=== PATIENT | male | born 1950 | race Caucasian/White ===

== ENCOUNTER → 2017-10-15 08:50 | Outpatient (CLI) | payer MEDICARE, MEDICAID, SELFPAY ==
--- NOTE | 2017-10-15 13:38 | PFT ---
INTRODUCTION: The patient is a 66-year-old male currently under the care of Dr. Garcia that presents for pulmonary function testing secondary to a diagnosis of COPD. Respiratory therapy reports good patient effort and reports no other concerns. Bronchodilators were used during testing. INTERPRETATION: Forced expiration spirometry demonstrates the presence of a mild large airways obstructive ventilatory defect. There was no significant response to aerosolized bronchodilators, based upon strict ATS criteria. Spirograms are of good quality and do not plateau indicating slow emptying of the lungs. Body plethysmography was performed and reveals an elevated TLC, indicative of underlying hyperinflation. Diffusing capacity by single breath CO is mildly reduced at 61% of predicted. There has been stability in the patient's PFTs since they were last completed in December 2016. IMPRESSION: These pulmonary function studies demonstrate the presence of an irreversible mild large airways obstructive ventilatory defect with associated hyperinflation and reduction in diffusing capacity. PFTs have remained stable since December 2016.
== END ==
PROVIDERS: Family Provider Family Medicine; PCP Family Medicine; Visit Provider Internal Medicine Critical Care Medicine
DX: J44.9 Chronic obstructive pulmonary disease, unspecified (principal); J45.40 Moderate persistent asthma, uncomplicated
CPT/HCPCS: 94060; 94726; 94729

== ENCOUNTER → 2017-11-06 10:45 | Outpatient (CLI) | payer MEDICARE, MEDICAID, SELFPAY ==
[2017-11-06 12:04] VITALS: PULSE 69; PULSE 71; PULSE 72; PULSE 74; PULSE 81; PULSE 87; O2SAT 90; O2SAT 91; O2SAT 92; O2SAT 93; O2SAT 95
--- NOTE | 2017-11-07 07:19 | WT_ITS ---
PSN 6 Minute Walk Test - 6 Minute Walk Test 6 Minute Walk Test: 6 Minute Walk Test PSN:6-Minute Walk Test Start: 11/06/17 12: 03 Freq: Status: Active Protocol: RESP.6MINW Document 11/06/17 12:04 HERIBERTO (Rec: 11/06/17 12:08 HERIBERTO [id number]) 6 Minute Walk Test Date Performed 11/06/17 Time Performed 11:10 Height 6 ft Weight: 119.295 kg Weight in Pounds 263.[address]: Bandar Garcia Assistive device used: None Pre-test Oxygen Delivery Method Room Air Pulse Ox (%) 93 Pulse Rate (60-100 beats/min) 71 Dyspnea Rahul Scale (0-10) 0 Exertion Rahul Scale (6-20) 6 1st minute Oxygen Delivery Method Room Air Pulse Ox (%) 95 Pulse Rate (60-100 beats/min) 71 2nd minute Oxygen Delivery Method Room Air Pulse Ox (%) 92 Pulse Rate (60-100 beats/min) 72 3rd minute Oxygen Delivery Method Room Air Pulse Ox (%) 91 Pulse Rate (60-100 beats/min) 74 4th minute Oxygen Delivery Method Room Air Pulse Ox (%) 91 Pulse Rate (60-100 beats/min) 81 5th minute Oxygen Delivery Method Room Air Pulse Ox (%) 90 Pulse Rate (60-100 beats/min) 87 6th minute Oxygen Delivery Method Room Air Pulse Ox (%) 92 Pulse Rate (60-100 beats/min) 87 Dyspnea Rahul Scale (0-10) 0.5 Exertion Rahul Scale (6-20) 12 Post-test Oxygen Delivery Method Room Air Pulse Ox (%) 93 Pulse Rate (60-100 beats/min) 69 Full Laps Walked 16 Partial Lap, Number of Tiles Walked 0 Total Distance Walked (ft) 944 - Interpretation Interpretation: The patient was able to ambulate only 944 feet over the course of 6 minutes on room air with no assistive devices or breaks. The patient did have significant desaturation as low as 90%, but no tachycardia was noted. These findings are consistent with a respiratory limitation to exercise tolerance. - Recommendations Recommendations: No supplemental oxygen is indicated at this time. However, patient will need to be followed closely given level of desaturation.
== END ==
PROVIDERS: Family Provider Family Medicine; PCP Family Medicine; Visit Provider Nurse Practitioner Acute Care
DX: J96.11 Chronic respiratory failure with hypoxia (principal)
CPT/HCPCS: 94618

== ENCOUNTER → 2018-06-22 09:49 | Outpatient (CLI) | payer MEDICARE, MEDICAID, SELFPAY ==
--- NOTE | 2018-06-22 10:00 | RAD_ITS ---
STUDY: X-RAY - THORACIC SPINE REASON FOR EXAM: Male, 67 years old. Chronic back pain. TECHNIQUE: 5 view(s) of the thoracic spine were obtained. COMPARISON: None. FINDINGS: There is generalized osteopenia. There are postsurgical changes of the lower cervical spine. There is increased kyphosis. There is no substantial scoliosis. Normal thoracic vertebrae and endplates. There is multilevel intervertebral disc space narrowing with osteophyte formation and right paravertebral ossification. There is substantial linear atelectasis/scarring at both bases with cardiomegaly. RAD/Thoracic Spine 3 Views IMPRESSION: Osteopenia with diffuse thoracic spondylosis. No acute abnormality is identified. Electronically Signed: Tex Hobson MD at 14:20 EDT , Service support ,
--- NOTE | 2018-06-22 10:15 | RAD_ITS ---
STUDY: X-RAY - CERVICAL SPINE REASON FOR EXAM: Male, 67 years old. Neck pain. TECHNIQUE: 4 view(s) of the cervical spine were obtained. COMPARISON: October 18, 2016 FINDINGS: There is stable generalized osteopenia. Normal anterior atlantoaxial articulation. Normal odontoid process. Normal cervical lordosis. Anterior and posterior fusion of the cervical spine from C2 to C6 posteriorly and C3-C6 anteriorly is stable. There is fusion of the intervertebral disc spaces at C3-4, C4-5 and C5-6. There is stable moderate intervertebral disc space narrowing at C6-7. There is anterior bony neural foraminal encroachment bilaterally at C6-7. The soft tissue structures are unremarkable. RAD/Cerv Spine 4 or 5 Views IMPRESSION: Post surgical changes with disc degeneration at C6-7. See discussion above. Electronically Signed: Tex Hobson MD at 14:22 EDT , Service support ,
== END ==
PROVIDERS: Family Provider Family Medicine; PCP Family Medicine
DX: G89.4 Chronic pain syndrome (principal)
CPT/HCPCS: 72050; 72072

== ENCOUNTER 2018-07-26 10:46 | Day surgery (SDC) | payer MEDICARE, MEDICAID, SELFPAY ==
[2018-07-26 11:09] VITALS: BP 140/76; PULSE 61; RESP 16; TEMP 36.7; O2SAT 93; BMI 35.5
--- NOTE | 2018-07-26 12:00 | COLBX_PTH ---
PATIENT: NURIA SHARPE LOC: EN U#:[id number] AGE/SX: 67/M ROOM: RE07/26/[address]: Dr. Nuria Hoyt MD : 1950 BED: DIS: 07/26/2018 SPEC #: [id number] RECD: 07/26/18 15:13 STATUS: ANNIE DI #: [id number] KOJO: 07/26/18 12:[address]: Nuria Hoyt DEPT: SURGICAL PATHOLOGY RECD BY: Sergio Lutz ENTERED: 07/27/18 10:18 SP TYPE: COLON BX OTHR DR: Dr. Oracio Mercado MD Tissues: COLON BIOPSY Procedures: Surgery Specimen Level IV HEADER OPERATION: Colonoscopy (MAC) PRE-OP DIAGNOSIS: History of colon polyps TISSUE SUBMITTED: Proximal transverse colon polyps MICROSCOPIC DIAGNOSIS Proximal transverse colon polyp, biopsy: Fragments of tubular adenoma. Fecal debris. AM:robina 07/28/18 MICROSCOPIC DESCRIPTION Slides are reviewed. GROSS DESCRIPTION Received is one container labeled with the patient name and designated proximal transverse colon polyp. The specimen consists of multiple irregular fragments of light giles pink soft tissue with fecal material that in aggregate measure 1 x 1 x 0.2 cm. The specimen is totally submitted in one cassette. / SJ:sp 07/27/18 TC: 5 CPT: 16276
--- NOTE | 2018-07-26 12:14 | PCM.HP.BLA ---
History and Physical Date of Admission: 07/26/18 HISTORY AND PHYSICAL ? George Dewitt 1950 ? REFERRING PHYSICIAN: ??Oracio Mercado MD ? CHIEF COMPLAINT: ??colon consult ? HPI: The patient is a 67 year old male referred for endoscopy. ?George notes a personal history of colonic polyps and is due for surveillance colonoscopy, last was in [address] Hernández with adenomatous polyps removed at that time. ?Patient?denies any change in bowel habits, weight changes, blood in stools, black tarry stools or abdominal pain. ?Denies family history of colon cancer. ?The patient ?notes no upper GI complaints currently. ? Past medical history significant for COPD, obstructive sleep apnea, spinal stenosis, depression and anxiety. ?He follows with Dr. Mercado for his chronic medical conditions and also follows with pain management. ?He denies any chest pain or recent hospitalizations. ?He denies problems with sedation in the past. ? ? PAST MEDICAL HISTORY PAST MEDICAL HISTORY Diagnosis Date ? Acute gastritis without mention of hemorrhage ? ? Benign neoplasm of colon ? ? Carcinoma in situ of colon 09/02/2006 ? Colon polyps ? Central sleep apnea in conditions classified elsewhere(327.27) 10/20/2007 ? Mixed Central and obstructive sleep apnea. ? Cocaine abuse, unspecified 05/05/2008 ? STEPS Program. ? ? COPD (chronic obstructive pulmonary disease) (HCC) ? ? abnormal CT 2011 ? Depression ? ? Dysphagia ? ? Essential hypertension, benign 09/02/2006 ? Hypertrophy of prostate with urinary obstruction and other lower urinary tract symptoms (LUTS) 09/02/2006 ? Insomnia 08/18/2013 ? Other diseases of lung, not elsewhere classified ? ? HILAR ADENOPATHY ? Other emphysema (HCC) ? ? Emphysema ? Peripheral neuropathy 2010 ? Unspecified vitamin D deficiency 09/10/2006 ? ? PAST SURGICAL HISTORY PAST SURGICAL HISTORY Procedure Laterality Date ? APPENDECTOMY ? ? ? COLONOSCOP W/ OR W/O BRSH SPEC ? 07/21/2006 ? Colonoscopy ? COLONOSCOP W/ OR W/O BRSH SPEC ? 09/22/2008 ? Colonoscopy ? COLONOSCOP W/ OR W/O BRSH SPEC ? 04/13/2014 ? Colonoscopy ? COLONOSCOP W/ OR W/O BRSH SPEC ? 07/17/14 ? Colonoscopy ?incomplete ? COLONOSCOP W/ OR W/O BRSH SPEC ? 07/19/14 ? Colonoscopy ? EGD W/O [facility] SPECIMEN W/BX ? 10/20/06 ? OP BRONCHOS DIAG, W/WO WASHING ? ? Bronchoscopy ? OPEN RX ANKLE DISLOCATN+FIXATN ? ? ? ORIF Ankle rt ? PAST SURGICAL HISTORY OF ? ? ? Left hand surgery ? PAST SURGICAL HISTORY OF ? 05/12/2007 ? Prostate vaporization ? PAST SURGICAL HISTORY OF ? 05/06/2016 ? Right eye, [place] lid replacement ? PAST SURGICAL HISTORY OF Right 02/10/2017 ? correction fo ptosis-Dr. Rollins ? ? CURRENT MEDICATIONS ? Current Outpatient Prescriptions: zolpidem (AMBIEN) 10 mg tab TAKE 1 TABLET BY MOUTH AT BEDTIME NEEDED clonazePAM (KLONOPIN) 1 mg tablet TAKE 1 TABLET TWICE DAILY NEEDED mirtazapine (REMERON) 45 mg tablet Take 1 tablet by mouth daily at bedtime. potassium chloride (K-TAB) 10 mEq tablet Take 2 tablets by mouth once daily. hydroCHLOROthiazide (HYDRODIURIL, ESIDRIX) 25 mg tablet Take 1 tablet by mouth once daily. omeprazole (PRILOSEC) 20 mg capsule Take 1 capsule by mouth once daily. atenolol (TENORMIN) 50 mg tablet Take 1 tablet by mouth once daily. gabapentin (NEURONTIN) 800 mg tablet Take 1 tablet by mouth three times daily. HYDROmorphone (DILAUDID) 4 mg tablet 1 tab TID or as needed methadone (DOLOPHINE) 10 mg tablet Take 10 mg in AM and at noon, take 20 mg at night albuterol HFA (PROAIR HFA) 90 mcg/actuation inhaler Inhale 2 Puffs as instructed every 6 hours as needed. ipratropium (ATROVENT) 0.02 % nebulizer solution Use 2.5 mL via nebulizer four times daily as needed for Wheezing/Shortness of Breath. Use over 5-15minutes. polyethylene glycol 3350 (MIRALAX) 17 gram/dose powder Use as directed for constipation COMPOUNDED PRESCRIPTION BiPap supplies: tubing and mask for replacement. DX: G47.37 tiZANidine (ZANAFLEX) 4 mg tablet Take 1 tablet by mouth every 8 hours as needed (muscle spasms). fluticasone-salmeterol (ADVAIR DISKUS) 250-50 mcg/dose dsdv Inhale 1 Puff as instructed twice daily. RINSE AND GARGLE MOUTH WITH WATER AFTER EACH USE. albuterol 2.5 mg /3 mL (0.083 %) INHALATION nebulizer solution Use 3 mL via nebulizer every 4 hours as needed for Wheezing/Shortness of Breath. Use over 5-15minutes.4 times daily COMPOUNDED PRESCRIPTION ASV setting of 10/6/15 cm of water with heated humidification, Mask (per patient preference) and lifetime supplies ?DX: PHIL 327.23, Central sleep apnea syndrome 327.21 SENNOSIDES 8.6 MG TAB take 2 tablets twice daily as needed for constipation per Dr Loco ? No current facility-administered medications for this visit. ? ALLERGIES: Soma [Carisoprodol]; Lyrica [Pregabalin]; Metoclopramide ? PERSONAL HISTORY: SOCIAL HISTORY Social History ??Marital status: ?Spouse name: Milana Jerome ?Years of education: ?Number of children: 2 ? Social History Main Topics ??Smoking status: Former Smoker ?Packs/day: 1.00 ?Years: 30.00 ?Types: Cigarettes ?Quit date: 09/14/2012 ??Smokeless tobacco: Never Used ?Alcohol use: Yes ?Comment: Very little for 2-3 years ??Drug use: No ?Comment: Snorting 04/2008 Other Topics ?Concern BLOOD TRANSFUSIONS ?No ? ? FAMILY HISTORY: FAMILY HISTORY FAMILY HISTORY Problem Relation Age of Onset ? Cancer Father ?lung cancer ? Cancer Brother ?lung cancer ? Coronary Artery Disease Mother ? ? Hypertension Mother ? ? REVIEW OF SYMPTOMS: ??The review of systems data was entered by the nurse and reviewed by me ? Nursing Notes: Gladys Mercado LPN ?05/10/2018 ?8:29 AM ?Signed REVIEW OF SYSTEMS: ?General:???The patient denies fatigue, denies weight loss, denies weight gain, denies feeling hot, and denies feelings of cold. ?Eyes: ?The patient denies glaucoma, denies eye injury/surgery, wears glasses or contacts. ?Ear/Nose/Throat: ?The patient denies allergies, denies hayfever, denies ear infections, and denies bloody noses. ?Cardiovascular: ?The patient denies chest pain, denies heart disease, NOTES high blood pressure,denies cardiac stent, denies prior heart attack, denies irregular heart beat, denies high cholesterol, ?denies poor circulation, denies heart failure, other cardiac issues, denies claudication, NOTES cold feet, denies peripheral arterial stent. ?Respiratory: ?The patient denies tuberculosis, denies pneumonia, denies frequent cough, denies pulmonary embolism, NOTES shortness of breath, and denies coughing up blood. ?Gastrointestinal: ?The patient denies difficulty swallowing, denies acid reflux, denies ulcers, denies vomiting, denies jaundice/hepatitis, denies gallbladder problems, denies black or tarry stools, denies hemorrhoids, denies bleeding from rectum, denies diverticulitis, denies constipation, denies diarrhea, denies loss of stool control, and denies hernias. ?Kidney/Bladder: ?The patient denies kidney stones, denies urine infections, and denies bloody urine. ?Skin: ?The patient denies a history of skin cancer, denies bleeding/changing moles, and denies a history of skin rash. ?Neurologic: ?The patient denies a history of epilepsy/convulsions, denies headaches, denies head/spinal injuries, and denies stroke/TIA. ?Psychiatric: ?The patient denies psychiatric medications, denies depression, and denies voices, denies substance abuse. ?Endocrine: ?The patient denies thyroid disorders, denies diabetes, and denies hormonal problems. ?Hematologic: ?The patient denies a history of bruising, denies bleeding, and denies anemia, denies blood clots. ?Infections: ?The patient denies a history of measles and mumps, denies rheumatic fever, and denies sexually transmitted diseases. ?Musculoskeletal: ?The patient denies back pain/injury, denies back problems, denies sciatica, denies knee/foot trouble, denies arthritis, or denies gout. ? ? When was patient's last Mammogram screening? N/A ? ?Last Colonoscopy: ?07/2014 Hernández ? Gladys Mercado LPN? I have confirmed and edited as necessary, the PFSH and ROS obtained by others. ? ? PHYSICAL EXAMINATION: ? General: ?The patient is 67 year old male, well nourished, well hydrated in no acute distress. ?The patient is oriented to time, place, and person. ? VITALS: Blood pressure 162/88, pulse 60, weight 118.8 kg (262 lb).?Body mass index is 35.53 kg/m?.? ? HEENT: ?Normal cephalic, ataumatic, pupils are equally round, sclera are anicteric, mucous membranes are moist, oropharynx is clear. ?Neck has no masses, asymmetry or lymphadenopathy. ? ? Respiratory: ?Clear to auscultation and percussion. ?Normal respiratory excursion and pattern. ? Cardiac: ?Examination is regular rate and rhythm. ? Abdominal exam: ?Soft, nontender, ?with no palpable masses. ?No hepatosplenomegaly. ?No palpable hernias. ? Rectal exam: exam deferred ? Extremities: ?no clubbing, cyanosis or edema. ?No adenopathy. ? Other: ? LABORATORY VALUES: As Noted ? RADIOLOGIC STUDIES: ?As Noted ? Assessment ? IMPRESSION: encounter for surveillance colonoscopy, history of colon polyps ? PLAN: ?We will plan for colonoscopy. ??We discussed the risks and benefits of the planned endoscopy. ?I have informed the patient that complications can occur including failure to complete the endoscopy and perforation. ?The patient had the opportunity to ask questions concerning the planned endoscopy. ?My staff has also explained the procedure to the patient in understandable terms and has given the patient printed material concerning the procedure. ?The patient freely consents to surgery. ? I plan to use golytely bowel preparation for endoscopy ? The patient takes prescription medications which I feel decrease the chance of successful sedation. ?I therefore plan for monitored anesthetic care. ? Diagnoses: (Z12.11) Encounter for screening for malignant neoplasm of colon ?(primary encounter diagnosis) (Z86.010) History of colonic polyps ? My findings have been communicated to Dr. Mercado?via shared medical record. ?This note will be forwarded to Dr. Oracio Mercado MD. ?? Return to Clinic: The patient is instructed to follow-up with me 1 week post operatively. ? Aide Garcia PA-C
[2018-07-26 12:54] VITALS: BP 140/76; BP 92/60; PULSE 65; RESP 16; TEMP 36.7; O2SAT 94
--- NOTE | 2018-07-26 12:55 | OP.ENDO_ITS ---
Patient Name: George Dewitt Procedure Date: 07/26/2018 11:43 AM Date of : 1950 Age: 67 Procedure: Colonoscopy Indications: High risk colon cancer surveillance: Personal history of colonic polyps Providers: George Hoyt MD Medicines: Monitored Anesthesia Care Patient Profile: This is a 67 year old male. Refer to note in patient chart for documentation of history and physical. Last Colonoscopy: more than 3 years ago. Complications: No immediate complications. Procedure: Pre-Anesthesia Assessment: - Prior to the procedure, a History and Physical was performed, and patient medications and allergies were reviewed. The patient is competent. The risks and benefits of the procedure and the sedation options and risks were discussed with the patient. All questions were answered and informed consent was obtained. Patient identification and proposed procedure were verified by the physician, the nurse and the physician credentialing specialist in the procedure room. Mental Status Examination: alert and oriented. Airway Examination: normal oropharyngeal airway and neck mobility. Respiratory Examination: clear to auscultation. CV Examination: normal. Prophylactic Antibiotics: The patient does not require prophylactic antibiotics. Prior Anticoagulants: The patient has taken no previous anticoagulant or antiplatelet agents. ASA Grade Assessment: II - A patient with mild systemic disease. After reviewing the risks and benefits, the patient was deemed in satisfactory condition to undergo the procedure. The anesthesia plan was to use monitored anesthesia care (MAC). Immediately prior to administration of medications, the patient was re-assessed for adequacy to receive sedatives. The heart rate, respiratory rate, oxygen saturations, blood pressure, adequacy of pulmonary ventilation, and response to care were monitored throughout the procedure. The physical status of the patient was re-assessed after the procedure. After I obtained informed consent, the scope was passed under direct vision. Throughout the procedure, the patient's blood pressure, pulse, and oxygen saturations were monitored continuously. The pediatric colonoscope was introduced through the anus and advanced to the cecum, identified by the appendiceal orifice, ileocecal valve and palpation. The colonoscopy was performed without difficulty. The patient tolerated the procedure well. The quality of the bowel preparation was good. Scope In: 12:28:06 PM Scope Withdrawal Time 0 hours 6 minutes 37 seconds Scope Out: 12:48:07 PM Total Procedure Duration Time 0 hours 20 minutes 1 second Findings: The perianal and digital rectal examinations were normal. Two sessile polyps were found in the proximal transverse colon. The polyps were medium in size. These polyps were removed with a hot snare. Resection and retrieval were complete. The exam was otherwise without abnormality. The retroflexed view of the distal rectum and anal verge was normal and showed no anal or rectal abnormalities. Impression: - Two medium polyps in the proximal transverse colon, removed with a hot snare. Resected and retrieved. - The examination was otherwise normal. - The distal rectum and anal verge are normal on retroflexion view. Recommendation: - Discharge patient to home. - Resume previous diet. - Continue present medications. - Telephone physician medicine assistant for pathology results in 1 week. - Repeat colonoscopy. Procedure Code(s): --- Professional --- 18393, Colonoscopy, flexible; with removal of tumor(s), polyp(s), or other lesion(s) by snare technique CPT copyright 2017 [employer]. All rights reserved. The codes documented in this report are preliminary and upon cottrell blower review may be revised to meet current compliance requirements. George Hoyt MD 07/26/2018 12:55:07 PM This report has been signed electronically. Number of Addenda: 0 Note Initiated On: 07/26/2018 11:43 AM
[2018-07-26 13:00] VITALS: BP 106/69; BP 140/76; PULSE 60; RESP 16; O2SAT 93
[2018-07-26 13:05] VITALS: BP 108/69; BP 140/76; PULSE 58; RESP 16; O2SAT 93
[2018-07-26 13:10] VITALS: BP 112/72; BP 140/76; PULSE 58; RESP 16; TEMP 36.7; O2SAT 93
== END 2018-07-26 13:42 | disposition home or self-care (01) ==
LOC: EN 10:47 → AC 10:48
PROVIDERS: Family Provider Family Medicine; PCP Family Medicine; Referring Provider Surgery; Visit Provider Surgery
PROC: 0DJD8ZZ Inspection of Lower Intestinal Tract, Via Natural or Artificial Opening Endoscopic (ICD-10-PCS; CPT 45378; principal; 2018-07-26 11:55)
DX: Z12.11 Encounter for screening for malignant neoplasm of colon (principal); D12.3 Benign neoplasm of transverse colon; Z86.010 Personal history of colon polyps; J44.9 Chronic obstructive pulmonary disease, unspecified; G47.33 Obstructive sleep apnea (adult) (pediatric); M48.00 Spinal stenosis, site unspecified; F32.9 Major depressive disorder, single episode, unspecified; F41.9 Anxiety disorder, unspecified; I10 Essential (primary) hypertension; K21.9 Gastro-esophageal reflux disease without esophagitis; G62.9 Polyneuropathy, unspecified; Z87.19 Personal history of other diseases of the digestive system; Z79.899 Other long term (current) drug therapy; Z87.891 Personal history of nicotine dependence
CPT/HCPCS: 45385; 88305; J7120; J2405

== ENCOUNTER 2018-08-26 09:25 | Emergency (ER) | payer MEDICARE, MEDICAID, SELFPAY ==
[2018-08-04 11:14] VITALS: BMI 35.4
[2018-08-26 09:27] VITALS: BP 119/71; PULSE 60; RESP 16; TEMP 36.2; O2SAT 93; BMI 36.1
--- NOTE | 2018-08-26 09:57 | ED.VIS.GEN ---
History of Present Illness Chief Complaint: Rash Informant: Patient, Family Onset: Month(s) - 1-2 Context: Gradual Onset Timing: Continuous Quality: itching, burning Location: axillae, groins Current Severity: Moderate Maximum Severity: Moderate Worsened by: palpation Relieved by: steroids partially/temporarily Associated Symptoms: no systemic sx Narrative: Saw his doctor and received some steroids for this rash and referral to dermatology, which is next month. He feels like it is getting worse, it is now burning. Mostly in his armpits, also in his groins and some other patches on his right thigh and his left abdominal/trunk. No systemic symptoms. No obvious explanation for the symptoms or topicals in these areas, etc. - Past Medical History (1) CKD stage III Status: Chronic (2) COPD (chronic obstructive pulmonary disease) Status: Chronic (3) Chronic pain Status: Chronic (4) Depression Status: Chronic (5) HTN (hypertension) Status: Chronic (6) PHIL (obstructive sleep apnea) Status: Chronic Past Medical History - Allergies and Home Meds Allergies/Adverse Reactions: Allergies carisoprodol [From Soma] Allergy (Verified 08/26/18 09:35) Other metoclopramide HCl [From Reglan] Adverse Reaction (Verified 08/26/18 09:35) Upset Stomach pregabalin [From Lyrica] Adverse Reaction (Verified 08/26/18 09:35) Upset Stomach Primary Care Physician: 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, your [Other] (as scheduled) Oracio Mercado MD [Primary Care Provider] - Surgical History: - - neck surgery in oct, Lives: Spouse/ Significant Other Smoking Status: Former smoker - Family History Maternal Family History: Family History (Last Reviewed 08/04/18 @ 11:46 by DINORA De Luna) Father Lung disease Cancer Brother Cancer Family History: Reports: No pertinent history Paternal Family History: Family History (Last Reviewed 08/04/18 @ 11:46 by DINORA De Luna) Father Lung disease Cancer Brother Cancer Family History: Reports: Cancer - Lung, COPD Sibling Family History: Family History (Last Reviewed 08/04/18 @ 11:46 by DINORA De Luna) Father Lung disease Cancer Brother Cancer Family History: Reports: Cancer - 2 brothers from lung cancer Review of Systems General: Denies: Chills, Fever Cardiovascular: Denies: Chest pain Respiratory: Denies: Dyspnea Skin: Reports: Rash - mostly pruritic, also burning in axillae. Denies: Abscess Allergy: Denies: Swelling of the mouth, Swelling of the tongue Physical Exam Vital Signs/Narrative: Vital Signs Temp Pulse Resp BP Pulse Ox 08/26/18 09:27 97.1 F L 60 16 119/71 93 Inital Vital Signs reviewed: Yes General: Well nourished, Well developed, Obese, - - well-appearing, nad Head: Normocephalic, Atraumatic Skin: Normal color, Rash - Intertriginous rash in both axilla and both inguinal areas. Also several nontender patches on the lateral proximal right thigh and the left lateral abdominal wall. In the axilla bilaterally, there is desquamation and significant erythema compared with other areas. These 2 areas are tender, but soft and without any abscess or other lesions. No bullae. No other areas of desquamation. No palpable axillary lymphadenopathy. Neurological: Alert, Oriented x3, Cranial nerves II-XII grossly intact, Normal Strength, Normal Sensation, Normal Gait Psychological: Normal affect Diagnostic/Tx/Re-eval - Medical Decision Making My suspicion is that this is intertrigo and his axilla they appear to be possibly secondarily infected. I think it would be reasonable to put him on miconazole topical cream as well as a course of Keflex to empirically treat his secondary infection. Advised to follow-up with dermatology as scheduled. He is comfortable with that plan. 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
--- OUTSIDE RECORDS SUMMARY | 2018-10-12 04:45 | XMS RPT_ITS ---
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 via nebulizer every * * COMPOUNDED PRESCRIPTION ASV setting of 10/6/15 cm of * * SENNOSIDES 8.6 MG TABLET take 2 tablets twice daily as* Problem List As Of Date 08/23/2018 Noted Resolved MULTIPLE PULMONARY NODULES [J98.4] More... EMPHYSEMA NEC [J43.8] More... BENIGN HYPERTENSION [I10] INVALID FOR* COLON POLYPS [D01.0] INVALID FOR* More... BPH W URINARY OBS/LUTS [N40.1] INVALID FOR* VITAMIN D DEFICIENCY NOS [E55.9] INVALID FOR* TOBACCO USE DISORDER [F17.200] INVALID FOR* DYSPHAGIA [787.2] 06/15/2008 LUMBAGO [M54.5] INVALID FOR* Pain in joint, multiple sites [M25.50] INVALID FOR*06/11/2012 Central sleep apnea in conditions classified el*INVALID FOR* More... BLADDER NECK OBSTRUCTION [N32.0] INVALID FOR* Cocaine abuse, unspecified [F14.10] INVALID FOR*07/06/2012 More... ADHESIVE CAPSULIT SHLDER [M75.00] INVALID FOR* Benign neoplasm of colon [D12.6] INVALID FOR*11/10/2012 Dysmetabolic [E88.81] INVALID FOR* More... Hypogonadism male [E29.1] INVALID FOR* More... 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] INVALID FOR* PHIL (obstructive sleep apnea) [G47.33] INVALID FOR* Encounter Status:Closed by BETY DE LA FUENTE LPN on 08/23/18 PAULON Observed: 08/06/2018 Status: COMPLETED Source: [place] 12:00 AM [facility]IT[facility] NURIA DEWITT ([id number]) 1950 [facility] Date Time Provider Department 08/06/18 TANGELA SAAVEDRA [facility] During your visit today, we recorded the following information about you: Tae Bains RN 08/06/2018 10:13 AM Signed Mahsa reports patient had a colonoscopy on 07-26-18, and has only had a small BM 3-4 days ago. Taking senna: 2 ea morning, 2 ea noon, 2 ea evening, today took a dose of polyglycerin, having cramping, abdomen is hard and distended, passing gas and belching frequently. No pain. No vomiting. Drinking plenty of water. Takes several controlled medications that can cause constipation. Asking pcp to advise. Patient is not currently taking a stool softner. Drinking hot beverage, up and moving around, no rectal pain. Please advise. Tangela Saavedra MD 08/06/2018 10:29 AM Signed He may use miralax OCTCto get his bowels moving, and I would also recommend taking OTC colace for stool softener MD Milana Mandujano Ma 08/06/2018 10:30 AM Signed Patient spouse notified of results, verbalizes understanding of instructions. Milana Nice RN 08/06/2018 12:26 PM Signed Mahsa calls back to report patient obtained relief and finally moved his bowels today. 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 ZOLPIDEM 10 MG TABLET Take one tablet at bedtime. ATENOLOL 50 MG TABLET Take 1 tablet by mouth once d* MIRTAZAPINE 45 MG TABLET Take 1 tablet by mouth daily * POTASSIUM CHLORIDE ER 10 MEQ * Take 2 tablets by mouth once * OMEPRAZOLE 20 MG CAPSULE,KONSTANTIN* Take 1 capsule by mouth once * GABAPENTIN 800 MG TABLET Take 1 tablet by mouth three * HYDROMORPHONE 4 MG TABLET 1 tab TID or as needed METHADONE 10 MG TABLET Take 10 mg in AM and at noon,* ALBUTEROL SULFATE HFA 90 MCG/* Inhale 2 Puffs as instructed * IPRATROPIUM BROMIDE 0.02 % SO* Use 2.5 mL via nebulizer four* POLYETHYLENE GLYCOL 3350 17 G* Use as directed for constipat* COMPOUNDED PRESCRIPTION BiPap supplies: tubing and ma* TIZANIDINE 4 MG TABLET Take 1 tablet by mouth every * FLUTICASONE 250 MCG-SALMETERO* Inhale 1 Puff as instructed t* * ALBUTEROL SULFATE 2.5 MG/3 ML* Use 3 mL via nebulizer every * * COMPOUNDED PRESCRIPTION ASV setting of 10/6/15 cm of * * SENNOSIDES 8.6 MG TABLET take 2 tablets twice daily as* Problem List As Of Date 08/06/2018 Noted Resolved MULTIPLE PULMONARY NODULES [J98.4] More... EMPHYSEMA NEC [J43.8] More... BENIGN HYPERTENSION [I10] INVALID FOR* COLON POLYPS [D01.0] INVALID FOR* More... BPH W URINARY OBS/LUTS [N40.1] INVALID FOR* VITAMIN D DEFICIENCY NOS [E55.9] INVALID FOR* TOBACCO USE DISORDER [F17.200] INVALID FOR* DYSPHAGIA [787.2] 06/15/2008 LUMBAGO [M54.5] INVALID FOR* Pain in joint, multiple sites [M25.50] INVALID FOR*06/11/2012 Central sleep apnea in conditions classified el*INVALID FOR* More... BLADDER NECK OBSTRUCTION [N32.0] INVALID FOR* Cocaine abuse, unspecified [F14.10] INVALID FOR*07/06/2012 More... ADHESIVE CAPSULIT SHLDER [M75.00] INVALID FOR* Benign neoplasm of colon [D12.6] INVALID FOR*11/10/2012 Dysmetabolic [E88.81] INVALID FOR* More... Hypogonadism male [E29.1] INVALID FOR* More... 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 Stage 1 mild COPD by GOLD classification J44.9 Plan Does not appear to be an exacerbation of COPD today. No need for prednisone or antibiotic. Continue current maintenance medication. No additional testing at this time. Contact the office for any new or worsening symptoms. An acute visit and typically be arranged within 1-2 days. Follow-up in 1 year. Doubt that the rash is related to his COPD or asthma. Encourage the patient to contact wool classer for advice. 2. Chronic respiratory failure with hypoxia J96.11 Plan The patient is using and benefiting from oxygen. Continue to utilize to maintain a saturation of 89-92%. Follow-up in 12 months. 3. PHIL (obstructive sleep apnea) G47.33 Plan Noncompliant. 4. Mild intermittent asthma, unspecified whether complicated J45.20 Plan No signs of exacerbation of asthma today. No change in maintenance medications. No additional testing at this time. Contact the office with any signs of new or worsening symptoms. Follow-up in 1 year. Plan Detail Follow Up 1 Year (TEENA) HPI 6 M FU: Chief Complaint: Rash HPI Comments Details: This patient presents to the office today to follow-up on his mild COPD, mild asthma and hypoxia. He is ambulatory with the assistance of a cane, he is currently on room air and he is accompanied today by his . He has not been seen in the ED or urgent care for respiratory illnesses since his last office visit. He is not required any antibiotics or prednisone for any breathing problems. He continues to have shortness of breath on exertion only, this has not worsened. He has an occasional dry cough but denies any sputum production or hemoptysis. Occasionally, rarely, he is able to produce clear sputum with some elsy speckles. He is using Brio 2 times weekly. He does report rinsing his mouth out after each use. He denies any medication side effects such as sore throat or thrush. He is using improves once weekly. He is not currently on Dymista. Unfortunately, he is unable to tolerate Pap therapy and is only using supplemental oxygen with sleep. He does use supplemental oxygen as needed during the day when his oxygen saturations are below 89%. He does check his oxygen saturations occasionally with activity, at rest, in the morning and sometimes at night. He reports that he is currently being treated for a rash that is on his trunk and under both arms. He completed 14 days of antibiotics and prednisone prescribed by his primary care provider. The rash continues and is quite bothersome to him. 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: No Is patient in pain?: No Allergies carisoprodol [From Soma] Allergy (Verified 08/04/18 11:15) Other metoclopramide HCl [From Reglan] Adverse Reaction (Verified 08/04/18 11:15) Upset Stomach pregabalin [From Lyrica] Adverse Reaction (Verified 08/04/18 11:15) Upset Stomach Medications Atenolol [Tenormin] 25 mg PO DAILY 03/31/16 [History Confirmed 07/26/18] Clonazepam [Klonopin] 0.5 mg PO BID PRN 03/31/16 [History Confirmed 07/26/18] Duloxetine Hcl [Cymbalta] 60 mg PO DAILY 03/31/16 [History Confirmed 07/26/18] Hydrochlorothiazide [Hctz] 25 mg PO DAILY 03/31/16 [History Confirmed 07/26/18] Hydromorphone HCl [Dilaudid] 4 mg PO TID PRN 03/31/16 [History Confirmed 07/26/18] Methadone HCl 10 mg PO DAILY 03/31/16 [History Confirmed 07/26/18] Methadone HCl 10 mg PO LUNCH 03/31/16 [History Confirmed 07/26/18] Methadone HCl 20 mg PO QHS 03/31/16 [History Confirmed 07/26/18] Potassium Chloride [K-Dur] 10 meq PO BID 03/31/16 [History Confirmed 07/26/18] Sennosides/Docusate Sodium [Senna Plus Tablet] 2 ea PO BID 03/31/16 [History Confirmed 07/26/18] Tizanidine HCl [Zanaflex] 4 mg PO Q8H PRN 03/31/16 [History Confirmed 07/26/18] Zolpidem Tartrate [Ambien] 10 mg PO QHS PRN 03/31/16 [History Confirmed 07/26/18] Gabapentin [Neurontin] 800 mg PO TIDCM 04/18/16 [History Confirmed 07/26/18] Omeprazole [Prilosec] 20 mg PO DAILY 04/29/16 [History Confirmed 07/26/18] Dymista 1 spray NARES BID 02/06/17 [History Confirmed 07/26/18] Fluticasone/Vilanterol [Breo Ellipta 200-25 Mcg INH] 1 puff IH DAILY 02/06/17 [History Confirmed 07/26/18] Umeclidinium Burton Inhaler [Incruse Ellipta] 1 puff IH DAILY 02/06/17 [History Confirmed 07/26/18] Lamotrigine [Lamictal Odt] 250 mg PO DAILY 07/23/18 [History Confirmed 07/26/18] [facility] Medical History HTN (hypertension) (Chronic) Obesity (Chronic) CKD stage III (Chronic) PHIL (obstructive sleep apnea) (Chronic) Abnormal chest CT (Acute) Central sleep apnea (Chronic) COPD (chronic obstructive pulmonary disease) (Chronic) Asthma (Chronic) Curiel palsy (Chronic) Hemoptysis (Acute) Pneumonia (Acute) Depression (Chronic) Chronic pain (Chronic) Surgical History H/O neck surgery (Resolved) ankle surgery (Resolved) lower back surgery (Resolved) H/O colonoscopy (Resolved) Family History Father Lung disease Cancer lung Brother Cancer lung Social History Smoking Status: Former smoker how long ago did patient quit smokin, 2-3pk/day second hand exposure: Yes alcohol intake: never substance use type: does not use caffeine: Yes Type: coffee Number of servings: 3 what type of physical activity do you participate in: bicycling frequency: daily duration: 15-30 minutes/day Review of Systems Const CONSTITUTIONAL: Positive fatigue; negative anorexia, body ache, chills, daytime sleepiness, fever(s), night sweats, oral thrush, stops breathing during sleep, weight loss, sleeping in chair, weight loss, weight gain, frequent colds, seasonal allergies, other, orthopnea or headache(s) EETM Ear Nose Throat Mouth: Positive hearing normal and post nasal drip; negative hard of hearing, hoarseness, dry mouth in morning, change in vision, itchy eyes, eye pain, swallowing Difficulty, ear pain, nose bleed, headache(s), mouth pain, nasal congestion, nasal discharge, sinus pain, sinus pressure, sore throat or other Cardio Cardiovascular: Negative chest pain, chest pain at rest, chest pain with activity, irregular heart rhythm, edema, shortness of breath when lying down, palpitations, other or murmur Resp Respiratory: Positive as per HPI, shortness of breath shortness of breath: Positive with activity, cough cough: Positive productive color: Positive bloody and non-productive and inhalers; negative pain with cough, wheezing, chest congestion, chest tightness, pain on inspiration, increase use of rescue inhalers, snoring, apnea or other Gastro Gastrointestional: Negative bloody stools, change in appetite, difficulty swallowing, reflux, hematemesis, melena stool, loose stool, constipation or other Genitourinary: Negative blood in urine, nocturia, pain with urination or other Musc Musculoskeletal: Negative body pain, back pain, neck pain or other Skin/Breast Skin/Breast: Positive rash (spotty red rash scattered across trunk, bilateral arm pits); negative dry skin, itching, unusual bruising, breast lump or other Neuro Neurological: Negative restless legs, confusion, weakness or other Psych Psychocological: Negative abnormal sleep pattern, anxiety, thoughts of hurting self/others, hopelessness or other Lymph Lymphatic: Negative easy bleeding, easy bruising, other or swollen lymph nodes Exam Const Constitutional: Positive cooperative, in no acute respiratory distress, healthy appearing, well developed, well nourished, good hygiene, obese and conversant Head Head: Positive normocephalic and atraumatic; negative cyanosis of lips/distal nose Eyes Eye: Positive clear conjunctiva; negative nystagmus or scleral abnormality Ears Ear: Positive external ears normal and hearing normal; negative hard of hearing Nose Nose: Positive external nose normal and no nasal discharge; negative epistaxis Mouth Mouth: Positive oral mucosae normal, dentures, no lesions, crowded posterior oropharynx and post nasal drip; negative malodorous breath or oral thrush present Mallampati Score: IV: Mallampati Score Neck Neck: Positive normal visual inspection, full ROM and trachea midline; negative lymphadenopathy, JVD or tender Chest Wall Chest: Positive normal inspection of the chest and symmetric chest movement; negative increased A/P diameter Resp lung sounds: Positive clear to auscultation, good air exchange, normal expiratory time and normal respiratory effort; negative diminished, wheezes, rhonchi, rales, dullness to percussion or wheeze present on forced exhalation Cardio Cardiac: Positive regular rate, regular rhythm, S1 normal and S2 normal; negative murmur GI GI: Positive normal to inspection and obese; negative distended Genitourinary: Positive deferred Musc Musculoskeletal: Positive steady gait, ROM normal and using an assistive device for ambulation; negative kyphosis or scoliosis Skin Pulmonary Skin Exam: Positive rash (spotty red rash scattered across trunk, bilateral arm pits) Pulses Pulse: Yes pulses normal x4 extremities Extremities Extremities: Yes capillary refill normal, No clubbing, No cyanosis, No edema Neuro Neurologic: Yes conversant, Yes no focal neuro deficits, Yes normal concentration, Yes understands questions, Yes cooperative, Yes normal cognition, Yes normal coordination, No tremor Lymph Lymphatic: No lymphadenopathy, No tenderness, No cervical adenopathy Psych Appearance: Positive grossly normal, eye contact and well kempt Mental Status: Positive mental status grossly normal Mood: Positive congruent mood Affect: Positive normal affect Coding Level of Care Code Off vis,est,level 3 Diagnoses Stage 1 mild COPD by GOLD classification J44.9 Chronic respiratory failure with hypoxia J96.11 PHIL (obstructive sleep apnea) G47.33 Mild intermittent asthma, unspecified whether complicated J45.20 Asthma severity: mild Asthma persistence: intermittent Asthma complication type: unspecified 08/04/18 1154 <Electronically signed by Leslie FARIAS> Date Leslie FARIAS Cosigner Signature: Date (if applicable) CC: Tangela Saavedra MD PROGRESS Observed: 08/03/2018 Status: COMPLETED Source: [place] 8:55 PM [facility] REPOSITORY HNO ID: [id number] Author: Nuria Regalado Service: (none) Author Type: Physician Type: Progress Notes Filed: 08/03/2018 8:59 PM Note Text: OPERATIVE NOTATION FOR [facility] SURGICAL PROCEDURE. July 26, 2018 Nuria Dewitt 1950 [id number] male PROCEDURE: COLONOSCOPY WITH SNARE POLYPECTOMY- [id number] SURGEON: Nas Regalado M.D. 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 - Cocaine abuse, unspecified 05/05/2008 STEPS Program. - COPD (chronic obstructive pulmonary disease) (HCC) abnormal CT 2011 - Depression - Dysphagia - Essential hypertension, benign 09/02/2006 - Hypertrophy of prostate with urinary obstruction and other lower urinary tract symptoms (LUTS) 09/02/2006 - Insomnia 08/18/2013 - Other diseases of lung, not elsewhere classified HILAR ADENOPATHY - Other emphysema (HCC) Emphysema - Peripheral neuropathy 2010 - Unspecified vitamin D deficiency 09/10/2006 COMORBIDITIES - Chronic Pulmonary and COPD Post Op Occurrences - None Wound Classification - Clean Contaminated Operative note dictated in the [facility] dictation system. Nuria Regalado MD CNOV Observed: 08/02/2018 Status: COMPLETED Source: [place] 11:20 AM [facility] REPOSITORY Office Visit (FAMPWS) NURIA DEWITT ([id number]) 1950 [facility] Date Time Provider Department 08/02/18 11:20 AM KEN UMANZOR ([facility]) FAMPWS During your visit today, we recorded the following information about you: Temperature Pulse Blood pressure Weight 97.6 degrees 62/minute 167/81 118.8 kg Ken Umanzor APRN.PAULO 08/02/2018 12:58 PM Addendum Chief Complaint Patient presents with: Rash: x 2 weeks - all over -worse - HPI Nuria Dewitt is a 67 year old male who presents here today for Above Complaints. Patient presents to the office for skin evaluation. Has complaints of a rash. Present for approximately 2 weeks. Location is legs, torso, neck, face, axilla. Saw Dr. Saavedra on 07/20 and was prescribed terbinafine for 2 weeks. 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 At that time, the patient had stated that the rash was already present for 2 weeks. Patient did use [id number] fungal cream which did not improve his rash. States that the oral terbinafine did not improve his symptoms either. Complaints of pruritus are present. Denies any pain at the sites. No fevers or chills. No ill contacts. No recent travels. States that he will have episodes of sweating, but has been ongoing for many years. [id number] anti-itch cream from the pharmacy and use of showers or baths assist with relief. Past medical history, appointments, medications, allergies reviewed. 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 - Cocaine abuse, unspecified 05/05/2008 STEPS Program. - COPD (chronic obstructive pulmonary disease) (HCC) abnormal CT 2011 - Depression - Dysphagia - Essential hypertension, benign 09/02/2006 - Hypertrophy of prostate with urinary obstruction and other lower urinary tract symptoms (LUTS) 09/02/2006 - Insomnia 08/18/2013 - Other diseases of lung, not elsewhere classified HILAR ADENOPATHY - Other emphysema (HCC) Emphysema - Peripheral neuropathy 2010 - Unspecified vitamin D deficiency 09/10/2006 Previous Surgical History PAST SURGICAL HISTORY Procedure Laterality Date - APPENDECTOMY - COLONOSCOP W/ OR W/O [facility] SPEC 07/21/2006 Colonoscopy - COLONOSCOP W/ OR W/O [facility] SPEC 09/22/2008 Colonoscopy - COLONOSCOP W/ OR W/O [facility] SPEC 04/13/2014 Colonoscopy - COLONOSCOP W/ OR W/O [facility] SPEC 07/17/14 Colonoscopy incomplete - COLONOSCOP W/ OR W/O [facility] SPEC 07/19/14 Colonoscopy - EGD W/O [facility] SPECIMEN W/BX 10/20/06 - OP BRONCHOS DIAG, W/WO WASHING Bronchoscopy - OPEN RX ANKLE DISLOCATN+FIXATN ORIF Ankle rt - PAST SURGICAL HISTORY OF Left hand surgery - PAST SURGICAL HISTORY OF 05/12/2007 Prostate vaporization - PAST SURGICAL HISTORY OF 05/06/2016 Right eye, [place] lid replacement - PAST SURGICAL HISTORY OF Right 02/10/2017 correction fo ptosis-Dr. Rollins Family History FAMILY HISTORY Problem Relation Age of Onset - Cancer Father lung cancer - Coronary Artery Disease Mother - Hypertension Mother - Cancer Brother lung cancer Patient Allergies ALLERGIES Allergen Reactions - Soma [Carisoprodol] Other: See Comments Causes him to sleep to much - Lyrica [Pregabalin] GI Upset - Metoclopramide GI Upset Current Medications Current Outpatient Prescriptions on File Prior to Visit: terbinafine HCl (LAMISIL) 250 mg tablet Take 1 tablet by mouth once daily. hydroCHLOROthiazide (HYDRODIURIL, ESIDRIX) 25 mg tablet Take 1 tablet by mouth once daily. [START ON 08/09/2018] clonazePAM (KLONOPIN) 1 mg tablet Take one tablet twice a day. [START ON 08/09/2018] zolpidem (AMBIEN) 10 mg tab Take one tablet at bedtime. atenolol (TENORMIN) 50 mg tablet Take 1 tablet by mouth once daily. mirtazapine (REMERON) 45 mg tablet Take 1 tablet by mouth daily at bedtime. potassium chloride (K-TAB) 10 mEq tablet Take 2 tablets by mouth once daily. omeprazole (PRILOSEC) 20 mg capsule Take 1 capsule by mouth once daily. gabapentin (NEURONTIN) 800 mg tablet Take 1 tablet by mouth three times daily. HYDROmorphone (DILAUDID) 4 mg tablet 1 tab TID or as needed methadone (DOLOPHINE) 10 mg tablet Take 10 mg in AM and at noon, take 20 mg at night albuterol HFA (PROAIR HFA) 90 mcg/actuation inhaler Inhale 2 Puffs as instructed every 6 hours as needed. ipratropium (ATROVENT) 0.02 % nebulizer solution Use 2.5 mL via nebulizer four times daily as needed for Wheezing/Shortness of Breath. Use over 5-15minutes. polyethylene glycol 3350 (MIRALAX) 17 gram/dose powder Use as directed for constipation COMPOUNDED PRESCRIPTION BiPap supplies: tubing and mask for replacement. DX: G47.37 tiZANidine (ZANAFLEX) 4 mg tablet Take 1 tablet by mouth every 8 hours as needed (muscle spasms). fluticasone-salmeterol (ADVAIR DISKUS) 250-50 mcg/dose dsdv Inhale 1 Puff as instructed twice daily. RINSE AND GARGLE MOUTH WITH WATER AFTER EACH USE. albuterol 2.5 mg /3 mL (0.083 %) INHALATION nebulizer solution Use 3 mL via nebulizer every 4 hours as needed for Wheezing/Shortness of Breath. Use over 5-15minutes.4 times daily COMPOUNDED PRESCRIPTION ASV setting of 10/6/15 cm of water with heated humidification, Mask (per patient preference) and lifetime supplies DX: PHIL 327.23, Central sleep apnea syndrome 327.21 SENNOSIDES 8.6 MG TAB take 2 tablets twice daily as needed for constipation per Dr Loco No current facility-administered medications on file prior to visit. Social History Social History Marital status: Spouse name: Milana Jerome Years of education: Number of children: 2 Social History Main Topics Smoking status: Former Smoker Packs/day: 1.00 Years: 30.00 Types: Cigarettes Quit date: 09/14/2012 Smokeless tobacco: Never Used Alcohol use: Yes Comment: Very little for 2-3 years Drug use: No Comment: Snorting 04/2008 Other Topics Concern BLOOD TRANSFUSIONS No REVIEW OF SYSTEMS: as above ? Reviewed relevant PMHx, PSHx, Social Hx, current medications and allergies. EXAM: BP 167/81 Pulse 62 Temp 36.4 ?C (97.6 ?F) (Tympanic) Wt 118.8 kg (262 lb) BMI 35.53 kg/m? General Appearance: Well appearing, alert, in no acute distress, well-hydrated, well nourished.. Skin: patient has an erythematous rash present in the scalp bordering his hairline, some small erythematous rash formation above his left eyebrow around his chin. Patient also has a blotchy erythematous rash on the entire back mainly the lower portion that crosses the midline and is spread to the abdomen wall. Also has numerous circular nonraised erythematous lesions on his upper thighs. His bilateral axilla has a single solid red erythematous rash present. None of these rashes are painful. No drainage is present. Some scaling is present on some of the areas mainly the eyebrow, chin, upper thighs. Lungs: lungs clear to auscultation. No wheezing, rhonchi, rales. Heart: RRR without murmur, gallop, or rubs. No ectopy. Health Maintenance List DTAP,TDAP,TD(1 - Tdap) due on 03/20/2004 LUNG CANCER SCREENING due on 2004 ABDOMINAL AORTIC ANEURYSM SCREENING TOPIC due on 2014 LIPID SCREEN due on 10/14/2018 ANNUAL PCP TEAM CHRONIC DISEASE VISIT due on 07/20/2019 BP CONTROLLED (<130/80) due on 07/20/2019 DIABETES SCREEN due on 01/12/2021 COLORECTAL CANCER SCREENING,SEE MODIFIER due on 07/26/2021 PROSTATE CANCER SCREENING DISCUSSION Completed ADULT PREVNAR-13 Completed INFLUENZA Completed HEPATITIS C SCREENING Completed PNEUMOVAX AGE 65 AND OVER WITH 5YR LOOKBACK Completed Data reviewed Component Latest Ref Rng AND Units 01/12/2018 WBC 3.70 - 11.00 k/uL 8.39 RBC 4.20 - 6.00 m/uL 3.79 (L) Hemoglobin 13.0 - 17.0 g/dL 12.2 (L) Hematocrit 39.0 - 51.0 % 37.0 (L) MCV 80.0 - 100.0 fL 97.6 MCH 26.0 - 34.0 pG 32.2 MCHC 30.5 - 36.0 g/dL 33.0 RDW-CV 11.5 - 15.0 % 13.3 Platelet Count 150 - 400 k/uL 312 MPV 9.0 - 12.7 fL 9.0 Neut% % 46.7 Abs Neut (ANC) 1.45 - 7.50 k/uL 3.89 Lymph% % 41.5 Abs Lymph 1.00 - 4.00 k/uL 3.48 [place]% % 7.7 Abs [place] <0.87 k/uL 0.65 Eosin% % 3.3 Abs Eosin <0.46 k/uL 0.28 Baso% % 0.8 Abs Baso <0.11 k/uL 0.07 Nucleated Reds 0 /100 WBC 0.0 Absolute nRBC <0.01 k/uL <0.01 Diff Type Auto Diff Protein, Total 6.3 - 8.0 g/dL 7.7 Albumin 3.9 - 4.9 g/dL 4.2 Calcium 8.5 - 10.2 mg/dL 8.9 Bilirubin, Total 0.2 - 1.3 mg/dL 0.4 Alkaline Phosphatase 36 - 108 U/L 121 (H) AST 14 - 40 U/L 21 Glucose 74 - 99 mg/dL 80 BUN 9 - 24 mg/dL 13 Creatinine 0.73 - 1.22 mg/dL 1.43 (H) Sodium 136 - 144 mmol/L 139 Potassium 3.7 - 5.1 mmol/L 3.9 Chloride 97 - 105 mmol/L 98 CO2 22 - 30 mmol/L 29 Anion Gap 9 - 18 mmol/L 12 ALT 10 - 54 U/L 12 eGFR- 60 eGFR-All Other Races . 49 TSH 0.400 - 5.500 uU/mL 3.720 ASSESSMENT/PLAN: 1. Rash - ICD9: 782.1, ICD10: R21 (primary diagnosis) - unclear etiology, possibly pityriasis rosea. It did not respond to oral terbinafine or xgaq-cov-pjyhwkj antifungal cream. Symptoms actually got worse. We will start him on 12 days of prednisone, add famotidine and cetirizine. Have him see derm. - PREDNISONE 10 MG TABLET - FAMOTIDINE 20 MG TABLET - CETIRIZINE 10 MG TABLET 2. Rash of entire body - ICD9: 782.1, ICD10: R21 - see above. - CONSULT TO DERMATOLOGY F/u if not improving. discussed case and plan with Dr. Saavedra. Ken Umanzor APRN.PAULO Umanzor APRN.PAULO 08/02/2018 11:27 AM Signed [facility] [address] [facility] [address] [place] [address] Hours vary ? 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 Helper - Fully Assessed Reason for Visit: Rash [1087] Cmt: x 2 weeks - all over -worse - Primary Visit Diagnosis:Rash [R21] Other Visit Diagnosis:Rash of entire body [R21] Order(s):predniSONE (DELTASONE) 10 mg tabletTake 6 tabs for 3 days, then 4 tabs for 3 days, then 2 tabs for 3 days then 1 tab for 3 days with food.Disp: 39 tabletRfl: 0 famotidine (PEPCID) 20 mg tabletTake 1 tablet by mouth at bedtime as needed.Disp: 14 tabletRfl: 0 cetirizine (ZYRTEC) 10 mg tabletTake 1 tablet by mouth once daily.Disp: 14 tabletRfl: 0 CONSULT TO DERMATOLOGY [9006] Order #: [id number]: 1 Prescriptions as of 08/02/2018 Sig: HYDROCHLOROTHIAZIDE 25 MG TAB* Take 1 tablet by mouth once d* CLONAZEPAM 1 MG TABLET Take one tablet twice a day. ZOLPIDEM 10 MG TABLET Take one tablet at bedtime. ATENOLOL 50 MG TABLET Take 1 tablet by mouth once d* MIRTAZAPINE 45 MG TABLET Take 1 tablet by mouth daily * POTASSIUM CHLORIDE ER 10 MEQ * Take 2 tablets by mouth once * OMEPRAZOLE 20 MG CAPSULE,KONSTANTIN* Take 1 capsule by mouth once * GABAPENTIN 800 MG TABLET Take 1 tablet by mouth three * HYDROMORPHONE 4 MG TABLET 1 tab TID or as needed METHADONE 10 MG TABLET Take 10 mg in AM and at noon,* ALBUTEROL SULFATE HFA 90 MCG/* Inhale 2 Puffs as instructed * IPRATROPIUM BROMIDE 0.02 % SO* Use 2.5 mL via nebulizer four* POLYETHYLENE GLYCOL 3350 17 G* Use as directed for constipat* COMPOUNDED PRESCRIPTION BiPap supplies: tubing and ma* TIZANIDINE 4 MG TABLET Take 1 tablet by mouth every * FLUTICASONE 250 MCG-SALMETERO* Inhale 1 Puff as instructed t* * ALBUTEROL SULFATE 2.5 MG/3 ML* Use 3 mL via nebulizer every * * COMPOUNDED PRESCRIPTION ASV setting of 10/6/15 cm of * * SENNOSIDES 8.6 MG TABLET take 2 tablets twice daily as* PREDNISONE 10 MG TABLET Take 6 tabs for 3 days, then * FAMOTIDINE 20 MG TABLET Take 1 tablet by mouth at bed* CETIRIZINE 10 MG TABLET Take 1 tablet by mouth once d* Problem List As Of Date 08/02/2018 Noted Resolved MULTIPLE PULMONARY NODULES [J98.4] More... EMPHYSEMA NEC [J43.8] More... BENIGN HYPERTENSION [I10] INVALID FOR* COLON POLYPS [D01.0] INVALID FOR* More... BPH W URINARY OBS/LUTS [N40.1] INVALID FOR* VITAMIN D DEFICIENCY NOS [E55.9] INVALID FOR* TOBACCO USE DISORDER [F17.200] INVALID FOR* DYSPHAGIA [787.2] 06/15/2008 LUMBAGO [M54.5] INVALID FOR* Pain in joint, multiple sites [M25.50] INVALID FOR*06/11/2012 Central sleep apnea in conditions classified el*INVALID FOR* More... BLADDER NECK OBSTRUCTION [N32.0] INVALID FOR* Cocaine abuse, unspecified [F14.10] INVALID FOR*07/06/2012 More... ADHESIVE CAPSULIT SHLDER [M75.00] INVALID FOR* Benign neoplasm of colon [D12.6] INVALID FOR*11/10/2012 Dysmetabolic [E88.81] INVALID FOR* More... Hypogonadism male [E29.1] INVALID FOR* More... 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 call for assistance Prescriptions ordered this encounter Disp Refills Start End PREDNISONE 10 MG TABLET 39 t* 0 08/02/2018 08/14/2018 Sig: Take 6 tabs for 3 days, then 4 tabs for 3 days, then 2 tabs for 3 days then 1 tab for 3 days with food. FAMOTIDINE 20 MG TABLET 14 t* 0 08/02/2018 Route: ORAL Sig: Take 1 tablet by mouth at bedtime as needed. CETIRIZINE 10 MG TABLET 14 t* 0 08/02/2018 Route: ORAL Sig: Take 1 tablet by mouth once daily. Medications Discontinued During This Encounter terbinafine HCl (LAMISIL) 250 mg tab* 14 t* 0 07/20/2018 08/02/2018 Route: ORAL Sig: Take 1 tablet by mouth once daily. Disc: Course of therapy completed Disposition: Return if symptoms worsen or fail to improve. Follow-up and Disposition History Recorded Encounter Status:Closed by KEN UMANZOR CNP on 08/02/18 PROGRESS Observed: 08/02/2018 Status: COMPLETED Source: [place] 11:06 AM [facility] REPOSITORY HNO ID: [id number] Author: Ken Umanzor Service: (none) Author Type: Nurse Practitioner Type: Progress Notes Filed: 08/02/2018 12:58 PM Note Text: Chief Complaint Patient presents with: Rash: x 2 weeks - all over -worse - HPI Nuria Dewitt is a 67 year old male who presents here today for Above Complaints. Patient presents to the office for skin evaluation. Has complaints of a rash. Present for approximately 2 weeks. Location is legs, torso, neck, face, axilla. Saw Dr. Saavedra on 07/20 and was prescribed terbinafine for 2 weeks. 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 At that time, the patient had stated that the rash was already present for 2 weeks. Patient did use bqdv-rkx-vrcabbs fungal cream which did not improve his rash. States that the oral terbinafine did not improve his symptoms either. Complaints of pruritus are present. Denies any pain at the sites. No fevers or chills. No ill contacts. No recent travels. States that he will have episodes of sweating, but has been ongoing for many years. wgdm-fib-xlmwrlr anti-itch cream from the pharmacy and use of showers or baths assist with relief. Past medical history, appointments, medications, allergies reviewed. 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 - Cocaine abuse, unspecified 05/05/2008 STEPS Program. - COPD (chronic obstructive pulmonary disease) (HCC) abnormal CT 2011 - Depression - Dysphagia - Essential hypertension, benign 09/02/2006 - Hypertrophy of prostate with urinary obstruction and other lower urinary tract symptoms (LUTS) 09/02/2006 - Insomnia 08/18/2013 - Other diseases of lung, not elsewhere classified HILAR ADENOPATHY - Other emphysema (HCC) Emphysema - Peripheral neuropathy 2010 - Unspecified vitamin D deficiency 09/10/2006 Previous Surgical History PAST SURGICAL HISTORY Procedure Laterality Date - APPENDECTOMY - COLONOSCOP W/ OR W/O BRSH SPEC 07/21/2006 Colonoscopy - COLONOSCOP W/ OR W/O BRSH SPEC 09/22/2008 Colonoscopy - COLONOSCOP W/ OR W/O BRSH SPEC 04/13/2014 Colonoscopy - COLONOSCOP W/ OR W/O BRSH SPEC 07/17/14 Colonoscopy incomplete - COLONOSCOP W/ OR W/O BRSH SPEC 07/19/14 Colonoscopy - EGD W/O BRS SPECIMEN W/BX 10/20/06 - OP BRONCHOS DIAG, W/WO WASHING Bronchoscopy - OPEN RX ANKLE DISLOCATN+FIXATN ORIF Ankle rt - PAST SURGICAL HISTORY OF Left hand surgery - PAST SURGICAL HISTORY OF 05/12/2007 Prostate vaporization - PAST SURGICAL HISTORY OF 05/06/2016 Right eye, [place] lid replacement - PAST SURGICAL HISTORY OF Right 02/10/2017 correction fo ptosis-Dr. Rollins Family History FAMILY HISTORY Problem Relation Age of Onset - Cancer Father lung cancer - Coronary Artery Disease Mother - Hypertension Mother - Cancer Brother lung cancer Patient Allergies ALLERGIES Allergen Reactions - Soma [Carisoprodol] Other: See Comments Causes him to sleep to much - Lyrica [Pregabalin] GI Upset - Metoclopramide GI Upset Current Medications Current Outpatient Prescriptions on File Prior to Visit: terbinafine HCl (LAMISIL) 250 mg tablet Take 1 tablet by mouth once daily. hydroCHLOROthiazide (HYDRODIURIL, ESIDRIX) 25 mg tablet Take 1 tablet by mouth once daily. [START ON 08/09/2018] clonazePAM (KLONOPIN) 1 mg tablet Take one tablet twice a day. [START ON 08/09/2018] zolpidem (AMBIEN) 10 mg tab Take one tablet at bedtime. atenolol (TENORMIN) 50 mg tablet Take 1 tablet by mouth once daily. mirtazapine (REMERON) 45 mg tablet Take 1 tablet by mouth daily at bedtime. potassium chloride (K-TAB) 10 mEq tablet Take 2 tablets by mouth once daily. omeprazole (PRILOSEC) 20 mg capsule Take 1 capsule by mouth once daily. gabapentin (NEURONTIN) 800 mg tablet Take 1 tablet by mouth three times daily. HYDROmorphone (DILAUDID) 4 mg tablet 1 tab TID or as needed methadone (DOLOPHINE) 10 mg tablet Take 10 mg in AM and at noon, take 20 mg at night albuterol HFA (PROAIR HFA) 90 mcg/actuation inhaler Inhale 2 Puffs as instructed every 6 hours as needed. ipratropium (ATROVENT) 0.02 % nebulizer solution Use 2.5 mL via nebulizer four times daily as needed for Wheezing/Shortness of Breath. Use over 5-15minutes. polyethylene glycol 3350 (MIRALAX) 17 gram/dose powder Use as directed for constipation COMPOUNDED PRESCRIPTION BiPap supplies: tubing and mask for replacement. DX: G47.37 tiZANidine (ZANAFLEX) 4 mg tablet Take 1 tablet by mouth every 8 hours as needed (muscle spasms). fluticasone-salmeterol (ADVAIR DISKUS) 250-50 mcg/dose dsdv Inhale 1 Puff as instructed twice daily. RINSE AND GARGLE MOUTH WITH WATER AFTER EACH USE. albuterol 2.5 mg /3 mL (0.083 %) INHALATION nebulizer solution Use 3 mL via nebulizer every 4 hours as needed for Wheezing/Shortness of Breath. Use over 5-15minutes.4 times daily COMPOUNDED PRESCRIPTION ASV setting of 10/15 cm of water with heated humidification, Mask (per patient preference) and lifetime supplies DX: PHIL 327.23, Central sleep apnea syndrome 327.21 SENNOSIDES 8.6 MG TAB take 2 tablets twice daily as needed for constipation per Dr Loco No current facility-administered medications on file prior to visit. Social History Social History Marital status: Spouse name: Milana Jerome Years of education: Number of children: 2 Social History Main Topics Smoking status: Former Smoker Packs/day: 1.00 Years: 30.00 Types: Cigarettes Quit date: 09/14/2012 Smokeless tobacco: Never Used Alcohol use: Yes Comment: Very little for 2-3 years Drug use: No Comment: Snorting 04/2008 Other Topics Concern BLOOD TRANSFUSIONS No REVIEW OF SYSTEMS: as above ? Reviewed relevant PMHx, PSHx, Social Hx, current medications and allergies. EXAM: BP 167/81 Pulse 62 Temp 36.4 ?C (97.6 ?F) (Tympanic) Wt 118.8 kg (262 lb) BMI 35.53 kg/m? General Appearance: Well appearing, alert, in no acute distress, well-hydrated, well nourished.. Skin: patient has an erythematous rash present in the scalp bordering his hairline, some small erythematous rash formation above his left eyebrow around his chin. Patient also has a blotchy erythematous rash on the entire back mainly the lower portion that crosses the midline and is spread to the abdomen wall. Also has numerous circular nonraised erythematous lesions on his upper thighs. His bilateral axilla has a single solid red erythematous rash present. None of these rashes are painful. No drainage is present. Some scaling is present on some of the areas mainly the eyebrow, chin, upper thighs. Lungs: lungs clear to auscultation. No wheezing, rhonchi, rales. Heart: RRR without murmur, gallop, or rubs. No ectopy. Health Maintenance List DTAP,TDAP,TD(1 - Tdap) due on 03/20/2004 LUNG CANCER SCREENING due on 2004 ABDOMINAL AORTIC ANEURYSM SCREENING TOPIC due on 2014 LIPID SCREEN due on 10/14/2018 ANNUAL PCP TEAM CHRONIC DISEASE VISIT due on 07/20/2019 BP CONTROLLED (<130/80) due on 07/20/2019 DIABETES SCREEN due on 01/12/2021 COLORECTAL CANCER SCREENING,SEE MODIFIER due on 07/26/2021 PROSTATE CANCER SCREENING DISCUSSION Completed ADULT PREVNAR-13 Completed INFLUENZA Completed HEPATITIS C SCREENING Completed PNEUMOVAX AGE 65 AND OVER WITH 5YR LOOKBACK Completed Data reviewed Component Latest Ref Rng AND Units 01/12/2018 WBC 3.70 - 11.00 k/uL 8.39 RBC 4.20 - 6.00 m/uL 3.79 (L) Hemoglobin 13.0 - 17.0 g/dL 12.2 (L) Hematocrit 39.0 - 51.0 % 37.0 (L) MCV 80.0 - 100.0 fL 97.6 MCH 26.0 - 34.0 pG 32.2 MCHC 30.5 - 36.0 g/dL 33.0 RDW-CV 11.5 - 15.0 % 13.3 Platelet Count 150 - 400 k/uL 312 MPV 9.0 - 12.7 fL 9.0 Neut% % 46.7 Abs Neut (ANC) 1.45 - 7.50 k/uL 3.89 Lymph% % 41.5 Abs Lymph 1.00 - 4.00 k/uL 3.48 [place]% % 7.7 Abs [place] <0.87 k/uL 0.65 Eosin% % 3.3 Abs Eosin <0.46 k/uL 0.28 Baso% % 0.8 Abs Baso <0.11 k/uL 0.07 Nucleated Reds 0 /100 WBC 0.0 Absolute nRBC <0.01 k/uL <0.01 Diff Type Auto Diff Protein, Total 6.3 - 8.0 g/dL 7.7 Albumin 3.9 - 4.9 g/dL 4.2 Calcium 8.5 - 10.2 mg/dL 8.9 Bilirubin, Total 0.2 - 1.3 mg/dL 0.4 Alkaline Phosphatase 36 - 108 U/L 121 (H) AST 14 - 40 U/L 21 Glucose 74 - 99 mg/dL 80 BUN 9 - 24 mg/dL 13 Creatinine 0.73 - 1.22 mg/dL 1.43 (H) Sodium 136 - 144 mmol/L 139 Potassium 3.7 - 5.1 mmol/L 3.9 Chloride 97 - 105 mmol/L 98 CO2 22 - 30 mmol/L 29 Anion Gap 9 - 18 mmol/L 12 ALT 10 - 54 U/L 12 eGFR- 60 eGFR-All Other Races . 49 TSH 0.400 - 5.500 uU/mL 3.720 ASSESSMENT/PLAN: 1. Rash - ICD9: 782.1, ICD10: R21 (primary diagnosis) - unclear etiology, possibly pityriasis rosea. It did not respond to oral terbinafine or nqil-ywb-ilecsxh antifungal cream. Symptoms actually got worse. We will start him on 12 days of prednisone, add famotidine and cetirizine. Have him see derm. - PREDNISONE 10 MG TABLET - FAMOTIDINE 20 MG TABLET - CETIRIZINE 10 MG TABLET 2. Rash of entire body - ICD9: 782.1, ICD10: R21 - see above. - CONSULT TO DERMATOLOGY F/u if not improving. discussed case and plan with Dr. Saavedra. Ken Umanzor APRN.SECOND FLOOR OPERATOR OPERATIVE REPORT - Observed: 07/26/2018 Status: F Source: [facility] 12:55 PM [facility] REPOSITORY [facility] Medical Records Department [address] [place] [address] Operative Report - Endoscopy MR#: [id number] Acct: [id number] Name: NURIA DEWITT Rep #: [id number] : 1950 67 From: Nuria Regalado MD PCP: Tangela Saavedra MD Status: [facility] Patient Name: Nuria Dewitt Procedure Date: 07/26/2018 11:43 AM Date of : 1950 Age: 67 Procedure: Colonoscopy Indications: High risk colon cancer surveillance: Personal history of colonic polyps Providers: Nuria Regalado MD Medicines: Monitored Anesthesia Care Patient Profile: This is a 67 year old male. Refer to note in patient chart for documentation of history and physical. Last Colonoscopy: more than 3 years ago. Complications: No immediate complications. Procedure: Pre-Anesthesia Assessment: - Prior to the procedure, a History and Physical was performed, and patient medications and allergies were reviewed. The patient is competent. The risks and benefits of the procedure and the sedation options and risks were discussed with the patient. All questions were answered and informed consent was obtained. Patient identification and proposed procedure were verified by the physician, the nurse and the apparel trimmings sales representative in the procedure room. Mental Status Examination: alert and oriented. Airway Examination: normal oropharyngeal airway and neck mobility. Respiratory Examination: clear to auscultation. CV Examination: normal. Prophylactic Antibiotics: The patient does not require prophylactic antibiotics. Prior Anticoagulants: The patient has taken no previous anticoagulant or antiplatelet agents. ASA Grade Assessment: II - A patient with mild systemic disease. After reviewing the risks and benefits, the patient was deemed in satisfactory condition to undergo the procedure. The anesthesia plan was to use monitored anesthesia care (MAC). Immediately prior to administration of medications, the patient was re-assessed for adequacy to receive sedatives. The heart rate, respiratory rate, oxygen saturations, blood pressure, adequacy of pulmonary ventilation, and response to care were monitored throughout the procedure. The physical status of the patient was re-assessed after the procedure. After I obtained informed consent, the scope was passed under direct vision. Throughout the procedure, the patient's blood pressure, pulse, and oxygen saturations were monitored continuously. The pediatric colonoscope was introduced through the anus and advanced to the cecum, identified by the appendiceal orifice, ileocecal valve and palpation. The colonoscopy was performed without difficulty. The patient tolerated the procedure well. The quality of the bowel preparation was good. Scope In: 12:28:06 PM Scope Withdrawal Time 0 hours 6 minutes 37 seconds Scope Out: 12:48:07 PM Total Procedure Duration Time 0 hours 20 minutes 1 second Findings: The perianal and digital rectal examinations were normal. Two sessile polyps were found in the proximal transverse colon. The polyps were medium in size. These polyps were removed with a hot snare. Resection and retrieval were complete. The exam was otherwise without abnormality. The retroflexed view of the distal rectum and anal verge was normal and showed no anal or rectal abnormalities. Impression: - Two medium polyps in the proximal transverse colon, removed with a hot snare. Resected and retrieved. - The examination was otherwise normal. - The distal rectum and anal verge are normal on retroflexion view. Recommendation: - Discharge patient to home. - Resume previous diet. - Continue present medications. - Telephone physician geriatric assistant for pathology results in 1 week. - Repeat colonoscopy. Procedure Code(s): --- Professional --- 13561, Colonoscopy, flexible; with removal of tumor(s), polyp(s), or other lesion(s) by snare technique CPT copyright 2017 [employer]. All rights reserved. The codes documented in this report are preliminary and upon medical record coder review may be revised to meet current compliance requirements. Nuria Regalado MD 07/26/2018 12:55:07 PM This report has been signed electronically. Number of Addenda: 0 Note Initiated On: 07/26/2018 11:43 AM 07/26/18 1255 Date Nuria Regalado MD Cosigner Signature: Date (if indicated) CC: Tangela Saavedra MD; Nuria Regalado MD Date Dictated: 07/26/18 1143 Date Transcribed: Account Services Analyst: HENRRY Signed HISTORY AND PHYSICAL Observed: 07/26/2018 Status: F Source: [place] [facility] 12:15 PM [facility] REPOSITORY [facility] Medical Records Department [address] [place] [address] History and Physical 07/26/18 1214 MR#: [id number] Acct: [id number] Name: NURIA DEWITT Rep #: [id number] : 1950 67 From: Nuria Regalado MD PCP: Tangela Saavedra MD Status: [facility] Y Location: [place] [address] History and Physical Date of Admission: 07/26/18 HISTORY AND PHYSICAL Nuria Leighff 1950 REFERRING PHYSICIAN: Tangela Saavedra MD CHIEF COMPLAINT: colon consult HPI: The patient is a 67 year old male referred for endoscopy. Nuria notes a personal history of colonic polyps and is due for surveillance colonoscopy, last was in [address] Hernández with adenomatous polyps removed at that time. Patient denies any change in bowel habits, weight changes, blood in stools, black tarry stools or abdominal pain. Denies family history of colon cancer. The patient notes no upper GI complaints currently. Past medical history significant for COPD, obstructive sleep apnea, spinal stenosis, depression and anxiety. He follows with Dr. Saavedra for his chronic medical conditions and also follows with pain management. He denies any chest pain or recent hospitalizations. He denies problems with sedation in the past. c PAST MEDICAL HISTORY c PAST MEDICAL HISTORY Diagnosis Date Acute gastritis without mention of hemorrhage Be nign neoplasm of colon Carcinoma in situ of colon 09/02/2006 Colon polyps Central s leep apnea in conditions classified elsewhere(327.27) 10/20/2007 Mixed Central and obstructive sleep apnea. Cocaine abuse, unspecified 05/05/2008 STEPS Program. COPD (chronic obst ructive pulmonary disease) (HCC) abnormal CT 2011 Depression Dysphagia Essent ial hypertension, benign 09/02/2006 Hypertrophy of prostate with urinary obstruction and oth er lower urinary tract symptoms (LUTS) 09/02/2006 Insomnia 08/18/2013 Other diseases of rangel ng, not elsewhere classified HILAR ADENOPATHY Other emphysema (HCC) Emphysema P eripheral neuropathy 2010 Unspecified vitamin D deficiency 09/10/2006 c PAST SURGICAL HISTORY c PAST SURGICAL HISTORY Procedure Laterality Date APPENDECTOMY COLONOSCOP W/ OR W/O BRSH SPEC 07/21/2006 Colonoscopy COLONOSCOP W/ OR W/O BRSH SPEC 09/22/2008 Colonoscop y COLONOSCOP W/ OR W/O BRSH SPEC 04/13/2014 Colonoscopy COLONOSCOP W/ OR W/O BRSH SPE C 07/17/14 Colonoscopy incomplete COLONOSCOP W/ OR W/O BRSH SPEC 07/19/14 Colonosco py EGD W/O BRSHSPECIMEN W/BX 10/20/06 OP BRONCHOS DIAG, W/WO WASHING B ronchoscopy OPEN RX ANKLE DISLOCATN+FIXATN ORIF Ankle rt PAST SURGICAL HISTORY OF Left hand surgeryPAST SURGICAL HISTORY OF 05/12/2007 Prostate vaporization PAST S URGICAL HISTORY OF 05/06/2016 Right eye, [place] lid replacement PAST SURGICAL HISTORY OF Right 02/10/2017 correctionfo ptosis-Dr. Ria packer CURRENT MEDICATIONS c Current Outpatient Prescriptions: zolpidem (AMBIEN) 10 mg tab TAKE 1 TABLET BY MOUTH AT BED TIME NEEDED clonazePAM (KLONOPIN) 1 mg tablet TAKE 1 TABLET TWICE DAILY NEEDED mirtazap ine (REMERON) 45 mg tablet Take 1 tablet by mouth daily at bedtime. potassium chloride (K-TAB) 10 mEq tablet Take 2 tablets by mouth once daily. hydroCHLOROthiazide (HYDRODIURIL, ESIDRIX) 25 mg tablet Take 1tablet by mouth once daily. omeprazole (PRILOSEC) 20 mg capsule Take 1 caps ule by mouth once daily. atenolol (TENORMIN) 50 mg tablet Take 1 tablet by mouth once daily. gabapentin (NEURONTIN) 800 mg tablet Take 1 tablet by mouth three times daily. HYDROmorphone ( DILAUDID) 4 mg tablet 1 tab TID or as needed methadone (DOLOPHINE) 10 mg tablet Take 10 mg in AM and at noon, take 20 mg at night albuterol HFA (PROAIR HFA) 90 mcg/actuation inhaler Inhale 2 Puffs as instructed every 6 hours as needed. ipratropium (ATROVENT) 0.02 % nebulizer soluti on Use 2.5 mL via nebulizer four times daily asneeded for Wheezing/Shortness of Breath. Use ove r 5-15minutes. polyethylene glycol 3350 (MIRALAX) 17 gram/dose powder Use as directed for cons tipation COMPOUNDED PRESCRIPTION BiPap supplies: tubingand mask for replacement. DX: G47.37 t iZANidine (ZANAFLEX) 4 mg tablet Take 1 tablet by mouth every 8 hours as needed (muscle spasms) . fluticasone-salmeterol (ADVAIR DISKUS) 250-50 mcg/dose dsdv Inhale 1 Puff as instructed twic e daily. RINSE AND GARGLE MOUTH WITH WATER AFTER EACH USE. albuterol 2.5 mg /3 mL (0.083 %) IN HALATION nebulizer solution Use 3 mL via nebulizer every 4 hours as needed for Wheezing/Shortne ss of Breath. Use over 5-15minutes.4 times daily COMPOUNDED PRESCRIPTION ASV setting of 5 cm of water with heated humidification, Mask (per patient preference) and lifetime supplies DX: PHIL 327.23, Central sleep apnea syndrome 327.21 SENNOSIDES 8.6 MG TAB take 2 tablets twice daily as needed for constipation per Dr Loco No current facility-administered medica tions for this visit. 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 Eyes: The patient denies glaucoma, denies eye injury/surgery, wears glasses or contacts. Ear/Nose/Throat: The patient denies allergies, denies hayfever, denies ear infections, and denies bloody noses. Cardiovascular: The patient denies chest pain, denies heart disease, NOTES high blood pressure,denies cardiac stent, denies prior heart attack, denies irregular heart beat, denies high cholesterol, denies poor circulation, denies heart failure, other cardiac issues, denies claudication, NOTES cold feet, denies peripheral arterial stent. Respiratory: The patient denies tuberculosis, denies pneumonia, denies frequent cough, denies pulmonary embolism, NOTES shortness of breath, and denies coughing up blood. Gastrointestinal: The patient denies difficulty swallowing, denies acid reflux, denies ulcers, denies vomiting, denies jaundice/hepatitis, denies gallbladder problems, denies black or tarry stools, denies hemorrhoids, denies bleeding from rectum, denies diverticulitis, denies constipation, denies diarrhea, denies loss of stool control, and denies hernias. Kidney/Bladder: The patient denies kidney stones, denies urine infections, and denies bloody urine. Skin: The patient denies a history of skin cancer, denies bleeding/changing moles, and denies a history of skin rash. Neurologic: The patient denies a history of epilepsy/convulsions, denies headaches, denies head/spinal injuries, and denies stroke/TIA. Psychiatric: The patient denies psychiatric medications, denies depression, and denies voices, denies substance abuse. Endocrine: The patient denies thyroid disorders, denies diabetes, and denies hormonal problems. Hematologic: The patient denies a history of bruising, denies bleeding, and denies anemia, denies blood clots. Infections: The patient denies a history of measles and mumps, denies rheumatic fever, and denies sexually transmitted diseases. Musculoskeletal: The patient denies back pain/injury, denies back problems, denies sciatica, denies knee/foot trouble, denies arthritis, or denies gout. When was patient's last Mammogram screening? N/A Last Colonoscopy: 07/2014 Edgar Mercado LPN I have confirmed and edited as necessary, the PFSH and ROS obtained by others. PHYSICAL EXAMINATION: General: The patient is 67 year old male, well nourished, well hydrated in no acute distress. The patient is oriented to time, place, and person. VITALS: Blood pressure 162/88, pulse 60, weight 118.8 kg (262 lb). Body mass index is 35.53 kg/m . HEENT: Normal cephalic, ataumatic, pupils are equally round, sclera are anicteric, mucous membranes are moist, oropharynx is clear. Neck has no masses, asymmetry or lymphadenopathy. Respiratory: Clear to auscultation and percussion. Normal respiratory excursion and pattern. Cardiac: Examination is regular rate and rhythm. Abdominal exam: Soft, nontender, with no palpable masses. No hepatosplenomegaly. No palpable hernias. Rectal exam: exam deferred Extremities: no clubbing, cyanosis or edema. No adenopathy. Other: LABORATORY VALUES: As Noted RADIOLOGIC STUDIES: As Noted Assessment IMPRESSION: encounter for surveillance colonoscopy, history of colon polyps PLAN: We will plan for colonoscopy. We discussed the risks and benefits of the planned endoscopy. I have informed the patient that complications can occur including failure to complete the endoscopy and perforation. The patient had the opportunity to ask questions concerning the planned endoscopy. My staff has also explained the procedure to the patient in understandable terms and has given the patient printed material concerning the procedure. The patient freely consents to surgery. I plan to use golytely bowel preparation for endoscopy The patient takes prescription medications which I feel decrease the chance of successful sedation. I therefore plan for monitored anesthetic care. Diagnoses: (Z12.11) Encounter for screening for malignant neoplasm of colon (primary encounter diagnosis) (Z86.010) History of colonic polyps My findings have been communicated to Dr. Saavedra via shared medical record. This note will be forwarded to Dr. Tangela Saavedra MD. Return to Clinic: The patient is instructed to follow-up with me 1 week post operatively. Aide Garcia PA-C 07/26/18 1215 <Electronically signed by Nuria Regalado MD> Date Nuria Regalado MD Cosigner Signature: Date (if applicable) CC: Tangela Saavedra MD; Nuria Regalado MD Signed COLON BIOPSY (CHOOSE Observed: 07/26/2018 Status: F Source: [place] SITE) 12:00 PM [facility] REPOSITORY Patient: NURIA DEWITT W : 1950 (67/M) Acct Num: [id number] Phys: Nuria Regalado MD Unit Num: [id number] Loc: EN Specimen: [id number] Received: 07/26/18 151 Spec Type: COLON BX TISSUES 1 TISSUES: COLON BIOPSY GROSS DESCRIPTION Received is one container labeled with the patient name and designated proximal transverse colon polyp. The specimen consists of multiple irregular fragments of light giles pink soft tissue with fecal material that in aggregate measure 1 x 1 x 0.2 cm. The specimen is totally submitted in one cassette. / SJ:robina 07/27/18 TC: 5 CPT: 32232 HEADER OPERATION: Colonoscopy (MAC) PRE-OP DIAGNOSIS: History of colon polyps TISSUE SUBMITTED: Proximal transverse colon polyps MICROSCOPIC DESCRIPTION Slides are reviewed. MICROSCOPIC DIAGNOSIS Proximal transverse colon polyp, biopsy: Fragments of tubular adenoma. Fecal debris. AM:robina 07/28/18 Signed [place] Camacho 07/28/18 <signature on file> Performed By: #### PCOLBX #### [facility] [address] [place], [address] CNOP Observed: 07/26/2018 Status: COMPLETED Source: [place] 12:00 AM [facility] REPOSITORY Operative Note (Enc) (GENSWS) Progress Notes: Nuria Regalado MD 08/03/2018 8:59 PM Signed OPERATIVE NOTATION FOR [facility] SURGICAL PROCEDURE. July 26, 2018 Nuria Dewitt 1950 [id number] male PROCEDURE: COLONOSCOPY WITH SNARE POLYPECTOMY- [id number] SURGEON: Nas Regalado M.D. 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 - Cocaine abuse, unspecified 05/05/2008 STEPS Program. - COPD (chronic obstructive pulmonary disease) (HCC) abnormal CT 2011 - Depression - Dysphagia - Essential hypertension, benign 09/02/2006 - Hypertrophy of prostate with urinary obstruction and other lower urinary tract symptoms (LUTS) 09/02/2006 - Insomnia 08/18/2013 - Other diseases of lung, not elsewhere classified HILAR ADENOPATHY - Other emphysema (HCC) Emphysema - Peripheral neuropathy 2010 - Unspecified vitamin D deficiency 09/10/2006 COMORBIDITIES - Chronic Pulmonary and COPD Post Op Occurrences - None Wound Classification - Clean Contaminated Operative note dictated in the [facility] dictation system. Nuria Regalado MD Encounter Status:Closed by NURIA REGALADO MD on 08/03/18 CNOV Observed: 07/20/2018 Status: COMPLETED Source: [place] 9:20 AM [facility] REPOSITORY Office Visit (FAMPWS) NURIA DEWITT ([id number]) 1950 M HOS Date Time Provider Department 07/20/18 9:20 AM [facility] During your visit today, we recorded the following information about you: Pulse Respiration Blood pressure Weight 68/minute 18/minute 120/78 119.7 kg Tangela Saavedra MD 07/20/2018 5:19 PM Signed Chief Complaint Patient presents with: F/U 3 Month HPI Nuria Leighff is a 67 year old male who presents here today for 3 month follow up. No bowel, Gi, or urinary concerns. Uses Omeprazole 20 mg daily for stomach. Follows with Pain Management Dr. Wei every 3 months for back pain. Prescribed by Pain Management provider: Methadone 10 mg in AM and at Noon, 20 mg at night and Dilaudid 4 mg TID, gabapentin 800 mg TID. Anxiety: states the anxiety is stable, has some good days and bad days. He state she has been a little more anxious with all these new skin lesions he has had. Is taking klonopin 1 mg BID. Insomnia: does not sleep well at night, is up every hour on the hour. Taking Remeron 45 mg at bedtime and Ambien 10 mg at bed. HTN: does check BP at home. Denies any chest pains or SOB. He is taking Atenolol 50 mg daily, HCTZ 25 mg daily. Skin: has red patches to the legs, torso, neck, face, around the eyes and under arms x 2 weeks. It does not cause pain, but is itchy. He states that the neighbor has several cats and they all use his garden as a litter box, pt is constantly working in the garden. Pharmacy recommended an OTC fungal cream which he has been using and no improvement. Eye: right eye has green mucous and swelling up on him. He saw the eye doctor who told him it was probably from the oxygen he uses blowing up into the eye. He mentioned that for the last month, about every 2-3 days he will have episodes of light headedness, sweats, weakness and nausea that only last a few minutes. He denies any Chest pains or SOB. He has check his BP during these episodes and they were around 150/67. He states he can't correlate what triggers these episodes to start. He states he turns on a fan to cool him down and that helps. Past medical history, appointments, medications, allergies reviewed. 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 - Cocaine abuse, unspecified 05/05/2008 STEPS Program. - COPD (chronic obstructive pulmonary disease) (HCC) abnormal CT 2011 - Depression - Dysphagia - Essential hypertension, benign 09/02/2006 - Hypertrophy of prostate with urinary obstruction and other lower urinary tract symptoms (LUTS) 09/02/2006 - Insomnia 08/18/2013 - Other diseases of lung, not elsewhere classified HILAR ADENOPATHY - Other emphysema (HCC) Emphysema - Peripheral neuropathy 2010 - Unspecified vitamin D deficiency 09/10/2006 Previous Surgical History PAST SURGICAL HISTORY Procedure Laterality Date - APPENDECTOMY - COLONOSCOP W/ OR W/O BRS SPEC 07/21/2006 Colonoscopy - COLONOSCOP W/ OR W/O BRS SPEC 09/22/2008 Colonoscopy - COLONOSCOP W/ OR W/O BRS SPEC 04/13/2014 Colonoscopy - COLONOSCOP W/ OR W/O BRS SPEC 07/17/14 Colonoscopy incomplete - COLONOSCOP W/ OR W/O BRS SPEC 07/19/14 Colonoscopy - EGD W/O [facility] SPECIMEN W/BX 10/20/06 - OP BRONCHOS DIAG, W/WO WASHING Bronchoscopy - OPEN RX ANKLE DISLOCATN+FIXATN ORIF Ankle rt - PAST SURGICAL HISTORY OF Left hand surgery - PAST SURGICAL HISTORY OF 05/12/2007 Prostate vaporization - PAST SURGICAL HISTORY OF 05/06/2016 Right eye, [place] lid replacement - PAST SURGICAL HISTORY OF Right 02/10/2017 correction fo ptosis-Dr. Rollins Family History FAMILY HISTORY Problem Relation Age of Onset - Cancer Father lung cancer - Coronary Artery Disease Mother - Hypertension Mother - Cancer Brother lung cancer Patient Allergies ALLERGIES Allergen Reactions - Soma [Carisoprodol] Other: See Comments Causes him to sleep to much - Lyrica [Pregabalin] GI Upset - Metoclopramide GI Upset Current Medications Current Outpatient Prescriptions on File Prior to Visit: hydroCHLOROthiazide (HYDRODIURIL, ESIDRIX) 25 mg tablet Take 1 tablet by mouth once daily. [START ON 08/09/2018] clonazePAM (KLONOPIN) 1 mg tablet Take one tablet twice a day. [START ON 08/09/2018] zolpidem (AMBIEN) 10 mg tab Take one tablet at bedtime. atenolol (TENORMIN) 50 mg tablet Take 1 tablet by mouth once daily. mirtazapine (REMERON) 45 mg tablet Take 1 tablet by mouth daily at bedtime. potassium chloride (K-TAB) 10 mEq tablet Take 2 tablets by mouth once daily. omeprazole (PRILOSEC) 20 mg capsule Take 1 capsule by mouth once daily. gabapentin (NEURONTIN) 800 mg tablet Take 1 tablet by mouth three times daily. HYDROmorphone (DILAUDID) 4 mg tablet 1 tab TID or as needed methadone (DOLOPHINE) 10 mg tablet Take 10 mg in AM and at noon, take 20 mg at night albuterol HFA (PROAIR HFA) 90 mcg/actuation inhaler Inhale 2 Puffs as instructed every 6 hours as needed. ipratropium (ATROVENT) 0.02 % nebulizer solution Use 2.5 mL via nebulizer four times daily as needed for Wheezing/Shortness of Breath. Use over 5-15minutes. polyethylene glycol 3350 (MIRALAX) 17 gram/dose powder Use as directed for constipation COMPOUNDED PRESCRIPTION BiPap supplies: tubing and mask for replacement. DX: G47.37 tiZANidine (ZANAFLEX) 4 mg tablet Take 1 tablet by mouth every 8 hours as needed (muscle spasms). fluticasone-salmeterol (ADVAIR DISKUS) 250-50 mcg/dose dsdv Inhale 1 Puff as instructed twice daily. RINSE AND GARGLE MOUTH WITH WATER AFTER EACH USE. albuterol 2.5 mg /3 mL (0.083 %) INHALATION nebulizer solution Use 3 mL via nebulizer every 4 hours as needed for Wheezing/Shortness of Breath. Use over 5-15minutes.4 times daily COMPOUNDED PRESCRIPTION ASV setting of 10/6/15 cm of water with heated humidification, Mask (per patient preference) and lifetime supplies DX: PHIL 327.23, Central sleep apnea syndrome 327.21 SENNOSIDES 8.6 MG TAB take 2 tablets twice daily as needed for constipation per Dr Loco No current facility-administered medications on file prior to visit. Social History Social History Marital status: Spouse name: Milana Jerome Years of education: Number of children: 2 Social History Main Topics Smoking status: Former Smoker Packs/day: 1.00 Years: 30.00 Types: Cigarettes Quit date: 09/14/2012 Smokeless tobacco: Never Used Alcohol use: Yes Comment: Very little for 2-3 years Drug use: No Comment: Snorting 04/2008 Other Topics Concern BLOOD TRANSFUSIONS No EXAM: BP 120/78 Pulse 68 Resp 18 Wt 119.7 kg (264 lb) BMI 35.80 kg/m? General Appearance: Well appearing, alert, in no acute distress, well-hydrated, well nourished. and Obese. Skin: Skin color, texture, turgor normal, no suspicious rashes or lesions. Lungs: lungs clear to auscultation. No wheezing, rhonchi, rales. Heart: RRR without murmur, gallop, or rubs. No ectopy. Health Maintenance List BP CONTROLLED (<130/80) due on 12/20/1967 DTAP,TDAP,TD(1 - Tdap) due on 03/20/2004 LUNG CANCER SCREENING due on 2004 ABDOMINAL AORTIC ANEURYSM SCREENING TOPIC due on 2014 COLORECTAL CANCER SCREENING,SEE MODIFIER due on 07/19/2017 INFLUENZA(1) due on 05/15/2018 LIPID SCREEN due on 10/14/2018 ANNUAL PCP TEAM CHRONIC DISEASE VISIT due on 04/15/2019 DIABETES SCREEN due on 01/12/2021 PROSTATE CANCER SCREENING DISCUSSION Completed ADULT PREVNAR-13 Completed HEPATITIS C SCREENING Completed PNEUMOVAX AGE 65 AND OVER WITH 5YR LOOKBACK Completed Data reviewed PDMP website checked and validated. All prescriptions have been APPROPRIATELY filled. No suspicious activity was identified. 07/20/2018 by Tangela Saavedra MD ASSESSMENT/PLAN: 1. Essential hypertension, benign - ICD9: 401.1, ICD10: I10 (primary diagnosis) - good control - Continue current medication(s) - Goal of BP <140/90 2. Fungal infection - ICD9: 117.9, ICD10: B49 - TERBINAFINE HCL 250 MG TABLET 3. Anxiety - ICD9: 300.00, ICD10: F41.9 Continue current medications. 4. Insomnia, unspecified type - ICD9: 780.52, ICD10: G47.00 Continue current medications. I agree with the Chief Complaint, ROS, and Past Histories independently gathered by the clinical postal support employee and the remaining scribed note accurately describes my personal service to the patient. Follow up in 3 months Tangela Saavedra MD The documentation for this note was completed by January Moore Ma acting as scribe for Tangela Saavedra MD. July 20, 2018 9:19 AM. Referring Provider: TANGELA SAAVEDRA [[id number]] Allergies As of Date: 07/20/2018 Noted Allergy Reaction SOMA (CARISOPRODOL) 05/06/2016 14 - Other: See Comments Comments: Causes him to sleep to much LYRICA (PREGABALIN) 02/11/2012 8 - GI Upset METOCLOPRAMIDE 02/11/2012 8 - GI Upset Date Reviewed: 07/20/2018 Reviewed by: January Moore Ma - Fully Assessed Reason for Visit: F/U 3 Month [443] Primary Visit Diagnosis:Essential hypertension, benign [I10] Other Visit Diagnoses:Fungal infection [B49] Anxiety [F41.9] Insomnia, unspecified type [G47.00] Order(s):terbinafine HCl (LAMISIL) 250 mg tabletTake 1 tablet by mouth once daily.Disp: 14 tabletRfl: 0 Prescriptions as of 07/20/2018 Sig: HYDROCHLOROTHIAZIDE 25 MG TAB* Take 1 tablet by mouth once d* CLONAZEPAM 1 MG TABLET Take one tablet twice a day. ZOLPIDEM 10 MG TABLET Take one tablet at bedtime. ATENOLOL 50 MG TABLET Take 1 tablet by mouth once d* MIRTAZAPINE 45 MG TABLET Take 1 tablet by mouth daily * POTASSIUM CHLORIDE ER 10 MEQ * Take 2 tablets by mouth once * OMEPRAZOLE 20 MG CAPSULE,KONSTANTIN* Take 1 capsule by mouth once * GABAPENTIN 800 MG TABLET Take 1 tablet by mouth three * HYDROMORPHONE 4 MG TABLET 1 tab TID or as needed METHADONE 10 MG TABLET Take 10 mg in AM and at noon,* ALBUTEROL SULFATE HFA 90 MCG/* Inhale 2 Puffs as instructed * IPRATROPIUM BROMIDE 0.02 % SO* Use 2.5 mL via nebulizer four* POLYETHYLENE GLYCOL 3350 17 G* Use as directed for constipat* COMPOUNDED PRESCRIPTION BiPap supplies: tubing and ma* TIZANIDINE 4 MG TABLET Take 1 tablet by mouth every * FLUTICASONE 250 MCG-SALMETERO* Inhale 1 Puff as instructed t* * ALBUTEROL SULFATE 2.5 MG/3 ML* Use 3 mL via nebulizer every * * COMPOUNDED PRESCRIPTION ASV setting of 10/6/15 cm of * * SENNOSIDES 8.6 MG TABLET take 2 tablets twice daily as* TERBINAFINE HCL 250 MG TABLET Take 1 tablet by mouth once d* Problem List As Of Date 07/20/2018 Noted Resolved MULTIPLE PULMONARY NODULES [J98.4] More... EMPHYSEMA NEC [J43.8] More... BENIGN HYPERTENSION [I10] INVALID FOR* COLON POLYPS [D01.0] INVALID FOR* More... BPH W URINARY OBS/LUTS [N40.1] INVALID FOR* VITAMIN D DEFICIENCY NOS [E55.9] INVALID FOR* TOBACCO USE DISORDER [F17.200] INVALID FOR* DYSPHAGIA [787.2] 06/15/2008 LUMBAGO [M54.5] INVALID FOR* Pain in joint, multiple sites [M25.50] INVALID FOR*06/11/2012 Central sleep apnea in conditions classified el*INVALID FOR* More... BLADDER NECK OBSTRUCTION [N32.0] INVALID FOR* Cocaine abuse, unspecified [F14.10] INVALID FOR*07/06/2012 More... ADHESIVE CAPSULIT SHLDER [M75.00] INVALID FOR* Benign neoplasm of colon [D12.6] INVALID FOR*11/10/2012 Dysmetabolic [E88.81] INVALID FOR* More... Hypogonadism male [E29.1] INVALID FOR* More... 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 Disposition: Return in about 3 months (around 10/20/2018). Follow-up and Disposition History Recorded Encounter Status:Closed by TANGELA SAAVEDRA MD on 07/20/18 PROGRESS Observed: 07/20/2018 Status: COMPLETED Source: [place] 9:19 AM [facility] [place] REPOSITORY HNO ID: [id number] Author: Tangela Saavedra Service: (none) Author Type: Physician Type: Progress Notes Filed: 07/20/2018 5:19 PM Note Text: Chief Complaint Patient presents with: F/U 3 Month HPI Nuria Dewitt is a 67 year old male who presents here today for 3 month follow up. No bowel, Gi, or urinary concerns. Uses Omeprazole 20 mg daily for stomach. Follows with Pain Management Dr. Wei every 3 months for back pain. Prescribed by Pain Management provider: Methadone 10 mg in AM and at Noon, 20 mg at night and Dilaudid 4 mg TID, gabapentin 800 mg TID. Anxiety: states the anxiety is stable, has some good days and bad days. He state she has been a little more anxious with all these new skin lesions he has had. Is taking klonopin 1 mg BID. Insomnia: does not sleep well at night, is up every hour on the hour. Taking Remeron 45 mg at bedtime and Ambien 10 mg at bed. HTN: does check BP at home. Denies any chest pains or SOB. He is taking Atenolol 50 mg daily, HCTZ 25 mg daily. Skin: has red patches to the legs, torso, neck, face, around the eyes and under arms x 2 weeks. It does not cause pain, but is itchy. He states that the neighbor has several cats and they all use his garden as a litter box, pt is constantly working in the garden. Pharmacy recommended an OTC fungal cream which he has been using and no improvement. Eye: right eye has green mucous and swelling up on him. He saw the eye doctor who told him it was probably from the oxygen he uses blowing up into the eye. He mentioned that for the last month, about every 2-3 days he will have episodes of light headedness, sweats, weakness and nausea that only last a few minutes. He denies any Chest pains or SOB. He has check his BP during these episodes and they were around 150/67. He states he can't correlate what triggers these episodes to start. He states he turns on a fan to cool him down and that helps. Past medical history, appointments, medications, allergies reviewed. 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 - Cocaine abuse, unspecified 05/05/2008 STEPS Program. - COPD (chronic obstructive pulmonary disease) (HCC) abnormal CT 2011 - Depression - Dysphagia - Essential hypertension, benign 09/02/2006 - Hypertrophy of prostate with urinary obstruction and other lower urinary tract symptoms (LUTS) 09/02/2006 - Insomnia 08/18/2013 - Other diseases of lung, not elsewhere classified HILAR ADENOPATHY - Other emphysema (HCC) Emphysema - Peripheral neuropathy 2010 - Unspecified vitamin D deficiency 09/10/2006 Previous Surgical History PAST SURGICAL HISTORY Procedure Laterality Date - APPENDECTOMY - COLONOSCOP W/ OR W/O BRSH SPEC 07/21/2006 Colonoscopy - COLONOSCOP W/ OR W/O BRSH SPEC 09/22/2008 Colonoscopy - COLONOSCOP W/ OR W/O BRSH SPEC 04/13/2014 Colonoscopy - COLONOSCOP W/ OR W/O BRSH SPEC 07/17/14 Colonoscopy incomplete - COLONOSCOP W/ OR W/O BRSH SPEC 07/19/14 Colonoscopy - EGD W/O [facility] SPECIMEN W/BX 10/20/06 - OP BRONCHOS DIAG, W/WO WASHING Bronchoscopy - OPEN RX ANKLE DISLOCATN+FIXATN ORIF Ankle rt - PAST SURGICAL HISTORY OF Left hand surgery - PAST SURGICAL HISTORY OF 05/12/2007 Prostate vaporization - PAST SURGICAL HISTORY OF 05/06/2016 Right eye, [place] lid replacement - PAST SURGICAL HISTORY OF Right 02/10/2017 correction fo ptosis-Dr. Rollins Family History FAMILY HISTORY Problem Relation Age of Onset - Cancer Father lung cancer - Coronary Artery Disease Mother - Hypertension Mother - Cancer Brother lung cancer Patient Allergies ALLERGIES Allergen Reactions - Soma [Carisoprodol] Other: See Comments Causes him to sleep to much - Lyrica [Pregabalin] GI Upset - Metoclopramide GI Upset Current Medications Current Outpatient Prescriptions on File Prior to Visit: hydroCHLOROthiazide (HYDRODIURIL, ESIDRIX) 25 mg tablet Take 1 tablet by mouth once daily. [START ON 08/09/2018] clonazePAM (KLONOPIN) 1 mg tablet Take one tablet twice a day. [START ON 08/09/2018] zolpidem (AMBIEN) 10 mg tab Take one tablet at bedtime. atenolol (TENORMIN) 50 mg tablet Take 1 tablet by mouth once daily. mirtazapine (REMERON) 45 mg tablet Take 1 tablet by mouth daily at bedtime. potassium chloride (K-TAB) 10 mEq tablet Take 2 tablets by mouth once daily. omeprazole (PRILOSEC) 20 mg capsule Take 1 capsule by mouth once daily. gabapentin (NEURONTIN) 800 mg tablet Take 1 tablet by mouth three times daily. HYDROmorphone (DILAUDID) 4 mg tablet 1 tab TID or as needed methadone (DOLOPHINE) 10 mg tablet Take 10 mg in AM and at noon, take 20 mg at night albuterol HFA (PROAIR HFA) 90 mcg/actuation inhaler Inhale 2 Puffs as instructed every 6 hours as needed. ipratropium (ATROVENT) 0.02 % nebulizer solution Use 2.5 mL via nebulizer four times daily as needed for Wheezing/Shortness of Breath. Use over 5-15minutes. polyethylene glycol 3350 (MIRALAX) 17 gram/dose powder Use as directed for constipation COMPOUNDED PRESCRIPTION BiPap supplies: tubing and mask for replacement. DX: G47.37 tiZANidine (ZANAFLEX) 4 mg tablet Take 1 tablet by mouth every 8 hours as needed (muscle spasms). fluticasone-salmeterol (ADVAIR DISKUS) 250-50 mcg/dose dsdv Inhale 1 Puff as instructed twice daily. RINSE AND GARGLE MOUTH WITH WATER AFTER EACH USE. albuterol 2.5 mg /3 mL (0.083 %) INHALATION nebulizer solution Use 3 mL via nebulizer every 4 hours as needed for Wheezing/Shortness of Breath. Use over 5-15minutes.4 times daily COMPOUNDED PRESCRIPTION ASV setting of 10/6/15 cm of water with heated humidification, Mask (per patient preference) and lifetime supplies DX: PHIL 327.23, Central sleep apnea syndrome 327.21 SENNOSIDES 8.6 MG TAB take 2 tablets twice daily as needed for constipation per Dr Loco No current facility-administered medications on file prior to visit. Social History Social History Marital status: Spouse name: Milana Jerome Years of education: Number of children: 2 Social History Main Topics Smoking status: Former Smoker Packs/day: 1.00 Years: 30.00 Types: Cigarettes Quit date: 09/14/2012 Smokeless tobacco: Never Used Alcohol use: Yes Comment: Very little for 2-3 years Drug use: No Comment: Snorting 04/2008 Other Topics Concern BLOOD TRANSFUSIONS No EXAM: BP 120/78 Pulse 68 Resp 18 Wt 119.7 kg (264 lb) BMI 35.80 kg/m? General Appearance: Well appearing, alert, in no acute distress, well-hydrated, well nourished. and Obese. Skin: Skin color, texture, turgor normal, no suspicious rashes or lesions. Lungs: lungs clear to auscultation. No wheezing, rhonchi, rales. Heart: RRR without murmur, gallop, or rubs. No ectopy. Health Maintenance List BP CONTROLLED (<130/80) due on 12/20/1967 DTAP,TDAP,TD(1 - Tdap) due on 03/20/2004 LUNG CANCER SCREENING due on 2004 ABDOMINAL AORTIC ANEURYSM SCREENING TOPIC due on 2014 COLORECTAL CANCER SCREENING,SEE MODIFIER due on 07/19/2017 INFLUENZA(1) due on 05/15/2018 LIPID SCREEN due on 10/14/2018 ANNUAL PCP TEAM CHRONIC DISEASE VISIT due on 04/15/2019 DIABETES SCREEN due on 01/12/2021 PROSTATE CANCER SCREENING DISCUSSION Completed ADULT PREVNAR-13 Completed HEPATITIS C SCREENING Completed PNEUMOVAX AGE 65 AND OVER WITH 5YR LOOKBACK Completed Data reviewed PDMP website checked and validated. All prescriptions have been APPROPRIATELY filled. No suspicious activity was identified. 07/20/2018 by Tangela Saavedra MD ASSESSMENT/PLAN: 1. Essential hypertension, benign - ICD9: 401.1, ICD10: I10 (primary diagnosis) - good control - Continue current medication(s) - Goal of BP <140/90 2. Fungal infection - ICD9: 117.9, ICD10: B49 - TERBINAFINE HCL 250 MG TABLET 3. Anxiety - ICD9: 300.00, ICD10: F41.9 Continue current medications. 4. Insomnia, unspecified type - ICD9: 780.52, ICD10: G47.00 Continue current medications. I agree with the Chief Complaint, ROS, and Past Histories independently gathered by the clinical postal support employee and the remaining scribed note accurately describes my personal service to the patient. Follow up in 3 months Tangela Saavedra MD The documentation for this note was completed by January Moore Ma acting as scribe for Tangela Saavedra MD. July 20, 2018 9:19 AM. THORACIC SPINE 3 Observed: 06/22/2018 Status: F Source: [place] VIEWS 9:56 AM [facility] REPOSITORY [facility] Imaging Services [address] [place] [id number] Thoracic Spine 3 Views MR#: [id number] Acct: [id number] Name: NURIA DEWITT Rep #: [id number] : 1950 M 67 From: Tex Hobson MD PCP: Tangela Saavedra MD Status: REG CLI Study: Thoracic Spine 3 Views Date of Exam: 06/22/18 Exam# [id number] Ordering Dr: SHALINI GUZMAN STUDY: X-RAY - THORACIC SPINE REASON FOR EXAM: Male, 67 years old. Chronic back pain. TECHNIQUE: 5 view(s) of the thoracic spine were obtained. COMPARISON: None. FINDINGS: There is generalized osteopenia. There are postsurgical changes of the lower cervical spine. There is increased kyphosis. There is no substantial scoliosis. Normal thoracic vertebrae and endplates. There is multilevel intervertebral disc space narrowing with osteophyte formation and right paravertebral ossification. There is substantial linear atelectasis/scarring at both bases with cardiomegaly. RAD/Thoracic Spine 3 Views IMPRESSION: Osteopenia with diffuse thoracic spondylosis. No acute abnormality is identified. Electronically Signed: Tex Hobson MD at 14:20 EDT , Service support , CC: SHALINI GUZMAN; Tangela Saavedra MD Account Services Analyst: Signed CERV SPINE 4 OR 5 Observed: 06/22/2018 Status: F Source: [place] VIEWS 9:56 AM [facility] REPOSITORY [facility] Imaging Services [address] [place] [id number] Cerv Spine 4 or 5 Views MR#: [id number] Acct: [id number] Name: NURIA DEWITT Rep #: [id number] : 1950 M 67 From: Tex Hobson MD PCP: Tangela Saavedra MD Status: REG CLI Study: Cerv Spine 4 or 5 Views Date of Exam: 06/22/18 Exam# [id number] Ordering Dr: SHALINI GUZMAN STUDY: X-RAY - CERVICAL SPINE REASON FOR EXAM: Male, 67 years old. Neck pain. TECHNIQUE: 4 view(s) of the cervical spine were obtained. COMPARISON: October 18, 2016 FINDINGS: There is stable generalized osteopenia. Normal anterior atlantoaxial articulation. Normal odontoid process. Normal cervical lordosis. Anterior and posterior fusion of the cervical spine from C2 to C6 posteriorly and C3-C6 anteriorly is stable. There is fusion of the intervertebral disc spaces at C3-4, C4-5 and C5-6. There is stable moderate intervertebral disc space narrowing at C6- 7. There is anterior bony neural foraminal encroachment bilaterally at C6-7. The soft tissue structures are unremarkable. RAD/Cerv Spine 4 or 5 Views IMPRESSION: Post surgical changes with disc degeneration at C6-7. See discussion above. Electronically Signed: Tex Hobson MD at 14:22 EDT , Service support , CC: SHALINI GUZMAN; Tangela Saavedra MD Account Services Analyst: Signed PROGRESS Observed: 05/10/2018 Status: COMPLETED Source: [place] 6:00 PM [facility] REPOSITORY HNO ID: [id number] Author: Aide Garcia (Pa) Service: (none) Author Type: Physician Surface Plate Inspector Type: Progress Notes Filed: 05/10/2018 6:06 PM Note Text: HISTORY AND PHYSICAL Nuria Thomas Dell 1950 REFERRING PHYSICIAN: Tangela Saavedra MD CHIEF COMPLAINT: colon consult HPI: The patient is a 67 year old male referred for endoscopy. Nuria notes a personal history of colonic polyps and is due for surveillance colonoscopy, last was in [address] Hernández with adenomatous polyps removed at that time. Patient denies any change in bowel habits, weight changes, blood in stools, black tarry stools or abdominal pain. Denies family history of colon cancer. The patient notes no upper GI complaints currently. Past medical history significant for COPD, obstructive sleep apnea, spinal stenosis, depression and anxiety. He follows with Dr. Saavedra for his chronic medical conditions and also follows with pain management. He denies any chest pain or recent hospitalizations. He denies problems with sedation in the past. PAST MEDICAL HISTORY Diagnosis Date - Acute gastritis without mention of hemorrhage - Benign neoplasm of colon - Carcinoma in situ of colon 09/02/2006 Colon polyps - Central sleep apnea in conditions classified elsewhere(327.27) 10/20/2007 Mixed Central and obstructive sleep apnea. - Cocaine abuse, unspecified 05/05/2008 STEPS Program. - COPD (chronic obstructive pulmonary disease) (HCC) abnormal CT 2011 - Depression - Dysphagia - Essential hypertension, benign 09/02/2006 - Hypertrophy of prostate with urinary obstruction and other lower urinary tract symptoms (LUTS) 09/02/2006 - Insomnia 08/18/2013 - Other diseases of lung, not elsewhere classified HILAR ADENOPATHY - Other emphysema (HCC) Emphysema - Peripheral neuropathy 2010 - Unspecified vitamin D deficiency 09/10/2006 PAST SURGICAL HISTORY Procedure Laterality Date - APPENDECTOMY - COLONOSCOP W/ OR W/O BRSH SPEC 07/21/2006 Colonoscopy - COLONOSCOP W/ OR W/O BRSH SPEC 09/22/2008 Colonoscopy - COLONOSCOP W/ OR W/O BRSH SPEC 04/13/2014 Colonoscopy - COLONOSCOP W/ OR W/O BRSH SPEC 07/17/14 Colonoscopy incomplete - COLONOSCOP W/ OR W/O BRSH SPEC 07/19/14 Colonoscopy - EGD W/O [facility]SH SPECIMEN W/BX 10/20/06 - OP BRONCHOS DIAG, W/WO WASHING Bronchoscopy - OPEN RX ANKLE DISLOCATN+FIXATN ORIF Ankle rt - PAST SURGICAL HISTORY OF Left hand surgery - PAST SURGICAL HISTORY OF 05/12/2007 Prostate vaporization - PAST SURGICAL HISTORY OF 05/06/2016 Right eye, [place] lid replacement - PAST SURGICAL HISTORY OF Right 02/10/2017 correction fo ptosis-Dr. Rollins Current Outpatient Prescriptions: zolpidem (AMBIEN) 10 mg tab TAKE 1 TABLET BY MOUTH AT BEDTIME NEEDED clonazePAM (KLONOPIN) 1 mg tablet TAKE 1 TABLET TWICE DAILY NEEDED mirtazapine (REMERON) 45 mg tablet Take 1 tablet by mouth daily at bedtime. potassium chloride (K-TAB) 10 mEq tablet Take 2 tablets by mouth once daily. hydroCHLOROthiazide (HYDRODIURIL, ESIDRIX) 25 mg tablet Take 1 tablet by mouth once daily. omeprazole (PRILOSEC) 20 mg capsule Take 1 capsule by mouth once daily. atenolol (TENORMIN) 50 mg tablet Take 1 tablet by mouth once daily. gabapentin (NEURONTIN) 800 mg tablet Take 1 tablet by mouth three times daily. HYDROmorphone (DILAUDID) 4 mg tablet 1 tab TID or as needed methadone (DOLOPHINE) 10 mg tablet Take 10 mg in AM and at noon, take 20 mg at night albuterol HFA (PROAIR HFA) 90 mcg/actuation inhaler Inhale 2 Puffs as instructed every 6 hours as needed. ipratropium (ATROVENT) 0.02 % nebulizer solution Use 2.5 mL via nebulizer four times daily as needed for Wheezing/Shortness of Breath. Use over 5-15minutes. polyethylene glycol 3350 (MIRALAX) 17 gram/dose powder Use as directed for constipation COMPOUNDED PRESCRIPTION BiPap supplies: tubing and mask for replacement. DX: G47.37 tiZANidine (ZANAFLEX) 4 mg tablet Take 1 tablet by mouth every 8 hours as needed (muscle spasms). fluticasone-salmeterol (ADVAIR DISKUS) 250-50 mcg/dose dsdv Inhale 1 Puff as instructed twice daily. RINSE AND GARGLE MOUTH WITH WATER AFTER EACH USE. albuterol 2.5 mg /3 mL (0.083 %) INHALATION nebulizer solution Use 3 mL via nebulizer every 4 hours as needed for Wheezing/Shortness of Breath. Use over 5-15minutes.4 times daily COMPOUNDED PRESCRIPTION ASV setting of 10/6/15 cm of water with heated humidification, Mask (per patient preference) and lifetime supplies DX: PHIL 327.23, Central sleep apnea syndrome 327.21 SENNOSIDES 8.6 MG TAB take 2 tablets twice daily as needed for constipation per Dr Loco No current facility-administered medications for this visit. ALLERGIES: Soma [Carisoprodol]; Lyrica [Pregabalin]; Metoclopramide PERSONAL HISTORY: Social History Marital status: Spouse name: Milana Jerome Years of education: Number of children: 2 Social History Main Topics Smoking status: Former Smoker Packs/day: 1.00 Years: 30.00 Types: Cigarettes Quit date: 09/14/2012 Smokeless tobacco: Never Used Alcohol use: Yes Comment: Very little for 2-3 years Drug use: No Comment: Snorting 04/2008 Other Topics Concern BLOOD TRANSFUSIONS No FAMILY HISTORY: FAMILY HISTORY Problem Relation Age of Onset - Cancer Father lung cancer - Cancer Brother lung cancer - Coronary Artery Disease Mother - Hypertension Mother REVIEW OF SYMPTOMS: The review of systems data was entered by the nurse and reviewed by il Nursing Notes: Gladys Jess VEGA 05/10/2018 8:29 AM Signed REVIEW OF SYSTEMS: General: The patient denies fatigue, denies weight loss, denies weight gain, denies feeling hot, and denies feelings of cold. Eyes: The patient denies glaucoma, denies eye injury/surgery, wears glasses or contacts. Ear/Nose/Throat: The patient denies allergies, denies hayfever, denies ear infections, and denies bloody noses. Cardiovascular: The patient denies chest pain, denies heart disease, NOTES high blood pressure,denies cardiac stent, denies prior heart attack, denies irregular heart beat, denies high cholesterol, denies poor circulation, denies heart failure, other cardiac issues, denies claudication, NOTES cold feet, denies peripheral arterial stent. Respiratory: The patient denies tuberculosis, denies pneumonia, denies frequent cough, denies pulmonary embolism, NOTES shortness of breath, and denies coughing up blood. Gastrointestinal: The patient denies difficulty swallowing, denies acid reflux, denies ulcers, denies vomiting, denies jaundice/hepatitis, denies gallbladder problems, denies black or tarry stools, denies hemorrhoids, denies bleeding from rectum, denies diverticulitis, denies constipation, denies diarrhea, denies loss of stool control, and denies hernias. Kidney/Bladder: The patient denies kidney stones, denies urine infections, and denies bloody urine. Skin: The patient denies a history of skin cancer, denies bleeding/changing moles, and denies a history of skin rash. Neurologic: The patient denies a history of epilepsy/convulsions, denies headaches, denies head/spinal injuries, and denies stroke/TIA. Psychiatric: The patient denies psychiatric medications, denies depression, and denies voices, denies substance abuse. Endocrine: The patient denies thyroid disorders, denies diabetes, and denies hormonal problems. Hematologic: The patient denies a history of bruising, denies bleeding, and denies anemia, denies blood clots. Infections: The patient denies a history of measles and mumps, denies rheumatic fever, and denies sexually transmitted diseases. Musculoskeletal: The patient denies back pain/injury, denies back problems, denies sciatica, denies knee/foot trouble, denies arthritis, or denies gout. When was patient's last Mammogram screening? N/A Last Colonoscopy: 07/2014 Edgar Mercado LPN I have confirmed and edited as necessary, the PFSH and ROS obtained by others. PHYSICAL EXAMINATION: General: The patient is 67 year old male, well nourished, well hydrated in no acute distress. The patient is oriented to time, place, and person. VITALS: Blood pressure 162/88, pulse 60, weight 118.8 kg (262 lb). Body mass index is 35.53 kg/m?. HEENT: Normal cephalic, ataumatic, pupils are equally round, sclera are anicteric, mucous membranes are moist, oropharynx is clear. Neck has no masses, asymmetry or lymphadenopathy. Respiratory: Clear to auscultation and percussion. Normal respiratory excursion and pattern. Cardiac: Examination is regular rate and rhythm. Abdominal exam: Soft, nontender, with no palpable masses. No hepatosplenomegaly. No palpable hernias. Rectal exam: exam deferred Extremities: no clubbing, cyanosis or edema. No adenopathy. Other: LABORATORY VALUES: As Noted RADIOLOGIC STUDIES: As Noted Assessment IMPRESSION: encounter for surveillance colonoscopy, history of colon polyps PLAN: We will plan for colonoscopy. We discussed the risks and benefits of the planned endoscopy. I have informed the patient that complications can occur including failure to complete the endoscopy and perforation. The patient had the opportunity to ask questions concerning the planned endoscopy. My staff has also explained the procedure to the patient in understandable terms and has given the patient printed material concerning the procedure. The patient freely consents to surgery. I plan to use golytely bowel preparation for endoscopy The patient takes prescription medications which I feel decrease the chance of successful sedation. I therefore plan for monitored anesthetic care. Diagnoses: (Z12.11) Encounter for screening for malignant neoplasm of colon (primary encounter diagnosis) (Z86.010) History of colonic polyps My findings have been communicated to Dr. Saavedra via shared medical record. This note will be forwarded to Dr. Tangela Saavedra MD. Return to Clinic: The patient is instructed to follow-up with me 1 week post operatively. Aide Green, PA-C CNOV Observed: 05/10/2018 Status: COMPLETED Source: [place] 8:30 AM [facility] REPOSITORY Office Visit (GENSWS) NURIA DEWITT ([id number]) 1950 M HOS Date Time Provider Department 05/10/18 8:30 AM AIDE GARCIA (PA) During your visit today, we recorded the following information about you: Pulse Blood pressure Weight 60/minute 162/88 118.8 kg Gladys Mercado GARY 05/10/2018 8:29 AM Signed REVIEW OF SYSTEMS: General: The patient denies fatigue, denies weight loss, denies weight gain, denies feeling hot, and denies feelings of cold. Eyes: The patient denies glaucoma, denies eye injury/surgery, wears glasses or contacts. Ear/Nose/Throat: The patient denies allergies, denies hayfever, denies ear infections, and denies bloody noses. Cardiovascular: The patient denies chest pain, denies heart disease, NOTES high blood pressure,denies cardiac stent, denies prior heart attack, denies irregular heart beat, denies high cholesterol, denies poor circulation, denies heart failure, other cardiac issues, denies claudication, NOTES cold feet, denies peripheral arterial stent. Respiratory: The patient denies tuberculosis, denies pneumonia, denies frequent cough, denies pulmonary embolism, NOTES shortness of breath, and denies coughing up blood. Gastrointestinal: The patient denies difficulty swallowing, denies acid reflux, denies ulcers, denies vomiting, denies jaundice/hepatitis, denies gallbladder problems, denies black or tarry stools, denies hemorrhoids, denies bleeding from rectum, denies diverticulitis, denies constipation, denies diarrhea, denies loss of stool control, and denies hernias. Kidney/Bladder: The patient denies kidney stones, denies urine infections, and denies bloody urine. Skin: The patient denies a history of skin cancer, denies bleeding/changing moles, and denies a history of skin rash. Neurologic: The patient denies a history of epilepsy/convulsions, denies headaches, denies head/spinal injuries, and denies stroke/TIA. Psychiatric: The patient denies psychiatric medications, denies depression, and denies voices, denies substance abuse. Endocrine: The patient denies thyroid disorders, denies diabetes, and denies hormonal problems. Hematologic: The patient denies a history of bruising, denies bleeding, and denies anemia, denies blood clots. Infections: The patient denies a history of measles and mumps, denies rheumatic fever, and denies sexually transmitted diseases. Musculoskeletal: The patient denies back pain/injury, denies back problems, denies sciatica, denies knee/foot trouble, denies arthritis, or denies gout. When was patient's last Mammogram screening? N/A Last Colonoscopy: 07/2014 Edgar Garcia PA-C 05/10/2018 6:06 PM Signed HISTORY AND PHYSICAL Nuria Thomas Dell 1950 REFERRING PHYSICIAN: Tangela Saavedra MD CHIEF COMPLAINT: colon consult HPI: The patient is a 67 year old male referred for endoscopy. Nuria notes a personal history of colonic polyps and is due for surveillance colonoscopy, last was in [address] Hernández with adenomatous polyps removed at that time. Patient denies any change in bowel habits, weight changes, blood in stools, black tarry stools or abdominal pain. Denies family history of colon cancer. The patient notes no upper GI complaints currently. Past medical history significant for COPD, obstructive sleep apnea, spinal stenosis, depression and anxiety. He follows with Dr. Saavedra for his chronic medical conditions and also follows with pain management. He denies any chest pain or recent hospitalizations. He denies problems with sedation in the past. PAST MEDICAL HISTORY Diagnosis Date - Acute gastritis without mention of hemorrhage - Benign neoplasm of colon - Carcinoma in situ of colon 09/02/2006 Colon polyps - Central sleep apnea in conditions classified elsewhere(327.27) 10/20/2007 Mixed Central and obstructive sleep apnea. - Cocaine abuse, unspecified 05/05/2008 STEPS Program. - COPD (chronic obstructive pulmonary disease) (HCC) abnormal CT 2011 - Depression - Dysphagia - Essential hypertension, benign 09/02/2006 - Hypertrophy of prostate with urinary obstruction and other lower urinary tract symptoms (LUTS) 09/02/2006 - Insomnia 08/18/2013 - Other diseases of lung, not elsewhere classified HILAR ADENOPATHY - Other emphysema (HCC) Emphysema - Peripheral neuropathy 2010 - Unspecified vitamin D deficiency 09/10/2006 PAST SURGICAL HISTORY Procedure Laterality Date - APPENDECTOMY - COLONOSCOP W/ OR W/O BRSH SPEC 07/21/2006 Colonoscopy - COLONOSCOP W/ OR W/O BRSH SPEC 09/22/2008 Colonoscopy - COLONOSCOP W/ OR W/O BRSH SPEC 04/13/2014 Colonoscopy - COLONOSCOP W/ OR W/O BRSH SPEC 07/17/14 Colonoscopy incomplete - COLONOSCOP W/ OR W/O BRSH SPEC 07/19/14 Colonoscopy - EGD W/O BRSH SPECIMEN W/BX 10/20/06 - OP BRONCHOS DIAG, W/WO WASHING Bronchoscopy - OPEN RX ANKLE DISLOCATN+FIXATN ORIF Ankle rt - PAST SURGICAL HISTORY OF Left hand surgery - PAST SURGICAL HISTORY OF 05/12/2007 Prostate vaporization - PAST SURGICAL HISTORY OF 05/06/2016 Right eye, [place] lid replacement - PAST SURGICAL HISTORY OF Right 02/10/2017 correction fo ptosis-Dr. Rollins Current Outpatient Prescriptions: zolpidem (AMBIEN) 10 mg tab TAKE 1 TABLET BY MOUTH AT BEDTIME NEEDED clonazePAM (KLONOPIN) 1 mg tablet TAKE 1 TABLET TWICE DAILY NEEDED mirtazapine (REMERON) 45 mg tablet Take 1 tablet by mouth daily at bedtime. potassium chloride (K-TAB) 10 mEq tablet Take 2 tablets by mouth once daily. hydroCHLOROthiazide (HYDRODIURIL, ESIDRIX) 25 mg tablet Take 1 tablet by mouth once daily. omeprazole (PRILOSEC) 20 mg capsule Take 1 capsule by mouth once daily. atenolol (TENORMIN) 50 mg tablet Take 1 tablet by mouth once daily. gabapentin (NEURONTIN) 800 mg tablet Take 1 tablet by mouth three times daily. HYDROmorphone (DILAUDID) 4 mg tablet 1 tab TID or as needed methadone (DOLOPHINE) 10 mg tablet Take 10 mg in AM and at noon, take 20 mg at night albuterol HFA (PROAIR HFA) 90 mcg/actuation inhaler Inhale 2 Puffs as instructed every 6 hours as needed. ipratropium (ATROVENT) 0.02 % nebulizer solution Use 2.5 mL via nebulizer four times daily as needed for Wheezing/Shortness of Breath. Use over 5-15minutes. polyethylene glycol 3350 (MIRALAX) 17 gram/dose powder Use as directed for constipation COMPOUNDED PRESCRIPTION BiPap supplies: tubing and mask for replacement. DX: G47.37 tiZANidine (ZANAFLEX) 4 mg tablet Take 1 tablet by mouth every 8 hours as needed (muscle spasms). fluticasone-salmeterol (ADVAIR DISKUS) 250-50 mcg/dose dsdv Inhale 1 Puff as instructed twice daily. RINSE AND GARGLE MOUTH WITH WATER AFTER EACH USE. albuterol 2.5 mg /3 mL (0.083 %) INHALATION nebulizer solution Use 3 mL via nebulizer every 4 hours as needed for Wheezing/Shortness of Breath. Use over 5-15minutes.4 times daily COMPOUNDED PRESCRIPTION ASV setting of 10/6/15 cm of water with heated humidification, Mask (per patient preference) and lifetime supplies DX: PHIL 327.23, Central sleep apnea syndrome 327.21 SENNOSIDES 8.6 MG TAB take 2 tablets twice daily as needed for constipation per Dr Loco No current facility-administered medications for this visit. ALLERGIES: Soma [Carisoprodol]; Lyrica [Pregabalin]; Metoclopramide PERSONAL HISTORY: Social History Marital status: Spouse name: Milana Jerome Years of education: Number of children: 2 Social History Main Topics Smoking status: Former Smoker Packs/day: 1.00 Years: 30.00 Types: Cigarettes Quit date: 09/14/2012 Smokeless tobacco: Never Used Alcohol use: Yes Comment: Very little for 2-3 years Drug use: No Comment: Snorting 04/2008 Other Topics Concern BLOOD TRANSFUSIONS No FAMILY HISTORY: FAMILY HISTORY Problem Relation Age of Onset - Cancer Father lung cancer - Cancer Brother lung cancer - Coronary Artery Disease Mother - Hypertension Mother REVIEW OF SYMPTOMS: The review of systems data was entered by the nurse and reviewed by me Nursing Notes: Gladys Mercado LPN 05/10/2018 8:29 AM Signed REVIEW OF SYSTEMS: General: The patient denies fatigue, denies weight loss, denies weight gain, denies feeling hot, and denies feelings of cold. Eyes: The patient denies glaucoma, denies eye injury/surgery, wears glasses or contacts. Ear/Nose/Throat: The patient denies allergies, denies hayfever, denies ear infections, and denies bloody noses. Cardiovascular: The patient denies chest pain, denies heart disease, NOTES high blood pressure,denies cardiac stent, denies prior heart attack, denies irregular heart beat, denies high cholesterol, denies poor circulation, denies heart failure, other cardiac issues, denies claudication, NOTES cold feet, denies peripheral arterial stent. Respiratory: The patient denies tuberculosis, denies pneumonia, denies frequent cough, denies pulmonary embolism, NOTES shortness of breath, and denies coughing up blood. Gastrointestinal: The patient denies difficulty swallowing, denies acid reflux, denies ulcers, denies vomiting, denies jaundice/hepatitis, denies gallbladder problems, denies black or tarry stools, denies hemorrhoids, denies bleeding from rectum, denies diverticulitis, denies constipation, denies diarrhea, denies loss of stool control, and denies hernias. Kidney/Bladder: The patient denies kidney stones, denies urine infections, and denies bloody urine. Skin: The patient denies a history of skin cancer, denies bleeding/changing moles, and denies a history of skin rash. Neurologic: The patient denies a history of epilepsy/convulsions, denies headaches, denies head/spinal injuries, and denies stroke/TIA. Psychiatric: The patient denies psychiatric medications, denies depression, and denies voices, denies substance abuse. Endocrine: The patient denies thyroid disorders, denies diabetes, and denies hormonal problems. Hematologic: The patient denies a history of bruising, denies bleeding, and denies anemia, denies blood clots. Infections: The patient denies a history of measles and mumps, denies rheumatic fever, and denies sexually transmitted diseases. Musculoskeletal: The patient denies back pain/injury, denies back problems, denies sciatica, denies knee/foot trouble, denies arthritis, or denies gout. When was patient's last Mammogram screening? N/A Last [facility] I have confirmed and edited as necessary, the PFSH and ROS obtained by others. PHYSICAL EXAMINATION: General: The patient is 67 year old male, well nourished, well hydrated in no acute distress. The patient is oriented to time, place, and person. VITALS: Blood pressure 162/88, pulse 60, weight 118.8 kg (262 lb). Body mass index is 35.53 kg/m?. HEENT: Normal cephalic, ataumatic, pupils are equally round, sclera are anicteric, mucous membranes are moist, oropharynx is clear. Neck has no masses, asymmetry or lymphadenopathy. Respiratory: Clear to auscultation and percussion. Normal respiratory excursion and pattern. Cardiac: Examination is regular rate and rhythm. Abdominal exam: Soft, nontender, with no palpable masses. No hepatosplenomegaly. No palpable hernias. Rectal exam: exam deferred Extremities: no clubbing, cyanosis or edema. No adenopathy. Other: LABORATORY VALUES: As Noted RADIOLOGIC STUDIES: As Noted Assessment IMPRESSION: encounter for surveillance colonoscopy, history of colon polyps PLAN: We will plan for colonoscopy. We discussed the risks and benefits of the planned endoscopy. I have informed the patient that complications can occur including failure to complete the endoscopy and perforation. The patient had the opportunity to ask questions concerning the planned endoscopy. My staff has also explained the procedure to the patient in understandable terms and has given the patient printed material concerning the procedure. The patient freely consents to surgery. I plan to use golytely bowel preparation for endoscopy The patient takes prescription medications which I feel decrease the chance of successful sedation. I therefore plan for monitored anesthetic care. Diagnoses: (Z12.11) Encounter for screening for malignant neoplasm of colon (primary encounter diagnosis) (Z86.010) History of colonic polyps My findings have been communicated to Dr. Saavedra via shared medical record. This note will be forwarded to Dr. Tangela Saavedra MD. Return to Clinic: The patient is instructed to follow-up with me 1 week post operatively. Aide Garcia PA-C Referring Provider: TANGELA SAAVEDRA [[id number]] Allergies As of Date: 05/10/2018 Noted Allergy Reaction SOMA (CARISOPRODOL) 05/06/2016 14 - Other: See Comments Comments: Causes him to sleep to much LYRICA (PREGABALIN) 02/11/2012 8 - GI Upset METOCLOPRAMIDE 02/11/2012 8 - GI Upset Date Reviewed: 05/10/2018 Reviewed by: Aide Shannon) Radha - Fully Assessed Reason for Visit: colon consult [Other] Primary Visit Diagnosis:Encounter for screening for malignant neoplasm of colon [Z12.11] Other Visit Diagnosis:History of colonic polyps [Z86.010] Order(s):peg 3350-Electrolytes (GOLYTELY) 236-22.74-6.74 - 5.86 gram suspensionTake 4,000 mL by mouth one time only for 1 dose.Disp: 1 BottleRfl: 0 Prescriptions as of 05/10/2018 Sig: PEG 3350-ELECTROLYTES 236 GRA* Take 4,000 mL by mouth one ti* ZOLPIDEM 10 MG TABLET TAKE 1 TABLET BY MOUTH AT BED* CLONAZEPAM 1 MG TABLET TAKE 1 TABLET TWICE DAILY * MIRTAZAPINE 45 MG TABLET Take 1 tablet by mouth daily * POTASSIUM CHLORIDE ER 10 MEQ * Take 2 tablets by mouth once * HYDROCHLOROTHIAZIDE 25 MG TAB* Take 1 tablet by mouth once d* OMEPRAZOLE 20 MG CAPSULE,KONSTANTIN* Take 1 capsule by mouth once * ATENOLOL 50 MG TABLET Take 1 tablet by mouth once d* GABAPENTIN 800 MG TABLET Take 1 tablet by mouth three * HYDROMORPHONE 4 MG TABLET 1 tab TID or as needed METHADONE 10 MG TABLET Take 10 mg in AM and at noon,* ALBUTEROL SULFATE HFA 90 MCG/* Inhale 2 Puffs as instructed * IPRATROPIUM BROMIDE 0.02 % SO* Use 2.5 mL via nebulizer four* POLYETHYLENE GLYCOL 3350 17 G* Use as directed for constipat* COMPOUNDED PRESCRIPTION BiPap supplies: tubing and ma* TIZANIDINE 4 MG TABLET Take 1 tablet by mouth every * FLUTICASONE 250 MCG-SALMETERO* Inhale 1 Puff as instructed t* * ALBUTEROL SULFATE 2.5 MG/3 ML* Use 3 mL via nebulizer every * * COMPOUNDED PRESCRIPTION ASV setting of 10/6/15 cm of * * SENNOSIDES 8.6 MG TABLET take 2 tablets twice daily as* Problem List As Of Date 05/10/2018 Noted Resolved MULTIPLE PULMONARY NODULES [J98.4] More... EMPHYSEMA NEC [J43.8] More... BENIGN HYPERTENSION [I10] INVALID FOR* COLON POLYPS [D01.0] INVALID FOR* More... BPH W URINARY OBS/LUTS [N40.1] INVALID FOR* VITAMIN D DEFICIENCY NOS [E55.9] INVALID FOR* TOBACCO USE DISORDER [F17.200] INVALID FOR* DYSPHAGIA [787.2] 06/15/2008 LUMBAGO [M54.5] INVALID FOR* Pain in joint, multiple sites [M25.50] INVALID FOR*06/11/2012 Central sleep apnea in conditions classified el*INVALID FOR* More... BLADDER NECK OBSTRUCTION [N32.0] INVALID FOR* Cocaine abuse, unspecified [F14.10] INVALID FOR*07/06/2012 More... ADHESIVE CAPSULIT SHLDER [M75.00] INVALID FOR* Benign neoplasm of colon [D12.6] INVALID FOR*11/10/2012 Dysmetabolic [E88.81] INVALID FOR* More... Hypogonadism male [E29.1] INVALID FOR* More... 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 Eyes: The patient denies glaucoma, denies eye injury/surgery, wears glasses or contacts. Ear/Nose/Throat: The patient denies allergies, denies hayfever, denies ear infections, and denies bloody noses. Cardiovascular: The patient denies chest pain, denies heart disease, NOTES high blood pressure,denies cardiac stent, denies prior heart attack, denies irregular heart beat, denies high cholesterol, denies poor circulation, denies heart failure, other cardiac issues, denies claudication, NOTES cold feet, denies peripheral arterial stent. Respiratory: The patient denies tuberculosis, denies pneumonia, denies frequent cough, denies pulmonary embolism, NOTES shortness of breath, and denies coughing up blood. Gastrointestinal: The patient denies difficulty swallowing, denies acid reflux, denies ulcers, denies vomiting, denies jaundice/hepatitis, denies gallbladder problems, denies black or tarry stools, denies hemorrhoids, denies bleeding from rectum, denies diverticulitis, denies constipation, denies diarrhea, denies loss of stool control, and denies hernias. Kidney/Bladder: The patient denies kidney stones, denies urine infections, and denies bloody urine. Skin: The patient denies a history of skin cancer, denies bleeding/changing moles, and denies a history of skin rash. Neurologic: The patient denies a history of epilepsy/convulsions, denies headaches, denies head/spinal injuries, and denies stroke/TIA. Psychiatric: The patient denies psychiatric medications, denies depression, and denies voices, denies substance abuse. Endocrine: The patient denies thyroid disorders, denies diabetes, and denies hormonal problems. Hematologic: The patient denies a history of bruising, denies bleeding, and denies anemia, denies blood clots. Infections: The patient denies a history of measles and mumps, denies rheumatic fever, and denies sexually transmitted diseases. Musculoskeletal: The patient denies back pain/injury, denies back problems, denies sciatica, denies knee/foot trouble, denies arthritis, or denies gout. When was patient's last Mammogram screening? N/A Last Colonoscopy: 07/2014 Edgar Mercado LPN Prescriptions ordered this encounter Disp Refills Start End PEG 3350-ELECTROLYTES 236 GRAM-22.74* 1 Dhiraj* 0 05/10/2018 05/10/2018 Route: ORAL Sig: Take 4,000 mL by mouth one time only for 1 dose. Follow-up and Disposition History Recorded Encounter Status:Closed by AIDE GARCIA PA-C on 05/10/18 ECG COMPLETE W Observed: 04/15/2018 Status: F Source: [place] INTERPRETATION 10:26 AM [facility] REPOSITORY NAME : NURIA DEWITT PID : [id number] : 1950 Gender : Male Race : ORD : [id number] Procedure Date : Apr 15 2018 10:26:20 Edit Date : Apr 16 2018 16:09:48 Diagnosis:NORMAL SINUS RHYTHM NORMAL ECG Confirmed by DONTE CHUN D.O. ([id number]) on 04/16/2018 4:09:15 PM Ventricular Rate : 60 BPM Atrial Rate : 60 BPM P-R Interval : 168 ms QRS Duration : 88 ms Q-T Interval : 454 ms QTC Calculation(Bezet) : 454 ms P Braymer : 40 degrees R Braymer : 36 degrees T Braymer : 38 degrees Test Reason : Location : 185 : [facility] Overread By : DONTE CHUN D.O. Edited By : DONTE CHUN D.O. Referred By : TANGELA SAAVEDAR Acquired by : BETY DE LA FUENTE, PROGRESS Observed: 04/15/2018 Status: COMPLETED Source: [place] 9:48 AM [facility] [place] REPOSITORY HNO ID: [id number] Author: Tangela Saavedra Service: (none) Author Type: Physician Type: Progress Notes Filed: 04/16/2018 11:29 AM Note Text: Chief Complaint Patient presents with: F/U 3 Month: HTN, Insomnia and Anxiety HPI Nuria Dewitt is a 67 year old male who presents here today for a 3 mo f/u. Pt here today for a 3 mo f/u. Pain Management - States that Pain Management requested for him to have completed by PCP office. Next scheduled appt is 06/21/18. Insomnia - Doesn't sleep well. On average sleep 4 hours with occasional napping during the day. Uses 2 liters of oxygen at night. Anxiety - States that anxiety is doing, but not the best. 04/09/18 of [place] and recently buried her on 04/14/18. Currently taking Klonopin 1 mg 1 tab po bid. HTN - Checks BP at home 1-2 times per month. Has some highs and lows. Will have days where he has spots in his eyes but when he checks numbers are low. Currently taking Atenolol 50 mg once daily, HCTZ 25 mg once daily and Potassium 10 meq 2 tabs once daily. Past medical history, appointments, medications, allergies reviewed. 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 - Cocaine abuse, unspecified 05/05/2008 [facility] Program. - COPD (chronic obstructive pulmonary disease) (HCC) abnormal CT 2011 - Depression - Dysphagia - Essential hypertension, benign 09/02/2006 - Hypertrophy of prostate with urinary obstruction and other lower urinary tract symptoms (LUTS) 09/02/2006 - Insomnia 08/18/2013 - Other diseases of lung, not elsewhere classified HILAR ADENOPATHY - Other emphysema (HCC) Emphysema - Peripheral neuropathy 2010 - Unspecified vitamin D deficiency 09/10/2006 Previous Surgical History PAST SURGICAL HISTORY Procedure Laterality Date - APPENDECTOMY - COLONOSCOP W/ OR W/O BRSH SPEC 07/21/2006 Colonoscopy - COLONOSCOP W/ OR W/O BRSH SPEC 09/22/2008 Colonoscopy - COLONOSCOP W/ OR W/O BRSH SPEC 04/13/2014 Colonoscopy - COLONOSCOP W/ OR W/O BRSH SPEC 07/17/14 Colonoscopy incomplete - COLONOSCOP W/ OR W/O BRSH SPEC 07/19/14 Colonoscopy - EGD W/O BRSH SPECIMEN W/BX 10/20/06 - OP BRONCHOS DIAG, W/WO WASHING Bronchoscopy - OPEN RX ANKLE DISLOCATN+FIXATN ORIF Ankle rt - PAST SURGICAL HISTORY OF Left hand surgery - PAST SURGICAL HISTORY OF 05/12/2007 Prostate vaporization - PAST SURGICAL HISTORY OF 05/06/2016 Right eye, [place] lid replacement - PAST SURGICAL HISTORY OF Right 02/10/2017 correction fo ptosis-Dr. Rollins Family History FAMILY HISTORY Problem Relation Age of Onset - Cancer Father lung cancer - Cancer Brother lung cancer - Coronary Artery Disease Mother - Hypertension Mother Patient Allergies ALLERGIES Allergen Reactions - Soma [Carisoprodol] Other: See Comments Causes him to sleep to much - Lyrica [Pregabalin] GI Upset - Metoclopramide GI Upset Current Medications Current Outpatient Prescriptions on File Prior to Visit: zolpidem (AMBIEN) 10 mg tab TAKE 1 TABLET BY MOUTH AT BEDTIME NEEDED clonazePAM (KLONOPIN) 1 mg tablet TAKE 1 TABLET TWICE DAILY NEEDED mirtazapine (REMERON) 45 mg tablet Take 1 tablet by mouth daily at bedtime. potassium chloride (K-TAB) 10 mEq tablet Take 2 tablets by mouth once daily. hydroCHLOROthiazide (HYDRODIURIL, ESIDRIX) 25 mg tablet Take 1 tablet by mouth once daily. omeprazole (PRILOSEC) 20 mg capsule Take 1 capsule by mouth once daily. atenolol (TENORMIN) 50 mg tablet Take 1 tablet by mouth once daily. gabapentin (NEURONTIN) 800 mg tablet Take 1 tablet by mouth three times daily. HYDROmorphone (DILAUDID) 4 mg tablet 1 tab TID or as needed methadone (DOLOPHINE) 10 mg tablet Take 10 mg in AM and at noon, take 20 mg at night albuterol HFA (PROAIR HFA) 90 mcg/actuation inhaler Inhale 2 Puffs as instructed every 6 hours as needed. ipratropium (ATROVENT) 0.02 % nebulizer solution Use 2.5 mL via nebulizer four times daily as needed for Wheezing/Shortness of Breath. Use over 5-15minutes. polyethylene glycol 3350 (MIRALAX) 17 gram/dose powder Use as directed for constipation COMPOUNDED PRESCRIPTION BiPap supplies: tubing and mask for replacement. DX: G47.37 tiZANidine (ZANAFLEX) 4 mg tablet Take 1 tablet by mouth every 8 hours as needed (muscle spasms). fluticasone-salmeterol (ADVAIR DISKUS) 250-50 mcg/dose dsdv Inhale 1 Puff as instructed twice daily. RINSE AND GARGLE MOUTH WITH WATER AFTER EACH USE. albuterol 2.5 mg /3 mL (0.083 %) INHALATION nebulizer solution Use 3 mL via nebulizer every 4 hours as needed for Wheezing/Shortness of Breath. Use over 5-15minutes.4 times daily COMPOUNDED PRESCRIPTION ASV setting of 10/6/15 cm of water with heated humidification, Mask (per patient preference) and lifetime supplies DX: PHIL 327.23, Central sleep apnea syndrome 327.21 SENNOSIDES 8.6 MG TAB take 2 tablets twice daily as needed for constipation per Dr Loco No current facility-administered medications on file prior to visit. Social History Social History Marital status: Spouse name: Milana Jerome Years of education: Number of children: 2 Social History Main Topics Smoking status: Former Smoker Packs/day: 1.00 Years: 30.00 Types: Cigarettes Quit date: 09/14/2012 Smokeless tobacco: Never Used Alcohol use: Yes Comment: Very little for 2-3 years Drug use: No Comment: Snorting 04/2008 Other Topics Concern BLOOD TRANSFUSIONS No EXAM: BP 138/84 (BP Site: Left Arm, BP Position: Sitting, BP Cuff Size: Regular Adult) Pulse 64 Resp 16 Wt 119 kg (262 lb 6.4 oz) BMI 35.58 kg/m? General Appearance: Well appearing, alert, in no acute distress, well-hydrated, well nourished.. Lungs: Lungs clear to auscultation. No wheezing, rhonchi, rales. Heart: RRR without murmur, gallop, or rubs. No ectopy. Health Maintenance List BLOOD PRESSURE CONTROLLED due on 12/20/1967 DTAP,TDAP,TD(1 - Tdap) due on 03/20/2004 ABDOMINAL AORTIC ANEURYSM SCREENING TOPIC due on 2014 COLORECTAL CANCER SCREENING,SEE MODIFIER due on 07/19/2017 INFLUENZA(1) due on 05/15/2018 LIPID SCREEN due on 10/14/2018 ANNUAL PCP TEAM CHRONIC DISEASE VISIT due on 01/12/2019 DIABETES SCREEN due on 01/12/2021 PROSTATE CANCER SCREENING DISCUSSION Completed ADULT PREVNAR-13 Completed HEPATITIS C SCREENING Completed PNEUMOVAX AGE 65 AND OVER WITH 5YR LOOKBACK Completed Data reviewed Future A1c, la No visits with results within 2 Month(s) from this visit. Latest known visit with results is: Appointment on 01/12/2018 Component Date Value - WBC 01/12/2018 8.39 - RBC 01/12/2018 3.79* - Hemoglobin 01/12/2018 12.2* - Hematocrit 01/12/2018 37.0* - MCV 01/12/2018 97.6 - MCH 01/12/2018 32.2 - MCHC 01/12/2018 33.0 - RDW-CV 01/12/2018 13.3 - Platelet Count 01/12/2018 312 - MPV 01/12/2018 9.0 - Neut% 01/12/2018 46.7 - Abs Neut (ANC) 01/12/2018 3.89 - Lymph% 01/12/2018 41.5 - Abs Lymph 01/12/2018 3.48 - [place]% 01/12/2018 7.7 - Abs [place] 01/12/2018 0.65 - Eosin% 01/12/2018 3.3 - Abs Eosin 01/12/2018 0.28 - Baso% 01/12/2018 0.8 - Abs Baso 01/12/2018 0.07 - Nucleated Reds 01/12/2018 0.0 - Absolute nRBC 01/12/2018 <0.01 - Diff Type 01/12/2018 Auto Diff - Protein, Total 01/12/2018 7.7 - Albumin 01/12/2018 4.2 - Calcium 01/12/2018 8.9 - Bilirubin, Total 01/12/2018 0.4 - Alkaline Phosphatase 01/12/2018 121* - AST 01/12/2018 21 - Glucose 01/12/2018 80 - BUN 01/12/2018 13 - Creatinine 01/12/2018 1.43* - Sodium 01/12/2018 139 - Potassium 01/12/2018 3.9 - Chloride 01/12/2018 98 - CO2 01/12/2018 29 - Anion Gap 01/12/2018 12 - ALT 01/12/2018 12 - eGFR- 01/12/2018 60 - eGFR-All Other Races 01/12/2018 49 - TSH 01/12/2018 3.720 ASSESSMENT/PLAN: 1. Essential hypertension, benign - ICD9: 401.1, ICD10: I10 (primary diagnosis) - good control - Goal of BP <140/90 - ECG COMPLETE W INTERPRETATION 2. Anxiety - ICD9: 300.00, ICD10: F41.9 Continue current medications. 3. Mixed hyperlipidemia - ICD9: 272.2, ICD10: E78.2 - good control - Continue current medication. 4. Insomnia, unspecified type - ICD9: 780.52, ICD10: G47.00 Continue current medications. 5. PHIL (obstructive sleep apnea) - ICD9: 327.23, ICD10: G47.33 Follow up in 3 months Tangela Saavedra MD The documentation for this note was completed by Jasmin Murillo Ma acting as scribe for Tangela Saavedra MD. April 15, 2018 9:48 AM. CNOV Observed: 04/15/2018 Status: COMPLETED Source: [place] [address]:[id number] AM [facility] REPOSITORY Office Visit (FAMPWS) NURIA DEWITT ([id number]) 1950 M HOS Date Time Provider Department 04/15/18 9:40 AM TANGELA SAAVEDRA FAMPWS During your visit today, we recorded the following information about you: Pulse Respiration Blood pressure Weight 64/minute 16/minute 138/84 119 kg Tangela Saavedra MD 04/16/2018 11:29 AM Signed Chief Complaint Patient presents with: F/U 3 Month: HTN, Insomnia and Anxiety HPI Nuria Dewitt is a 67 year old male who presents here today for a 3 mo f/u. Pt here today for a 3 mo f/u. Pain Management - States that Pain Management requested for him to have completed by PCP office. Next scheduled appt is 06/21/18. Insomnia - Doesn't sleep well. On average sleep 4 hours with occasional napping during the day. Uses 2 liters of oxygen at night. Anxiety - States that anxiety is doing, but not the best. 04/09/18 of [place] and recently buried her on 04/14/18. Currently taking Klonopin 1 mg 1 tab po bid. HTN - Checks BP at home 1-2 times per month. Has some highs and lows. Will have days where he has spots in his eyes but when he checks numbers are low. Currently taking Atenolol 50 mg once daily, HCTZ 25 mg once daily and Potassium 10 meq 2 tabs once daily. Past medical history, appointments, medications, allergies reviewed. 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 - Cocaine abuse, unspecified 05/05/2008 STEPS Program. - COPD (chronic obstructive pulmonary disease) (HCC) abnormal CT 2011 - Depression - Dysphagia - Essential hypertension, benign 09/02/2006 - Hypertrophy of prostate with urinary obstruction and other lower urinary tract symptoms (LUTS) 09/02/2006 - Insomnia 08/18/2013 - Other diseases of lung, not elsewhere classified HILAR ADENOPATHY - Other emphysema (HCC) Emphysema - Peripheral neuropathy 2010 - Unspecified vitamin D deficiency 09/10/2006 Previous Surgical History PAST SURGICAL HISTORY Procedure Laterality Date - APPENDECTOMY - COLONOSCOP W/ OR W/O BRSH SPEC 07/21/2006 Colonoscopy - COLONOSCOP W/ OR W/O BRSH SPEC 09/22/2008 Colonoscopy - COLONOSCOP W/ OR W/O BRSH SPEC 04/13/2014 Colonoscopy - COLONOSCOP W/ OR W/O BRSH SPEC 07/17/14 Colonoscopy incomplete - COLONOSCOP W/ OR W/O BRSH SPEC 07/19/14 Colonoscopy - EGD W/O BRSH SPECIMEN W/BX 10/20/06 - OP BRONCHOS DIAG, W/WO WASHING Bronchoscopy - OPEN RX ANKLE DISLOCATN+FIXATN ORIF Ankle rt - PAST SURGICAL HISTORY OF Left hand surgery - PAST SURGICAL HISTORY OF 05/12/2007 Prostate vaporization - PAST SURGICAL HISTORY OF 05/06/2016 Right eye, [place] lid replacement - PAST SURGICAL HISTORY OF Right 02/10/2017 correction fo ptosis-Dr. Rollins Family History FAMILY HISTORY Problem Relation Age of Onset - Cancer Father lung cancer - Cancer Brother lung cancer - Coronary Artery Disease Mother - Hypertension Mother Patient Allergies ALLERGIES Allergen Reactions - Soma [Carisoprodol] Other: See Comments Causes him to sleep to much - Lyrica [Pregabalin] GI Upset - Metoclopramide GI Upset Current Medications Current Outpatient Prescriptions on File Prior to Visit: zolpidem (AMBIEN) 10 mg tab TAKE 1 TABLET BY MOUTH AT BEDTIME NEEDED clonazePAM (KLONOPIN) 1 mg tablet TAKE 1 TABLET TWICE DAILY NEEDED mirtazapine (REMERON) 45 mg tablet Take 1 tablet by mouth daily at bedtime. potassium chloride (K-TAB) 10 mEq tablet Take 2 tablets by mouth once daily. hydroCHLOROthiazide (HYDRODIURIL, ESIDRIX) 25 mg tablet Take 1 tablet by mouth once daily. omeprazole (PRILOSEC) 20 mg capsule Take 1 capsule by mouth once daily. atenolol (TENORMIN) 50 mg tablet Take 1 tablet by mouth once daily. gabapentin (NEURONTIN) 800 mg tablet Take 1 tablet by mouth three times daily. HYDROmorphone (DILAUDID) 4 mg tablet 1 tab TID or as needed methadone (DOLOPHINE) 10 mg tablet Take 10 mg in AM and at noon, take 20 mg at night albuterol HFA (PROAIR HFA) 90 mcg/actuation inhaler Inhale 2 Puffs as instructed every 6 hours as needed. ipratropium (ATROVENT) 0.02 % nebulizer solution Use 2.5 mL via nebulizer four times daily as needed for Wheezing/Shortness of Breath. Use over 5-15minutes. polyethylene glycol 3350 (MIRALAX) 17 gram/dose powder Use as directed for constipation COMPOUNDED PRESCRIPTION BiPap supplies: tubing and mask for replacement. DX: G47.37 tiZANidine (ZANAFLEX) 4 mg tablet Take 1 tablet by mouth every 8 hours as needed (muscle spasms). fluticasone-salmeterol (ADVAIR DISKUS) 250-50 mcg/dose dsdv Inhale 1 Puff as instructed twice daily. RINSE AND GARGLE MOUTH WITH WATER AFTER EACH USE. albuterol 2.5 mg /3 mL (0.083 %) INHALATION nebulizer solution Use 3 mL via nebulizer every 4 hours as needed for Wheezing/Shortness of Breath. Use over 5-15minutes.4 times daily COMPOUNDED PRESCRIPTION ASV setting of 10/6/15 cm of water with heated humidification, Mask (per patient preference) and lifetime supplies DX: PHIL 327.23, Central sleep apnea syndrome 327.21 SENNOSIDES 8.6 MG TAB take 2 tablets twice daily as needed for constipation per Dr Loco No current facility-administered medications on file prior to visit. Social History Social History Marital status: Spouse name: Milana Jerome Years of education: Number of children: 2 Social History Main Topics Smoking status: Former Smoker Packs/day: 1.00 Years: 30.00 Types: Cigarettes Quit date: 09/14/2012 Smokeless tobacco: Never Used Alcohol use: Yes Comment: Very little for 2-3 years Drug use: No Comment: Snorting 04/2008 Other Topics Concern BLOOD TRANSFUSIONS No EXAM: BP 138/84 (BP Site: Left Arm, BP Position: Sitting, BP Cuff Size: Regular Adult) Pulse 64 Resp 16 Wt 119 kg (262 lb 6.4 oz) BMI 35.58 kg/m? General Appearance: Well appearing, alert, in no acute distress, well-hydrated, well nourished.. Lungs: Lungs clear to auscultation. No wheezing, rhonchi, rales. Heart: RRR without murmur, gallop, or rubs. No ectopy. Health Maintenance List BLOOD PRESSURE CONTROLLED due on 12/20/1967 DTAP,TDAP,TD(1 - Tdap) due on 03/20/2004 ABDOMINAL AORTIC ANEURYSM SCREENING TOPIC due on 2014 COLORECTAL CANCER SCREENING,SEE MODIFIER due on 07/19/2017 INFLUENZA(1) due on 05/15/2018 LIPID SCREEN due on 10/14/2018 ANNUAL PCP TEAM CHRONIC DISEASE VISIT due on 01/12/2019 DIABETES SCREEN due on 01/12/2021 PROSTATE CANCER SCREENING DISCUSSION Completed ADULT PREVNAR-13 Completed HEPATITIS C SCREENING Completed PNEUMOVAX AGE 65 AND OVER WITH 5YR LOOKBACK Completed Data reviewed Future A1c, la No visits with results within 2 Month(s) from this visit. Latest known visit with results is: Appointment on 01/12/2018 Component Date Value - WBC 01/12/2018 8.39 - RBC 01/12/2018 3.79* - Hemoglobin 01/12/2018 12.2* - Hematocrit 01/12/2018 37.0* - MCV 01/12/2018 97.6 - MCH 01/12/2018 32.2 - MCHC 01/12/2018 33.0 - RDW-CV 01/12/2018 13.3 - Platelet Count 01/12/2018 312 - MPV 01/12/2018 9.0 - Neut% 01/12/2018 46.7 - Abs Neut (ANC) 01/12/2018 3.89 - Lymph% 01/12/2018 41.5 - Abs Lymph 01/12/2018 3.48 - [place]% 01/12/2018 7.7 - Abs [place] 01/12/2018 0.65 - Eosin% 01/12/2018 3.3 - Abs Eosin 01/12/2018 0.28 - Baso% 01/12/2018 0.8 - Abs Baso 01/12/2018 0.07 - Nucleated Reds 01/12/2018 0.0 - Absolute nRBC 01/12/2018 <0.01 - Diff Type 01/12/2018 Auto Diff - Protein, Total 01/12/2018 7.7 - Albumin 01/12/2018 4.2 - Calcium 01/12/2018 8.9 - Bilirubin, Total 01/12/2018 0.4 - Alkaline Phosphatase 01/12/2018 121* - AST 01/12/2018 21 - Glucose 01/12/2018 80 - BUN 01/12/2018 13 - Creatinine 01/12/2018 1.43* - Sodium 01/12/2018 139 - Potassium 01/12/2018 3.9 - Chloride 01/12/2018 98 - CO2 01/12/2018 29 - Anion Gap 01/12/2018 12 - ALT 01/12/2018 12 - eGFR- 01/12/2018 60 - eGFR-All Other Races 01/12/2018 49 - TSH 01/12/2018 3.720 ASSESSMENT/PLAN: 1. Essential hypertension, benign - ICD9: 401.1, ICD10: I10 (primary diagnosis) - good control - Goal of BP <140/90 - ECG COMPLETE W INTERPRETATION 2. Anxiety - ICD9: 300.00, ICD10: F41.9 Continue current medications. 3. Mixed hyperlipidemia - ICD9: 272.2, ICD10: E78.2 - good control - Continue current medication. 4. Insomnia, unspecified type - ICD9: 780.52, ICD10: G47.00 Continue current medications. 5. PHIL (obstructive sleep apnea) - ICD9: 327.23, ICD10: G47.33 Follow up in 3 months Tangela Saavedra MD The documentation for this note was completed by Jasmin Murillo Ma acting as scribe for Tangela Saavedra MD. April 15, 2018 9:48 AM. Jasmin Murillo Ma 04/15/2018 11:35 AM Signed EKG results have been faxed to [facility] per pt request. F#:[phone]. Jasmin Murillo Ma Referring Provider: TANGELA SAAVEDRA [[id number]] Allergies As of Date: 04/15/2018 Noted Allergy Reaction SOMA (CARISOPRODOL) 05/06/2016 14 - Other: See Comments Comments: Causes him to sleep to much LYRICA (PREGABALIN) 02/11/2012 8 - GI Upset METOCLOPRAMIDE 02/11/2012 8 - GI Upset Date Reviewed: 04/15/2018 Reviewed by: Jasmin Murillo Ma - Fully Assessed Reason for Visit: F/U 3 Month [443] Cmt: HTN, Insomnia and Anxiety Primary Visit Diagnosis:Essential hypertension, benign [I10] Other Visit Diagnoses:Anxiety [F41.9] Mixed hyperlipidemia [E78.2] Insomnia, unspecified type [G47.00] PHIL (obstructive sleep apnea) [G47.33] Order(s):ECG COMPLETE W INTERPRETATION [ECG01] Order #: [id number] FUTURE Prescriptions as of 04/15/2018 Sig: ZOLPIDEM 10 MG TABLET TAKE 1 TABLET BY MOUTH AT BED* CLONAZEPAM 1 MG TABLET TAKE 1 TABLET TWICE DAILY * MIRTAZAPINE 45 MG TABLET Take 1 tablet by mouth daily * POTASSIUM CHLORIDE ER 10 MEQ * Take 2 tablets by mouth once * HYDROCHLOROTHIAZIDE 25 MG TAB* Take 1 tablet by mouth once d* OMEPRAZOLE 20 MG CAPSULE,KONSTANTIN* Take 1 capsule by mouth once * ATENOLOL 50 MG TABLET Take 1 tablet by mouth once d* GABAPENTIN 800 MG TABLET Take 1 tablet by mouth three * HYDROMORPHONE 4 MG TABLET 1 tab TID or as needed METHADONE 10 MG TABLET Take 10 mg in AM and at noon,* ALBUTEROL SULFATE HFA 90 MCG/* Inhale 2 Puffs as instructed * IPRATROPIUM BROMIDE 0.02 % SO* Use 2.5 mL via nebulizer four* POLYETHYLENE GLYCOL 3350 17 G* Use as directed for constipat* COMPOUNDED PRESCRIPTION BiPap supplies: tubing and ma* TIZANIDINE 4 MG TABLET Take 1 tablet by mouth every * FLUTICASONE 250 MCG-SALMETERO* Inhale 1 Puff as instructed t* * ALBUTEROL SULFATE 2.5 MG/3 ML* Use 3 mL via nebulizer every * * COMPOUNDED PRESCRIPTION ASV setting of 10/6/15 cm of * * SENNOSIDES 8.6 MG TABLET take 2 tablets twice daily as* Problem List As Of Date 04/15/2018 Noted Resolved MULTIPLE PULMONARY NODULES [J98.4] More... EMPHYSEMA NEC [J43.8] More... BENIGN HYPERTENSION [I10] INVALID FOR* COLON POLYPS [D01.0] INVALID FOR* More... BPH W URINARY OBS/LUTS [N40.1] INVALID FOR* VITAMIN D DEFICIENCY NOS [E55.9] INVALID FOR* TOBACCO USE DISORDER [F17.200] INVALID FOR* DYSPHAGIA [787.2] 06/15/2008 LUMBAGO [M54.5] INVALID FOR* Pain in joint, multiple sites [M25.50] INVALID FOR*06/11/2012 Central sleep apnea in conditions classified el*INVALID FOR* More... BLADDER NECK OBSTRUCTION [N32.0] INVALID FOR* Cocaine abuse, unspecified [F14.10] INVALID FOR*07/06/2012 More... ADHESIVE CAPSULIT SHLDER [M75.00] INVALID FOR* Benign neoplasm of colon [D12.6] INVALID FOR*11/10/2012 Dysmetabolic [E88.81] INVALID FOR* More... Hypogonadism male [E29.1] INVALID FOR* More... 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 F#:[phone]. Jasmin Murillo Ma Disposition: Return in about 3 months (around 07/16/2018). Follow-up and Disposition History Recorded Encounter Status:Closed by TANGELA SAAVEDRA MD on 04/16/18 MARIELA Observed: 03/30/2018 Status: COMPLETED Source: PEDERSON 12:00 AM [facility] REPOSITORY Patient Outreach ([facility]) DELLNURIA UGARTE ([id number]) 1950 M HOS Date Time Provider Department 03/30/18 TANGELA SAAVEDRA [facility] During your visit today, we recorded the following information about you: Allergies As of Date: 03/30/2018 Noted Allergy Reaction SOMA (CARISOPRODOL) 05/06/2016 14 - Other: See Comments Comments: Causes him to sleep to much LYRICA (PREGABALIN) 02/11/2012 8 - GI Upset METOCLOPRAMIDE 02/11/2012 8 - GI Upset Date Reviewed: 01/12/2018 Reviewed by: January Moore Ma - Fully Assessed Visit Diagnosis:Medication management [Z79.899] Order(s):HGB A1C [[id number]] Order #: [id number] FUTURE Prescriptions as of 03/30/2018 Sig: MIRTAZAPINE 45 MG TABLET Take 1 tablet by mouth daily * POTASSIUM CHLORIDE ER 10 MEQ * Take 2 tablets by mouth once * X ZOLPIDEM 10 MG TABLET TAKE 1 TABLET AT BEDTIME N* X CLONAZEPAM 1 MG TABLET Take 1 tablet by mouth twice * HYDROCHLOROTHIAZIDE 25 MG TAB* Take 1 tablet by mouth once d* OMEPRAZOLE 20 MG CAPSULE,KONSTANTIN* Take 1 capsule by mouth once * X ATENOLOL 50 MG TABLET Take 1 tablet by mouth once d* GABAPENTIN 800 MG TABLET Take 1 tablet by mouth three * HYDROMORPHONE 4 MG TABLET 1 tab TID or as needed METHADONE 10 MG TABLET Take 10 mg in AM and at noon,* ALBUTEROL SULFATE HFA 90 MCG/* Inhale 2 Puffs as instructed * IPRATROPIUM BROMIDE 0.02 % SO* Use 2.5 mL via nebulizer four* POLYETHYLENE GLYCOL 3350 17 G* Use as directed for constipat* COMPOUNDED PRESCRIPTION BiPap supplies: erin and ma* TIZANIDINE 4 MG TABLET Take 1 tablet by mouth every * FLUTICASONE 250 MCG-SALMETERO* Inhale 1 Puff as instructed t* * ALBUTEROL SULFATE 2.5 MG/3 ML* Use 3 mL via nebulizer every * * COMPOUNDED PRESCRIPTION ASV setting of 10/6/15 cm of * * SENNOSIDES 8.6 MG TABLET take 2 tablets twice daily as* Problem List As Of Date 03/30/2018 Noted Resolved MULTIPLE PULMONARY NODULES [J98.4] More... EMPHYSEMA NEC [J43.8] More... BENIGN HYPERTENSION [I10] INVALID FOR* COLON POLYPS [D01.0] INVALID FOR* More... BPH W URINARY OBS/LUTS [N40.1] INVALID FOR* VITAMIN D DEFICIENCY NOS [E55.9] INVALID FOR* TOBACCO USE DISORDER [F17.200] INVALID FOR* DYSPHAGIA [787.2] 06/15/2008 LUMBAGO [M54.5] INVALID FOR* Pain in joint, multiple sites [M25.50] INVALID FOR*06/11/2012 Central sleep apnea in conditions classified el*INVALID FOR* More... BLADDER NECK OBSTRUCTION [N32.0] INVALID FOR* Cocaine abuse, unspecified [F14.10] INVALID FOR*07/06/2012 More... ADHESIVE CAPSULIT SHLDER [M75.00] INVALID FOR* Benign neoplasm of colon [D12.6] INVALID FOR*11/10/2012 Dysmetabolic [E88.81] INVALID FOR* More... Hypogonadism male [E29.1] INVALID FOR* More... 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 [place] [address] OFFICE VISIT Date of Service: 02/03/18 MR#: [id number] Acct: [id number] Name: NURIA DEWITT Rep #: [id number] : 1950 Provider: Bandar Garcia MD Age/Sex: 67/M Location: [facility].PMW Status: Signed Assessment AND Plan 1. Stage 1 mild COPD by GOLD classification J44.9 Plan Patient reports the pathology was not as effective as the individual components. Patient appears to be well controlled on triple therapy using 2 separate inhalers. Signs and symptoms of exacerbation were reviewed in detail. Sick policy was also reviewed. Patient voiced understanding. Continue current therapy. Repeat studies in October 2. Chronic respiratory failure with hypoxia J96.11 Plan Patient's walking oximetry shows significant desaturation. Stressed to the patient that fluid status can lead to high variations need for oxygen. Patient voiced understanding. Patient will continue to check periodic blood saturation levels and treat to keep saturations greater than 90% at all times. Continue supplemental oxygen as needed 3. PHIL (obstructive sleep apnea) G47.33 Plan Patient with complex sleep apnea and continues to be noncompliant with BiPAP therapy. Patient is using nocturnal oxygen, which is likely helpful, but stressed to the patient that this is not alleviating the problem. Patient does see neurology, so no further recommendations were made. Encourage compliance with BiPAP therapy 4. Mild intermittent asthma, unspecified whether complicated J45.20 Plan Patient appears to be doing much better at this visit compared to previous. This may be secondary to his asthma control. Patient is currently on triple therapy with good response. Signs and symptoms of exacerbation were reviewed in detail. Patient is only requiring 1 dose of Ventolin per month. Continue current therapy Plan Detail Follow Up 6 Months ([facility]) HPI 3 M FU: Chief Complaint: Shortness of breath on exertion Details: Patient is a 67-year-old male, currently under the care of Dr. Saavedra, who presents for evaluation secondary to shortness of breath on exertion. Since last visit, patient reports no ER visits, hospitalizations or prednisone burst. Patient does report that the trelegy worked for the first couple days, then took my breath away. Patient has since gone back to his previous medications of Incruse and Breo. Patient denies any complications with therapy and states that his activity level is much improved compared to previous. Patient has been able to be doing some yard work, which she finds enjoyable. Patient does occasionally use supplemental oxygen to facilitate. Patient reports he continues to be noncompliant with BiPAP therapy. Patient states he does use supplemental oxygen and feels that this does help. Patient continues to be tired during the day and will occasionally take naps. Patient denies any complications of supplemental oxygen therapy on most days, but has had one episode of epistaxis. This was briefly followed by hemoptysis, but resolved spontaneously. Testing reviewed with the patient Walking oximetry (11/06/2017): Ambulated 944 feet over the course of 6 minutes with desaturation as low as 90%. Intake Vital Signs02/03/18 Height 6 ft 02/03/18 Weight: 117.934 kg Intake Visit Reasons: 3 M FU Chief Complaint: shortness of breath Accompanied by: Self Allergies carisoprodol [From Soma] Allergy (Verified 02/03/18 06:35) Other metoclopramide HCl [From Reglan] Adverse Reaction (Verified 02/03/18 06:35) Upset Stomach pregabalin [From Lyrica] Adverse Reaction (Verified 02/03/18 06:35) Upset Stomach Medications Atenolol [Tenormin] 25 mg PO DAILY 03/31/16 [History Confirmed 02/03/18] Clonazepam [Klonopin] 0.5 mg PO BID PRN 03/31/16 [History Confirmed 02/03/18] Duloxetine Hcl [Cymbalta] 60 mg PO DAILY 03/31/16 [History Confirmed 02/03/18] Hydrochlorothiazide [Hctz] 25 mg PO DAILY 03/31/16 [History Confirmed 02/03/18] Hydromorphone HCl [Dilaudid] 4 mg PO TID PRN 03/31/16 [History Confirmed 02/03/18] Methadone HCl 10 mg PO DAILY 03/31/16 [History Confirmed 02/03/18] Methadone HCl 10 mg PO LUNCH 03/31/16 [History Confirmed 02/03/18] Methadone HCl 20 mg PO QHS 03/31/16 [History Confirmed 02/03/18] Potassium Chloride [K-Dur] 10 meq PO BID 03/31/16 [History Confirmed 02/03/18] Sennosides/Docusate Sodium [Senna Plus Tablet] 2 ea PO BID 03/31/16 [History Confirmed 02/03/18] Tizanidine HCl [Zanaflex] 4 mg PO Q8H PRN 03/31/16 [History Confirmed 02/03/18] Zolpidem Tartrate [Ambien] 10 mg PO QHS PRN 03/31/16 [History Confirmed 02/03/18] Gabapentin [Neurontin] 800 mg PO TIDCM 04/18/16 [History Confirmed 02/03/18] Omeprazole [Prilosec] 20 mg PO DAILY 04/29/16 [History Confirmed 02/03/18] Dymista 1 spray NARES BID 02/06/17 [History Confirmed 02/03/18] Fluticasone/Vilanterol [Breo Ellipta 200-25 Mcg INH] 1 puff IH DAILY 02/06/17 [History Confirmed 02/03/18] Umeclidinium [place] [Incruse Ellipta] 1 puff IH DAILY 02/06/17 [History Confirmed 02/03/18] Cephalexin [Keflex] 500 mg PO BID #6 cap 02/10/17 [Rx Confirmed 02/03/18] PFSH Medical History HTN (hypertension) (Chronic) Obesity (Chronic) CKD stage III (Chronic) PHIL (obstructive sleep apnea) (Chronic) Abnormal chest CT (Acute) Central sleep apnea (Chronic) COPD (chronic obstructive pulmonary disease) (Chronic) Asthma (Chronic) Curiel palsy (Chronic) Hemoptysis (Acute) Pneumonia (Acute) Depression (Chronic) Chronic pain (Chronic) Surgical History H/O neck surgery (Resolved) ankle surgery (Resolved) lower back surgery (Resolved) Family History Father Lung disease Cancer lung Brother Cancer lung Social History Smoking Status: Former smoker how long ago did patient quit smokin, 2-3pk/day second hand exposure: Yes alcohol intake: never substance use type: does not use caffeine: Yes Type: coffee Number of servings: 3 what type of physical activity do you participate in: bicycling frequency: daily duration: 15-30 minutes/day Review of Systems Const CONSTITUTIONAL: Negative anorexia, body ache, chills, daytime sleepiness, fever(s), night sweats, oral thrush, stops breathing during sleep, weight loss, sleeping in chair, fatigue, weight loss, weight gain, frequent colds, seasonal allergies, other, headache(s) or orthopnea EETM Ear Nose Throat Mouth: Negative hard of hearing, hearing normal, hoarseness, dry mouth in morning, change in vision, itchy eyes, eye pain, swallowing Difficulty, ear pain, nose bleed, headache(s), mouth pain, nasal congestion, nasal discharge, post nasal drip, sinus pain, sinus pressure, sore throat or other Cardio Cardiovascular: Negative chest pain, chest pain at rest, chest pain with activity, irregular heart rhythm, edema, shortness of breath when lying down, palpitations, murmur or other Resp Respiratory: Positive as per HPI and shortness of breath shortness of breath: Positive with activity (feels its improved ); negative pain with cough, wheezing, chest congestion, cough, chest tightness, pain on inspiration, inhalers, increase use of rescue inhalers, snoring, apnea or other Gastro Gastrointestional: Negative bloody stools, change in appetite, difficulty swallowing, reflux, hematemesis, melena stool, loose stool, constipation or other Genitourinary: Negative blood in urine, nocturia, pain with urination or other Musc Musculoskeletal: Negative body pain, back pain, neck pain or other Skin/Breast Skin/Breast: Negative dry skin, itching, rash, unusual bruising, breast lump or other Neuro Neurological: Negative restless legs, confusion, weakness or other Psych Psychocological: Negative abnormal sleep pattern, anxiety, thoughts of hurting self/others, hopelessness or other Lymph Lymphatic: Negative easy bleeding, easy bruising, swollen lymph nodes or other Exam Const Constitutional: Positive conversant, cooperative, in no acute respiratory distress, healthy appearing, well developed, well nourished, good hygiene and obese; negative wearing supplemental oxygen Head Head: Positive normocephalic and atraumatic; negative cyanosis of lips/distal nose, frontal sinus tenderness or maxillary sinus tenderness Eyes Eye: Positive clear conjunctiva; negative nystagmus, scleral abnormality or cataract present Ears Ear: Negative hard of hearing or hearing normal Nose Nose: Positive external nose normal, septum normal and clear nasal discharge; negative epistaxis or nasal polyp Mouth Mouth: Positive oral mucosae normal and no lesions; negative post nasal drip, malodorous breath or oral thrush present Mallampati Score: II: Mallampati Score Neck Neck: Positive normal visual inspection, full ROM and trachea midline; negative lymphadenopathy or JVD Chest Wall Chest: Positive normal inspection of the chest and symmetric chest movement; negative crepitus or tenderness Resp lung sounds: Positive clear to auscultation, good air exchange, normal expiratory time and normal respiratory effort; negative wheezes, rhonchi, rales, use of accessory muscles, dullness to percussion or wheeze present on forced exhalation Cardio Cardiac: Positive regular rate, regular rhythm, S2 normal and S1 normal; negative murmur, rub or gallop GI GI: Positive normal to inspection, normal bowel sounds and obese; negative distended, ascites or epigastric tenderness Genitourinary: Positive deferred Musc Musculoskeletal: Positive steady gait; negative using an assistive device for ambulation, kyphosis or scoliosis Skin Pulmonary Skin Exam: Positive intact; negative rash, petechiae, lesion, ulcers, erythema, dermal atrophy or scaly Pulses Pulse: Yes radial pulses present Extremities Extremities: Yes capillary refill normal, No clubbing, No cyanosis, No edema, No stasis dermatitis Neuro Neurologic: Yes conversant, Yes no focal neuro deficits, Yes normal concentration, Yes understands questions, Yes cooperative, Yes normal cognition, Yes normal coordination Lymph Lymphatic: No lymphadenopathy Psych Appearance: Positive grossly normal Mental Status: Positive mental status grossly normal Mood: Positive congruent mood Affect: Positive normal affect Coding Level of Care Code Off vis,est,level 3 Diagnoses Stage 1 mild COPD by GOLD classification J44.9 Chronic respiratory failure with hypoxia J96.11 PHIL (obstructive sleep apnea) G47.33 Mild intermittent asthma, unspecified whether complicated J45.20 Asthma severity: mild Asthma persistence: intermittent Asthma complication type: unspecified 02/03/18 0802 <Electronically signed by Bandar Garcia MD> Date Bandar Garcia MD Cosigner Signature: Date (if applicable) CC: Tangela Saavedra MD PROGRESS Observed: 01/27/2018 Status: COMPLETED Source: [place] 12:27 PM [facility] REPOSITORY HNO ID: [id number] Author: Isabel Figueroa Service: (none) Author Type: (none) Type: Progress Notes Filed: 01/27/2018 12:28 PM Note Text: Scheduled patient for colonoscopy consultation with Aide Garcia on 02/04/2018 Isabel Figueroa CBC AND DIFFERENTIAL Collected: 01/12/2018 Status: F Source: [place] 3:25 PM [facility] REPOSITORY TYPE CODE TESTS RESULT OUT OF REFERENCE UNITS RANGE LAB WBC 3.70-11.00 k/uL WBC 8.39 LAB RBC 4.20-6.00 m/uL Low RBC 3.79 LAB HGB 13.0-17.0 g/dL Low Hemoglobin 12.2 LAB HCT 39.0-51.0 % Low Hematocrit 37.0 LAB MCV 80.0-100.0 fL MCV 97.6 LAB MCH 26.0-34.0 pG MCH 32.2 LAB MCHC 30.5-36.0 g/dL MCHC 33.0 LAB RDWCV 11.5-15.0 % RDW-CV 13.3 LAB PLTCT 150-400 k/uL Platelet Count 312 LAB MPV 9.0-12.7 fL MPV 9.0 LAB ANEUT % Neut% 46.7 LAB AANEUT 1.45-7.50 k/uL Abs Neut 3.89 LAB ALYMP % Lymph% 41.5 LAB AALYMP 1.00-4.00 k/uL Abs Lymph 3.48 LAB AMONO % [place]% 7.7 LAB AAMONO <0.87 k/uL Abs [place] 0.65 LAB AEOS % Eosin% 3.3 LAB AAEOS <0.46 k/uL Abs Eosin 0.28 LAB ABASO % Baso% 0.8 LAB AABASO <0.11 k/uL Abs Baso 0.07 LAB AUNRBC 0 /100 WBC NRBCs 0.0 LAB ABNRBC <0.01 k/uL Absolute nRBC <0.01 LAB DTYP DTYPE Auto Diff Performed By: #### CBCDIF, CMP, TSH #### [facility] [address] [place] [address] COMP METABOLIC PANEL Collected: 01/12/2018 Status: F Source: [place] 3:25 PM [facility] REPOSITORY TYPE CODE TESTS RESULT OUT OF REFERENCE UNITS RANGE LAB TP 6.3-8.0 g/dL Protein, Total 7.7 LAB ALB 3.9-4.9 g/dL Albumin 4.2 LAB CA 8.5-10.2 mg/dL Calcium, Total 8.9 LAB TBIL 0.2-1.3 mg/dL Bilirubin, Total 0.4 LAB ALKP 36-108 U/L Alkaline High Phosphatase 121 LAB AST 14-40 U/L AST 21 LAB GLU 74-99 mg/dL Glucose 80 Result Comment: The [place] [employer] (ADA) provides guidance for cutoff values for fasting glucose and random glucose. The ADA defines fasting as no caloric intake for at least 8 hours. Fas ting plasma glucose results between 100 to 125 mg/dL indicate increased risk for diabetes (prediabetes). Fasting plasma glucose results greater than or equal to 126 mg/dL meet the criteria for diagnosis of diabetes. In the absence of unequivocal hyperglycemia, results should be confirmed by repeat testing. In a patient with classic symptoms of hyperglycemia or hyperglycemic crisis, random plasma glucose results greater than or equal to 200 mg/dL meet the criteria for diagnosis of diabetes. Reference: Standards of Medical Care in Diabetes 2016, [place] [employer]. Diabetes Care. 2016.39(Suppl 1). LAB BUN 9-24 mg/dL BUN 13 LAB CRET 0.73-1.22 mg/dL Creatinine High 1.43 LAB NA 136-144 mmol/L Sodium 139 LAB K 3.7-5.1 mmol/L Potassium 3.9 LAB CL 97-105 mmol/L Chloride 98 LAB CO2 22-30 mmol/L CO2 29 LAB AGAP 9-18 mmol/L Anion Gap 12 LAB ALT 10-54 U/L ALT 12 LAB GFRAA eGFR- Amer. 60 LAB GFRNAA . eGFR-All Other Races 49 Result Comment: eGFR (Estimated GFR) Units of measure: mL/min/1.73 meters squared eGFR is derived from the reexpressed MDRD Study equation using the following parameters: serum creatinine, age, gender and race. The creatinine assay has been calibrated to be traceable to IDMS. An eGFR <60 mL/min/1.73m2 for >3 months is consistent with chronic kidney disease. Refer to KDOQI guidelines for clinical interpretation. In patients with unstable renal function, e.g. those with acute kidney injury, the eGFR may not accurately reflect actual GFR. Performed By: #### CBCDIF, CMP, TSH #### [facility] [employer] [address] [place], [place] [address] TSH Collected: 01/12/2018 Status: F Source: [place] 3:25 PM [facility] REPOSITORY TYPE CODE TESTS RESULT OUT OF RANGE REFERENCE UNITS LAB TSH 0.400-5.500 uU/mL TSH 3.720 Performed By: #### CBCDIF, CMP, TSH #### [facility] [employer] [address] [place], [place] [address] CNOV Observed: 01/12/2018 Status: COMPLETED Source: [place] 3:00 PM [facility] REPOSITORY Office Visit (FAMPWS) NURIA DEWITT ([id number]) 1950 M HOS Date Time Provider Department 01/12/18 3:00 PM [facility] During your visit today, we recorded the following information about you: Pulse Respiration Blood pressure Weight 72/minute 14/minute 130/80 116.6 kg Tangela Saavedra MD 01/12/2018 3:19 PM Signed Chief Complaint Patient presents with: F/U 3 Month HPI Nuria Thomas Dell is a 67 year old male who presents here today for 3 month follow up. HTN: does not check BP at home. Denies any chest pains, dizziness, or SOB. Is taking Atenolol 50 mg daily and HCTZ 25 mg daily. Anxiety: is taking Clonazepam 1 mg BID. Feels this is controlled, although he has been feeling sad, thinking about all his loved ones that have . Insomnia: taking remeron 45 mg daily at bedtime and Ambien 10 mg daily at bedtime. Has trouble sleeping, sleeps about 2-3 hours then is wide awake. Uses a BiPAP at night for PHIL. Reflux: controlled on Prilisec 20 mg daily. Breathing has been doing well with the Atrovent and Albuterol nebulizing solutions, Advair Diskus inhaler an Proair inhaler. Follows with Dr. Wei, Pain Management in [place]. Prescribed Gabapentin 800 mg TID, Dilaudid and methadone. Has been having sweating episodes with weakness, shaking, and nausea off and on through the day. Sometimes they can be so bad he feels like he might pass out. Has had for a while but worsened and more frequent last 2 weeks. Does get a little dizzy. No chest pains or SOB. He states he has been eating ok. Unable to correlate what causes the episodes to start. Seems to only happen during the day, denies any problems at night. Denies any changes to his medications. No abnormal weight gain or lose, no bowel changes. Past medical history, appointments, medications, allergies reviewed. 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 - Cocaine abuse, unspecified 05/05/2008 STEPS Program. - COPD (chronic obstructive pulmonary disease) (HCC) abnormal CT 2011 - Depression - Dysphagia - Essential hypertension, benign 09/02/2006 - Hypertrophy of prostate with urinary obstruction and other lower urinary tract symptoms (LUTS) 09/02/2006 - Insomnia 08/18/2013 - Other diseases of lung, not elsewhere classified HILAR ADENOPATHY - Other emphysema (HCC) Emphysema - Peripheral neuropathy 2010 - Unspecified vitamin D deficiency 09/10/2006 Previous Surgical History PAST SURGICAL HISTORY Procedure Laterality Date - APPENDECTOMY - COLONOSCOP W/ OR W/O BRSH SPEC 07/21/2006 Colonoscopy - COLONOSCOP W/ OR W/O BRSH SPEC 09/22/2008 Colonoscopy - COLONOSCOP W/ OR W/O BRSH SPEC 04/13/2014 Colonoscopy - COLONOSCOP W/ OR W/O BRSH SPEC 07/17/14 Colonoscopy incomplete - COLONOSCOP W/ OR W/O BRSH SPEC 07/19/14 Colonoscopy - EGD W/O BRSH SPECIMEN W/BX 10/20/06 - OP BRONCHOS DIAG, W/WO WASHING Bronchoscopy - OPEN RX ANKLE DISLOCATN+FIXATN ORIF Ankle rt - PAST SURGICAL HISTORY OF Left hand surgery - PAST SURGICAL HISTORY OF 05/12/2007 Prostate vaporization - PAST SURGICAL HISTORY OF 05/06/2016 Right eye, [place] lid replacement - PAST SURGICAL HISTORY OF Right 02/10/2017 correction fo ptosis-Dr. Rollins Family History FAMILY HISTORY Problem Relation Age of Onset - Cancer Father lung cancer - Cancer Brother lung cancer - Coronary Artery Disease Mother - Hypertension Mother Patient Allergies ALLERGIES Allergen Reactions - Soma [Carisoprodol] Other: See Comments Causes him to sleep to much - Lyrica [Pregabalin] GI Upset - Metoclopramide GI Upset Current Medications Current Outpatient Prescriptions on File Prior to Visit: clonazePAM (KLONOPIN) 1 mg tablet Take 1 tablet by mouth twice daily as needed for up to 30 days. mirtazapine (REMERON) 45 mg tablet Take 1 tablet by mouth daily at bedtime. zolpidem (AMBIEN) 10 mg tab TAKE 1 TABLET AT BEDTIME NEEDED hydroCHLOROthiazide (HYDRODIURIL, ESIDRIX) 25 mg tablet Take 1 tablet by mouth once daily. omeprazole (PRILOSEC) 20 mg capsule Take 1 capsule by mouth once daily. atenolol (TENORMIN) 50 mg tablet Take 1 tablet by mouth once daily. potassium chloride (K-TAB) 10 mEq tablet Take 2 tablets by mouth once daily. gabapentin (NEURONTIN) 800 mg tablet Take 1 tablet by mouth three times daily. HYDROmorphone (DILAUDID) 4 mg tablet 1 tab TID or as needed methadone (DOLOPHINE) 10 mg tablet Take 10 mg in AM and at noon, take 20 mg at night albuterol HFA (PROAIR HFA) 90 mcg/actuation inhaler Inhale 2 Puffs as instructed every 6 hours as needed. ipratropium (ATROVENT) 0.02 % nebulizer solution Use 2.5 mL via nebulizer four times daily as needed for Wheezing/Shortness of Breath. Use over 5-15minutes. polyethylene glycol 3350 (MIRALAX) 17 gram/dose powder Use as directed for constipation COMPOUNDED PRESCRIPTION BiPap supplies: tubing and mask for replacement. DX: G47.37 tiZANidine (ZANAFLEX) 4 mg tablet Take 1 tablet by mouth every 8 hours as needed (muscle spasms). fluticasone-salmeterol (ADVAIR DISKUS) 250-50 mcg/dose dsdv Inhale 1 Puff as instructed twice daily. RINSE AND GARGLE MOUTH WITH WATER AFTER EACH USE. albuterol 2.5 mg /3 mL (0.083 %) INHALATION nebulizer solution Use 3 mL via nebulizer every 4 hours as needed for Wheezing/Shortness of Breath. Use over 5-15minutes.4 times daily COMPOUNDED PRESCRIPTION ASV setting of 10/6/15 cm of water with heated humidification, Mask (per patient preference) and lifetime supplies DX: PHIL 327.23, Central sleep apnea syndrome 327.21 SENNOSIDES 8.6 MG TAB take 2 tablets twice daily as needed for constipation per Dr Loco No current facility-administered medications on file prior to visit. Social History Social History Marital status: Spouse name: Milana Jerome Years of education: Number of children: 2 Social History Main Topics Smoking status: Former Smoker Packs/day: 1.00 Years: 30.00 Types: Cigarettes Quit date: 09/14/2012 Smokeless tobacco: Never Used Alcohol use: Yes Comment: Very little for 2-3 years Drug use: No Comment: Snorting 04/2008 Other Topics Concern BLOOD TRANSFUSIONS No EXAM: BP 130/80 Pulse 72 Resp 14 Wt 116.6 kg (257 lb) BMI 34.85 kg/m? General Appearance: Well appearing, alert, in no acute distress, well-hydrated, well nourished., Overweight. Lungs: Lungs clear to auscultation. No wheezing, rhonchi, rales. Heart: RRR without murmur, gallop, or rubs. No ectopy. Health Maintenance List DTAP,TDAP,TD(1 - Tdap) due on 1968 ABDOMINAL AORTIC ANEURYSM SCREENING TOPIC due on 2014 COLORECTAL CANCER SCREENING,SEE MODIFIER due on 07/19/2017 LIPID SCREEN due on 10/14/2018 DIABETES SCREEN due on 10/31/2019 PROSTATE CANCER SCREENING DISCUSSION Completed ADULT PREVNAR-13 Completed INFLUENZA Completed HEPATITIS C SCREENING Completed PNEUMOVAX AGE 65 AND OVER WITH 5YR LOOKBACK Completed Data reviewed none ASSESSMENT/PLAN: 1. Other emphysema (HCC) - ICD9: 492.8, ICD10: J43.8 (primary diagnosis) Continue current medications. 2. Essential hypertension, benign - ICD9: 401.1, ICD10: I10 - good control - Continue current medication(s) - Recommended regular aerobic exercise. - Recommend home blood pressure monitoring, to bring results in on next visit - Goal of BP <140/90 3. Chronic low back pain, unspecified back pain laterality, with sciatica presence unspecified - ICD9: 724.2, 338.29, ICD10: M54.5, G89.[address] Wei, Pain Management 4. Anxiety - ICD9: 300.00, ICD10: F41.9 Continue current medications. 5. Insomnia, unspecified type - ICD9: 780.52, ICD10: G47.00 Continue current medications. 6. Sweat, sweating, excessive - ICD9: 780.8, ICD10: R61 Check TSH, CMP, CBC with Diff today 7. Generalized weakness - ICD9: 780.79, ICD10: R53.1 Check TSH, CMP, CBC with Diff today Call with lab results Follow up in 3 months. Tangela Saavedra MD The documentation for this note was completed by January Moore Ma acting as scribe for Tangela Saavedra. January 12, 2018 3:10 PM. TR OPEN ACCESS QUESTIONNAIRE ?1. ??Are you or could you be ? No ? ? ?2. ??Are you currently having any stomach/gastrointestinal issues at this time such as constipation, diarrhea, abdominal pain, rectal bleeding etc? No ? ? ?3. ??Do you have an implanted device such as a defibrillator, pacemaker, Cardiac Stent or deep brain stimulation device? No ? ?4. ??Do you have any new or past cardiac (heart) or pulmonary (lung) issues? Yes / COPD ? ? ?5. ??Is the patient's BMI 40 or greater? No:Body mass index is 35.8 kg/(m2).. ??Last Wt 07/13/17 : 119.6 kg (263 lb 9.6 oz) ? ? Last Ht 09/28/14 : 182.9 cm (6' 0.01) ?6. ?Have you had difficulty with prior sedations or complications with other procedures? No ? ?7. ??Have you had difficulty with anesthesia previously re: ? Difficult intubation? No ? Other difficulty or allergic reaction to anesthesia other than post op N/V? No ? ?8. ??Do you currently use oxygen or a breathing machine at night? Yes / BiPAP nightly and oxygen as needed ? ?9. ??Do you take any narcotics, depression or anti-Anxiety medications or 3 or more prescription drugs on a daily basis? ?Yes / Methadon, Dilaudid, Zanaflex, and Clonazepam and Ambien ? 10. ?Do you use any illegal or recreational drugs? No ? 11. ?Have you been hospitalized in the past 6 weeks? No ? 12. ?Are you on dialysis or have Chronic Kidney Disease? No ? 13. ?Have you been diagnosed with chronic liver disease such as hepatitis or cirrhosis? No ? 14. ?Do you have a seizure disorder? No ? 15. ?Do you have difficulty swallowing? No ? 16. ?Do you have ulcerative colitis or Crohn's disease? No ? 17. ?Do you take any Blood thinners, ?including Aspirin or fish oil? YES:Aspirin ? 18. ?Do you have any blood disorders (re:hemophiliac)? No ? 19. ?Are you Diabetic? No ? 20. Any other important health information we should be made aware of prior to your colonoscopy? No ? Checklist: Prior to closing the encounter: ? ? Complete questionnaire: Yes ? ? Confirm Prep order has been Ordered/Pended: Yes. ? Patient's procedure could be delayed if not given the script for the prep. Please ensure the prep is escripted to pharmacy or printed. Instructions for the prep will print upon filing or pending this smartset. ? ? Please send all open access questionnaires to [facility] Sched Pool ?#[id number] ? ? Isabel Figueroa 01/27/2018 12:28 PM Signed Scheduled patient for colonoscopy consultation with Aide Garcia on 02/04/2018 Isabel Figueroa Referring Provider: TANGELA SAAVEDRA [[id number]] Allergies As of Date: 01/12/2018 Noted Allergy Reaction SOMA (CARISOPRODOL) 05/06/2016 14 - Other: See Comments Comments: Causes him to sleep to much LYRICA (PREGABALIN) 02/11/2012 8 - GI Upset METOCLOPRAMIDE 02/11/2012 8 - GI Upset Date Reviewed: 01/12/2018 Reviewed by: January Moore Ma - Fully Assessed Reason for Visit: F/U 3 Month [443] Primary Visit Diagnosis:Essential hypertension, benign [I10] Other Visit Diagnoses:Other emphysema (HCC) [J43.8] Chronic low back pain, unspecified back pain laterality, with sciatica presence unspecified [M54.5, G89.29] Anxiety [F41.9] Insomnia, unspecified type [G47.00] Sweat, sweating, excessive [R61] Generalized weakness [R53.1] Order(s):CBC + DIFF [SQCBCDIF] Order #: [id number] FUTURE COMP METABOLIC PANEL [SQCMP] Order #: [id number] FUTURE TSH BLD [SQTSH] Order #: [id number] FUTURE Prescriptions as of 01/12/2018 Sig: CLONAZEPAM 1 MG TABLET Take 1 tablet by mouth twice * MIRTAZAPINE 45 MG TABLET Take 1 tablet by mouth daily * ZOLPIDEM 10 MG TABLET TAKE 1 TABLET AT BEDTIME N* HYDROCHLOROTHIAZIDE 25 MG TAB* Take 1 tablet by mouth once d* OMEPRAZOLE 20 MG CAPSULE,KONSTANTIN* Take 1 capsule by mouth once * ATENOLOL 50 MG TABLET Take 1 tablet by mouth once d* POTASSIUM CHLORIDE ER 10 MEQ * Take 2 tablets by mouth once * GABAPENTIN 800 MG TABLET Take 1 tablet by mouth three * HYDROMORPHONE 4 MG TABLET 1 tab TID or as needed METHADONE 10 MG TABLET Take 10 mg in AM and at noon,* ALBUTEROL SULFATE HFA 90 MCG/* Inhale 2 Puffs as instructed * IPRATROPIUM BROMIDE 0.02 % SO* Use 2.5 mL via nebulizer four* POLYETHYLENE GLYCOL 3350 17 G* Use as directed for constipat* COMPOUNDED PRESCRIPTION BiPap supplies: tubing and ma* TIZANIDINE 4 MG TABLET Take 1 tablet by mouth every * FLUTICASONE 250 MCG-SALMETERO* Inhale 1 Puff as instructed t* * ALBUTEROL SULFATE 2.5 MG/3 ML* Use 3 mL via nebulizer every * * COMPOUNDED PRESCRIPTION ASV setting of 10/6/15 cm of * * SENNOSIDES 8.6 MG TABLET take 2 tablets twice daily as* Problem List As Of Date 01/12/2018 Noted Resolved MULTIPLE PULMONARY NODULES [J98.4] More... EMPHYSEMA NEC [J43.8] More... BENIGN HYPERTENSION [I10] INVALID FOR* COLON POLYPS [D01.0] INVALID FOR* More... BPH W URINARY OBS/LUTS [N40.1] INVALID FOR* VITAMIN D DEFICIENCY NOS [E55.9] INVALID FOR* TOBACCO USE DISORDER [F17.200] INVALID FOR* DYSPHAGIA [787.2] 06/15/2008 LUMBAGO [M54.5] INVALID FOR* Pain in joint, multiple sites [M25.50] INVALID FOR*06/11/2012 Central sleep apnea in conditions classified el*INVALID FOR* More... BLADDER NECK OBSTRUCTION [N32.0] INVALID FOR* Cocaine abuse, unspecified [F14.10] INVALID FOR*07/06/2012 More... ADHESIVE CAPSULIT SHLDER [M75.00] INVALID FOR* Benign neoplasm of colon [D12.6] INVALID FOR*11/10/2012 Dysmetabolic [E88.81] INVALID FOR* More... Hypogonadism male [E29.1] INVALID FOR* More... 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 Follow-up and Disposition History Recorded Encounter Status:Closed by TANGELA SAAVEDRA MD on 01/12/18 PROGRESS Observed: 01/12/2018 Status: COMPLETED Source: [place] 2:57 PM [facility] [place] REPOSITORY HNO ID: [id number] Author: Tangela Saavedra Service: (none) Author Type: Physician Type: Progress Notes Filed: 01/12/2018 3:19 PM Note Text: Chief Complaint Patient presents with: F/U 3 Month HPI Nuria Dewitt is a 67 year old male who presents here today for 3 month follow up. HTN: does not check BP at home. Denies any chest pains, dizziness, or SOB. Is taking Atenolol 50 mg daily and HCTZ 25 mg daily. Anxiety: is taking Clonazepam 1 mg BID. Feels this is controlled, although he has been feeling sad, thinking about all his loved ones that have . Insomnia: taking remeron 45 mg daily at bedtime and Ambien 10 mg daily at bedtime. Has trouble sleeping, sleeps about 2-3 hours then is wide awake. Uses a BiPAP at night for PHIL. Reflux: controlled on Prilisec 20 mg daily. Breathing has been doing well with the Atrovent and Albuterol nebulizing solutions, Advair Diskus inhaler an Proair inhaler. Follows with Dr. Wei, Pain Management in [place]. Prescribed Gabapentin 800 mg TID, Dilaudid and methadone. Has been having sweating episodes with weakness, shaking, and nausea off and on through the day. Sometimes they can be so bad he feels like he might pass out. Has had for a while but worsened and more frequent last 2 weeks. Does get a little dizzy. No chest pains or SOB. He states he has been eating ok. Unable to correlate what causes the episodes to start. Seems to only happen during the day, denies any problems at night. Denies any changes to his medications. No abnormal weight gain or lose, no bowel changes. Past medical history, appointments, medications, allergies reviewed. 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 - Cocaine abuse, unspecified 05/05/2008 STEPS Program. - COPD (chronic obstructive pulmonary disease) (HCC) abnormal CT 2011 - Depression - Dysphagia - Essential hypertension, benign 09/02/2006 - Hypertrophy of prostate with urinary obstruction and other lower urinary tract symptoms (LUTS) 09/02/2006 - Insomnia 08/18/2013 - Other diseases of lung, not elsewhere classified HILAR ADENOPATHY - Other emphysema (HCC) Emphysema - Peripheral neuropathy 2010 - Unspecified vitamin D deficiency 09/10/2006 Previous Surgical History PAST SURGICAL HISTORY Procedure Laterality Date - APPENDECTOMY - COLONOSCOP W/ OR W/O BRS SPEC 07/21/2006 Colonoscopy - COLONOSCOP W/ OR W/O BRSH SPEC 09/22/2008 Colonoscopy - COLONOSCOP W/ OR W/O BRS SPEC 04/13/2014 Colonoscopy - COLONOSCOP W/ OR W/O BRSH SPEC 07/17/14 Colonoscopy incomplete - COLONOSCOP W/ OR W/O BRSH SPEC 07/19/14 Colonoscopy - EGD W/O BRS SPECIMEN W/BX 10/20/06 - OP BRONCHOS DIAG, W/WO WASHING Bronchoscopy - OPEN RX ANKLE DISLOCATN+FIXATN ORIF Ankle rt - PAST SURGICAL HISTORY OF Left hand surgery - PAST SURGICAL HISTORY OF 05/12/2007 Prostate vaporization - PAST SURGICAL HISTORY OF 05/06/2016 Right eye, [place] lid replacement - PAST SURGICAL HISTORY OF Right 02/10/2017 correction fo ptosis-Dr. Rollins Family History FAMILY HISTORY Problem Relation Age of Onset - Cancer Father lung cancer - Cancer Brother lung cancer - Coronary Artery Disease Mother - Hypertension Mother Patient Allergies ALLERGIES Allergen Reactions - Soma [Carisoprodol] Other: See Comments Causes him to sleep to much - Lyrica [Pregabalin] GI Upset - Metoclopramide GI Upset Current Medications Current Outpatient Prescriptions on File Prior to Visit: clonazePAM (KLONOPIN) 1 mg tablet Take 1 tablet by mouth twice daily as needed for up to 30 days. mirtazapine (REMERON) 45 mg tablet Take 1 tablet by mouth daily at bedtime. zolpidem (AMBIEN) 10 mg tab TAKE 1 TABLET AT BEDTIME NEEDED hydroCHLOROthiazide (HYDRODIURIL, ESIDRIX) 25 mg tablet Take 1 tablet by mouth once daily. omeprazole (PRILOSEC) 20 mg capsule Take 1 capsule by mouth once daily. atenolol (TENORMIN) 50 mg tablet Take 1 tablet by mouth once daily. potassium chloride (K-TAB) 10 mEq tablet Take 2 tablets by mouth once daily. gabapentin (NEURONTIN) 800 mg tablet Take 1 tablet by mouth three times daily. HYDROmorphone (DILAUDID) 4 mg tablet 1 tab TID or as needed methadone (DOLOPHINE) 10 mg tablet Take 10 mg in AM and at noon, take 20 mg at night albuterol HFA (PROAIR HFA) 90 mcg/actuation inhaler Inhale 2 Puffs as instructed every 6 hours as needed. ipratropium (ATROVENT) 0.02 % nebulizer solution Use 2.5 mL via nebulizer four times daily as needed for Wheezing/Shortness of Breath. Use over 5-15minutes. polyethylene glycol 3350 (MIRALAX) 17 gram/dose powder Use as directed for constipation COMPOUNDED PRESCRIPTION BiPap supplies: tubing and mask for replacement. DX: G47.37 tiZANidine (ZANAFLEX) 4 mg tablet Take 1 tablet by mouth every 8 hours as needed (muscle spasms). fluticasone-salmeterol (ADVAIR DISKUS) 250-50 mcg/dose dsdv Inhale 1 Puff as instructed twice daily. RINSE AND GARGLE MOUTH WITH WATER AFTER EACH USE. albuterol 2.5 mg /3 mL (0.083 %) INHALATION nebulizer solution Use 3 mL via nebulizer every 4 hours as needed for Wheezing/Shortness of Breath. Use over 5-15minutes.4 times daily COMPOUNDED PRESCRIPTION ASV setting of 10/6/15 cm of water with heated humidification, Mask (per patient preference) and lifetime supplies DX: PHIL 327.23, Central sleep apnea syndrome 327.21 SENNOSIDES 8.6 MG TAB take 2 tablets twice daily as needed for constipation per Dr Loco No current facility-administered medications on file prior to visit. Social History Social History Marital status: Spouse name: Milana Jerome Years of education: Number of children: 2 Social History Main Topics Smoking status: Former Smoker Packs/day: 1.00 Years: 30.00 Types: Cigarettes Quit date: 09/14/2012 Smokeless tobacco: Never Used Alcohol use: Yes Comment: Very little for 2-3 years Drug use: No Comment: Snorting 04/2008 Other Topics Concern BLOOD TRANSFUSIONS No EXAM: BP 130/80 Pulse 72 Resp 14 Wt 116.6 kg (257 lb) BMI 34.85 kg/m? General Appearance: Well appearing, alert, in no acute distress, well-hydrated, well nourished., Overweight. Lungs: Lungs clear to auscultation. No wheezing, rhonchi, rales. Heart: RRR without murmur, gallop, or rubs. No ectopy. Health Maintenance List DTAP,TDAP,TD(1 - Tdap) due on 1968 ABDOMINAL AORTIC ANEURYSM SCREENING TOPIC due on 2014 COLORECTAL CANCER SCREENING,SEE MODIFIER due on 07/19/2017 LIPID SCREEN due on 10/14/2018 DIABETES SCREEN due on 10/31/2019 PROSTATE CANCER SCREENING DISCUSSION Completed ADULT PREVNAR-13 Completed INFLUENZA Completed HEPATITIS C SCREENING Completed PNEUMOVAX AGE 65 AND OVER WITH 5YR LOOKBACK Completed Data reviewed none ASSESSMENT/PLAN: 1. Other emphysema (HCC) - ICD9: 492.8, ICD10: J43.8 (primary diagnosis) Continue current medications. 2. Essential hypertension, benign - ICD9: 401.1, ICD10: I10 - good control - Continue current medication(s) - Recommended regular aerobic exercise. - Recommend home blood pressure monitoring, to bring results in on next visit - Goal of BP <140/90 3. Chronic low back pain, unspecified back pain laterality, with sciatica presence unspecified - ICD9: 724.2, 338.29, ICD10: M54.5, G89.[address] Wei, Pain Management 4. Anxiety - ICD9: 300.00, ICD10: F41.9 Continue current medications. 5. Insomnia, unspecified type - ICD9: 780.52, ICD10: G47.00 Continue current medications. 6. Sweat, sweating, excessive - ICD9: 780.8, ICD10: R61 Check TSH, CMP, CBC with Diff today 7. Generalized weakness - ICD9: 780.79, ICD10: R53.1 Check TSH, CMP, CBC with Diff today Call with lab results Follow up in 3 months. Tangela Saavedra MD The documentation for this note was completed by January Moore Ma acting as scribe for Tangela Saavedra. January 12, 2018 3:10 PM. [facility] OPEN ACCESS QUESTIONNAIRE ?1. ??Are you or could you be ? No ? ? ?2. ??Are you currently having any stomach/gastrointestinal issues at this time such as constipation, diarrhea, abdominal pain, rectal bleeding etc? No ? ? ?3. ??Do you have an implanted device such as a defibrillator, pacemaker, Cardiac Stent or deep brain stimulation device? No ? ?4. ??Do you have any new or past cardiac (heart) or pulmonary (lung) issues? Yes / COPD ? ? ?5. ??Is the patient's BMI 40 or greater? No:Body mass index is 35.8 kg/(m2).. ??Last Wt 07/13/17 : 119.6 kg (263 lb 9.6 oz) ? ? Last Ht 09/28/14 : 182.9 cm (6' 0.01) ?6. ?Have you had difficulty with prior sedations or complications with other procedures? No ? ?7. ??Have you had difficulty with anesthesia previously re: ? Difficult intubation? No ? Other difficulty or allergic reaction to anesthesia other than post op N/V? No ? ?8. ??Do you currently use oxygen or a breathing machine at night? Yes / BiPAP nightly and oxygen as needed ? ?9. ??Do you take any narcotics, depression or anti-Anxiety medications or 3 or more prescription drugs on a daily basis? ?Yes / Methadon, Dilaudid, Zanaflex, and Clonazepam and Ambien ? 10. ?Do you use any illegal or recreational drugs? No ? 11. ?Have you been hospitalized in the past 6 weeks? No ? 12. ?Are you on dialysis or have Chronic Kidney Disease? No ? 13. ?Have you been diagnosed with chronic liver disease such as hepatitis or cirrhosis? No ? 14. ?Do you have a seizure disorder? No ? 15. ?Do you have difficulty swallowing? No ? 16. ?Do you have ulcerative colitis or Crohn's disease? No ? 17. ?Do you take any Blood thinners, ?including Aspirin or fish oil? YES:Aspirin ? 18. ?Do you have any blood disorders (re:hemophiliac)? No ? 19. ?Are you Diabetic? No ? 20. Any other important health information we should be made aware of prior to your colonoscopy? No ? Checklist: Prior to closing the encounter: ? ? Complete questionnaire: Yes ? ? Confirm Prep order has been Ordered/Pended: Yes. ? Patient's procedure could be delayed if not given the script for the prep. Please ensure the prep is escripted to pharmacy or printed. Instructions for the prep will print upon filing or pending this smartset. ? ? Please send all open access questionnaires to [facility] Sched Pool ?#[id number] ? ? CNPTOUTREACH Observed: 12/29/2017 Status: COMPLETED Source: [place] 12:00 AM [facility] REPOSITORY Patient Outreach (FAMPST) NURIA DEWITT ([id number]) 1950 M [facility] Date Time Provider Department 12/29/17 [facility] During your visit today, we recorded the following information about you: Allergies As of Date: 12/29/2017 Noted Allergy Reaction SOMA (CARISOPRODOL) 05/06/2016 14 - Other: See Comments Comments: Causes him to sleep to much LYRICA (PREGABALIN) 02/11/2012 8 - GI Upset METOCLOPRAMIDE 02/11/2012 8 - GI Upset Date Reviewed: 10/14/2017 Reviewed by: January Moore Ma - Fully Assessed Visit Diagnosis:Medication management [Z79.899] Prescriptions as of 12/29/2017 Sig: X CLONAZEPAM 1 MG TABLET Take 1 tablet by mouth twice * X MIRTAZAPINE 45 MG TABLET Take 1 tablet by mouth daily * X ZOLPIDEM 10 MG TABLET TAKE 1 TABLET AT BEDTIME N* HYDROCHLOROTHIAZIDE 25 MG TAB* Take 1 tablet by mouth once d* OMEPRAZOLE 20 MG CAPSULE,KONSTANTIN* Take 1 capsule by mouth once * X ATENOLOL 50 MG TABLET Take 1 tablet by mouth once d* X POTASSIUM CHLORIDE ER 10 MEQ * Take 2 tablets by mouth once * GABAPENTIN 800 MG TABLET Take 1 tablet by mouth three * HYDROMORPHONE 4 MG TABLET 1 tab TID or as needed METHADONE 10 MG TABLET Take 10 mg in AM and at noon,* ALBUTEROL SULFATE HFA 90 MCG/* Inhale 2 Puffs as instructed * IPRATROPIUM BROMIDE 0.02 % SO* Use 2.5 mL via nebulizer four* POLYETHYLENE GLYCOL 3350 17 G* Use as directed for constipat* COMPOUNDED PRESCRIPTION BiPap supplies: tubing and ma* TIZANIDINE 4 MG TABLET Take 1 tablet by mouth every * FLUTICASONE 250 MCG-SALMETERO* Inhale 1 Puff as instructed t* * ALBUTEROL SULFATE 2.5 MG/3 ML* Use 3 mL via nebulizer every * * COMPOUNDED PRESCRIPTION ASV setting of 106/15 cm of * * SENNOSIDES 8.6 MG TABLET take 2 tablets twice daily as* Problem List As Of Date 12/29/2017 Noted Resolved MULTIPLE PULMONARY NODULES [J98.4] More... EMPHYSEMA NEC [J43.8] More... BENIGN HYPERTENSION [I10] INVALID FOR* COLON POLYPS [D01.0] INVALID FOR* More... BPH W URINARY OBS/LUTS [N40.1] INVALID FOR* VITAMIN D DEFICIENCY NOS [E55.9] INVALID FOR* TOBACCO USE DISORDER [F17.200] INVALID FOR* DYSPHAGIA [787.2] 06/15/2008 LUMBAGO [M54.5] INVALID FOR* Pain in joint, multiple sites [M25.50] INVALID FOR*06/11/2012 Central sleep apnea in conditions classified el*INVALID FOR* More... BLADDER NECK OBSTRUCTION [N32.0] INVALID FOR* Cocaine abuse, unspecified [F14.10] INVALID FOR*07/06/2012 More... ADHESIVE CAPSULIT SHLDER [M75.00] INVALID FOR* Benign neoplasm of colon [D12.6] INVALID FOR*11/10/2012 Dysmetabolic [E88.81] INVALID FOR* More... Hypogonadism male [E29.1] INVALID FOR* More... 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] INVALID FOR* PHIL (obstructive sleep apnea) [G47.33] INVALID FOR* Encounter Status:Closed by EPIC, PRODUSER on 06/25/18 6 MINUTE WALK TEST Observed: 11/07/2017 Status: F Source: [place] 7:19 AM [facility] REPOSITORY [facility] Pulmonary Services/Neurology [address] [id number] MR#: [id number] Acct: [id number] Name: NURIA DEWITT Rep #: [id number] : 1950 66 From: Bandar Garcia MD Referring Dr: Leslie Peck NP Date: Ordering Dr: Sex: M C Location: PSN PSN 6 Minute Walk Test - 6 Minute Walk Test 6 Minute Walk Test: 6 Minute Walk Test PSN:6-Minute Walk Test Start: 11/06/17 12:03 Freq: Status: Active Protocol: [id number] Document 11/06/17 12:04 SFENTON (Rec: 11/06/17 12:08 SFENTON [id number]) 6 Minute Walk Test Date Performed 11/06/17 Time Performed 11:10 Height 6 ft Weight: 119.295 kg Weight in Pounds 263.[address]: Bandar Garcia Assistive device used: None Pre-test Oxygen Delivery Method Room Air Pulse Ox (%) 93 Pulse Rate (60-100 beats/min) 71 Dyspnea Rahul Scale (0-10) 0 Exertion Rahul Scale (6-20) 6 1st minute Oxygen Delivery Method Room Air Pulse Ox (%) 95 Pulse Rate (60-100 beats/min) 71 2nd minute Oxygen Delivery Method Room Air Pulse Ox (%) 92 Pulse Rate (60-100 beats/min) 72 3rd minute Oxygen Delivery Method Room Air Pulse Ox (%) 91 Pulse Rate (60-100 beats/min) 74 4th minute Oxygen Delivery Method Room Air Pulse Ox (%) 91 Pulse Rate (60-100 beats/min) 81 5th minute Oxygen Delivery Method Room Air Pulse Ox (%) 90 Pulse Rate (60-100 beats/min) 87 6th minute Oxygen Delivery Method Room Air Pulse Ox (%) 92 Pulse Rate (60-100 beats/min) 87 Dyspnea Rahul Scale (0-10) 0.5 Exertion Rahul Scale (6-20) 12 Post-test Oxygen Delivery Method Room Air Pulse Ox (%) 93 Pulse Rate (60-100 beats/min) 69 Full Laps Walked 16 Partial Lap, Number of Tiles Walked 0 Total Distance Walked (ft) 944 - Interpretation Interpretation: The patient was able to ambulate only 944 feet over the course of 6 minutes on room air with no assistive devices or breaks. The patient did have significant desaturation as low as 90%, but no tachycardia was noted. These findings are consistent with a respiratory limitation to exercise tolerance. - Recommendations Recommendations: No supplemental oxygen is indicated at this time. However, patient will need to be followed closely given level of desaturation. 11/07/17718 <Electronically signed by Bandar Garcia MD> Date Bandar Garcia MD CC: Date Dictated: 11/07/17718 Date Transcribed: 11/07/17718 Account Services Analyst: Bandar Garcia Signed PULMONARY VISIT REPORT Observed: 10/26/2017 Status: F Source: [place] 4:36 PM [facility] REPOSITORY [facility] [place] [address] [address] [facility] [place] [address] OFFICE VISIT Date of Service: 10/26/17 MR#: [id number] Acct: [id number] Name: NURIA DEWITT William Rep #: [id number] : 1950 Provider: Leslie Peck Age/Sex: 66/M Location: [facility] Status: Signed Assessment AND Plan 1. Stage 1 mild COPD by GOLD classification J44.9 Status Chronic Plan He was previously being treated with Breo and Incruse. He will be transitioned to trelegy. A sample was provided in the office today, as well as a coupon for 1 month free. If his prescription drug coverage does not cover Trelegy, he will be placed back on Breo and Incruse. Plan for annual PFTs. Follow-up with Dr. Garcia in 3 months. 2. Mild intermittent asthma, unspecified whether complicated J45.20 Status Chronic Plan He does not appear to be an exacerbation of his asthma today. No need for antibiotics or prednisone. Follow-up with Dr. Gacria in 3 months. 3. PHIL (obstructive sleep apnea) G47.33 Status Chronic Plan He has both obstructive and central sleep apnea. Continues noncompliance. Reports that he is unable to tolerate his pressure support mask for longer than 2 hours. He does wear 2 L of nasal cannula oxygen at night while sleeping and states that this is helpful to him. He does have a follow-up appointment with neurology upcoming, will defer treatment of his sleep apnea to neurology. 4. Class 2 obesity due to excess calories with body mass index (BMI) of 36.0 to 36.9 in adult, unspecified whether serious comorbidity present E66.09; Z68.36 Status Chronic Plan Continue to encourage weight loss. Follow-up with Dr. Garcia in 3 months. 5. Chronic respiratory failure with hypoxia J96.11 Status Chronic Plan Last pulmonary stress test shows that the patient should be utilizing 2 L of nasal cannula oxygen during ambulation, he does not currently wear oxygen when away from home. He reports that he has a portable pulse oximeter and his oxygen saturations do not go below 89, he does use supplemental oxygen as needed to maintain a safe oxygen saturation. Repeat pulmonary stress test. Follow-up with Dr. Garcia in 3 months. Orders Orders: Plan Detail Follow Up 3 Months ([facility]) HPI 6 M FU: Chief Complaint: shortness of breath HPI Comments Details: This is a 66 year old pleasant m, currently under the care of Tangela Saavedra, here to follow up on mild chronic obstructive pulmonary disease with a DOMINIC score of 2 and chronic hypoxic respiratory failure, as well as obstructive sleep apnea, central sleep apnea and asthma. Is currently not wearing his pressure support therapy. Per his own words he cannot stand it. He does utilize oxygen at night. Overall the patient states that he is feeling good. He denies any daytime fatigue. He denies any cough productive of sputum, denies hemoptysis. He denies any fever or chills. He does have occasional wheezing but reports that the Ventolin rescue inhaler provides him with relief. NURIA has not been treated with antibiotics and/or prednisone, and has not been treated in the ED/Urgent care for respiratory problems since the last office visit. Current medications consist of Breo, Incruse, and Ventolin rescue inhaler which is being used 2 times daily. Medication side effects: negative for sore throat, thrush, hoarseness, mouth lesions, or bleeding from nose or mouth. The patient reports compliance with rinsing mouth out after each use. Currently denies any shortness of breath at rest, as shortness of breath on exertion. He denies any cough, sputum production or hemoptysis. He has not experienced any wheezing or chest tightness. He denies any fever or chills. He has not used any over the counter medications recently. See complete review of systems. Current home oxygen use is 2 LPM on ambulation and 2 LPM during sleep. COPD checklist: Last PFTs were done on October 15, 2017 FVC is 130 % of predicted FEV1 is 109 % of predicted FEV1/FVC is 62 % of predicted Currently smoking 0 PPD Dyspnea 2 Exacerbations in the past 12 months 0 Last 6 min walk October 22, 2016, ambulated 1039 feet, required 2 L/min at minute 5 Nutrition good Mood good Influenza vaccine current Pneumococcal vaccine current Pulmonary Rehab not applicable *The GOLD (Global initiative on Obstructive Lung Disease) divides COPD into 4 categories based on the FEV1: I FEV1/FVC <0.7 and FEV1 <80% II FEV1/FVC <0.7 and FEV1 50-80% III FEV1/FVC <0.7 and FEV1 30-50% IV FEV1/FVC <0.7 and FEV1 <30% (or < 50% with respiratory failure) GOLD additionally stratifies patients by disease severity in order to guide therapy: A FEV1 >50% with few symptoms B FEV1 >50% with frequent symptoms C FEV1 <50% with few symptoms D FEV1 <50% with frequent symptoms Variable points on DOMINIC Index 0 1 2 3 Fev1 [] % of predicted 65 50-64 36-49 <35 Distance walked in 6 min >[phone] 492-819 <149 MMRC dyspnea scale* 0-1 2 3 4 BMI >21 <21 DOMINIC Index Score 0-2 2% 6% 19% 3-4 2% 8% 32% 4-6 2% 14% 40% 7-10 5% 31% 80% MMR SCALE Grade Degree of breathlessness related to activities 0 Not troubled by breathlessness except on strenuous exercise Intake Vital Signs10/26/17 Height 6 ft 10/26/17 Weight: 269 lb Intake Visit Reasons: 6 M FU Allergies carisoprodol [From Soma] Allergy (Verified 10/15/17 14:24) Other metoclopramide HCl [From Reglan] Adverse Reaction (Verified 10/15/17 14:24) Upset Stomach pregabalin [From Lyrica] Adverse Reaction (Verified 10/15/17 14:24) Upset Stomach Medications Atenolol [Tenormin] 25 mg PO DAILY 03/31/16 [History Confirmed 10/15/17] Clonazepam [Klonopin] 0.5 mg PO BID PRN 03/31/16 [History Confirmed 10/15/17] Duloxetine Hcl [Cymbalta] 60 mg PO DAILY 03/31/16 [History Confirmed 10/15/17] Hydrochlorothiazide [Hctz] 25 mg PO DAILY 03/31/16 [History Confirmed 10/15/17] Hydromorphone HCl [Dilaudid] 4 mg PO TID PRN 03/31/16 [History Confirmed 10/15/17] Methadone HCl 10 mg PO DAILY 03/31/16 [History Confirmed 10/15/17] Methadone HCl 10 mg PO LUNCH 03/31/16 [History Confirmed 10/15/17] Methadone HCl 20 mg PO QHS 03/31/16 [History Confirmed 10/15/17] Potassium Chloride [K-Dur] 10 meq PO BID 03/31/16 [History Confirmed 10/15/17] Sennosides/Docusate Sodium [Senna Plus Tablet] 2 ea PO BID 03/31/16 [History Confirmed 10/15/17] Tizanidine HCl [Zanaflex] 4 mg PO Q8H PRN 03/31/16 [History Confirmed 10/15/17] Zolpidem Tartrate [Ambien] 10 mg PO QHS PRN 03/31/16 [History Confirmed 10/15/17] Gabapentin [Neurontin] 800 mg PO TIDCM 04/18/16 [History Confirmed 10/15/17] Omeprazole [Prilosec] 20 mg PO DAILY 04/29/16 [History Confirmed 10/15/17] Dymista 1 spray NARES BID 02/06/17 [History Confirmed 10/15/17] Fluticasone/Vilanterol [Breo Ellipta 200-25 Mcg INH] 1 puff IH DAILY 02/06/17 [History Confirmed 10/15/17] Umeclidinium Burton [Incruse Ellipta] 1 puff IH DAILY 02/06/17 [History Confirmed 10/15/17] Cephalexin [Keflex] 500 mg PO BID #6 cap 02/10/17 [Rx Confirmed 10/15/17] [facility] (Reviewed 10/26/17 @ 4:25 pm by Leslie Peck, LITERACY COORDINATOR-C) HTN (hypertension) (Chronic) Obesity (Chronic) CKD stage III (Chronic) PHIL (obstructive sleep apnea) (Acute) Abnormal chest CT (Acute) Central sleep apnea (Chronic) COPD (chronic obstructive pulmonary disease) (Chronic) Asthma (Chronic) Curiel palsy (Chronic) Hemoptysis (Acute) Pneumonia (Acute) Depression (Chronic) Chronic pain (Chronic) Surgical History (Reviewed 10/26/17 @ 4:25 pm by DINORA De Luna) H/O neck surgery (Resolved) ankle surgery (Resolved) lower back surgery (Resolved) Family History (Reviewed 10/26/17 @ 4:25 pm by DINORA De Luna) Father Lung disease Cancer lung Brother Cancer lung Social History Smoking Status: Former smoker how long ago did patient quit smokin, 2-3pk/day second hand exposure: Yes alcohol intake: never substance use type: does not use caffeine: Yes Type: coffee Number of servings: 3 what type of physical activity do you participate in: bicycling frequency: daily duration: 15-30 minutes/day Review of Systems Const CONSTITUTIONAL: Negative anorexia, body ache, chills, daytime sleepiness, fever(s), night sweats, oral thrush, stops breathing during sleep, weight loss, sleeping in chair, fatigue, weight loss, weight gain, frequent colds, seasonal allergies, other, headache(s) or orthopnea EETM Ear Nose Throat Mouth: Positive hearing normal; negative hard of hearing, hoarseness, dry mouth in morning, change in vision, itchy eyes, eye pain, swallowing Difficulty, ear pain, nose bleed, headache(s), mouth pain, nasal congestion, nasal discharge, post nasal drip, sinus pain, sinus pressure, sore throat or other Cardio Cardiovascular: Negative chest pain, chest pain at rest, chest pain with activity, irregular heart rhythm, edema, shortness of breath when lying down, palpitations, murmur or other Resp Respiratory: Positive as per HPI; negative shortness of breath, pain with cough, wheezing, chest congestion, cough, chest tightness, pain on inspiration, inhalers, increase use of rescue inhalers, snoring, apnea or other Gastro Gastrointestional: Negative bloody stools, change in appetite, difficulty swallowing, reflux, hematemesis, melena stool, loose stool, constipation or other Genitourinary: Negative blood in urine, nocturia, pain with urination or other Musc Musculoskeletal: Positive body pain; negative back pain, neck pain or other Skin/Breast Skin/Breast: Negative dry skin, itching, rash, unusual bruising, breast lump or other Neuro Neurological: Negative restless legs, confusion, weakness or other Psych Psychocological: Positive hopelessness; negative abnormal sleep pattern, thoughts of hurting self/others or other Lymph Lymphatic: Negative easy bleeding, easy bruising, swollen lymph nodes or other Exam Const Constitutional: Positive conversant, cooperative, in no acute respiratory distress, healthy appearing, well developed, well nourished, good hygiene and obese Head Head: Positive normocephalic and atraumatic; negative cyanosis of lips/distal nose Eyes Eye: Positive clear conjunctiva and nystagmus; negative scleral abnormality Ears Ear: Positive hearing normal and external ears normal; negative hard of hearing Nose Nose: Positive external nose normal and no nasal discharge; negative epistaxis Mouth Mouth: Positive oral mucosae normal, no lesions, good dentition, posterior oropharynx is adequate and other (Left sided facial droop secondary to Curiel's palsy); negative post nasal drip, malodorous breath or oral thrush present Mallampati Score: II: Mallampati Score Neck Neck: Positive normal visual inspection, full ROM, trachea midline, thick neck and male neck greater than 43 cm (17 in); negative lymphadenopathy, JVD or tender Chest Wall Chest: Positive normal inspection of the chest and symmetric chest movement; negative increased A/P diameter Resp lung sounds: Positive wheeze present on forced exhalation, good air exchange, clear to auscultation, normal respiratory effort and normal expiratory time; negative wheezes, rhonchi, rales, dullness to percussion, use of accessory muscles or increased work of breathing Cardio Cardiac: Positive regular rate, regular rhythm, S1 normal and S2 normal; negative murmur GI GI: Positive normal to inspection, normal bowel sounds and obese; negative distended Genitourinary: Positive deferred Musc Musculoskeletal: Positive ROM normal and using an assistive device for ambulation (Cane); negative kyphosis or scoliosis Skin Pulmonary Skin Exam: Positive intact; negative rash, lesion, ulcers, erythema, scaly or dermal atrophy Pulses Pulse: Yes pulses normal x4 extremities Extremities Extremities: Yes capillary refill normal, No clubbing, No cyanosis, No edema, No stasis dermatitis Neuro Neurologic: Yes conversant, Yes no focal neuro deficits, Yes cooperative, Yes normal cognition, Yes normal coordination, Yes understands questions, Yes normal concentration Lymph Lymphatic: No lymphadenopathy, No tenderness, No cervical adenopathy, No axillary adenopathy Psych Appearance: Positive grossly normal, eye contact and well kempt Mental Status: Positive mental status grossly normal Mood: Positive congruent mood Affect: Positive normal affect Coding Level of Care Code Off vis,est,level 4 Diagnoses Stage 1 mild COPD by GOLD classification J44.9 Mild intermittent asthma, unspecified whether complicated J45.20 Asthma severity: mild Asthma persistence: intermittent Asthma complication type: unspecified PHIL (obstructive sleep apnea) G47.33 Class 2 obesity due to excess calories with body mass index (BMI) of 36.0 to 36.9 in adult, unspecified whether serious comorbidity present E66.09; Z68.36 Obesity type: due to excess calories Obesity classification: adult class 2 (BMI 35 - 39.9) Serious obesity comorbidity presence: unspecified whether serious comorbidity present Body mass index: BMI 36.0-36.9 Chronic respiratory failure with hypoxia J96.11 10/26/17 1636 <Electronically signed by Leslie REDDC> Date Leslie REDDC Cosigner Signature: Date (if applicable) CC: Tangela Saavedra MD PULMONARY FUNCTION Observed: 10/15/2017 Status: F Source: [place] TEST 1:43 PM [facility] REPOSITORY [facility] Pulmonary Services/Neurology [address] [place] [address] MR#: [id number] Acct: [id number] Name: NURIA DEWITT Rep #: [id number] : 1950 66 From: Jose Carlos Bob DO Referring Dr: Bandar Garcia MD Status: REG CLI Ordering Dr: Date: Location: [facility] Sex: M C INTRODUCTION: The patient is a 66-year-old male currently under the care of Dr. Garcia that presents for pulmonary function testing secondary to a diagnosis of COPD. Respiratory therapy reports good patient effort and reports no other concerns. Bronchodilators were used during testing. INTERPRETATION: Forced expiration spirometry demonstrates the presence of a mild large airways obstructive ventilatory defect. There was no significant response to aerosolized bronchodilators, based upon strict ATS criteria. Spirograms are of good quality and do not plateau indicating slow emptying of the lungs. Body plethysmography was performed and reveals an elevated TLC, indicative of underlying hyperinflation. Diffusing capacity by single breath CO is mildly reduced at 61% of predicted. There has been stability in the patient's PFTs since they were last completed in December 2016. IMPRESSION: These pulmonary function studies demonstrate the presence of an irreversible mild large airways obstructive ventilatory defect with associated hyperinflation and reduction in diffusing capacity. PFTs have remained stable since December 2016. 10/15/17 1343 <Electronically signed by Jose Carlos Bob DO> Date Jose Carlos Bob DO CC: Bandar Garcia MD; Tangela Saavedra MD Date Dictated: 10/15/178 Date Transcribed: 10/15/171337 Account Services Analyst: VISHAL Signed PROGRESS Observed: 10/14/2017 Status: COMPLETED Source: [place] 8:47 AM [facility] REPOSITORY HNO ID: [id number] Author: Tangela Saavedra Service: (none) Author Type: Physician Type: Progress Notes Filed: 10/16/2017 9:21 AM Note Text: Chief Complaint Patient presents with: F/U 3 Month HPI Nuria Dewitt is a 66 year old male who presents here today for 3 month follow up. Insomnia: is taking Ambien 10 mg at bedtime and Remeron 45 mg at bedtime. Does take these every night. Reflux: controlled on Prilosec 20 mg daily. Follows with Pain Management at [facility], Dr. Wei who prescribes him Methadone and Dilaudid, gabapentin and zanaflex. COPD: is controlled most days, occ will need to use oxygen if he over exerts himself. Is taking Advair Diskus. Only use the Proair and Nebulizer treatments about 3 times a week. Will be seeing Dr. Garcia, Pulmonology at [facility]. Anxiety: is taking Clonazepam 1 mg BID. HTN: checking BP at home with readings round 130/80 or 120/70. Denies any chest pains, dizziness, or SOB. Is taking Atenolol 50 mg daily and HCTZ 25 mg daily. Past medical history, appointments, medications, allergies reviewed. 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 - Cocaine abuse, unspecified 05/05/2008 STEPS Program. - COPD (chronic obstructive pulmonary disease) (HCC) abnormal CT 2011 - Depression - Dysphagia - Essential hypertension, benign 09/02/2006 - Hypertrophy of prostate with urinary obstruction and other lower urinary tract symptoms (LUTS) 09/02/2006 - Insomnia 08/18/2013 - Other diseases of lung, not elsewhere classified HILAR ADENOPATHY - Other emphysema (HCC) Emphysema - Peripheral neuropathy 2010 - Unspecified vitamin D deficiency 09/10/2006 Previous Surgical History PAST SURGICAL HISTORY Procedure Laterality Date - APPENDECTOMY - COLONOSCOP W/ OR W/O BRS SPEC 07/21/2006 Colonoscopy - COLONOSCOP W/ OR W/O BRS SPEC 09/22/2008 Colonoscopy - COLONOSCOP W/ OR W/O BRS SPEC 04/13/2014 Colonoscopy - COLONOSCOP W/ OR W/O BRS SPEC 07/17/14 Colonoscopy incomplete - COLONOSCOP W/ OR W/O BRS SPEC 07/19/14 Colonoscopy - EGD W/O [facility] SPECIMEN W/BX 10/20/06 - OP BRONCHOS DIAG, W/WO WASHING Bronchoscopy - OPEN RX ANKLE DISLOCATN+FIXATN ORIF Ankle rt - PAST SURGICAL HISTORY OF Left hand surgery - PAST SURGICAL HISTORY OF 05/12/2007 Prostate vaporization - PAST SURGICAL HISTORY OF 05/06/2016 Right eye, [place] lid replacement - PAST SURGICAL HISTORY OF Right 02/10/2017 correction fo ptosis-Dr. Rollins Family History FAMILY HISTORY Problem Relation Age of Onset - Cancer Father lung cancer - Cancer Brother lung cancer - Coronary Artery Disease Mother - Hypertension Mother Patient Allergies ALLERGIES Allergen Reactions - Soma [Carisoprodol] Other: See Comments Causes him to sleep to much - Lyrica [Pregabalin] GI Upset - Metoclopramide GI Upset Current Medications Current Outpatient Prescriptions on File Prior to Visit: omeprazole (PRILOSEC) 20 mg capsule Take 1 capsule by mouth once daily. clonazePAM (KLONOPIN) 1 mg tablet TAKE 1 TABLET BY MOUTH TWICE DAILY NEEDED zolpidem (AMBIEN) 10 mg tab Take 1 tablet by mouth at bedtime as needed. atenolol (TENORMIN) 50 mg tablet Take 1 tablet by mouth once daily. potassium chloride (K-TAB) 10 mEq tablet Take 2 tablets by mouth once daily. gabapentin (NEURONTIN) 800 mg tablet Take 1 tablet by mouth three times daily. HYDROmorphone (DILAUDID) 4 mg tablet 1 tab TID or as needed methadone (DOLOPHINE) 10 mg tablet Take 10 mg in AM and at noon, take 20 mg at night mirtazapine (REMERON) 45 mg tablet Take 1 tablet by mouth daily at bedtime. hydroCHLOROthiazide (HYDRODIURIL, ESIDRIX) 25 mg tablet Take 1 tablet by mouth once daily. albuterol HFA (PROAIR HFA) 90 mcg/actuation inhaler Inhale 2 Puffs as instructed every 6 hours as needed. ipratropium (ATROVENT) 0.02 % nebulizer solution Use 2.5 mL via nebulizer four times daily as needed for Wheezing/Shortness of Breath. Use over 5-15minutes. polyethylene glycol 3350 (MIRALAX) 17 gram/dose powder Use as directed for constipation COMPOUNDED PRESCRIPTION BiPap supplies: tubing and mask for replacement. DX: G47.37 tiZANidine (ZANAFLEX) 4 mg tablet Take 1 tablet by mouth every 8 hours as needed (muscle spasms). fluticasone-salmeterol (ADVAIR DISKUS) 250-50 mcg/dose dsdv Inhale 1 Puff as instructed twice daily. RINSE AND GARGLE MOUTH WITH WATER AFTER EACH USE. albuterol 2.5 mg /3 mL (0.083 %) INHALATION nebulizer solution Use 3 mL via nebulizer every 4 hours as needed for Wheezing/Shortness of Breath. Use over 5-15minutes.4 times daily COMPOUNDED PRESCRIPTION ASV setting of 10/6/15 cm of water with heated humidification, Mask (per patient preference) and lifetime supplies DX: PHIL 327.23, Central sleep apnea syndrome 327.21 SENNOSIDES 8.6 MG TAB take 2 tablets twice daily as needed for constipation per Dr Loco No current facility-administered medications on file prior to visit. Social History Social History Marital status: Spouse name: Milana Jerome Years of education: Number of children: 2 Social History Main Topics Smoking status: Former Smoker Packs/day: 1.00 Years: 30.00 Types: Cigarettes Quit date: 09/14/2012 Smokeless status: Never Used Alcohol use: Yes Comment: Very little for 2-3 years Drug use: No Comment: Snorting 04/2008 Other Topics Concern BLOOD TRANSFUSIONS No EXAM: BP 128/70 Pulse 68 Resp 14 Wt 119.7 kg (264 lb) BMI 35.8 kg/m2 General Appearance: Well appearing, alert, in no acute distress, well-hydrated, well nourished., Overweight. Lungs: Lungs clear to auscultation. No wheezing, rhonchi, rales. Heart: RRR without murmur, gallop, or rubs. No ectopy. Health Maintenance List TETANUS due on 03/19/2014 ABDOMINAL AORTIC ANEURYSM SCREENING TOPIC due on 2014 PNEUMOVAX AGE 65 AND OVER WITH 5YR LOOKBACK(1) due on 2014 COLORECTAL CANCER SCREENING,SEE MODIFIER due on 07/19/2017 LIPID SCREEN due on 10/14/2018 DIABETES SCREEN due on 10/31/2019 PROSTATE CANCER SCREENING DISCUSSION Completed ADULT PREVNAR-13 Completed INFLUENZA Completed HEPATITIS C SCREENING Completed Data reviewed None ASSESSMENT/PLAN: 1. Essential hypertension, benign - ICD9: 401.1, ICD10: I10 (primary diagnosis) - good control - Continue current medication(s) - Recommended regular aerobic exercise. - Recommend home blood pressure monitoring, to bring results in on next visit - Goal of BP <140/90 2. Special screening for malignant neoplasms, colon - ICD9: V76.51, ICD10: Z12.11 Chart routed to Surgery Pool - PEG 3350 240 GRAM-ELECTROLYTES 22.72 GRAM-6.72 G-5.84 G POWDR FOR SOLN - COLONOSCOPY SCRN NOT HIGH RISK 3. Need for vaccination - ICD9: V05.9, ICD10: Z23 - PNEUMOCOCCAL IMMUNIZATION PPSV 23 4. Chronic low back pain, unspecified back pain laterality, with sciatica presence unspecified - ICD9: 724.2, 338.29, ICD10: M54.5, G89.[address] Wei, Pain Management for medications 5. Insomnia, unspecified type - ICD9: 780.52, ICD10: G47.00 Continue current medications. 6. Anxiety - ICD9: 300.00, ICD10: F41.9 Continue current medications. 7. PHIL (obstructive sleep apnea) - ICD9: 327.23, ICD10: G47.33 Continue with BiPAP Follow up in 3 months. Tangela Saavedra MD The documentation for this note was completed by January Moore Ma acting as scribe for Tangela Saavedra MD. October 14, 2017 8:54 AM. [facility] OPEN ACCESS QUESTIONNAIRE 1. Are you or could you be ? No 2. Are you currently having any stomach/gastrointestinal issues at this time such as constipation, diarrhea, abdominal pain, rectal bleeding etc? No 3. Do you have an implanted device such as a defibrillator, pacemaker, Cardiac Stent or deep brain stimulation device? No 4. Do you have any new or past cardiac (heart) or pulmonary (lung) issues? Yes / COPD 5. Is the patient's BMI 40 or greater? No:Body mass index is 35.8 kg/(m2).. Last Wt 07/13/17 : 119.6 kg (263 lb 9.6 oz) Last Ht 09/28/14 : 182.9 cm (6' 0.01) 6. Have you had difficulty with prior sedations or complications with other procedures? No 7. Have you had difficulty with anesthesia previously re: ? Difficult intubation? No ? Other difficulty or allergic reaction to anesthesia other than post op N/V? No 8. Do you currently use oxygen or a breathing machine at night? Yes / BiPAP nightly and oxygen as needed 9. Do you take any narcotics, depression or anti-Anxiety medications or 3 or more prescription drugs on a daily basis? Yes / Methadon, Dilaudid, Zanaflex, and Clonazepam and Ambien 10. Do you use any illegal or recreational drugs? No 11. Have you been hospitalized in the past 6 weeks? No 12. Are you on dialysis or have Chronic Kidney Disease? No 13. Have you been diagnosed with chronic liver disease such as hepatitis or cirrhosis? No 14. Do you have a seizure disorder? No 15. Do you have difficulty swallowing? No 16. Do you have ulcerative colitis or Crohn's disease? No 17. Do you take any Blood thinners, including Aspirin or fish oil? YES:Aspirin 18. Do you have any blood disorders (re:hemophiliac)? No 19. Are you Diabetic? No 20. Any other important health information we should be made aware of prior to your colonoscopy? No Checklist: Prior to closing the encounter: ? Complete questionnaire: Yes ? Confirm Prep order has been Ordered/Pended: Yes. ? Patient's procedure could be delayed if not given the script for the prep. Please ensure the prep is escripted to pharmacy or printed. Instructions for the prep will print upon filing or pending this smartset. ? Please send all open access questionnaires to [facility] Sched Pool #[id number] ALLERGIES ALLERGIES DATE TYPE / NAME / CODE REACTION SEVERITY SOURCE CODE 08/26/2018 Drug metoclopramide Upset Stomach Unknown [place] Allergy/41 HCl/[id number](RXNOR [facility]) Repository 08/26/2018 Drug carisoprodol/[id number] Other Unknown [place] Allergy/41 672(RXNORM) [facility] [id number]([facility]) Repository 08/26/2018 Drug pregabalin/[id number] Upset Stomach Unknown [place] Allergy/41 3(RXNORM) [facility] [id number]([facility]) Repository 05/06/2016 DRUG CARISOPRODOL OTHER: SEE C High [address] [id number]([facility] CT) 02/11/2012 DRUG PREGABALIN GI UPSET [address] [id number][facility] 02/11/2012 DRUG METOCLOPRAMIDE GI UPSET [address] [id number]([facility] CT) ENCOUNTERS ENCOUNTERS ADMIT/DISCHARGE ACCOUNT ADMITTING ENCOUNTER LOCATION SOURCE NUMBER CLASS 09/27/2018 [id number] [facility]MT[facility] Repository 09/15/2018 [id number] Inpatient [facility] Medical Encounter [facility] [place] g:H.PM Repository 09/01/2018 [id number] Inpatient [facility] Medical Encounter [facility] [place] g:H.PM Repository 08/26/2018/08/26/20 [id number] Emergency [address] ing:ED Repository 08/23/2018/08/23/20 [id number] Ambulatory [address] Repository 08/19/2018 [id number] [facility] [place] [facility] Repository 08/04/2018/08/04/20 [id number] Ambulatory BMSBuilding:B [place] 18 MS.PMW [facility] Repository 08/02/2018/08/03/20 [id number] Ambulatory [address] Repository 07/26/2018/07/26/20 [id number] Ambulatory [address] ing:ENRoom: Repository AC14 07/20/2018/07/21/20 [id number] Ambulatory [address] Repository 06/22/2018 [id number] Ambulatory [facility] ing:RAD Repository 06/21/2018 [id number] [facility] g:H.PM Repository 05/10/2018/05/11/20 [id number] Ambulatory [address] Repository 04/15/2018/04/15/20 [id number] Ambulatory [address] Repository 04/15/2018/04/16/20 [id number] Ambulatory [address] Repository 03/31/2018 [id number] [facility] [place] [facility]:H.PM Repository 02/03/2018/02/04/20 [id number] Ambulatory BMSBuilding:B [place] 18 MS.PMW [facility] Hospital Repository 01/12/2018/01/13/20 [id number] Ambulatory [address] Repository 01/12/2018/01/14/20 [id number] Ambulatory [address] Repository 01/12/2018 [id number] Ambulatory [facility] g:H.PM Repository 11/07/2017 [id number] Ambulatory BMSBuilding:W [facility] Repository 11/06/2017 [id number] Ambulatory [facility] ing:PSN Repository 10/30/2017 [id number] Ambulatory [facility] ing:PSN Repository 10/26/2017/10/26/19 [id number] Ambulatory BMSBuilding:B [place] 18 MS.[facility] Repository 10/20/2017 [id number] Ambulatory [facility] g:H.PM Repository 10/15/[id number] [facility] Repository 10/15/2017 [id number] Ambulatory [facility] ing:PSN Repository 10/15/2017 [id number] Ambulatory BMSBuilding:W [facility] Repository 10/14/2017/10/16/19 [id number] Ambulatory [address] Repository PAYERS PAYERS ENCOUNTER GUARANTOR PAYER SUBSCRIBER SOURCE 09/27/2018 NURIA W Primary NURIA [facility] N Insurance:MEDICARE WOODRUFFDOB: [facility] PART A [facility] [address] [id number] Number: Repository [address]Nmy: [phone]) [id number] [phone] () Date:2018-09-27 09/27/2018 [facility]LF [facility] Number: Effective Repository Date:2018-09-27 09/15/2018 NURIA W Primary NURIA [facility] N [facility] Number: Repository [place], [place] [id number]: ([phone]) Date:2008-11-12P O [phone] (HP) [address]FPM CODE UK910BNBSWAOM [place] [address]RG: 09/15/2018 Secondary NURIA [facility] Medical Insurance:MEDICAID [facility] Number: Repository [id number] Date:7585-42-79XX [address] [address]NT: 09/01/2018 NURIA W [facility] [id number] N Insurance:MEDICAREPol [place]K [place] B[place] ic Number: [place]ository [place] [id number]: 330) Date:2008-11-12P O [phone] (HP) [address]BQJE CODE IA448RUFSJWFC, [place] [address]MI: 09/01/2018 Secondary [facility] Insurance:MEDICAID OF [place] Number: Repository [id number] Date:6338-07-74MW [address]C[place]REEM[place] [address]ZA: 08/26/2018 NURIA W Primary NURIA W [place] [id number] N Insurance:MEDICARE WOODRUFFDOB: [facility] PART A BPolic[address] Number: Repository [id number]: [phone] [id number] [phone] (HP) Date:2018-08-26 08/26/2018 Secondary NURIA W [place] Insurance:MEDICAIDPol WOODRUFFDOB: [facility] Number: [address] [place] [address] [id number] Repository Date:2018-08-26 08/26/2018 Tertiary NOT GIVENUNK [place] Insurance:SELF PAY [facility] Number: Effective Repository Date:2018-08-26 08/19/2018 NURIA W [facility]URIA [facility] [id number] N Insurance:MEDICAREPol WOODRUFFUNK [place] Number: Repository [place], [place] [id number]: (330) Date:2008-11-12P O [phone] (HP) [address]XKSW CODE XR394CKYFOTOQ, [place] [address]CN: 08/19/2018 Secondary NURIA [facility] Medical Insurance:MEDICAID [facility] Number: Repository [id number] Date:3144-85-78ND [facility] [place] [address]AP: 08/04/2018 NURIA W Primary NURIA W [place] [id number] N Insurance:MEDICARE [facility] Community ACHARYA PART A [facility] [address] [id number] Number: Repository [id number]: 330 [id number] [phone] (HP) Date:2018-02-03 08/04/2018 Secondary NURIA W [place] [facility]FF[facility]: [facility] Number: [id number] [place] [address] [id number] Repository Date:2018-02-03 08/04/2018 Tertiary NOT GIVENUNK [place] Insurance:SELF PAY [facility] Number: Effective Repository Date:2018-07-28 07/26/2018 NURIA W Primary NURIA W [place] [id number] N Insurance:MEDICARE WOODRUFFDOB: Community ACHARYA PART A [facility] [address] [id number], [place] Number: Repository [address]Xco: 330 [id number] () Date:2018-05-10 07/26/2018 Secondary NURIA W [place] Insurance:MEDICAIDPol [facility]: [facility] Number: [id number] [place] [address] [id number] Repository Date:2018-05-10 07/26/2018 Tertiary NOT GIVENUNK [place] Insurance:SELF PAY [facility] Number: Effective Repository Date:2018-05-10 06/22/2018 NURIA W Primary NURIA W [place] [id number] N Insurance:MEDICARE WOODRUFFDOB: Community ACHARYA PART A [facility] [address] [id number] Number: Repository [address]Ubs: 330 [id number] [phone] () Date:2018-06-22 06/22/2018 Secondary NURIA W [place] Insurance:MEDICAIDPol [facility] ic Number: [id number] [place] [address] [id number] Repository Date:2018-06-22 06/22/2018 Tertiary NOT GIVENUNK [place] Insurance:SELF PAY [facility] Number: Effective Repository Date:2018-06-22 06/21/2018 NURIA W Primary NURIA [facility] Medical [id number] N Insurance:MEDICAREPol WOODRUFFUNK [place] Number: Repository [place] [id number]: (330) Date:2008-11-12P O [phone] () [address] CODE RN678HGEUVNDEPIERCEFIELD[place] [address]VP: 06/21/2018 Secondary [facility] Insurance:MEDICAID OF [place] Number: Repository [id number] Date:0097-37-82QA [address] [address]IQ: 03/31/2018 NURIA W Primary NURIA [facility] [id number] N Insurance:MEDICAREPol WOODRUFFUNK [place] Number: Repository RDWOOJIMMYway[place], [place] [id number]: (029) Date:2008-11-12P O [phone] () [address]RI[address] CODE TD645JMGXMFTUPIERCEFIELD, [place] [address]NF: 03/31/2018 Secondary NURIA [facility] Medical Insurance:MEDICAID OF [place] Number: Repository [id number] Date:6266-61-94WY [address] [address]OE: 02/03/2018 NURIA W Primary NURIA Thomas [place] [id number] N Insurance:MEDICARE WOODRUFFDO: [facility] PART A [facility] [address] [id number] [facility] RDWOOSTSWAPNILway[place] Number: Repository [address]Qeb: [phone]) [id number] [phone] (HP) Date:2017-10-26 02/03/2018 Secondary NURIA W [place] Insurance:MEDICAIDPol WOODRUFFDOB: [facility] Number: [id number] Hospital [id number] Repository Date:2017-10-26 02/03/2018 Tertiary NOT GIVENUNK [place] Insurance:SELF PAY [facility] Number: Effective Repository Date:2018-02-01 01/12/2018 NURIA W Primary NURIA [facility] [id number] N Insurance:MEDICAREWW [facility] icy Number: Repository [place], [place] [id number]: (330) Date:2008-11-12P O [phone] () [address]GHZT CODE RD546GXCOKCGTPIERCE[place] [address]NC: 01/12/2018 Secondary NURIA [facility] Insurance:MEDICAID [facility] Number: Repository [id number] Date:2765-41-91XH [address] [address]PV: 11/07/2017 NURIA W Primary NURIA Thomas [place] [id number] N Insurance:MEDICARE WOODRUFFDOB: Community ACHARYA PART A [facility] [address] [id number], [place] Number: Repository [address]Obh: 330 [id number] [phone] () Date:2017-11-03 11/07/2017 Secondary NOT GIVENUNK [place] Insurance:SELF PAY [facility] Number: Effective Repository Date:2017-11-07 11/06/2017 NURIA W Primary NURIA W [place] [id number] N Insurance:MEDICARE WOODRUFFDOB: Community ACHARYA PART A [facility] [address] [id number], [place] Number: Repository [address]Ydf: 330 [id number] [phone] () Date:2017-11-03 11/06/2017 Secondary NURIA W [place] Insurance:MEDICAIDACMH HospitalRUFFDOB: [facility] ic Number: [id number] Hospital [id number] Repository Date:2017-11-03 11/06/2017 Tertiary NOT GIVENUNK [place] Insurance:SELF PAY [facility] Number: Effective Repository Date:2017-11-03 10/30/2017 NURIA W Primary NURIA W [place] [id number] N Insurance:MEDICARE WOODRUFFDOB: Community ACHARYA PART A [facility] [address] [id number], [place] Number: Repository [address]Nfd: (034) [id number] [phone] () Date:2008-11-12 10/30/2017 Secondary NURIA W [place] Insurance:MEDICAIDPol WOODRUFFDOB: [facility] ic Number: [id number] Hospital [id number] Repository Date:2016-11-27 10/30/2017 Tertiary NOT GIVENUNK [place] Insurance:SELF PAY [facility] Number: Effective Repository Date:2017-04-27 10/26/2017 NURIA W Primary NURIA W [place] [id number] N Insurance:MEDICARE STAR TANNERYRUFFDOB: [facility] ACHARYA PART A [facility] [address] [id number], [place] Number: Repository [address]Vvm: 330 [id number] [phone] () Date:2017-08-24 10/26/2017 Secondary NOT GIVENUNK [place] Insurance:SELF PAY [facility] Number: Effective Repository Date:2017-08-24 10/20/2017 NURIA W Primary NURIA [facility] Medical [id number] N [facility] Number: Repository [place], [place] [id number]: ([phone]) Date:2008-11-12P O [id number] () [address] [id number] [address]MQ: 10/20/2017 [facility] Insurance:MEDICAID [facility] Number: Repository [id number] Date:[id number] [address] [address]CA: 10/15/2017 NURIA W Primary NURIA W [place] [id number] N Insurance:MEDICARE STAR TANNERYRUFFDOB: [facility] ACHARYA PART A [facility] [address] [id number] Number: Repository [id number]: 330 [id number] [phone] (HP) Date:2017-10-15 10/15/2017 Secondary NURIA W [place] Insurance:MEDICAIDPol WOODRUFFDOB: Community icy Number: [id number] [id number] Repository Date:2017-10-15 10/15/2017 Tertiary NOT GIVENUNK [place] Insurance:SELF PAY [facility] Effective Repository Date:2017-10-15 10/15/2017 Nuria W Primary Nuria W [place] [id number] N Insurance:MEDICARE WoodruffDOB: Community Acharya PART A [facility] [address] [id number] Number: Repository [id number]: 330 [id number] [phone] () Date:2008-11-12 10/15/2017 Secondary Nuria W [place] Insurance:MEDICAIDPol WoodruffDOB: Community icy Number: [id number] [id number] Repository Date:2016-11-27 10/15/2017 Tertiary NOT GIVENUNK [place] Insurance:SELF PAY [facility]: Effective Repository Date:2017-04-27 10/15/2017 NURIA W Primary NURIA W [place] [id number] N Insurance:MEDICARE WOODRUFFDOB: Community ACHARYA PART A [facility] [address] [id number] [place] Number: Repository [id number]: 330 [id number] [phone] () Date:2008-11-12 10/15/2017 Secondary NURIA W [place] Insurance:MEDICAIDPol WOODRUFFDOB: Community icy Number: [id number] [id number] Repository Date:2016-11-27 10/15/2017 Tertiary NOT GIVENUNK [place] Insurance:SELF PAY [facility] Number: Effective Repository Date:2017-10-15
== END 2018-08-26 10:21 | disposition home or self-care (01) ==
LOC: ED 10:19
PROVIDERS: Emergency Provider Emergency Medicine; Family Provider Family Medicine; PCP Family Medicine
DX: L30.4 Erythema intertrigo (principal); I12.9 Hypertensive chronic kidney disease with stage 1 through stage 4 chronic kidney disease, or unspecified chronic kidney disease; N18.3 Chronic kidney disease, stage 3 (moderate); J44.9 Chronic obstructive pulmonary disease, unspecified; G89.29 Other chronic pain; F32.9 Major depressive disorder, single episode, unspecified; G47.33 Obstructive sleep apnea (adult) (pediatric); Z79.899 Other long term (current) drug therapy; Z87.891 Personal history of nicotine dependence
CPT/HCPCS: 99282

== ENCOUNTER → 2018-09-27 11:16 | Outpatient (CLI) | payer MEDICARE, MEDICAID, SELFPAY ==
--- NOTE | 2018-09-27 11:37 | RAD_ITS ---
STUDY: X-RAY CHEST REASON FOR EXAM: Male, 67 years old. Psoriasis. No chest complaints. TECHNIQUE: PA and lateral views of the chest. COMPARISON: October 13, 2016 FINDINGS: Lungs are adequately inflated. Continued scarring in the left lung base. No acute airspace disease. There is no demonstrated pleural abnormality. There is borderline cardiomegaly. Normal mediastinum and jimmy. Normal visualized pulmonary arteries. Normal visualized aortic arch and descending thoracic aorta. Normal visualized thoracic spine. Normal visualized ribs, clavicles, and shoulders. There is no demonstrated abnormality of the visualized soft tissue structures of the upper abdomen. RAD/Chest PA and Lateral IMPRESSION: Adequately inflated lungs with left lung base scarring. Borderline cardiomegaly. Electronically Signed: James Almanzar DO at 12:13 EST Tel , Service support ,
[2018-09-27 14:02] LABS: Absolute Lymphocyte Count 2.31 X10^3/ul (0.83-4.51); Absolute Neutrophil Count 3.9 X10^3/uL (2.0-7.7); Basophil# 0.05 X10^3/uL; Basophil% 0.7 % (0-1); Eosinophil# 0.42 X10^3/uL; Eosinophils% 5.8 % (0-5); Hematocrit 35.9 % (40-54); Hemoglobin 11.7 g/dl (13.0-16.5); Lymphocyte # 2.31 X10^3/ul (4.0); Lymphocyte % 31.6 % (19-41); Mean Corp Hgb Conc 32.6 g/gl (32-36); Mean Corpuscular Hgb 32.1 pg (27.0-32.0); Mean Corpuscular Volume 98.4 fL (80-94); Monocyte# 0.64 X10^3/uL; Monocyte% 8.8 % (0-10); Neutrophil # 3.87 X10^3/uL (2.7-7.7); Platelet Count 320 K/mm3 (150-450); RBC Distribution Width CV 13.3 % (11.6-14.6); RBC Distribution Width SD 46.3 fl (35.1-43.9); Red Blood Count 3.65 M/mm3 (4.6-6.2); White Blood Count 7.3 K/mm3 (4.4-11.0)
[2018-09-27 14:12] LABS: POSITIVE COUNT NO; POSITIVE DIFFERENTIAL NO; POSITIVE MORPHOLOGY NO
[2018-09-27 14:19] LABS: AST(SGOT) 19 U/L (15-37); Alanine Aminotransfer ALT/SGPT 22 U/L (16-61); Albumin, Serum 3.5 g/dL (3.2-5.0); Alkaline Phosphatase 111 U/L (45-117); Anion Gap 7 (5-15); BUN 11 mg/dL (7-18); BUN/Creat Ratio 8.5 RATIO (10-20); Bilirubin, Direct 0.15 mg/dL (0.00-0.30); Calcium,Total 8.9 mg/dL (8.5-10.1); Chloride 101 mmol/L (98-107); EST Glomerular Filtration Rate 58 mL/min (>60); Est Glom Filt Rate - Afr Amer 70 mL/min (>60); Globulin 4.7 g/dL (2.2-4.2); Glucose 97 mg/dL (74-106); Potassium 3.7 mmol/L (3.5-5.1); Protein, Total 8.2 g/dL (6.4-8.2); Sodium Level 140 mmol/L (136-145)
[2018-09-30 03:08] LABS: HEPATITIS B SURFACE AG Negative (Negative); QNTFERON TB Mitogen Value > 10.00 IU/mL (.); QNTFERON TB Nil Value 0.06 IU/mL (.); QNTFERON TB1+ Ag Value 0.06 IU/mL (.); QNTFERON TB2+ Ag Value 0.05 IU/mL (.)
[2018-09-30 09:54] LABS: Hep B Surface Antibodies Non Reactive (.); Hep C Antibodies 0.2 s/co ratio (0.0-0.9); Hepatitis B Core Ab Total Negative (Negative); QNTIFERON TB Positive Criteria Negative (Negative)
== END ==
PROVIDERS: Family Provider Family Medicine; PCP Family Medicine; Referring Provider Dermatology Pediatric Dermatology; Visit Provider Dermatology Pediatric Dermatology
DX: L40.0 Psoriasis vulgaris (principal); L40.59 Other psoriatic arthropathy; L40.1 Generalized pustular psoriasis; Z79.899 Other long term (current) drug therapy
CPT/HCPCS: 36415; 71046; 80048; 80076; 85025; 86480; 86704; 86706; 86803; 87340

== ENCOUNTER 2020-03-08 19:12 | Emergency (ER) | payer MEDICARE, SELFPAY ==
[2019-08-31 09:38] VITALS: BMI 36.1
[2020-03-08 19:14] VITALS: BP 182/117; PULSE 71; RESP 18; TEMP 36.4; O2SAT 95; BMI 35.0
--- NOTE | 2020-03-08 19:22 | CT_ITS ---
STUDY: CT BRAIN WITHOUT CONTRAST REASON FOR EXAM: Male, 69 years old. FACIAL DROOP X 4 DAYS. 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 Individualized dose optimization techniques were used for this CT. COMPARISON: Noncontrast CT of the brain dated January 04, 2011. MRI of the brain dated November 04, 2016 FINDINGS: Normal soft tissue structures. Normal calvarium. No dense artery sign. No midline shift or hydrocephalus. Normal size ventricles and extra-axial spaces for the patient''s age. There are mild areas of decreased attenuation within the white matter tracts of the supratentorial brain, consistent with microvascular disease changes. Normal basal ganglia and thalami. Normal brainstem. Normal cerebellum. There is no intracranial hemorrhage. There are no findings of an acute ischemic infarction. Normal visualized paranasal sinuses. CT/Brain/Head without Contrast IMPRESSION: Chronic ischemic changes of the brain. Electronically Signed: Jorge Steven MD at 19:58 EDT , Service support ,
--- NOTE | 2020-03-08 19:25 | ED.VIS.GEN ---
History of Present Illness Chief Complaint: Neuro S/Sx Informant: Patient Onset: Days Context: Gradual Onset Timing: Continuous Current Severity: Moderate Maximum Severity: Moderate Narrative: The patient is a 69-year-old male with medical history significant for hypertension, multiple spinal surgeries, sleep apnea, and COPD that presents to the emergency department due to concern for recurrent Curiel's palsy. Patient has a longstanding history of recurrent Curiel's palsy. He has followed up with neurology and ENT. He has multiple MRIs which have not shown any significant pathology. Patient states that over the past 3 days, has begun to have some numbness in his right face and noticed that his lip was hanging. He states that his eye was also difficult to close fully. He denies any visual change. He denies any trouble speaking or swallowing. Prior similar symptoms: Yes Recent Illness/Hospitalization: No Past Medical History - Allergies and Home Meds Allergies/Adverse Reactions: Allergies carisoprodol [From Soma] Allergy (Verified 03/08/20 19:14) Other metoclopramide HCl [From Reglan] Adverse Reaction (Verified 03/08/20 19:14) Upset Stomach pregabalin [From Lyrica] Adverse Reaction (Verified 03/08/20 19:14) Upset Stomach Primary Care Physician: Ritchie Howard MD [STAFF PHYSICIAN] - Prior records reviewed: Yes Past Medical History: - - Hypertension, COPD Surgical History: - - neck surgery in oct, Smoking Status: Former smoker - Family History Maternal Family History: Family History (Last Reviewed 08/02/19 @ 07:11 by Laverne Cedillo) Father Lung disease Cancer Brother Cancer Family History: Reports: No pertinent history Paternal Family History: Family History (Last Reviewed 08/02/19 @ 07:11 by Laverne Cedillo) Father Lung disease Cancer Brother Cancer Family History: Reports: Cancer - Lung, COPD Sibling Family History: Family History (Last Reviewed 08/02/19 @ 07:11 by Laverne Cedillo) Father Lung disease Cancer Brother Cancer Family History: Reports: Cancer - 2 brothers from lung cancer Review of Systems General: Denies: Chills, Fever, Sweats Eyes: Denies: Visual changes - bilaterally, Diplopia ENT: Denies: Rhinorrhea, Sore throat Cardiovascular: Denies: Chest pain, Palpitations Respiratory: Denies: Dyspnea, Cough, Dyspnea on exertion Gastrointestinal: Denies: Abdominal pain, Nausea, Vomiting, Diarrhea, Melena, Hematochezia Genitourinary: Denies: Dysuria, Hematuria, Frequency Musculoskeletal: Denies: Back pain, Extremity Pain Skin: Denies: Rash, Wounds Neurological: Reports: Parasthesia. Denies: Headache, Weakness, Numbness Physical Exam Vital Signs/Narrative: Vital Signs Temp Pulse Resp BP Pulse Ox 03/08/20 19:14 97.5 F L 71 18 182/117 H 95 Inital Vital Signs reviewed: Yes General: Well nourished, Well developed, No Acute Distress Head: Normocephalic, Atraumatic Eyes: Perrl, EOMI ENT: Moist mucous membranes, No rhinorrhea Neck: Supple, Nontender Cardiovascular: Regular rate, Regular rhythm, No murmurs Respiratory: No distress, CTA bilaterally, Chest nontender Abdomen: Soft, Nontender, Nondistended, Normal bowel sounds Back: Nontender, Normal Inspection Extremities: Nontender, No edema Skin: Normal color, No rash Neurological: Alert, Oriented x3, Normal Strength, Right side facial droop Psychological: Normal affect, Normal Mood Diagnostic/Tx/Re-eval Clinical Impression(s) from Imaging Studies Brain CT 03/08/20 19:22 IMPRESSION: Chronic ischemic changes of the brain. Electronically Signed: Jorge Steven MD at 19:58 EDT , Service support , - Medical Decision Making The patient's history and physical exam are consistent with Curiel's palsy. It was gradual onset and progressive. He does have right-sided facial droop. There is no forehead sparing. However, given his age I did obtain a noncontrast head CT. This is unremarkable for swelling or tumor or other dangerous process. There is no evidence of stroke. At this point, I do feel the patient is safe for outpatient follow-up. He will be placed on prednisone and antivirals. He is seen neurology in the past for this multiple times and will continue to follow-up. He will be discharged home. Impression 1. Curiel's palsy ED Disposition - Plan for ED Patient: Instructions: ED [place] Palsy Prescriptions: Prednisone 10 mg PO UD #33 tab Prescription Printed Valacyclovir HCl [Valacyclovir] 1,000 mg PO TID #21 tab Prescription Printed Referrals: Ritchie Howard MD [STAFF PHYSICIAN] -
[2020-03-08 20:05] VITALS: BP 136/90; PULSE 68; RESP 17; O2SAT 94; BMI 35.0
[2020-03-08] MEDS: HYDROcodone Bitartrate/Apap 5/325 Tablet PO (20:10)
== END 2020-03-08 20:17 | disposition home or self-care (01) ==
LOC: ED 20:16
PROVIDERS: Emergency Provider Emergency Medicine; PCP Family Medicine
DX: G51.0 Bell's palsy (principal); I10 Essential (primary) hypertension; J44.9 Chronic obstructive pulmonary disease, unspecified; Z79.899 Other long term (current) drug therapy; Z87.891 Personal history of nicotine dependence
CPT/HCPCS: 70450; 99282

== ENCOUNTER 2020-04-26 12:09 | Emergency (ER) | payer MEDICARE, SELFPAY ==
[2020-04-26 12:10] VITALS: BP 138/71; PULSE 64; RESP 16; TEMP 36.6; O2SAT 95; BMI 34.7
--- NOTE | 2020-04-26 12:46 | CT_ITS ---
STUDY: CT ABDOMEN AND PELVIS WITH CONTRAST REASON FOR EXAM: Male, 69 years old. ABD PAIN, APPENDECTOMY RADIATION DOSAGE (If Supplied By Facility): CTDIvol = ( 16.61 ) mGy, DLP = ( 1378.68 ) mGycm TECHNIQUE: Transaxial images were obtained from the dome of the diaphragm to the symphysis pubis without oral contrast. IV 100mL Isovue-300 was administered. Sagittal and coronal images were reconstructed. Individualized dose optimization techniques were used for this CT. COMPARISON: None. FINDINGS: There is a noncalcified 8 mm nodule in the posterior medial segment of the right lower lobe. This is pleural-based. There is evidence of a mild degree of scarring at the lung bases with bullous formation suggestive of a emphysematous change. A six-month follow-up examination for the right lower lobe nodule is recommended. Coronary artery calcification. There is decreased attenuation of the liver consistent with steatosis. Normal gallbladder and extrahepatic biliary system. Normal spleen. Normal pancreas. Normal bilateral adrenal glands. Normal right kidney. Normal left kidney. A retroaortic left renal vein is seen. Normal visualized stomach. Normal small intestine. Normal colon. The patient is status post appendectomy. There is diffuse atherosclerotic calcification of the abdominal aorta, without a demonstrated aneurysm. Normal inferior vena cava. There is borderline retroperitoneal lymphadenopathy with enlarged nodes no greater than 10mm in the short axis diameter. Normal urinary bladder. Small bilateral inguinal hernias containing fat. There are degenerative changes of the visualized lumbar spine. CT/Abdomen/Pelvis W IV Cont ONLY IMPRESSION: Fatty infiltration of the liver. 8 mm noncalcified nodule in the peripheral aspect of the right lower lobe as described. A 6 month follow-up CT scan is recommended for further evaluation. Electronically Signed: Daniel Campbell, at 14:06 EDT , Service support ,
--- NOTE | 2020-04-26 12:49 | ED.DCSUM_ITS ---
History of Present Illness Chief Complaint: Diarrhea Informant: Patient Onset: Today Narrative: 69-year-old male presenting with diarrhea for the last 2 months. He states it is very watery. He does describe some crampy abdominal pain. Not nauseous or vomiting. He states he was on antibiotics 1 month ago for Curiel's palsy as well as steroids. Denies fever, chills. Denies dysuria. Patient does admit to a history of chronic back pain as well as leg pain. Patient admits to a history of 20 years on methadone which was finally weaned. He does state that he is in pain management and was previously on opioids, specifically Dilaudid and had had this weaned down as well. Currently patient is not on any opioids. His pain management doctor does not want him to be on them anymore. Prior similar symptoms: No Recent Illness/Hospitalization: No - Past Medical History (1) Stage 1 mild COPD by GOLD classification Status: Chronic (2) HTN (hypertension) Status: Chronic (3) Obesity Status: Chronic (4) CKD stage III Status: Chronic Past Medical History - Allergies and Home Meds Allergies/Adverse Reactions: Allergies carisoprodol [From Soma] Allergy (Verified 04/26/20 12:10) Other metoclopramide HCl [From Reglan] Adverse Reaction (Verified 04/26/20 12:10) Upset Stomach pregabalin [From Lyrica] Adverse Reaction (Verified 04/26/20 12:10) Upset Stomach Primary Care Physician: Oracio Mercado MD [Primary Care Provider] - Prior records reviewed: Yes Surgical History: - - neck surgery in oct, Smoking Status: Former smoker - Family History Maternal Family History: Family History (Last Reviewed 08/02/19 @ 07:11 by Laverne Cedillo) Father Lung disease Cancer Brother Cancer Family History: Reports: No pertinent history Paternal Family History: Family History (Last Reviewed 08/02/19 @ 07:11 by Laverne Cedillo) Father Lung disease Cancer Brother Cancer Family History: Reports: Cancer - Lung, COPD Sibling Family History: Family History (Last Reviewed 08/02/19 @ 07:11 by Laverne Cedillo) Father Lung disease Cancer Brother Cancer Family History: Reports: Cancer - 2 brothers from lung cancer Review of Systems General: Denies: Chills, Fever Eyes: Denies: Visual changes - bilaterally, Diplopia ENT: Denies: Rhinorrhea, Sore throat Cardiovascular: Denies: Chest pain, Palpitations Respiratory: Denies: Dyspnea, Cough, Dyspnea on exertion Gastrointestinal: Reports: Abdominal pain, Diarrhea. Denies: Constipation, Melena, Hematochezia Genitourinary: Denies: Dysuria Musculoskeletal: Denies: Myalgias, Arthralgias Skin: Denies: Rash Neurological: Denies: Headache Physical Exam Vital Signs/Narrative: Vital Signs Temp Pulse Resp BP Pulse Ox 04/26/20 12:10 97.8 F 64 16 138/71 H 95 Inital Vital Signs reviewed: Yes General: Obese, No Acute Distress Head: Normocephalic, Atraumatic Eyes: Perrl, EOMI ENT: Moist mucous membranes, No rhinorrhea Cardiovascular: Regular rate, Regular rhythm Respiratory: No distress, CTA bilaterally Abdomen: Soft, Nontender, Tender - Generalized abdominal tenderness. Abdomen is non-peritoneal. Back: Normal Inspection Extremities: No edema Skin: Normal color, No rash Neurological: Alert, Oriented x3 Psychological: Normal affect, Normal Mood Diagnostic/Tx/Re-eval Clinical Impression(s) from Imaging Studies Abdomen/Pelvis CT 04/26/20 12:46 IMPRESSION: Fatty infiltration of the liver. 8 mm noncalcified nodule in the peripheral aspect of the right lower lobe as described. A 6 month follow-up CT scan is recommended for further evaluation. Electronically Signed: Daniel Adrian, at 14:06 EDT , Service support , Laboratory Data 04/26/20 04/26/20 13:00 13:00 WBC 8.2 RBC 4.03 L Hgb 13.5 Hct 39.5 L MCV 98.0 H MCH 33.5 H MCHC 34.2 RDW Std Deviation 48.5 H RDW Coeff of Karlee 13.5 Plt Count 290 MPV 8.7 Immature Gran % (Auto) 0.400 Neut % (Auto) 50.1 Lymph % (Auto) 37.2 [place] % (Auto) 9.3 Eos % (Auto) 2.3 Baso % (Auto) 0.7 Absolute Neuts (auto) 4.1 Absolute Lymphs (auto) 3.04 Nucleated RBC % 0 Sodium 142 Potassium 3.6 Chloride 107 Carbon Dioxide 32.0 Anion Gap 3 L BUN 15 Creatinine 1.40 H Estim Creat Clear Calc 53.89 Est GFR (MDRD) Af Amer 64 Est GFR (MDRD) Non-Af 53 L BUN/Creatinine Ratio 10.7 Glucose 99 Calcium 8.9 Total Bilirubin 0.50 AST 19 ALT 19 Alkaline Phosphatase 150 H Total Protein 7.7 Albumin 3.9 Globulin 3.8 Albumin/Globulin Ratio 1.0 Lipase 104 - Medical Decision Making Patient presents with generalized abdominal pain and diarrhea. He states this is been going on for 2 months. Patient has not had fever or nausea and vomiting. He states that he has been eating a lot of cheese to make his diarrhea improved. His states he eats a lot of steak, bologna, hot dogs as well. States this is not improving. He was on recent antibiotics but his diarrheal illness started way before this. His lab work so far is unremarkable. CT of the abdomen pelvis does not show any acute intra-abdominal process. It does identify 8 mm pulmonary nodule. Patient states he is known that he had pulmonary nodules in the past. He said he just never followed up for evaluation. He was given Toradol and states that this was not touching his pain. Given his history of weaning off of methadone and his management doctor weaning him off of Dilaudid I do not feel comfortable giving him opioids, especially considering I have found no acute findings. I did order a stool study however he is unable to stool sample here. Patient counseled if he wants to be tested he can come back to the ED. His blood work is not consistent with C. difficile colitis. I did give the patient Toradol initially and he stated that it was not touching his pain. After discussion with him he stated he was thrown out of pain management because he had something he was not supposed to have in his urine. Given his history I discussed with him that I did not want to give him narcotics. I did not find any acute abnormalities which would require narcotic pain medication to be given. Feel the patient is stable to be discharged home. He was given strict return precautions. Impression: 1. Diarrhea 2. Abdominal pain ED Disposition - Plan for ED Patient: Disposition: Home or Assisted Living Instructions: Abdominal Pain, ED Diarrhea Viral Referrals: Oracio Mercado MD [Primary Care Provider] -
[2020-04-26] MEDS: 0.9% Normal Saline 1,000 ML 1000 ML IV (12:58)
[2020-04-26] MEDS: Ketorolac 15 MG/ML Vial IM (12:58)
[2020-04-26 13:10] LABS: Absolute Lymphocyte Count 3.04 X10^3/uL (0.83-4.51); Absolute Neutrophil Count 4.1 X10^3/uL (2.0-7.7); Basophil# 0.06 X10^3/uL; Basophil% 0.7 % (0-1); Eosinophil# 0.19 X10^3/uL; Eosinophils% 2.3 % (0-5); Hematocrit 39.5 % (40-54); Hemoglobin 13.5 g/dL (13.0-16.5); Lymphocyte # 3.04 X10^3/ul (4.0); Lymphocyte % 37.2 % (19-41); Mean Corp Hgb Conc 34.2 g/dL (32-36); Mean Corpuscular Hgb 33.5 pg (27.0-32.0); Mean Platelet Vol. 8.7 fl (6.2-12.0); Monocyte# 0.76 X10^3/uL; Monocyte% 9.3 % (0-10); NRBC Flagged by Analyzer 0 % (0-5); Neutrophil % 50.1 % (47-70); Platelet Count 290 K/mm3 (150-450); RBC Distribution Width CV 13.5 % (11.6-14.6); RBC Distribution Width SD 48.5 fl (35.1-43.9); Red Blood Count 4.03 M/mm3 (4.6-6.2); White Blood Count 8.2 K/mm3 (4.4-11.0)
[2020-04-26 13:27] LABS: AST(SGOT) 19 U/L (15-37); Alanine Aminotransfer ALT/SGPT 19 U/L (16-61); Albumin, Serum 3.9 g/dL (3.2-5.0); Alkaline Phosphatase 150 U/L (45-117); Anion Gap 3 (5-15); BUN 15 mg/dL (7-18); BUN/Creat Ratio 10.7 RATIO (10-20); Calcium,Total 8.9 mg/dL (8.5-10.1); Chloride 107 mmol/L (98-107); EST Glomerular Filtration Rate 53 mL/min (>60); Est Glom Filt Rate - Afr Amer 64 mL/min (>60); Estimated Creatinine Clearance 53.89 ml/min; Globulin 3.8 g/dL (2.2-4.2); Glucose 99 mg/dL (74-106); Lipase 104 U/L (73-393); Potassium 3.6 mmol/L (3.5-5.1); Protein, Total 7.7 g/dL (6.4-8.2); Sodium Level 142 mmol/L (136-145)
[2020-04-26 14:34] VITALS: BP 157/90; PULSE 63; RESP 16; TEMP 36.8; O2SAT 98
[2020-04-26 14:43] LABS: Bacteria 0 SEEN /hpf (None Seen); Mucous, Urine 0 SEEN /hpf (<or=2+); Red Blood Cells-Urine 0 SEEN /hpf (0-5); Squamous Epithelial Cells - UA 0 SEEN /hpf (0-5); White Blood Cells 0 SEEN /hpf (0-5)
[2020-04-26 14:46] LABS: Color, Urine Yellow (Yellow); Glucose, Dipstick Normal (Normal); Ketone-Dipstick Negative (Negative); Leukocyte Esterase-Dipstick 25 /ul (Negative); Nitrite-Dipstick Negative (Negative); Occult Blood-Urine Negative /ul (Negative); Protein-Dipstick 30 mg/dl (Negative); Specific Gravity, Urine 1.005 (1.002-1.030); Urine Bilirubin Dipstick Negative (Negative); Urine Clarity Sl. Cloudy (Clear); Urine Urobilinogen Normal (Normal)
[2020-04-26 16:19] VITALS: RESP 18
== END 2020-04-26 16:23 | disposition home or self-care (01) ==
PROVIDERS: Emergency Provider Student in an Organized Health Care Education/Training Program; PCP Family Medicine
DX: R19.7 Diarrhea, unspecified (principal); R10.9 Unspecified abdominal pain; R91.1 Solitary pulmonary nodule; M54.9 Dorsalgia, unspecified; M79.606 Pain in leg, unspecified; G89.29 Other chronic pain; E66.9 Obesity, unspecified; J44.9 Chronic obstructive pulmonary disease, unspecified; I12.9 Hypertensive chronic kidney disease with stage 1 through stage 4 chronic kidney disease, or unspecified chronic kidney disease; N18.3 Chronic kidney disease, stage 3 (moderate); Z79.899 Other long term (current) drug therapy; Z87.891 Personal history of nicotine dependence
CPT/HCPCS: 74177; 80053; 81001; 83690; 85025; 96360; 96372; 99283; J7030; A4216

== ENCOUNTER → 2020-05-28 15:40 | Outpatient (CLI) | payer MEDICARE, SELFPAY ==
--- NOTE | 2020-05-28 15:42 | RAD_ITS ---
STUDY: X-RAY - CERVICAL SPINE REASON FOR EXAM: Male, 69 years old. Neck pain for one year. History of spinal surgery. TECHNIQUE: 3 view(s) of the cervical spine were obtained. COMPARISON: Cervical spine, 06/22/2018. FINDINGS: There are degenerative changes of the anterior atlantoaxial articulation. Normal odontoid process. There is straightening of the normal cervical lordosis. There is posterior fusion of C3-C6. There is anterior fusion of C4-C5 there is disc space narrowing and endplate spondylosis at C6-7. There is no evidence of acute fracture or loss of vertebral axial height. There is maintenance of normal alignment. The soft tissue structures are unremarkable. RAD/Cerv Spine 2 or 3 Views IMPRESSION: Surgical changes of the C-spine without acute abnormality or interval change. Electronically Signed: Ricky Patiño DO at 23:10 EDT Tel [phone], Service support ,
--- NOTE | 2020-05-28 15:45 | RAD_ITS ---
STUDY: X-RAY - LUMBAR SPINE REASON FOR EXAM: Male, 69 years old. Lower back pain for 3 to 4 months. No known injury. TECHNIQUE: 3 view(s) of the lumbar spine were obtained. COMPARISON: Lumbar spine, 10/18/2016. FINDINGS: Normal lumbar lordosis. There is no substantial scoliosis. There is a normal alignment of the vertebrae. There is multilevel endplate spondylosis of the lumbar vertebrae. There is multi-level degenerative disc disease with multi-level disc space narrowing. There is no evidence of acute fracture or loss of vertebral axial height. No evidence of L4 laminectomy The soft tissue structures are unremarkable. RAD/Lumbar Spine 2 or 3 Views IMPRESSION: Stable degenerative changes of the lumbar spine. Electronically Signed: Ricky Patiño DO at 23:01 EDT Tel [phone], Service support ,
== END ==
LOC: RAD 15:41
PROVIDERS: PCP Family Medicine; Referring Provider Anesthesiology Pain Medicine; Visit Provider Anesthesiology Pain Medicine
DX: M54.2 Cervicalgia (principal); M54.9 Dorsalgia, unspecified
CPT/HCPCS: 72040; 72100

== ENCOUNTER 2020-07-23 09:37 | Day surgery (SDC) | payer MEDICARE, MEDICAID, SELFPAY ==
[2020-07-18 09:10] VITALS: BMI 34.7
[2020-07-23] VITALS (7 sets, daily range): BP systolic 98–145; BP diastolic 66–93; PULSE 59–71; RESP 12–20; TEMP 36.2–36.7; O2SAT 92–99; BMI 32.8
--- NOTE | 2020-07-23 06:29 | HP_ITS ---
Intake Vital Signs 07/18/20 Height 6 ft 07/18/20 Weight: 256 lb 4 oz 07/18/20 BMI 34.7 07/18/20 BP 154/89 H 07/18/20 Blood Pressure Location Rt brachial 07/18/20 Position Sitting 07/18/20 Respiration 18 07/18/20 Pulse 60 07/18/20 Pulse Source Monitor 07/18/20 Temp 95.8 F L 07/18/20 Temp Source Temporal 07/18/20 Pulse Oximetry (%) 96 07/18/20 Oxygen Delivery Method room air Intake Visit Reasons: CSCOPE/ RECTAL BLEEDING Chief Complaint: c-scope consult/rectal bleeding Bobbin Washer Required: No Accompanied by: Is patient in pain?: No Allergies carisoprodol [From Soma] Allergy (Verified 07/18/20 09:11) Other metoclopramide HCl [From Reglan] Adverse Reaction (Verified 07/18/20 09:11) Upset Stomach pregabalin [From Lyrica] Adverse Reaction (Verified 07/18/20 09:11) Upset Stomach Medications Potassium Chloride [K-Dur] 10 meq PO BID 03/31/16 [History Confirmed 07/18/20] Tizanidine HCl [Zanaflex] 4 mg PO Q8H PRN 03/31/16 [History Confirmed 07/18/20] Gabapentin [Neurontin] 800 mg PO TIDCM 04/18/16 [History Confirmed 07/18/20] atenolol 25 mg tablet 50 mg PO DAILY tab 07/18/20 [History Confirmed 07/18/20] duloxetine 60 mg capsule,delayed release 60 mg PO DAILY 07/18/20 [History Confirmed 07/18/20] [facility] Medical History HTN (hypertension) (Chronic) Obesity (Chronic) CKD stage III (Chronic) PHIL (obstructive sleep apnea) (Chronic) Abnormal chest CT (Acute) Central sleep apnea (Chronic) COPD (chronic obstructive pulmonary disease) (Chronic) Asthma (Chronic) Curiel palsy (Chronic) Hemoptysis (Acute) Pneumonia (Acute) Depression (Chronic) Chronic pain (Chronic) Abdominal pain (Acute) Anxiety (Acute) Arthritis (Acute) Diarrhea (Acute) Fatigue (Acute) History of back problems (Acute) Nausea and vomiting (Acute) Rectal bleeding (Acute) Surgical History H/O neck surgery (Resolved) ankle surgery (Resolved) lower back surgery (Resolved) H/O colonoscopy (Resolved) Family History Father Lung disease Cancer lung Brother Cancer lung Social History (Updated 07/18/20 @ 09:[address] Nehemiah Harkins MD) Smoking Status: Former smoker Tobacco: How many years used: 50 Electronic Cigarette Use: not used how long ago did patient quit smokin, 2-3pk/day second hand exposure: Yes alcohol intake: never substance use type: does not use caffeine: Yes Type: coffee Number of servings: 3 what type of physical activity do you participate in: bicycling frequency: daily duration: 15-30 minutes/day HPI HPI Surgical H&P: Yes HPI: NURIA SHARPE, is a 69 M who presents to the office today for Evaluation for endoscopy. Patient was seen in [facility]'s emergency department on 04/26/2020 he was having crampy abdominal pain stated this essentially started about a month ago After he was diagnosed with Curiel's palsy and started on steroids as well as some antibiotics. He is still on antibiotics at this time. Patient states that he has been having bloody diarrhea and at times he will lose control of his bowels at nighttime. He has been having diffuse crampy abdominal pains been fairly persistent since this past April. At April he had a CAT scan of his abdomen and pelvis which was negative. He subsequently went to [facility] emergency department where he was evaluated and reportedly told that he should get another colonoscopy as quickly as he could. Patient had a colonoscopy in July 2018 this was done for a history of colonic polyps. Patient had a tubular adenoma removed from his proximal transverse colon it did not say he had any abnormalities within his rectum and he had no internal hemorrhoids. ROS General General: Yes fatigue; no weight change, appetite, colon cancer, breast cancer or weakness HEENT HEENT: No difficulty swallowing, eye injury, eye surgery, swollen glands or hoarseness Endo Endocrine: No thyroid disease, diabetes mellitus, thyroid cancer, Hair loss, heat intolerance or cold intolerance Skin Skin: No rash or changing moles Breast Breast: No left breast lump, right breast lump, nipple discharge, breast pain, abnormal mammogram, abnormal US or breast enlargement Musc Musculoskeletal: Yes back problems and arthritis; no rheumatoid arthritis, gout or joint pain Cardio Cardiovascular: No murmur, pacemaker, heart disease, atrial fibrillation, high blood pressure, heart attack, heart stent, palpitations, shortness of breat with exertion or chest pain Psych Psychiatric: Yes depression and anxiety; no hearing voices Resp Respiratory: No shortness of breath, No sleep apnea, No cough, Yes COPD, No asthma, No emphysema, No wheezing Gastro Gastrointestinal: Yes abdominal pain, Yes nausea or vomiting, Yes diarrhea, No constipation, Yes blood in stool, No acid reflux, No hemorrhoids, No ulcers, No gallbladder problem, No black,tarry stools Jose Cruz Hematologic: No blood thinners, No blood disorders, No bleeding, No anemia, No blood clots Neuro Neurologic: No system reviewed and no additional complaints, except as docu, No as per HPI, No abnormal walking, No abnormal hearing, No abnormal movements, No abnormal speech, No behavioral changes, No burning sensations, No confusion, No seizure-like activity, No unsteadiness, No dizziness, No localized weakness, No frequent falls, No headache(s), No lack of coordination, No loss of vision, No memory loss, No numbness, No other visual disturbances, No radiating pain, No restless legs, No sensory deficit, No fainting, No tingling, No tremor(s), No weakness, No other Exam Const General: no acute distress, well developed, well hydrated Orientation: oriented to person, oriented to place, oriented to time [facility] Head: normocephalic, atraumatic Ears: external ears normal Mouth: moist mucous membranes Eyes Sclera: sclerae normal Pupils: normal by confrontation Neck Neck: no lymphadenopathy noted Neck mass: No Thyroid: thyroid normal, symmetrical Chest Chest palpation & inspection: normal inspection of the chest Breast Palpation: No nipple discharge Resp Effort & Inspection: normal respiratory effort Auscultation: clear to auscultation bilaterally Percussion: percussion normal Cardio Rate: regular rate Rhythm: regular rhythm Heart Sounds: no murmurs GI Palpation: soft, no hepatosplenomegaly, no masses, nontender Rectal Exam: other Other: Rectal exam deferred. Extrem General: normal to inspection, no clubbing, cyanosis or edema Assessment & Plan Problems 1. Hematochezia K92.1 2. Generalized abdominal pain R10.84 Plan I have discussed the above with the patient. I have offered the patient colonoscopy for evaluation. I have explained the risks/benefits of the procedure and described the procedure. I have discussed the risks with the patient, including but not limited to: infection, bleeding, perforation of the GI tract requiring emergency surgery, inability to complete the procedure, injury to any internal organs, complications of anesthesia, etc. - the patient understands and agrees to proceed. I have answered all the patient's questions to the patient's satisfaction and the patient has no further questions. The patient has been given instructions for the colon cleansing preparation. We will be doing random colon biopsies. Coding Level of Care Code Off vis,new,level 3 Diagnoses Hematochezia K92.1 Generalized abdominal pain R10.84 ??Abdominal location: generalized COVID (Procedure Consent) Procedure Criteria Procedure Criteria: Yes Elective The surgeon/proceduralist and patient have discussed in detail the risk of exposure to and/or potential harm posed by the COVID-19 virus with having a surgery/procedure at this time versus the risk of? delaying the surgery/procedure. It is not possible to know either the risk of delaying the surgery or procedure or chance of getting an infection with perfect accuracy, but a joint decision was made between the patient and the surgeon/proceduralist ?to proceed at this time with the scheduled surgery/procedure as indicated on the consent form. I have re-examined the patient. There are no clinical changes since date of exam.
[2020-07-23] MEDS: Lactated Ringers 1,000 ML 100 ML IV (10:01)
--- NOTE | 2020-07-23 11:00 | COLBX_PTH ---
PATIENT: NURIA SHARPE LOC: EN U#:[id number] AGE/SX: 69/M ROOM: RE07/23/[address]: Dr. Nehemiah Harkins MD : 1950 BED: DIS: 07/23/2020 SPEC #: [id number] RECD: 07/23/20 12:30 STATUS: ANNIE DI #: [id number] KOJO: 07/23/20 11:[address]: Nehemiah Harkins DEPT: SURGICAL PATHOLOGY RECD BY: Tonie Ruiz ENTERED: 07/23/20 13:38 SP TYPE: COLON BX OTHR DR: Dr. Oracio Mercado MD Tissues: A - Cecum, NOS B - COLON BIOPSY C - Descending colon D - Sigmoid colon biopsy Procedures: Surgery Specimen Level IV HEADER OPERATION: Colonoscopy (ROLY) PRE-OP DIAGNOSIS: Hematochezia; generalized abdominal pain TISSUE SUBMITTED: A - Polyp cecum, B - Random colonic biopsy, C - Descending polyp biopsy, D - Sigmoid colon polyp biopsy MICROSCOPIC DIAGNOSIS A. Polyp cecum, biopsy: Fragments of tubular adenoma with cautery artifacts. B. Colon, random biopsy: Fragments of colonic mucosa, no pathologic diagnosis. C. Descending colon polyp, biopsy: Tubular adenoma. D. Sigmoid colon polyp, biopsy: Hyperplastic polyp. LAUREN:mackenzie 07/24/20 MICROSCOPIC DESCRIPTION Slides are reviewed. GROSS DESCRIPTION A - Received in fixative is one container labeled with the patient's name and designated polyp cecum. The specimen consists of multiple irregular fragments of light giles soft tissue that in aggregate measure 0.8 x 0.5 x 0.2 cm. The specimen is totally submitted in one cassette. B - Received in fixative is one container labeled with the patient's name and designated random colonic biopsy. The specimen consists of multiple irregular fragments of light giles soft tissue that in aggregate measure 2 x 0.5 x 0.1 cm. The specimen is totally submitted in one cassette. C - Received in fixative is one container labeled with the patient's name and designated descending polyp biopsy. The specimen consists of one irregular fragment of light giles soft tissue that measures 0.5 x 0.2 x 0.1 cm. The specimen is totally submitted in one cassette. D - Received in fixative is one container labeled with the patient's name and designated sigmoid colon polyp biopsy. The specimen consists of one irregular fragment of light giles soft tissue that measures 0.7 x 0.2 x 0.1 cm. The specimen is totally submitted in one cassette. / LAUREN:mackenzie 07/23/20 TC:1 CPT: 96118 x4
--- NOTE | 2020-07-23 11:57 | OP.CCLET_ITS ---
07/23/2020 Oracio Mercado [address] [place] [address] Re : Colonoscopy procedure for George Dewitt Dear Dr. Mercado This procedure was performed on Thursday, July 23, 2020. My impressions and recommendations are as follows: Impressions : - One 11 mm polyp in the cecum, removed with a hot snare. Resected and retrieved. This is a very sessile polyp and there was other polypoid lesions all around this lesion. It was not amendable to a single removal. In fact after I removed it I placed 2 large clips to close the defect. I believe the this is going to have to be done at a larger institution with [facility] to lift up the mucosa and retrieve all of this abnormal mucosal area with in the cecum itself. - One 3 mm polyp in the descending colon, removed with a jumbo cold forceps. Resected and retrieved. - One 3 mm polyp in the sigmoid colon, removed with a jumbo cold forceps. Resected and retrieved. - Non-bleeding internal hemorrhoids. - The entire examined colon is normal. Biopsied. - Diverticulosis in the sigmoid colon. No specimens collected. - The examination was otherwise normal. Recommendations : - Discharge patient to home. - Resume previous diet. - Continue present medications. - Await pathology results. - Repeat colonoscopy in 1 year for surveillance after piecemeal polypectomy. - Return to my office in 1 week. My findings are described in the full procedure note, which is enclosed. If I can be of further assistance, please feel free to contact me at Doctor phone number(s): , Fax: [phone], Work: . Sincerely, MD Nehemiah Scott MD 07/23/2020 11:56:32 AM This report has been signed electronically.
--- NOTE | 2020-07-23 11:57 | OP.COLON_ITS ---
Patient Name: George Dewitt Procedure Date: 07/23/2020 11:01 AM Date of : 1950 Age: 69 Procedure: Colonoscopy Indications: Hematochezia Providers: Nehemiah Harkins MD Referring MD: Oracio Mercado Medicines: See the Anesthesia note for documentation of the administered medications Patient Profile: This is a 69 year old male. Refer to note in patient chart for documentation of history and physical. Last Colonoscopy: 2017. Complications: No immediate complications. Procedure: Pre-Anesthesia Assessment: - Prior to the procedure, a History and Physical was performed, and patient medications and allergies were reviewed. The patient's tolerance of previous anesthesia was also reviewed. The risks and benefits of the procedure and the sedation options and risks were discussed with the patient. All questions were answered, and informed consent was obtained. Prior Anticoagulants: The patient has taken no previous anticoagulant or antiplatelet agents. ASA Grade Assessment: III - A patient with severe systemic disease. After reviewing the risks and benefits, the patient was deemed in satisfactory condition to undergo the procedure. After I obtained informed consent, the scope was passed under direct vision. Throughout the procedure, the patient's blood pressure, pulse, and oxygen saturations were monitored continuously. The colonoscope was introduced through the anus and advanced to the cecum, identified by appendiceal orifice and ileocecal valve. The colonoscopy was performed without difficulty. The patient tolerated the procedure well. The quality of the bowel preparation was adequate to identify polyps 6 mm and larger in size. Scope In: 11:08:48 AM Scope Withdrawal Time 0 hours 24 minutes 40 seconds Scope Out: 11:41:04 AM Total Procedure Duration Time 0 hours 32 minutes 16 seconds Findings: A 11 mm polyp was found in the cecum. The polyp was sessile. The polyp was removed with a hot snare. Resection and retrieval were complete. A 3 mm polyp was found in the descending colon. The polyp was sessile. The polyp was removed with a jumbo cold forceps. Resection and retrieval were complete. A 3 mm polyp was found in the sigmoid colon. The polyp was sessile. The polyp was removed with a jumbo cold forceps. Resection and retrieval were complete. Non-bleeding internal hemorrhoids were found during retroflexion. The hemorrhoids were mild and medium-sized. The colon (entire examined portion) appeared normal. Biopsies for histology were taken with a cold forceps from the entire colon for evaluation of microscopic colitis. Multiple small and large-mouthed diverticula were found in the sigmoid colon. No biopsies or other specimens were collected for this exam. The exam was otherwise without abnormality. Impression: - One 11 mm polyp in the cecum, removed with a hot snare. Resected and retrieved. This is a very sessile polyp and there was other polypoid lesions all around this lesion. It was not amendable to a single removal. In fact after I removed it I placed 2 large clips to close the defect. I believe the this is going to have to be done at a larger institution with [facility] to lift up the mucosa and retrieve all of this abnormal mucosal area with in the cecum itself. - One 3 mm polyp in the descending colon, removed with a jumbo cold forceps. Resected and retrieved. - One 3 mm polyp in the sigmoid colon, removed with a jumbo cold forceps. Resected and retrieved. - Non-bleeding internal hemorrhoids. - The entire examined colon is normal. Biopsied. - Diverticulosis in the sigmoid colon. No specimens collected. - The examination was otherwise normal. Recommendation: - Discharge patient to home. - Resume previous diet. - Continue present medications. - Await pathology results. - Repeat colonoscopy in 1 year for surveillance after piecemeal polypectomy. - Return to my office in 1 week. Procedure Code(s): --- Professional --- 66108, Colonoscopy, flexible; with removal of tumor(s), polyp(s), or other lesion(s) by snare technique 13577, 59, Colonoscopy, flexible; with biopsy, single or multiple Diagnosis Code(s): --- Professional --- D12.0, Benign neoplasm of cecum D12.4, Benign neoplasm of descending colon D12.5, Benign neoplasm of sigmoid colon K64.8, Other hemorrhoids K92.1, Melena (includes Hematochezia) K57.30, Diverticulosis of large intestine without perforation or abscess without bleeding CPT copyright 2017 [employer]. All rights reserved. The codes documented in this report are preliminary and upon cotton program technician review may be revised to meet current compliance requirements. MD Nehemiah Scott MD 07/23/2020 11:56:32 AM This report has been signed electronically. Number of Addenda: 0 Note Initiated On: 07/23/2020 11:01 AM
== END 2020-07-23 12:47 | disposition home or self-care (01) ==
LOC: EN 09:38 → AC 09:39
PROVIDERS: PCP Family Medicine; Referring Provider Family Medicine; Visit Provider Surgery
PROC: 0DJD8ZZ Inspection of Lower Intestinal Tract, Via Natural or Artificial Opening Endoscopic (ICD-10-PCS; CPT 45378; principal; 2020-07-23 10:55)
DX: D12.0 Benign neoplasm of cecum (principal); D12.4 Benign neoplasm of descending colon; D12.5 Benign neoplasm of sigmoid colon; K57.30 Diverticulosis of large intestine without perforation or abscess without bleeding; K64.8 Other hemorrhoids; I12.9 Hypertensive chronic kidney disease with stage 1 through stage 4 chronic kidney disease, or unspecified chronic kidney disease; N18.30 Chronic kidney disease, stage 3 unspecified; G47.33 Obstructive sleep apnea (adult) (pediatric); J44.9 Chronic obstructive pulmonary disease, unspecified; F32.9 Major depressive disorder, single episode, unspecified; G89.29 Other chronic pain; F41.9 Anxiety disorder, unspecified; G47.31 Primary central sleep apnea; M19.90 Unspecified osteoarthritis, unspecified site; Z87.01 Personal history of pneumonia (recurrent); Z87.19 Personal history of other diseases of the digestive system; Z79.899 Other long term (current) drug therapy; Z87.891 Personal history of nicotine dependence
CPT/HCPCS: 45380; 45385; 87426; 88305; C9803; J7120; J1610

== ENCOUNTER → 2020-08-02 07:52 | Outpatient (CLI) | payer MEDICARE, MEDICAID, SELFPAY ==
[2020-07-23 09:56] VITALS: BMI 32.8
--- NOTE | 2020-08-03 13:19 | PFT ---
INTRODUCTION: The patient is a 69-year-old male that presents for pulmonary function studies secondary to a diagnosis of COPD. Respiratory therapy reports good patient effort. Bronchodilators were used during testing. INTERPRETATION: Forced expiration spirometry demonstrates the presence of a mild large airways obstructive ventilatory defect. There was no significant response to aerosolized bronchodilators. Spirograms are of good quality and do not plateau indicating slow emptying of the lungs. Body plethysmography was performed and revealed an elevated TLC to 128% of predicted, indicative of underlying hyperinflation. Diffusing capacity by single breath CO was reduced at 78% of predicted. IMPRESSION: Irreversible mild large airways obstructive ventilatory defect with associated hyperinflation and symmetric reduction in diffusing capacity.
== END ==
PROVIDERS: PCP Family Medicine; Referring Provider Internal Medicine Critical Care Medicine; Visit Provider Internal Medicine Critical Care Medicine
DX: J44.9 Chronic obstructive pulmonary disease, unspecified (principal); J96.11 Chronic respiratory failure with hypoxia
CPT/HCPCS: 94060; 94726; 94729

== ENCOUNTER 2020-09-03 11:40 | Emergency (ER) | payer MEDICARE, SELFPAY ==
[2020-08-10 09:02] VITALS: BMI 34.3
[2020-09-03 11:41] VITALS: BP 152/96; PULSE 81; RESP 18; TEMP 36.5; O2SAT 97; BMI 32.8
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
[2020-09-03] MEDS: Morphine 4 MG/ML Syringe SC (12:21)
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
--- NOTE | 2020-09-03 13:34 | ED.DEP ---
ED Disposition - Plan for ED Patient: Instructions: ED Concussion Referrals: Oracio Mercado MD [Primary Care Provider] -
== END 2020-09-03 13:43 | disposition home or self-care (01) ==
LOC: ED 12:56
PROVIDERS: Emergency Provider Emergency Medicine; PCP Family Medicine
DX: S06.0X0A Concussion without loss of consciousness, initial encounter (principal); V89.2XXA Person injured in unspecified motor-vehicle accident, traffic, initial encounter; Y93.9 Activity, unspecified; Y92.9 Unspecified place or not applicable; J44.9 Chronic obstructive pulmonary disease, unspecified; N18.9 Chronic kidney disease, unspecified; G47.33 Obstructive sleep apnea (adult) (pediatric); Z79.899 Other long term (current) drug therapy; Z87.891 Personal history of nicotine dependence
CPT/HCPCS: 70450; 72125; 96372; 99282

== ENCOUNTER 2020-10-04 15:07 | Emergency (ER) | payer MEDICARE, SELFPAY ==
[2020-10-04 15:07] VITALS: BP 194/103; PULSE 62; RESP 16; TEMP 35.6; O2SAT 96
[2020-10-04 15:08] VITALS: BP 194/103; PULSE 62; RESP 16; TEMP 35.6; O2SAT 96; BMI 33.7
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
[2020-10-04] MEDS: Metoprolol Tartrate 25 MG Tablet PO (15:52)
[2020-10-04 15:53] VITALS: BP 183/97
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
--- NOTE | 2020-10-04 17:11 | ED.DEP ---
ED Disposition - Plan for ED Patient: Disposition: Home or Assisted Living Instructions: ED High Blood Pressure ... Referrals: Oracio Mercado MD [Primary Care Provider] - 3-5 Days if not improving Additional Instructions: Log your blood pressures twice daily and follow-up with your primary care physician to see if they need to adjust her medications. Tylenol for pain.
[2020-10-04 17:45] VITALS: BP 169/94; PULSE 64; RESP 19; O2SAT 97
[2020-10-04] MEDS: Acetaminophen 500 MG Tablet 1000 MG PO (18:31)
[2020-10-04 18:32] VITALS: BP 171/107; PULSE 61; RESP 16; O2SAT 96
[2020-10-04 18:57] VITALS: BP 194/97; PULSE 75; RESP 16; O2SAT 96
== END 2020-10-04 18:58 | disposition home or self-care (01) ==
PROVIDERS: Emergency Provider Emergency Medicine; PCP Family Medicine
DX: R51.9 Headache, unspecified (principal); I10 Essential (primary) hypertension; M54.2 Cervicalgia; R19.7 Diarrhea, unspecified; N28.9 Disorder of kidney and ureter, unspecified; F41.9 Anxiety disorder, unspecified; J44.9 Chronic obstructive pulmonary disease, unspecified; Z98.890 Other specified postprocedural states; Z79.899 Other long term (current) drug therapy; Z87.891 Personal history of nicotine dependence
CPT/HCPCS: 70450; 72125; 99283

== ENCOUNTER → 2021-01-10 | Outpatient (CLI) | payer MEDICARE, MEDICAID, SELFPAY ==
[2021-01-10 15:23] LABS: Amphetamine Urine VISTA NEGATIVE (<1000 ng/mL); Barbiturate Urine VISTA NEGATIVE (< 200 ng/mL); Benzodiazepine Urine VISTA NEGATIVE (< 200 ng/mL); Cocaine Urine VISTA NEGATIVE (< 300 ng/mL); Ecstacy Urine VISTA NEGATIVE (< 500 ng/mL); Methadone Urine VISTA NEGATIVE (< 300 ng/mL); PCP Urine VISTA NEGATIVE (< 25 ng/mL); THC Urine VISTA NEGATIVE (< 50 ng/mL); Vista UDS pH Range 5
== END | disposition home or self-care (01) ==
PROVIDERS: PCP Family Medicine; Visit Provider Family Medicine
DX: G89.4 Chronic pain syndrome (principal); Z79.899 Other long term (current) drug therapy; Z51.81 Encounter for therapeutic drug level monitoring
CPT/HCPCS: 80307

== ENCOUNTER → 2021-06-06 13:08 | Outpatient (CLI) | payer MEDICARE, MEDICAID, SELFPAY ==
--- NOTE | 2021-06-06 13:16 | RAD_ITS ---
STUDY: X-RAY - CERVICAL SPINE REASON FOR EXAM: Male, 70 years old. Other cervical disc degeneration, unspecified cervical region TECHNIQUE: 6 view(s) of the cervical spine were obtained including oblique views and flexion and extension views.. COMPARISON: Comparison is made with prior examination of 05/28/2020. FINDINGS: There are degenerative changes of the anterior atlantoaxial articulation. Normal odontoid process. There is straightening of the normal cervical lordosis. The patient is status post anterior fusion and disc placement at the C4-C5 and C5-C6 levels. There is also evidence of prior laminectomy and posterior fusion with interpedicular screw fixation device at the C3-C4, C4-C5 and C5-C6. There has been no change. The soft tissue structures are unremarkable. RAD/Cerv Spine Obl/Flex/Ext Comp IMPRESSION: Status post anterior and posterior fusion as described. There has been no change. Electronically Signed: Daniel Campbell MD at 15:43 EDT , Service support ,
--- NOTE | 2021-06-06 13:16 | RAD_ITS ---
STUDY: X-RAY - LUMBOSACRAL SPINE REASON FOR EXAM: Male, 70 years old. Other intervertebral disc degeneration, lumbosacral region TECHNIQUE: 6 view(s) of the lumbosacral spine were obtained. COMPARISON: Comparison is made with prior study dated 05/28/2020. FINDINGS: Normal lumbar lordosis. There is no substantial scoliosis. There is normal alignment of the vertebrae. There is multilevel endplate spondylosis of the lumbar vertebrae. There is multi-level degenerative disc disease with multi-level disc space narrowing. Facet joint arthritis. There is degenerative arthrosis of the sacroiliac joint with articular joint space narrowing and spur formation. There is a 1.4 cm x 0.6 cm oval density overlying the transverse process of the L4 vertebra on the right side. This most likely represents an ingested tablet. RAD/L/S Spine Comp/w Bending Views IMPRESSION: Degenerative changes of the spine, as detailed above. Electronically Signed: Daniel Campbell MD at 15:28 EDT , Service support ,
== END ==
PROVIDERS: PCP Family Medicine; Referring Provider Anesthesiology Pain Medicine; Visit Provider Anesthesiology Pain Medicine
DX: M51.37 Other intervertebral disc degeneration, lumbosacral region (principal); M50.30 Other cervical disc degeneration, unspecified cervical region
CPT/HCPCS: 72052; 72114

== ENCOUNTER → 2021-06-25 13:53 | Outpatient (CLI) | payer MEDICARE, SELFPAY ==
--- NOTE | 2021-06-25 13:56 | RAD_ITS ---
STUDY: X-RAY - RIGHT ANKLE REASON FOR EXAM: Male, 70 years old. PAIN AND SWELLING TECHNIQUE: 3 view(s) of the ankle. COMPARISON: None. FINDINGS: No acute fracture, dislocation or osseous destruction. Uncomplicated lateral calcaneal screw. Ankle mortise well aligned. Spurring at the lateral malleolus. Mild tibiotalar degenerative arthrosis. Plantar spur. Achilles enthesophyte. Mild soft tissue swelling predominating laterally. RAD/Ankle min 3 Views IMPRESSION: Uncomplicated lateral calcaneal screw Degenerative changes, as above Soft tissue swelling predominating laterally Right ankle intact Electronically Signed: Tom Melendrez DO at 11:10 EDT Tel , Service support ,
== END ==
PROVIDERS: PCP Family Medicine; Referring Provider Family Medicine; Visit Provider Family Medicine
DX: M25.571 Pain in right ankle and joints of right foot (principal)
CPT/HCPCS: 73610

== ENCOUNTER → 2021-09-09 | Outpatient (CLI) | payer MEDICARE, SELFPAY | END | disposition home or self-care (01) | LOC: LABSPEC 12:32 | PROVIDERS: PCP Family Medicine; Visit Provider Family Medicine | DX: R05.9 Cough, unspecified (principal) | CPT/HCPCS: 87635; U0005; U0003 ==

== ENCOUNTER → 2022-03-10 | Outpatient (CLI) | payer MEDICARE, SELFPAY ==
[2022-03-10 10:53] LABS: Absolute Neutrophil Count 4.7 X10^3/uL (2.0-7.7); Basophil# 0.05 X10^3/uL; Basophil% 0.7 % (0-1); Eosinophil# 0.14 X10^3/uL; Eosinophils% 1.9 % (0-5); Hematocrit 41.3 % (40-54); Hemoglobin 13.8 g/dL (13.0-16.5); Lymphocyte % 26.6 % (19-41); Mean Corp Hgb Conc 33.4 g/dL (32-36); Mean Corpuscular Hgb 32.5 pg (27.0-32.0); Mean Corpuscular Volume 97.2 fL (80-94); Mean Platelet Vol. 8.5 fl (6.2-12.0); Monocyte# 0.65 X10^3/uL; Monocyte% 8.6 % (0-10); NRBC Flagged by Analyzer 0 % (0-5); Neutrophil # 4.65 X10^3/uL (2.7-7.7); Neutrophil % 61.8 % (47-70); Platelet Count 320 K/mm3 (150-450); RBC Distribution Width CV 13.2 % (11.6-14.6); RBC Distribution Width SD 46.8 fl (35.1-43.9); Red Blood Count 4.25 M/mm3 (4.6-6.2); White Blood Count 7.5 K/mm3 (4.4-11.0)
[2022-03-10 11:37] LABS: Anion Gap 6 (5-15); BUN 15 mg/dL (7-18); BUN/Creat Ratio 11.7 RATIO (10-20); Calcium,Total 9.1 mg/dL (8.5-10.1); Chloride 104 mmol/L (98-107); Creatinine, Serum 1.28 mg/dL (0.70-1.30); EST Glomerular Filtration Rate 59 mL/min (>60); Est Glom Filt Rate - Afr Amer 71 mL/min (>60); Glucose 107 mg/dL (74-106); PSA,Total - Annual Screen 0.64 ng/mL (0.00-4.00); Potassium 3.8 mmol/L (3.5-5.1); Sodium Level 139 mmol/L (136-145)
== END | disposition home or self-care (01) ==
PROVIDERS: PCP Family Medicine; Visit Provider Family Medicine
DX: Z51.81 Encounter for therapeutic drug level monitoring (principal); Z12.5 Encounter for screening for malignant neoplasm of prostate
CPT/HCPCS: 36415; 80048; 84153; 85025; G0103

== ENCOUNTER → 2022-09-01 | Outpatient (CLI) | payer MEDICARE, SELFPAY ==
[2022-09-01 11:56] LABS: Anion Gap 5 (5-15); BUN 15 mg/dL (7-18); BUN/Creat Ratio 11.4 RATIO (10-20); Calcium,Total 8.4 mg/dL (8.5-10.1); Chloride 102 mmol/L (98-107); Creatinine, Serum 1.32 mg/dL (0.70-1.30); EST Glomerular Filtration Rate 57 mL/min (>60); Est Glom Filt Rate - Afr Amer 68 mL/min (>60); Glucose 115 mg/dL (74-106); Potassium 3.7 mmol/L (3.5-5.1); Sodium Level 140 mmol/L (136-145); Uric Acid 8.5 mg/dL (3.5-7.2)
== END | disposition home or self-care (01) ==
LOC: BFHLAB 09:37
PROVIDERS: PCP Family Medicine; Visit Provider Family Medicine
DX: M10.9 Gout, unspecified (principal); N18.31 Chronic kidney disease, stage 3a
CPT/HCPCS: 36415; 80048; 84550

== ENCOUNTER 2022-12-20 13:02 | Emergency (ER) | payer MEDICARE, SELFPAY ==
[2022-12-20 13:03] VITALS: BP 127/84; PULSE 66; RESP 20; TEMP 36.7; O2SAT 100; BMI 31.3
--- NOTE | 2022-12-20 13:35 | EX.ED.DYSGE1 ---
HPI History of Present Illness Chief Complaint: General Illness Informant: patient Narrative Narrative: History of COPD remote tobacco history. 1 week productive sputum occasional wheezing. Sick contact with sick mother who was hospitalized with pneumonia. No antibiotic allergies. No history of diabetes. Denies any dyspnea or any respiratory distress. Reports occasional myalgia. Denies fevers. Denies chest pains. Prior similar symptoms: Yes PFSH PFSH Medical History Abdominal pain Abnormal chest CT Anxiety Arthritis Asthma Curiel palsy Central sleep apnea Chronic pain CKD stage III COPD (chronic obstructive pulmonary disease) Depression Diarrhea Fatigue Hemoptysis History of back problems HTN (hypertension) Nausea and vomiting Obesity PHIL (obstructive sleep apnea) Pneumonia Rectal bleeding Home Medications potassium chloride 10 mEq tablet,extended release(part/cryst) 10 meq PO BID 03/31/16 [History Last Taken 03/31/16] tizanidine 4 mg tablet 4 mg PO Q8H PRN Pain 03/31/16 [History Last Taken Unknown] gabapentin 800 mg tablet 800 mg PO TIDCM 04/18/16 [History Last Taken Unknown] atenolol 25 mg tablet 50 mg PO DAILY bp 07/18/20 [History Last Taken 07/23/20] duloxetine 60 mg capsule,delayed release (Cymbalta) 60 mg PO DAILY 07/18/20 [History Last Taken Unknown] famotidine 20 mg tablet 20 mg PO DAILY gerd 07/19/20 [History Last Taken Unknown] hydrochlorothiazide 25 mg tablet 12.5 mg PO DAILY bp 07/19/20 [History Last Taken Unknown] albuterol sulfate 90 mcg/actuation aerosol inhaler (Ventolin HFA) 1 - 2 puff inhalation Q4H PRN PRN Wheezing ##1 12/20/22 [Rx Last Taken Unknown] azithromycin 250 mg tablet 250 mg PO DAILY #4 TABLETS 12/20/22 [Rx Last Taken Unknown] prednisone 20 mg tablet 40 mg PO DAILY #8 TABLETS 12/20/22 [Rx Last Taken Unknown] Allergy/AdvReac Type Severity Reaction Status Date / Time carisoprodol [From Soma] Allergy Other Verified 12/20/22 13:06 metoclopramide HCl AdvReac Upset Verified 12/20/22 13:06 [From Reglan] Stomach pregabalin [From Lyrica] AdvReac Upset Verified 12/20/22 13:06 Stomach Family History Father Lung disease Cancer lung Brother Cancer lung Surgical History ankle surgery H/O colonoscopy H/O neck surgery History of colonoscopy (~07/2020) lower back surgery Social History Smoking Status: Former smoker Tobacco: How many years used: 50 Electronic Cigarette Use: not used how long ago did patient quit smokin, 2-3pk/day second hand exposure: Yes alcohol intake: never substance use type: does not use caffeine: Yes Type: coffee Number of servings: 3 what type of physical activity do you participate in: bicycling frequency: daily duration: 15-30 minutes/day ROS ROS ED Constitutional Constitutional ED: Denies chills, fever(s) or sweats Eyes Eyes: Denies change in vision ENT ENT ED: Denies dysphagia or sore throat Cardiovascular Cardiovascular: Denies chest pain, leg edema, palpitations or racing heartbeat Respiratory/Chest Respiratory/Chest: Reports cough; Denies dyspnea or dyspnea on exertion Gastrointestinal Gastrointestinal: Denies abdominal pain, diarrhea, nausea or vomiting Genitourinary Genitourinary ED: Denies dysuria, hematuria or urinary frequency Musculoskeletal Musculoskeletal: Reports myalgias; Denies back pain, extremity pain or neck pain Integumentary Denies rash or wounds Neurologic Neurologic: Denies headache(s), paresthesias or weakness EXAM Physical Exam Const Vital Signs: 12/20/22 13:03 12/20/22 13:37 Temperature 98.1 F Temperature Source Temporal Pulse Rate 66 Respiratory Rate 20 H Respiratory Effort Normal Non-Labored Respiratory Pattern Normal Blood Pressure 127/84 H Blood Pressure Mean 98 Pulse Ox 100 Oxygen Delivery Method Room Air Positive well nourished and well developed General Appearance ED: well developed and NAD HEENT Reports moist mucous membranes normocephalic and atraumatic Eyes PERRL, EOMs intact bilaterally and conjunctivae normal General Eye ED: Yes normal appearance of both eyes Neck no lymphadenopathy and supple General: Negative for tenderness Chest Wall Chest: Negative for tenderness Resp normal respiratory effort and normal air movement Effort and Inspection: symmetric chest movement; Negative for respiratory distress Cardio regular rate, regular rhythm and no murmurs Peripheral Pulses: pulses 2+ throughout GI normal to inspection, nondistended, normoactive bowel sounds and non-tender Palpation: Negative for guarding or rebound tenderness present Back/Spine no CVA tenderness and no thoracic nor lumbar tenderness Extremity normal to inspection General Extremety ED: Negative for edema or tenderness General Extremity: Negative for edema Neuro oriented x3 and no sensory deficits noted Sensorium / Orientation: awake and alert Skin no rashes or lesions noted and no wounds MDM MDM MDM Narrative Medical decision making narrative: Interventions / MDM: Differential diagnosis: COPD, bronchitis, pneumonia, COVID, influenza Diagnosis considered but do not suspect: N/A My EKG interpretation: N/A Imaging independently reviewed and interpreted by myself: N/A External documents reviewed: N/A Test considered but not ordered:N/A ED course: Vital stable with 100% pulse ox, no respiratory distress. History of COPD. Discussed with patient we will treat according to golds criteria. Antibiotics steroids started. No indication for image studies as he is being treated with antibiotics. 7 days of symptoms with reported myalgias discussed possibility of COVID influenza however no treatment if positive. No testing warranted also. Return precaution discussed. All questions were answered. Re-evaluation: stable Disposition discussed with patient/family/significant other: Patient Case discussed with consulting clinician: N/A Discharge Plan Triage Chief Complaint: General Illness ED Provider: Spencer Vick Dx/Rx/DC Orders Clinical Impression: COPD (chronic obstructive pulmonary disease), Cough Instructions: ED COPD Flare Prescriptions: New prednisone 20 mg tablet 40 mg PO DAILY Qty: 8 0RF Rx Instructions: next dose 12/21/22 albuterol sulfate [Ventolin HFA] 90 mcg/actuation HFA aerosol inhaler 1 - 2 puff inhalation Q4H PRN PRN (Reason: Wheezing) Qty: 1 0RF azithromycin [azithromycin] 250 mg tablet 250 mg PO DAILY Qty: 4 0RF Rx Instructions: Next dose 12/21/2022 No Action duloxetine [Cymbalta] 60 mg capsule,delayed release(DR/EC) 60 mg PO DAILY tizanidine 4 MG tablet 4 mg PO Q8H PRN (Reason: Pain) Label Comments: MUSCLE RELAXANT potassium chloride 10 MEQ tablet 10 meq PO BID Label Comments: SUPPLEMENT HAD ONE DOSE TODAY 04/22/16 atenolol 25 mg tablet 50 mg PO DAILY Label Comments: BETA MINERVA, HR/BP HAD TODAY 04/22/16 gabapentin 800 MG tablet 800 mg PO TIDCM Label Comments: CHRONIC PAIN/NEUROPATHY PAIN HAD 2 DOSES TODAY 04/22/16 hydrochlorothiazide 25 MG tablet 12.5 mg PO DAILY famotidine 20 MG tablet 20 mg PO DAILY Primary Care Provider: Oracio Hall Referrals: Oracio Hall DO [Primary Care Provider] - 1 Week Activity Restrictions/Additional Instructions: Take medications as prescribed. Follow-up with your doctor. Return if worsening symptoms. Disposition Disposition: Home, Self Care Discharge Date/Time: 12/20/22 13:51
[2022-12-20] MEDS: Azithromycin 250 MG Tablet 500 MG PO (13:46)
[2022-12-20] MEDS: predniSONE 20 MG Tablet 40 MG PO (13:46)
== END 2022-12-20 13:51 | disposition home or self-care (01) ==
PROVIDERS: Emergency Provider Emergency Medicine; PCP Family Medicine; Visit Provider Emergency Medicine
DX: J44.9 Chronic obstructive pulmonary disease, unspecified (principal); N18.30 Chronic kidney disease, stage 3 unspecified; Z87.891 Personal history of nicotine dependence; I12.9 Hypertensive chronic kidney disease with stage 1 through stage 4 chronic kidney disease, or unspecified chronic kidney disease; G47.33 Obstructive sleep apnea (adult) (pediatric); R05.9 Cough, unspecified
CPT/HCPCS: 99283

== ENCOUNTER → 2023-03-02 | Outpatient (CLI) | payer MEDICARE, SELFPAY ==
[2023-03-02 11:50] LABS: Amphetamine Urine VISTA NEGATIVE (<1000 ng/mL); Barbiturate Urine VISTA NEGATIVE (< 200 ng/mL); Benzodiazepine Urine VISTA NEGATIVE (< 200 ng/mL); Cocaine Urine VISTA NEGATIVE (< 300 ng/mL); Ecstacy Urine VISTA NEGATIVE (< 500 ng/mL); Methadone Urine VISTA NEGATIVE (< 300 ng/mL); PCP Urine VISTA NEGATIVE (< 25 ng/mL); THC Urine VISTA NEGATIVE (< 50 ng/mL); Vista UDS pH Range 6
[2023-03-02 12:54] LABS: Anion Gap 6 (5-15); BUN 17 mg/dL (7-18); BUN/Creat Ratio 14.9 RATIO (10-20); Chloride 101 mmol/L (98-107); Creatinine, Serum 1.14 mg/dL (0.70-1.30); EST Glomerular Filtration Rate 67 mL/min (>60); Est Glom Filt Rate - Afr Amer 81 mL/min (>60); Glucose 105 mg/dL (74-106); Potassium 3.6 mmol/L (3.5-5.1); Sodium Level 136 mmol/L (136-145); Uric Acid 5.5 mg/dL (3.5-7.2)
[2023-03-02 12:57] LABS: Absolute Lymphocyte Count 2.07 X10^3/uL (0.83-4.51); Absolute Neutrophil Count 3.2 X10^3/uL (2.0-7.7); Basophil# 0.05 X10^3/uL; Basophil% 0.8 % (0-1); Eosinophil# 0.14 X10^3/uL; Eosinophils% 2.3 % (0-5); Hematocrit 39.3 % (40-54); Hemoglobin 13.4 g/dL (13.0-16.5); Lymphocyte # 2.07 X10^3/ul (0.83-4.51); Lymphocyte % 34.2 % (19-41); Mean Corp Hgb Conc 34.1 g/dL (32-36); Mean Corpuscular Hgb 33.8 pg (27.0-32.0); Mean Corpuscular Volume 99.2 fL (80-94); Mean Platelet Vol. 9.1 fl (6.2-12.0); Monocyte% 9.9 % (0-10); NRBC Flagged by Analyzer 0 % (0-5); Neutrophil # 3.17 X10^3/uL (2.7-7.7); Neutrophil % 52.5 % (47-70); Platelet Count 291 K/mm3 (150-450); RBC Distribution Width CV 14.1 % (11.6-14.6); RBC Distribution Width SD 51.4 fl (35.1-43.9); Red Blood Count 3.96 M/mm3 (4.6-6.2); White Blood Count 6.1 K/mm3 (4.4-11.0)
== END | disposition home or self-care (01) ==
LOC: MTLAB 10:11
PROVIDERS: PCP Family Medicine; Referring Provider Family Medicine; Visit Provider Family Medicine
DX: Z79.899 Other long term (current) drug therapy (principal); N18.31 Chronic kidney disease, stage 3a; Z51.81 Encounter for therapeutic drug level monitoring; M10.9 Gout, unspecified
CPT/HCPCS: 36415; 80048; 80307; 84550; 85025

== ENCOUNTER 2023-05-11 06:51 | Day surgery (SDC) | payer MEDICARE, SELFPAY ==
[2023-05-08 08:40] LABS: Hematocrit 39.3 % (40-54); Hemoglobin 13.8 g/dL (13.0-16.5); Mean Corp Hgb Conc 35.1 g/dL (32-36); Mean Corpuscular Hgb 34.3 pg (27.0-32.0); Mean Corpuscular Volume 97.8 fL (80-94); Mean Platelet Vol. 8.5 fl (6.2-12.0); Platelet Count 219 K/mm3 (150-450); RBC Distribution Width CV 12.6 % (11.6-14.6); RBC Distribution Width SD 45.7 fl (35.1-43.9); Red Blood Count 4.02 M/mm3 (4.6-6.2); White Blood Count 5.8 K/mm3 (4.4-11.0)
[2023-05-08 09:13] LABS: ALB/GLOB Ratio 0.8 RATIO (0.9-2.4); AST(SGOT) 17 U/L (15-37); Alanine Aminotransfer ALT/SGPT 15 U/L (16-61); Albumin, Serum 3.3 g/dL (3.2-5.0); Alkaline Phosphatase 109 U/L (45-117); Anion Gap 3 (5-15); BUN 14 mg/dL (7-18); BUN/Creat Ratio 12.2 RATIO (10-20); Calcium,Total 8.7 mg/dL (8.5-10.1); Chloride 102 mmol/L (98-107); Creatinine, Serum 1.15 mg/dL (0.70-1.30); EST Glomerular Filtration Rate 66 mL/min (>60); Est Glom Filt Rate - Afr Amer 80 mL/min (>60); Estimated Creatinine Clearance 62.79 ml/min; Globulin 3.9 g/dL (2.2-4.2); Glucose 105 mg/dL (74-106); Potassium 3.7 mmol/L (3.5-5.1); Protein, Total 7.2 g/dL (6.4-8.2); Sodium Level 137 mmol/L (136-145)
[2023-05-11] VITALS (14 sets, daily range): BP systolic 62–169; BP diastolic 43–91; PULSE 51–64; RESP 14–20; TEMP 36.1–36.5; O2SAT 92–100; BMI 29.9
[2023-05-11] MEDS: Lactated Ringers 1,000 ML 15 ML IV ×3 (07:41→12:01)
--- NOTE | 2023-05-11 08:24 | PCM.HP.BLA ---
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 Is patient in pain?: Yes Allergies carisoprodol [From Soma] Allergy (Verified 05/04/23 09:30) Othermetoclopramide HCl [From Reglan] Adverse Reaction (Verified 05/04/23 09:30) Upset Stomachpregabalin [From Lyrica] Adverse Reaction (Verified 05/04/23 09:30) Upset Stomach Medications tizanidine 4 mg tablet 4 mg PO Q8H PRN Pain 03/31/16 [History Confirmed 05/04/23] gabapentin 800 mg tablet 800 mg PO TIDCM 04/18/16 [History Confirmed 05/04/23] atenolol 25 mg tablet 50 mg PO DAILY bp 07/18/20 [History Confirmed 05/04/23] duloxetine 60 mg capsule,delayed release (Cymbalta) 60 mg PO DAILY 07/18/20 [History Confirmed 05/04/23] hydrochlorothiazide 25 mg tablet 12.5 mg PO DAILY bp 07/19/20 [History Confirmed 05/04/23] albuterol sulfate 90 mcg/actuation aerosol inhaler (Ventolin HFA) 1 - 2 puff inhalation Q4H PRN PRN Wheezing ##1 12/20/22 [Rx Confirmed 05/04/23] hydromorphone 4 mg tablet mg PO 05/04/23 [History Confirmed 05/04/23] hydroxyzine HCl 25 mg tablet mg PO 05/04/23 [History Confirmed 05/04/23] omeprazole 20 mg capsule,delayed release 20 mg PO DAILY 05/04/23 [History Confirmed 05/04/23] tamsulosin 0.4 mg capsule mg PO 05/04/23 [History Confirmed 05/04/23] zolpidem 10 mg tablet mg PO 05/04/23 [History Confirmed 05/04/23] PFSH Medical History (Updated 05/04/23 @ 10:[address] Mitchel Perez MD) Abdominal pain Abnormal chest CT Anxiety Arthritis Asthma Curiel palsy Central sleep apnea Chronic pain CKD stage III COPD (chronic obstructive pulmonary disease) Depression Diarrhea Fatigue Hemoptysis History of back problems HTN (hypertension) Nausea and vomiting Obesity PHIL (obstructive sleep apnea) Pneumonia Rectal bleeding Surgical History ankle surgery H/O colonoscopy H/O neck surgery History of colonoscopy (~07/2020) lower back surgery Family History Father Lung disease Cancer lungBrother Cancer lung Social History Smoking Status: Former smoker Tobacco: How many years used: 50 Electronic Cigarette Use: not used how long ago did patient quit smokin, 2-3pk/day second hand exposure: Yes alcohol intake: never substance use type: does not use caffeine: Yes Type: coffee Number of servings: 3 what type of physical activity do you participate in: bicycling frequency: daily duration: 15-30 minutes/day HPI HPI HPI: 72-year-old gentleman is being referred by Dr. Oracio Hall for surgical consultation and treatment of a left inguinal hernia and a written copy of my surgical consult recommendations will return to him. It is of note that the patient does have BPH and has been newly started on tamsulosin 0.4 mg nightly. The patient complains of severe back pain. He complains of left severe groin pain. Also notes lump superior to his umbilicus. Only previous abdominal surgery was an open right lower quadrant appendectomy incision. He has had back surgery. He is not currently seeing a back specialist. He claims that the groin pain and his back pain both are improved when he lies supine. He does not know of any liver disease. He claims that he had quit smoking tobacco for quite a period of time but recently within the past 3 to 4 months has resumed smoking cigarettes. Claims that his anxiety is is very terrible at this moment that he gets very angry and throws things and hits things. ROS General General: No weight change, appetite, fatigue, colon cancer, breast cancer or weakness HEENT HEENT: No difficulty swallowing, eye injury, eye surgery, swollen glands or hoarseness Endo Endocrine: No thyroid disease, diabetes mellitus, thyroid cancer, Hair loss, heat intolerance or cold intolerance Musc Musculoskeletal: Yes back problems and arthritis; No rheumatoid arthritis, gout or joint pain Cardio Cardiovascular: Yes high blood pressure; No murmur, pacemaker, heart disease, atrial fibrillation, heart attack, heart stent, palpitations, shortness of breat with exertion or chest pain Psych Psychiatric: Yes depression and anxiety; No hearing voices Resp Respiratory: No shortness of breath, Yes sleep apnea, No cough, Yes COPD, No asthma, Yes emphysema and No wheezing Gastro Gastrointestinal: Yes abdominal pain, No nausea or vomiting, No diarrhea, No constipation, No blood in stool, No acid reflux, No hemorrhoids, No ulcers, No gallbladder problem and No black,tarry stools Jose Cruz Hematologic: No blood thinners, No blood disorders, No bleeding, No anemia and No blood clots Neuro Neurologic: No weakness Exam Const General: cooperative and no acute distress Nutritional Appearance: average body habitus Orientation: alert, awake and oriented x3 HENMT Head: normal to inspection Eyes General: appearance normal, both eyes and all related structures Neck Neck: normal visual inspection Chest Other: Increased AP diameter Resp Effort & Inspection: normal respiratory effort Auscultation: clear to auscultation bilaterally Cardio Rate: regular rate Rhythm: regular rhythm GI Other: Partially reducible supraumbilical ventral hernia. Slightly tender to palpation. The remainder the abdomen is quite soft, not able to elicit fluid wave, bowel sounds are present. No focal tenderness, I am not able to demonstrate any liver enlargement Other: Testicles are descended bilaterally. Sizable left inguinal hernia suspect both direct and indirect. Right groin suspect direct hernia. Both sides appear mostly reducible particular with supine posturing. Musc Cervical Spine: normal cervical lordosis Skin General: no rashes or lesions noted Neuro General: patient alert and patient awake Extrem General: no calf tenderness Psych Mood: anxious mood Assessment and Plan Assessment and Plan (1) Chronic pain: Status: Chronic Qualifiers: Chronic pain type: chronic pain syndrome Qualified Code(s): G89.4 - Chronic pain syndrome (2) Ventral incisional hernia without obstruction or gangrene: Status: Acute (3) Inguinal hernia bilateral, non-recurrent: Status: Acute Qualifiers: Obstruction and gangrene presence: without obstruction or gangrene Recurrence: non-recurrent Qualified Code(s): K40.20 - Bilateral inguinal hernia, without obstruction or gangrene, not specified as recurrent Plan: Regarding the patient anxiety and striking out I recommend follow-up with primary care physician Dr. Oracio Hall. We will notify that office as well. Patient appears to have a symptomatic left greater than right inguinal hernia as well as a symptomatic supraumbilical ventral hernia. I have proposed for him a laparoscopic repair at all 3 sites. He and his are aware of the technique, benefit, risk, alternatives. I have expressly told him that although he is attributing his back pain to the hernias that I do not anticipate any improvement or resolution of his back pain. It is of additional note that the patient is on significant mount of current pain medication including hydromorphone and gabapentin. I do plan to perform inguinal nerve blocks. I anticipate in the patient may have more extensive postoperative pain control issues than normal. I have vigorously encouraged the patient to cease his tobacco use. He is aware that this significantly increases his risk of recurrent herniation. The patient and his have had an opportunity to ask and have questions answered. The institution of tamsulosin is noted. He will be at increased risk for requiring postoperative urinary catheterization. I appreciate the opportunity of assisting with the surgical care I have examined the patient and the H&P has been reviewed. There are no clinical changes since date of exam. Mitchel Perez M.D., F.A.C.S.
--- NOTE | 2023-05-11 08:25 | DCINST_ITS ---
Discharge Instructions Procedure General Surgery Diet Discharge Diet: Light diet - advance as tolerated (if you have questions about your diet instructions, please talk to you doctor.) Activity Discharge Activity: May Not Drive (for 3-5 days or while taking narcotic pain medicine.) May shower in (days): 1 Lifting Restrictions: 10 pounds Dressing / Incision Call your doctor if your incision/area has: Continuous Slow Oozing, Sudden Increased Bleeding, Increased Pain/ Swelling, Increased Redness and Foul Smelling Discharge Call your doctor if you observe: Fever of 101 or Higher Suture Line Care: Avoid Pulling/Pushing and Avoid Pinching/Bending Additional Dressing/Incision Instructions:: Change or remove dressing in 4 days. Leave steri-strips in place for 1 week. Follow Up Care Please Follow Up With: Mitchel Perez MD When: Call [phone] to make an appointment to be seen in about 10 days. Test Results: Test results from this visit will be discussed in further detail at your follow- up appointment, if applicable. Discharge Plan Admission Attending Provider: Mitchel Perez Primary Care Provider: Oracio Hall Discharge Orders/Prescriptions Prescriptions: No Action duloxetine [Cymbalta] 60 mg capsule,delayed release(DR/EC) 60 mg PO DAILY zolpidem 10 mg tablet 10 mg PO QHS Patient Comments: TAKE 1 TABLET BY MOUTH DAILY AT BEDTIME NEEDED FOR INSOMNIA hydromorphone 4 mg tablet 4 mg PO Q8H PRN (Reason: pain) Patient Comments: TAKE 1 TABLET BY MOUTH THREE TIMES DAILY NEEDED for severe intactable pain omeprazole 20 mg capsule,delayed release(DR/EC) 20 mg PO DAILY Patient Comments: TAKE 1 TABLET BY MOUTH DAILY hydroxyzine HCl 25 mg tablet 25 mg PO DAILY Patient Comments: TAKE 1 TABLET BY MOUTH DAILY NEEDED FOR ANXIETY tamsulosin 0.4 mg capsule 0.4 mg PO DAILY Patient Comments: TAKE 1 CAPSULE BY MOUTH at NIGHT tizanidine 4 MG tablet 4 mg PO Q8H PRN (Reason: Pain) Patient Comments: MUSCLE RELAXANT atenolol 25 mg tablet 50 mg PO DAILY Patient Comments: BETA MINERVA, HR/BP HAD TODAY 04/22/16 gabapentin 800 MG tablet 800 mg PO QHS Patient Comments: CHRONIC PAIN/NEUROPATHY PAIN HAD 2 DOSES TODAY 04/22/16 hydrochlorothiazide 25 MG tablet 12.5 mg PO DAILY albuterol sulfate [Ventolin HFA] 90 mcg/actuation HFA aerosol inhaler 1 - 2 puff inhalation Q4H PRN PRN (Reason: Wheezing) Qty: 1 0RF Referrals / Follow Up: Oracio Hall DO [Primary Care Provider] - Disposition Disposition (needs filled in before D/C Order can be placed): Home, Self Care
[2023-05-11] MEDS: Cefazolin 2 GM in 0.9% Normal Saline 100 ML IV (09:05)
--- NOTE | 2023-05-11 09:05 | HERN_PTH ---
PATIENT: NURIA SHARPE [place] [facility] [place] [facility] [place][id number] AGE/SX: 72/M ROOM: RE05/11/[address]: Dr. Mitchel Perez MD : 1950 BED: DIS: 05/11/2023 SPEC #: [id number] RECD: 05/11/23 13:52 STATUS: ANNIE DI #: [id number] KOJO: 05/11/23 09:[address]: Mitchel Perez DEPT: SURGICAL PATHOLOGY RECD BY: Lora Lino ENTERED: 05/12/23 07:36 SP TYPE: Hernia OTHR DR: Dr. Oracio Hall, DO Tissues: HERNIA Procedures: Surgery Specimen Level II HEADER OPERATION: Bilateral hernia, inguinal with mesh and supraumbilical hernia PRE-OP DIAGNOSIS: Chronic pain, ventral incisional hernia, inguinal hernia bilateral TISSUE SUBMITTED: Ventral hernia sac MICROSCOPIC DIAGNOSIS Ventral hernia sac: A piece of fibroadipose and fibroconnective tissue, consistent with hernia sac. LAUREN:mackenzie 05/13/2023 MICROSCOPIC DESCRIPTION Slides are reviewed. GROSS DESCRIPTION Received in fixative is one container labeled with the patient's name and designated ventral hernia sac. The specimen consists of a piece of adipose tissue measuring 3.0 x 1.5 x 1.0 cm. Sections do not reveal any mass lesion. Investigator Fraud sections are submitted in one cassette. / LAUREN:mackenzie 05/12/2023 TC:5 CPT: 83435
[2023-05-11] MEDS: Bupivacaine Mpf 0.5% 30 ML VIAL (09:09)
--- NOTE | 2023-05-11 10:18 | OP.PCM_ITS ---
Report of Operation Date of Procedure: 05/11/23 Pre-Operative Diagnosis: Symptomatic supraumbilical ventral hernia Bilateral indirect inguinal hernias Post-Operative Diagnosis: Symptomatic supraumbilical 2 cm ventral hernia Symptomatic bilateral indirect inguinal hernias with additional direct inguinal hernia on the right Surgery/Procedure Performed:: Laparoscopic bilateral inguinal herniorrhaphies with Bard 3D max extra-large mesh Left lot number [id number], reference [id number], expiry date 04/10/2027 Right lot number [id number], reference [id number], expiry date 05/11/2027 Ventral herniorrhaphy with 6.[address] mesh Lot number [id number], reference [id number], expiry date 04/10/2024 Description of Surgical Findings:: Timeout and informed consent was obtained. 72-year-old gentleman was taken to the operating room placed on the table underwent general anesthesia. Ancef 2 g were given intravenously. The abdomen sterilely prepped and draped. 0.5% Marcaine was used as a local anesthetic. Skin sites were Rico size. A supraum bilical transverse incision was made at the site of the palpable hernia and sharp blunt dissection was used to identify the hernia sac hernia sac and contents were dissected free with electrocautery and submitted as a specimen. A retrorectus space was performed with sharp and blunt dissection. Carrion catheter was inserted. The abdomen was insufflated with CO2 to a pressure of 10 mmHg pressure. 0.5% Marcaine was used to perform under laparoscopic guidance of bilateral ileal inguinal nerve blocks. I addressed the right side first. The peritoneum was incised carried medially to peritoneum was completely dissected free and indirect hernia on the right and a direct hernia on the right were identified and completely released. Attention was now drawn to the left where similar dissection was performed. Care was taken on both sides to preserve the ilioinguinal nerve. The peritoneum was generously dissected free. The indirect defect on the left also identified with a cord lipoma retracted. Extra-large Bard 3D max mesh were placed bilaterally they just touched at the midline fascia were secured in place laterally superiorly and medially with secure strap. Excellent coverage of the defect areas were achieved. The peritoneum was approximated to itself using combination of secure strap and Hem-o-malcolm clips. Complete obliteration of the mesh was achieved. The abdomen was allowed to deflate of the CO2. A 6.[address] mesh was placed in the retrorectus position. The tails were secured with interrupted 0 Nurolon. The fascia was approximated transversely with the same. Reinspection reviewed 1 edge on the right lateral aspect of the mesh required a little bit of manipulating and I used a single secure strap to fix that in place. [place] that I had good coverage. The abdomen to deflate of the CO2. Skin edges were approximated with interrupted or running subicular 4 Monocryl. Steri-Strips Telfa OpSite dressings applied. Sponge and instrument and needle counts were reported to the surgeon to be correct Specimens: Ventral hernia sac contents. Drains none. Blood loss minimal. The patient was taken to the recovery area in satisfactory addition without apparent complication Mitchel Perez M.D., F.A.C.S. Surgeon: Mitchel Perez Type of Anesthesia: General and Local Anesthesiologist: Jamari Calvert
[2023-05-11] MEDS: HYDROcodone Bitartrate/Apap 5/325 Tablet PO (12:38)
--- NOTE | 2023-05-11 12:58 | SUR.PHASEII ---
DR. FRANCIS MADE AWARE OF PATIENT'S EXPIRATORY WHEEZING AND THAT HE DID HIS HOME INHALER.
--- NOTE | 2023-05-11 13:41 | SUR.PHASEII ---
PATIENT WAS UP TO THE RESTROOM AND TRY TO URINATE. HE WAS NOT ABLE AT THIS TIME.
== END 2023-05-11 14:44 | disposition home or self-care (01) ==
LOC: SDC 07:10 → AC 07:54
PROVIDERS: PCP Family Medicine; Referring Provider Surgery; Visit Provider Surgery
PROC: (CPT 49650; principal; 2023-05-11 08:45)
DX: K40.20 Bilateral inguinal hernia, without obstruction or gangrene, not specified as recurrent (principal); J44.9 Chronic obstructive pulmonary disease, unspecified; N18.30 Chronic kidney disease, stage 3 unspecified; K43.7 Other and unspecified ventral hernia with gangrene; R19.05 Periumbilic swelling, mass or lump; G89.4 Chronic pain syndrome; I12.9 Hypertensive chronic kidney disease with stage 1 through stage 4 chronic kidney disease, or unspecified chronic kidney disease; Z87.891 Personal history of nicotine dependence; K43.1 Incisional hernia with gangrene
CPT/HCPCS: 49650; 00840; 36415; 80053; 85027; 88302; 93005; C1781; J7120; J2405

== ENCOUNTER → 2023-08-24 | Outpatient (CLI) | payer MEDICARE, SELFPAY ==
--- NOTE | 2023-08-24 06:37 | MRI_ITS ---
STUDY: MRI LUMBAR SPINE WITH AND WITHOUT CONTRAST REASON FOR EXAM: Male, 72 years old. Low back pain and bilateral leg pain. TECHNIQUE: Standardized fat and water weighted pulse sequences were obtained in the sagittal and axial planes. 20 mL of IV Clariscan was administered for the contrast portion of the examination. COMPARISON: MRI lumbar spine with and without contrast 09/30/2017. FINDINGS: T11-T12: (Sagittal only). Normal endplates. Normal disc height and morphology. No canal and bilateral intervertebral neural foramina. T12-L1: (Sagittal only). Normal endplates. Mild disc space height narrowing. Minimal ventral extradural defect due to posterior bulging annulus is unchanged. Normal central canal and bilateral intervertebral neural foramina. Normal lumbar lordosis. There is no substantial scoliosis. Normal conus medullaris that terminates at the upper L1 vertebral body level. L1-2: Schmorl''s node in the central L1 inferior endplate with reactive marrow fatty infiltration. Normal L2 superior endplate. Mild disc space height narrowing. No significant facet arthropathy. Normal central canal and bilateral lateral recesses. Normal bilateral intervertebral neural foramina. L2-3: Normal endplates. Normal disc height. Mild degenerative retrolisthesis of L2 on L3. No significant facet arthropathy. Mild central canal stenosis with an AP canal diameter of 10 mm is unchanged. Normal bilateral lateral recesses. Normal bilateral intervertebral neural foramina. L3-4: Normal endplates. Mild disc space height narrowing. Minimal degenerative anterolisthesis of L3 on L4. Moderate asymmetric degenerative facet arthropathy. Postsurgical absence of the spinous process. Normal central canal and bilateral lateral recesses. Mild asymmetric stenosis of the bilateral intervertebral neural foramina due to osteophytes coming from the facet joints. This level is unchanged. L4-5: Normal endplates. Normal disc height. Minimal degenerative retrolisthesis of L4 on L5 is unchanged. Postsurgical absence of the spinous processes and lamina. Normal central canal and bilateral lateral recesses. Bilateral degenerative facet arthropathy are unchanged. Mild stenosis of the left intervertebral neural foramen. Normal right intervertebral neural foramen. L5-S1: Normal endplates. Normal disc height and morphology. Moderate bilateral degenerative facet arthropathy. Mild central canal stenosis with a transverse canal diameter of 9.5 mm but the AP canal diameter is 14 mm. Normal bilateral lateral recesses. Moderate stenosis of the right intervertebral neural foramen without impingement of the right L5 nerve. Mild stenosis of the left intervertebral neural foramen. Normal visualized sacral ala. Normal visualized paraspinous soft tissue structures. Following IV contrast administration, there are no abnormal enhancing lesions intradurally and extradurally. MRI/Spine Lumbar W/WO Contrast IMPRESSION: 1. No MRI evidence of lumbar extruded disc fragment, disc protrusion or nerve root displacement. 2. No abnormal enhancing lesions intradurally and extradurally. 3. No significant interval change when compared to 09/30/2017. Electronically Signed: Bernardo Baltazar MD at 8:49 EST ,
[2023-08-24 07:04] LABS: CREATININE FINGERSTICK 1.1 mg/dL (0.70-1.30); EGFR FINGERSTICK > 60.0000 mL/min (>60)
== END | disposition home or self-care (01) ==
PROVIDERS: PCP Family Medicine; Referring Provider Orthopaedic Surgery; Visit Provider Orthopaedic Surgery
DX: M48.061 Spinal stenosis, lumbar region without neurogenic claudication (principal)
CPT/HCPCS: 72158; A9575

== ENCOUNTER → 2023-08-25 | Outpatient (CLI) | payer MEDICARE, MEDICAID, SELFPAY ==
--- NOTE | 2023-08-25 07:31 | AAAS_ITS ---
Reason For Study: Screening for AAA Aorta Measurements Aorta Doppler Measurements Proximal aorta measures2.74 x 2.89cm. in cross- Peak systolic flow velocities within the proximal sectional axis. aorta measure 63.2 cm/sec. Proximal aorta measures2.74cm. in longitudinal Peak systolic flow velocities within the mid aorta axis. measure 53.7 cm/sec. Mid aorta measures2.35 x 2.33cm. in cross- Peak systolic flow velocities within the distal sectional axis. aorta measure 38.4 cm/sec. Mid aorta measures2.33cm. in longitudinal axis. Distal aorta measures2.11 x 2.14cm. in cross- sectional axis. Distal aorta measures2.10cm. in longitudinal axis. Left Iliac Artery Left iliac artery measures 1.23 x 1.19 cm. in the cross-sectional axis. Left iliac artery measures 1.22 cm. in the longitudinal axis. Peak systolic velocity in the left iliac artery measures 65.8 cm/sec. Right Iliac Artery Right iliac artery measures 1.10 x 1.09 cm. in the cross-sectional axis. Right iliac artery measures 1.08 cm. in the longitudinal axis. Peak systolic velocity in the right iliac artery measures 74.6 cm/sec. Procedure Aorta IVC Iliac vasculature or bypass grafts 52702. Exam performed in department. VL/AAA Screening Interpretation Summary Aorta patent, 2.89 cm ectasia present Right iliac artery patent, ectasia to 1.23 cm present Left iliac artery patent, normal caliber Ordering Physician: Oracio Hall Referring Physician: Oracio Hall Performed By: Shanika Orellana RVT
== END | disposition home or self-care (01) ==
LOC: CVS 07:27
PROVIDERS: PCP Family Medicine; Referring Provider Family Medicine; Visit Provider Family Medicine
DX: Z13.6 Encounter for screening for cardiovascular disorders (principal); Z87.891 Personal history of nicotine dependence
CPT/HCPCS: 76706

== ENCOUNTER → 2023-10-05 | Outpatient (CLI) | payer MEDICARE, SELFPAY ==
[2023-10-05 12:17] LABS: Absolute Lymphocyte Count 2.79 X10^3/uL (0.83-4.51); Absolute Neutrophil Count 5.6 X10^3/uL (2.0-7.7); Basophil# 0.07 X10^3/uL; Basophil% 0.7 % (0-1); Eosinophil# 0.24 X10^3/uL; Eosinophils% 2.5 % (0-5); Hemoglobin 13.4 g/dL (13.0-16.5); Lymphocyte # 2.79 X10^3/ul (0.83-4.51); Lymphocyte % 28.9 % (19-41); Mean Corp Hgb Conc 32.7 g/dL (32-36); Mean Corpuscular Hgb 31.8 pg (27.0-32.0); Mean Corpuscular Volume 97.4 fL (80-94); Mean Platelet Vol. 8.7 fl (6.2-12.0); Monocyte# 0.89 X10^3/uL; Monocyte% 9.2 % (0-10); NRBC Flagged by Analyzer 0 % (0-5); Neutrophil # 5.61 X10^3/uL (2.7-7.7); Neutrophil % 58.1 % (47-70); Platelet Count 294 K/mm3 (150-450); RBC Distribution Width CV 13.2 % (11.6-14.6); RBC Distribution Width SD 47.3 fl (35.1-43.9); Red Blood Count 4.21 M/mm3 (4.6-6.2); White Blood Count 9.7 K/mm3 (4.4-11.0)
[2023-10-05 12:55] LABS: Vitamin D,25 Hydroxy 27.9 ng/mL
[2023-10-05 13:06] LABS: ALB/GLOB Ratio 0.8 RATIO (0.9-2.4); AST(SGOT) 18 U/L (15-37); Alanine Aminotransfer ALT/SGPT 19 U/L (16-61); Albumin, Serum 3.5 g/dL (3.2-5.0); Alkaline Phosphatase 103 U/L (45-117); Anion Gap 6 (5-15); BUN 22 mg/dL (7-18); BUN/Creat Ratio 15.8 RATIO (10-20); Calcium,Total 8.9 mg/dL (8.5-10.1); Chloride 102 mmol/L (98-107); Cholesterol 187 mg/dL (200); Creatinine, Serum 1.39 mg/dL (0.70-1.30); EST Glomerular Filtration Rate 53 mL/min (>60); Est Glom Filt Rate - Afr Amer 64 mL/min (>60); Globulin 4.5 g/dL (2.2-4.2); Glucose 108 mg/dL (74-106); High Density Lipoprotein 34 mg/dL; Potassium 3.5 mmol/L (3.5-5.1); Sodium Level 137 mmol/L (136-145); Triglycerides 287 mg/dL; Uric Acid 6.7 mg/dL (3.5-7.2); Very Low Density Lipoprotein 57 mg/dL (5-40)
[2023-10-05 13:43] LABS: Hemoglobin A1c 5.9 % (3.8-5.6)
== END | disposition home or self-care (01) ==
LOC: BFHLAB 08:49
PROVIDERS: PCP Family Medicine; Visit Provider Family Medicine
DX: I11.0 Hypertensive heart disease with heart failure (principal); E78.5 Hyperlipidemia, unspecified; M10.9 Gout, unspecified; R73.03 Prediabetes; E55.9 Vitamin D deficiency, unspecified
CPT/HCPCS: 36415; 80053; 80061; 82306; 83036; 84550; 85025

== ENCOUNTER 2023-12-01 16:54 | Observation (INO) | payer MEDICARE, SELFPAY ==
[2023-12-01 16:55] VITALS: BP 118/73; PULSE 64; RESP 18; TEMP 36.6; O2SAT 98; BMI 31.2
--- NOTE | 2023-12-01 17:56 | EKG12_ITS ---
Test Reason : Blood Pressure : / mmHG Vent. Rate : 055 BPM Atrial Rate : 055 BPM P-R Int : 176 ms QRS Dur : 092 ms QT Int : 448 ms P-R-T Axes : 037 024 023 degrees QTc Int : 428 ms Sinus bradycardia Otherwise normal ECG Confirmed by Bandar Schroeder ([id number]), news editor [facility] [employer] ([id number]) on 12/03/2023 11:01:06 AM Referred By: Confirmed By:Bandar Schroeder
--- NOTE | 2023-12-01 17:56 | CT_ITS ---
STUDY: CT BRAIN WITHOUT CONTRAST REASON FOR EXAM: Male, 72 years old. Headache, syncope and collapse x 2 RADIATION DOSAGE (If Supplied By Facility): CTDIvol = ( 44.99 ) mGy, DLP = ( 829.85 ) mGycm TECHNIQUE: Transaxial CT imaging of the brain was performed without administration of intravenous contrast material. Individualized dose optimization techniques were used for this CT. COMPARISON: October 04, 2020 FINDINGS: Normal soft tissue structures. Normal calvarium. Normal size ventricles and extra-axial spaces for the patient''s age. Normal white matter tracts of the cerebral hemispheres. Normal basal ganglia and thalami. Normal brainstem. Normal cerebellum. There is no intracranial hemorrhage. There are no findings of an acute ischemic infarction. There is postoperative change of the paranasal sinuses. CT/Brain/Head without Contrast IMPRESSION: Normal unenhanced CT scan of the brain. Electronically Signed: Eddi Leroy MD at 20:27 EDT ,
[2023-12-01 18:26] VITALS: BP 102/67; BP 107/66; BP 109/68; PULSE 54; PULSE 57
[2023-12-01 18:49] LABS: International Normalized Ratio 1.3; Prothrombin Time (Protime)PT. 16.2 SECONDS (11.7-14.9)
[2023-12-01 18:50] LABS: ALB/GLOB Ratio 0.9 RATIO (0.9-2.4); AST(SGOT) 16 U/L (15-37); Alanine Aminotransfer ALT/SGPT 15 U/L (16-61); Albumin, Serum 3.5 g/dL (3.2-5.0); Alkaline Phosphatase 111 U/L (45-117); Anion Gap 7 (5-15); BUN 22 mg/dL (7-18); Calcium,Total 8.7 mg/dL (8.5-10.1); Chloride 103 mmol/L (98-107); EST Glomerular Filtration Rate 35 mL/min (>60); Est Glom Filt Rate - Afr Amer 42 mL/min (>60); Estimated Creatinine Clearance 41.11 ml/min; Globulin 3.8 g/dL (2.2-4.2); Glucose 123 mg/dL (74-106); Partial Thromboplast Time 23.4 Seconds (24.1-36.2); Potassium 3.8 mmol/L (3.5-5.1); Protein, Total 7.3 g/dL (6.4-8.2); Sodium Level 139 mmol/L (136-145); Troponin-I HS 8 pg/mL (3.0-78.0)
[2023-12-01 19:00] LABS: Absolute Lymphocyte Count 2.16 X10^3/uL (0.83-4.51); Basophil# 0.05 X10^3/uL; Basophil% 0.5 % (0-1); Eosinophil# 0.19 X10^3/uL; Eosinophils% 1.9 % (0-5); Hematocrit 36.1 % (40-54); Hemoglobin 12.2 g/dL (13.0-16.5); Lymphocyte # 2.16 X10^3/ul (0.83-4.51); Lymphocyte % 21.1 % (19-41); Mean Corp Hgb Conc 33.8 g/dL (32-36); Mean Corpuscular Volume 94.8 fL (80-94); Mean Platelet Vol. 8.5 fl (6.2-12.0); Monocyte# 0.81 X10^3/uL; Monocyte% 7.9 % (0-10); NRBC Flagged by Analyzer 0 % (0-5); Neutrophil # 6.97 X10^3/uL (2.7-7.7); Neutrophil % 68.2 % (47-70); Platelet Count 236 K/mm3 (150-450); RBC Distribution Width CV 13.4 % (11.6-14.6); RBC Distribution Width SD 46.4 fl (35.1-43.9); Red Blood Count 3.81 M/mm3 (4.6-6.2); White Blood Count 10.2 K/mm3 (4.4-11.0)
--- NOTE | 2023-12-01 20:51 | EDS_ITS ---
HPI History of Present Illness Chief Complaint: Fall Detail of Chief Complaint: Syncopal episode x 2 Informant: patient, spouse/S.O. and family Onset/Context/Timing Onset: Today (In the morning and early afternoon) Context: Sudden Onset Timing: Intermittent Quality: 1 episode occurred while walking from car. Location: Home Current Severity: Gone Maximum Severity: Moderate Worsened by: Nothing specific Relieved by: Not applicable Associated Symptoms Associated Symptoms: No history of black or maroon stool, chest pain, shortness of breath or vis Narrative Narrative: Patient is a 72-year-old male with history of lumbar spinal stenosis, degenerative disc disease, stage I COPD by Gold classification, obesity, stage III kidney disease, obstructive sleep apnea, chronic chest pain, depression. Patient had no prodrome. First episode occurred when he was making coffee. He was in the kitchen. The next and he remembers waking up in the living room. Second episode occurred when he went out to the car to get something was walking back from the car to the house and he passed out. There was no prodrome. There was no complaint of chest pain or shortness of breath. He has no history of PE or DVT. Denies leg pain, swelling discoloration. He denies black or maroon- colored stool. He did complain of slight headache. He denies ocular, visual or auditory symptoms. He denies neck pain. Denies paresthesia, anesthesia medics. [place] problems with balance or coordination. No trouble with swallowing or speech. Prior similar symptoms: No Recent Illness/Hospitalization: No PFSH PFSH Medical History Abdominal pain Abnormal chest CT Anxiety Arthritis Asthma Curiel palsy Central sleep apnea Chronic cough Chronic pain CKD stage III COPD (chronic obstructive pulmonary disease) CPAP (continuous positive airway pressure) dependence Depression Diarrhea Fatigue GERD (gastroesophageal reflux disease) Hemoptysis History of back problems History of renal disease History of steroid therapy HTN (hypertension) Inguinal hernia bilateral, non-recurrent Nausea and vomiting Obesity PHIL (obstructive sleep apnea) Pneumonia Rectal bleeding Restless legs Sleep apnea Smoker Ventral incisional hernia without obstruction or gangrene Wears glasses Home Medications tizanidine 4 mg tablet 4 mg PO Q8H PRN Pain 03/31/16 [History Last Taken Unknown] duloxetine 60 mg capsule,delayed release (Cymbalta) 60 mg PO DAILY 07/18/20 [History Last Taken Unknown] hydrochlorothiazide 25 mg tablet 12.5 mg PO DAILY bp 07/19/20 [History Last Taken Unknown] albuterol sulfate 90 mcg/actuation aerosol inhaler (Ventolin HFA) 1 - 2 puff inhalation Q4H PRN PRN Wheezing ##1 12/20/22 [Rx Last Taken Unknown] hydromorphone 4 mg tablet 4 mg PO Q8H PRN pain 05/04/23 [History Last Taken Unknown] hydroxyzine HCl 25 mg tablet 25 mg PO DAILY 05/04/23 [History Last Taken 05/11/23] omeprazole 20 mg capsule,delayed release 20 mg PO DAILY 05/04/23 [History Last Taken Unknown] tamsulosin 0.4 mg capsule 0.4 mg PO DAILY 05/04/23 [History Last Taken Unknown] zolpidem 10 mg tablet 10 mg PO QHS 05/04/23 [History Last Taken Unknown] atenolol 50 mg tablet 50 mg PO DAILY 12/01/23 [History Last Taken Unknown] duloxetine 30 mg capsule,delayed release 30 mg PO DAILY 12/01/23 [History Last Taken Unknown] gabapentin 600 mg tablet 600 mg PO TID 12/01/23 [History Last Taken Unknown] Allergy/AdvReac Type Severity Reaction Status Date / Time carisoprodol [From Soma] Allergy Other Verified 12/01/23 16:55 metoclopramide HCl AdvReac Upset Verified 12/01/23 16:55 [From Reglan] Stomach pregabalin [From Lyrica] AdvReac Upset Verified 12/01/23 16:55 Stomach Family History Father Lung disease Cancer lung Brother Cancer lung Surgical History ankle surgery H/O colonoscopy H/O neck surgery History of colonoscopy (~07/2020) History of inguinal hernia repair, bilateral lower back surgery Social History Smoking Status: Current every day smoker tobacco type: cigarettes Tobacco: How many years used: 50 Electronic Cigarette Use: not used how long ago did patient quit smokin, 2-3pk/day second hand exposure: Yes alcohol intake: never substance use type: does not use caffeine: Yes Type: coffee Number of servings: 3 what type of physical activity do you participate in: bicycling frequency: daily duration: 15-30 minutes/day ROS ROS ED Constitutional Constitutional ED: Denies chills, fever(s), subjective, sweats or weight loss Eyes Eyes: Denies blurry vision, change in vision or diplopia ENT ENT ED: Denies ear pain, rhinorrhea or sore throat Cardiovascular Cardiovascular: Denies chest pain, orthopnea, palpitations, paroxysmal nocturnal dyspnea or racing heartbeat Respiratory/Chest Respiratory/Chest: Denies cough, dyspnea, dyspnea on exertion, orthopnea or paroxysmal nocturnal dyspnea Gastrointestinal Gastrointestinal: Denies abdominal pain, nausea or vomiting Genitourinary Genitourinary ED: Denies dysuria, hematuria or urinary frequency Musculoskeletal Musculoskeletal: Denies arthralgias, back pain or myalgias Integumentary Denies rash Neurologic Neurologic: Reports headache(s); Denies paresthesias or weakness Psychiatric Psychiatric: Denies anxiety or depression Endocrine Endocrinology: Denies cold intolerance or heat intolerance Hematologic/Lymphatic Hematologic/Lymphatic: Reports systems reviewed and no addt'l complaints, except as documented EXAM Physical Exam Const Vital Signs: 12/01/23 16:55 12/01/23 16:57 12/01/23 18:26 Temperature 97.8 F Temperature Source Temporal Pulse Rate 64 Pulse Rate [Lying] 54 L Pulse Rate [Sitting (for 1 minute prior to obtaining)] 57 L Pulse Rate [Standing (for 1 minute prior to obtaining)] 57 L Respiratory Rate 18 Respiratory Effort Normal Respiratory Depth Normal Respiratory Pattern Normal Blood Pressure 118/73 Blood Pressure [Lying] 109/68 Blood Pressure [Sitting (for 1 minute prior to obtaining)] 102/67 Blood Pressure [Standing (for 1 minute prior to obtaining)] 107/66 Blood Pressure Mean 88 Blood Pressure Mean [Lying] 81 Blood Pressure Mean [Sitting (for 1 minute prior to obtaining)] 78 Blood Pressure Mean [Standing (for 1 minute prior to obtaining)] 79 Pulse Ox 98 Oxygen Delivery Method Room Air Room Air 12/01/23 20:54 12/01/23 20:54 Temperature 98.6 F Temperature Source Pulse Rate 55 L 55 L Pulse Rate [Lying] Pulse Rate [Sitting (for 1 minute prior to obtaining)] Pulse Rate [Standing (for 1 minute prior to obtaining)] Respiratory Rate 13 13 Respiratory Effort Respiratory Depth Respiratory Pattern Blood Pressure 139/75 H 139/75 H Blood Pressure [Lying] Blood Pressure [Sitting (for 1 minute prior to obtaining)] Blood Pressure [Standing (for 1 minute prior to obtaining)] Blood Pressure Mean 96 96 Blood Pressure Mean [Lying] Blood Pressure Mean [Sitting (for 1 minute prior to obtaining)] Blood Pressure Mean [Standing (for 1 minute prior to obtaining)] Pulse Ox 98 98 Oxygen Delivery Method Room Air Positive well nourished, well developed and obese General Appearance ED: well developed and NAD; Negative for pallor Nutritional Appearance: obese HEENT Reports moist mucous membranes HEENT Narrative: Head is atraumatic normocephalic. There is no clinic findings of basilar skull fracture. There is no septal deviation hematoma. There is no dental trauma. Posterior pharynx is normal. Eyes PERRL and EOMs intact bilaterally Eyes Narrative: There is no subconjunctival hemorrhage. There is no nystagmus. General Eye ED: Negative for pale conjunctiva or scleral icterus Neck no lymphadenopathy, supple and no JVD Chest Wall inspection of chest normal and palpation of chest normal Resp normal respiratory effort and clear to auscultation bilaterally Cardio regular rate, regular rhythm, S1 normal heart sound, S2 normal heart sound and no murmurs GI normal to inspection, nondistended, normoactive bowel sounds, non-tender, non- distended and no masses; Negative for hepatosplenomegaly Palpation: soft Back/Spine no CVA tenderness Cervical Spine: Negative for cervical spine tenderness Thoracic Spine / Upper Back: Negative for thoracic spinal tenderness Lumbar Spine / Lower Back: Negative for lumbar spinal tenderness Extremity normal to inspection General Extremety ED: Yes edema; Negative for tenderness General Extremity: edema Neuro oriented x3, CN's II-XII intact bilaterally and no sensory deficits noted Sensorium / Orientation: alert Motor Exam: strength 5/5 throughout Psych mental status grossly normal Skin no rashes or lesions noted, no wounds and skin turgor normal General Skin Exam: Negative for jaundice or pallor MDM MDM MDM Narrative Medical decision making narrative: Patient with syncope and collapse x 2. With no prodrome will obtain EKG looking for dysrhythmia. CBC to assess for anemia white count. BMP to assess renal function. Troponin in the event that this was an ischemic event. History & Record Review Additional record(s) reviewed:: Prior outpatient record (Dr. Asher saw for spinal stenosis, Dr. Holt for hernia), Prior ED visit and Prior labs Lab Data Attestation: I reviewed the patient's lab results. Lab results narrative: CBC reveals mild anemia with normal indices. Competence of metabolic panel is remarkable for glucose of 123 with a normal CO2 anion gap. BUN and creatinine are 22 and 2.0. Estimated GFR is 35. Transaminases are normal. There is no elevated BUN to creatinine ratio. Labs: Laboratory Results - last 24 hr 12/01/23 12/01/23 12/01/23 18:24 18:24 18:55 WBC Cancelled 10.2 Corrected WBC Cancelled RBC Cancelled 3.81 L Hgb Cancelled 12.2 L Hct Cancelled 36.1 L MCV Cancelled 94.8 H MCH Cancelled 32.0 MCHC Cancelled 33.8 RDW Std Deviation Cancelled 46.4 H RDW Coeff of Karlee Cancelled 13.4 Plt Count Cancelled 236 MPV Cancelled 8.5 Immature Gran % (Auto) Cancelled 0.400 Neut % (Auto) Cancelled 68.2 Lymph % (Auto) Cancelled 21.1 [place] % (Auto) Cancelled 7.9 Eos % (Auto) Cancelled 1.9 Baso % (Auto) Cancelled 0.5 Absolute Neuts (auto) Cancelled 7.0 Absolute Lymphs (auto) Cancelled 2.16 Total Counted Cancelled Neutrophils % (Manual) Cancelled Band Neutrophils % Cancelled Lymphocytes % (Manual) Cancelled Monocytes % (Manual) Cancelled Eosinophils % (Manual) Cancelled Basophils % (Manual) Cancelled Metamyelocytes % Cancelled Myelocytes % Cancelled Promyelocytes % Cancelled Blast Cells % Cancelled Plasma Cell % (Manual) Cancelled Other Cells % Cancelled Nucleated RBC % Cancelled 0 Nucleated RBCs/100 WBC Cancelled Differential Comment Cancelled Diff Path Review Cancelled Hypersegmented Neuts Cancelled Atypical Lymphocytes Cancelled Reactive Lymphocytes Cancelled Smudge Cells Cancelled Toxic Granulation Cancelled Toxic Vacuolation Cancelled Dohle Bodies Cancelled Geri Rods Cancelled Platelet Estimate Cancelled Plt Morphology Comment Cancelled RBC Morphology Cancelled Cancelled Polychromasia Cancelled Hypochromasia Cancelled Basophilic Stippling Cancelled Anisocytosis Cancelled Microcytosis Cancelled Macrocytosis Cancelled Spherocytes Cancelled Sickle Cells Cancelled Target Cells Cancelled Tear Drop Cells Cancelled Ovalocytes Cancelled Stomatocytes Cancelled [place] Bodies Cancelled [place] Cells Cancelled Bite Cells Cancelled Crenated Cell Cancelled Acanthocytes (Spur) Cancelled Rouleaux Cancelled Schistocytes Cancelled PT 16.2 H INR 1.3 APTT 23.4 L Sodium 139 Potassium 3.8 Chloride 103 Carbon Dioxide 29.0 Anion Gap 7 BUN 22 H Creatinine 2.00 H Estim Creat Clear Calc 41.11 Est GFR (MDRD) Af Amer 42 L Est GFR (MDRD) Non-Af 35 L BUN/Creatinine Ratio 11.0 Glucose 123 H Calcium 8.7 Total Bilirubin 0.80 AST 16 ALT 15 L Alkaline Phosphatase 111 Troponin I High Sens 8 Total Protein 7.3 Albumin 3.5 Globulin 3.8 Albumin/Globulin Ratio 0.9 Radiography Diagnostic Testing: Clinical Impression(s) from Imaging Studies Brain CT 12/01/23 17:56 IMPRESSION: Normal unenhanced CT scan of the brain. Electronically Signed: Eddi Leroy MD at 20:27 EDT , EKG Initial EKG: Attestation: I personally reviewed and interpreted this EKG as follows: Interpretation: Sinus Bradycardia (Rate is 55. The EKG is otherwise normal. IA interval is 176 ms. QRS duration 92 ms. QT duration 448 ms. [place] is normal) Discharge Plan Dx/Rx/DC Orders Clinical Impression: Central sleep apnea, Elevated serum creatinine, Syncope and collapse, COPD (chronic obstructive pulmonary disease), HTN (hypertension), Obesity Disposition Disposition: Acute Care [facility]
[2023-12-01 20:54] VITALS: BP 139/75; PULSE 55; RESP 13; TEMP 37; O2SAT 98
--- NOTE | 2023-12-01 21:08 | PCM.HP.STD ---
HPI - General General Date of Admission: 12/01/23 Date of Service: 12/01/23 Chief Complaint: Syncope x 2 HPI Narrative The patient is a 72 y/o M w/ PMHx: BPH, RLS, HTN, HLD, Tobacco use, PHIL on CPAP, GERD, Asthma, COPD, Chronic back pain on chronic pain regimen with lumbar spinal stenosis/generative disc disease, Obesity, CKD stage III unclear subtype, PHIL, Depression and anxiety who presents to the [facility] ED on 12/01/23 with history of syncopal episode twice on day of presentation once in the morning and once again in the early afternoon noted to be sudden onset with 1 actually occurring while he was walking from the car at home with no specific prodrome and the first occurring when he was making coffee in the kitchen with no recent chest discomfort, lightheadedness, dizziness, dyspnea, alteration to his stools although he does report a very slight headache prompting eventual ED evaluation. Workup in the ED included T97.8, heart rate 64, BP 118/73, respiratory rate 18, 98% on room air, orthostatics unremarkable, CBC with WBC 10.2, hemoglobin 12.2, MCV 94.8, platelet 236 without marked shift, coags with PT 16.2, INR 1.3, PTT 23.4, CMP with BUN/creatinine 22/2.0, glucose 123 otherwise [place]ock profile unremarkable, troponin 8, CT of the brain with no acute intracranial findings, EKG with sinus bradycardia with no acute evidence of ischemia. [facility] Medical History (Updated 12/02/23 @ 03:[address] Elyse Simons MD) Anxiety and depression Arthritis Asthma Curiel palsy Chronic cough Chronic pain CKD (chronic kidney disease), stage III COPD (chronic obstructive pulmonary disease) CPAP (continuous positive airway pressure) dependence GERD (gastroesophageal reflux disease) History of back problems History of steroid therapy HTN (hypertension) Inguinal hernia bilateral, non-recurrent Obesity PHIL on CPAP Restless legs Smoker Ventral incisional hernia without obstruction or gangrene Wears glasses Home Medications tizanidine 4 mg tablet 4 mg PO Q8H PRN Pain 03/31/16 [History Last Taken Unknown] duloxetine 60 mg capsule,delayed release (Cymbalta) 60 mg PO DAILY 07/18/20 [History Last Taken Unknown] hydrochlorothiazide 25 mg tablet 12.5 mg PO DAILY bp 07/19/20 [History Last Taken Unknown] albuterol sulfate 90 mcg/actuation aerosol inhaler (Ventolin HFA) 1 - 2 puff inhalation Q4H PRN PRN Wheezing ##1 12/20/22 [Rx Last Taken Unknown] hydromorphone 4 mg tablet 4 mg PO Q8H PRN pain 05/04/23 [History Last Taken Unknown] hydroxyzine HCl 25 mg tablet 25 mg PO DAILY 05/04/23 [History Last Taken 05/11/23] omeprazole 20 mg capsule,delayed release 20 mg PO DAILY 05/04/23 [History Last Taken Unknown] tamsulosin 0.4 mg capsule 0.4 mg PO DAILY 05/04/23 [History Last Taken Unknown] zolpidem 10 mg tablet 10 mg PO QHS 05/04/23 [History Last Taken Unknown] atenolol 50 mg tablet 50 mg PO DAILY 12/01/23 [History Last Taken Unknown] duloxetine 30 mg capsule,delayed release 30 mg PO DAILY 12/01/23 [History Last Taken Unknown] gabapentin 600 mg tablet 600 mg PO TID 12/01/23 [History Last Taken Unknown] Allergy/AdvReac Type Severity Reaction Status Date / Time carisoprodol [From Soma] Allergy Other Verified 12/01/23 16:55 metoclopramide HCl AdvReac Upset Verified 12/01/23 16:55 [From Reglan] Stomach pregabalin [From Lyrica] AdvReac Upset Verified 12/01/23 16:55 Stomach Family History (Updated 12/02/23 @ 03:[address] Elyse Simons MD) Father Lung disease Cancer lung Brother Cancer lung Mother Hypertension Surgical History ankle surgery H/O colonoscopy H/O neck surgery History of colonoscopy (~07/2020) History of inguinal hernia repair, bilateral lower back surgery Social History (Updated 12/02/23 @ 03:[address] Elyse Simons MD) household members: significant other Smoking Status: Current every day smoker tobacco type: cigarettes Smoking packs per day: 1 Smoking cigarettes per day: 20.0 Tobacco: How many years used: 50 Electronic Cigarette Use: not used how long ago did patient quit smokin, 2-3pk/day->quit for many yrs, started again over last 6-7 months. second hand exposure: Yes alcohol intake: never substance use type: does not use caffeine: Yes Type: coffee Number of servings: 3 what type of physical activity do you participate in: bicycling frequency: daily duration: 15-30 minutes/day ROS ROS Narrative Admission Review of Systems: CONSTITUTIONAL: No weight loss, fever, chills, + weakness or fatigue. HEENT: Eyes: No visual loss, blurred vision, double vision or yellow sclerae. Ears, Nose, Throat: No hearing loss, sneezing, congestion, runny nose or sore throat. SKIN: No rash or itching, lesions, wounds. CARDIOVASCULAR: + Syncopal event. No chest pain, chest pressure or chest discomfort, palpitations, edema, orthopnea. RESPIRATORY: No shortness of breath, cough or sputum, wheezing, hemoptysis. GASTROINTESTINAL: No anorexia, nausea, vomiting or diarrhea, abdominal pain, melena, BRBPR. GENITOURINARY: No dysuria, frequency, urgency or retention. NEUROLOGICAL: + Syncopal event. No headache, dizziness, paralysis, ataxia, numbness or tingling in the extremities, focal weakness, change in bowel or bladder control, seizure. MUSCULOSKELETAL: + muscle, back pain, joint pain or stiffness. HEMATOLOGIC: + Anemia, easy bleeding/bruising. LYMPHATICS: No enlarged nodes. No history of splenectomy. PSYCHIATRIC: + history of depression and anxiety. ENDOCRINOLOGIC: No reports of sweating, cold or heat intolerance. No polyuria or polydipsia. ALLERGIES: + history of asthma. Vital Signs Vital Signs Vital Signs: 12/01/23 16:55 12/01/23 16:57 12/01/23 18:26 Temperature 97.8 F Temperature Source Temporal Pulse Rate 64 Pulse Rate [Lying] 54 L Pulse Rate [Sitting (for 1 minute prior to obtaining)] 57 L Pulse Rate [Standing (for 1 minute prior to obtaining)] 57 L Respiratory Rate 18 Respiratory Effort Normal Respiratory Depth Normal Respiratory Pattern Normal Blood Pressure 118/73 Blood Pressure [Lying] 109/68 Blood Pressure [Sitting (for 1 minute prior to obtaining)] 102/67 Blood Pressure [Standing (for 1 minute prior to obtaining)] 107/66 Blood Pressure Mean 88 Blood Pressure Mean [Lying] 81 Blood Pressure Mean [Sitting (for 1 minute prior to obtaining)] 78 Blood Pressure Mean [Standing (for 1 minute prior to obtaining)] 79 Pulse Ox 98 Oxygen Delivery Method Room Air Room Air Weight Weight: 230 lb 6.4 oz Body Mass Index (BMI) 31.2 Physical Exam Narrative Physical Examination: General: Awake, alert, oriented x 3 and cooperative, seated upright in the ED bed, fatigued otherwise no acute distress. Skin: Normal color, normal turgor, no icterus, no cyanosis except occasional staged ecchymoses. HEENT: AT/NC, EOMI, PERRLA, MMM, no carotid bruits or JVD noted. Lungs: Diminished, greater bases, appropriate effort, no rales, ronchi or wheezing. Heart: Mildly bradycardic with regular rhythm; no gallop, rub audible. Abdomen: Soft, obese, NTTP, ND, distant normal BS, no appreciated HSM. Extremities: No cyanosis, no clubbing, mild distal not markedly pitting edema noted. Neurological: Patient awake, alert, oriented as noted, cognitive function intact; pupils equally reactive to light and accommodation, cranial nerves II-XII grossly normal, moving all 4 extremities, no focal deficits, strength moderately globally decreased secondary to acute presentation complaints. Psychiatric: Affect appears fatigued otherwise normal, no acute evidence of depressive or anxiety feelings but does have underlying history. Results Lab / Micro Data 12/01/23 18:55 12/01/23 18:24 Labs: Laboratory Results - last 24 hr 12/01/23 18:24: WBC Cancelled, Corrected WBC Cancelled, RBC Cancelled, Hgb Cancelled, Hct Cancelled, MCV Cancelled, MCH Cancelled, MCHC Cancelled, RDW Std Deviation Cancelled, RDW Coeff of Karlee Cancelled, Plt Count Cancelled, MPV Cancelled, Immature Gran % (Auto) Cancelled, Neut % (Auto) Cancelled, Lymph % (Auto) Cancelled, Crisp % (Auto) Cancelled, Eos % (Auto) Cancelled, Baso % (Auto) Cancelled, Absolute Neuts (auto) Cancelled, Absolute Lymphs (auto) Cancelled, Total Counted Cancelled, Neutrophils % (Manual) Cancelled, Band Neutrophils % Cancelled, Lymphocytes % (Manual) Cancelled, Monocytes % (Manual) Cancelled, Eosinophils % (Manual) Cancelled, Basophils % (Manual) Cancelled, Metamyelocytes % Cancelled, Myelocytes % Cancelled, Promyelocytes % Cancelled, Blast Cells % Cancelled, Plasma Cell % (Manual) Cancelled, Other Cells % Cancelled, Nucleated RBC % Cancelled, Nucleated RBCs/100 WBC Cancelled, Differential Comment Cancelled, Diff Path Review Cancelled, Hypersegmented Neuts Cancelled, Atypical Lymphocytes Cancelled, Reactive Lymphocytes Cancelled, Smudge Cells Cancelled, Toxic Granulation Cancelled, Toxic Vacuolation Cancelled, Dohle Bodies Cancelled, Geri Rods Cancelled, Platelet Estimate Cancelled, Plt Morphology Comment Cancelled, RBC Morphology Cancelled 12/01/23 18:24: RBC Morphology Cancelled, Polychromasia Cancelled, Hypochromasia Cancelled, Basophilic Stippling Cancelled, Anisocytosis Cancelled, Microcytosis Cancelled, Macrocytosis Cancelled, Spherocytes Cancelled, Sickle Cells Cancelled, Target Cells Cancelled, Tear Drop Cells Cancelled, Ovalocytes Cancelled, Stomatocytes Cancelled, Guzman-Plum Bodies Cancelled, [place] Cells Cancelled, Bite Cells Cancelled, Crenated Cell Cancelled, Acanthocytes (Spur) Cancelled, Rouleaux Cancelled, Schistocytes Cancelled, PT 16.2 H, INR 1.3, APTT 23.4 L, Sodium 139, Potassium 3.8, Chloride 103, Carbon Dioxide 29.0, Anion Gap 7, BUN 22 H, Creatinine 2.00 H, Estim Creat Clear Calc 41.11, Est GFR (MDRD) Af Amer 42 L, Est GFR (MDRD) Non-Af 35 L, BUN/Creatinine Ratio 11.0, Glucose 123 H, Calcium 8.7, Total Bilirubin 0.80, AST 16, ALT 15 L, Alkaline Phosphatase 111, Troponin I High Sens 8, Total Protein 7.3, Albumin 3.5, Globulin 3.8, Albumin/Globulin Ratio 0.9 12/01/23 18:55: WBC 10.2, RBC 3.81 L, Hgb 12.2 L, Hct 36.1 L, MCV 94.8 H, MCH 32.0, MCHC 33.8, RDW Std Deviation 46.4 H, RDW Coeff of Karlee 13.4, Plt Count 236, MPV 8.5, Immature Gran % (Auto) 0.400, Neut % (Auto) 68.2, Lymph % (Auto) 21.1, Crisp % (Auto) 7.9, Eos % (Auto) 1.9, Baso % (Auto) 0.5, Absolute Neuts (auto) 7.0, Absolute Lymphs (auto) 2.16, Nucleated RBC % 0 Imaging Radiology Impression Brain CT 12/01/23 17:56 IMPRESSION: Normal unenhanced CT scan of the brain. Electronically Signed: Eddi Leroy MD at 20:27 EDT , Assessment & Plan Assessment/Plan (1) Syncope and collapse: PLAN: Plan The patient is a 72 y/o M w/ PMHx: BPH, RLS, HTN, HLD, Tobacco use, PHIL on CPAP, GERD, Asthma, COPD, Chronic back pain on chronic pain regimen with lumbar spinal stenosis/generative disc disease, Obesity, CKD stage III unclear subtype, PHIL, Depression and anxiety who presents to the [facility] ED on 12/01/23 with history of syncopal episode twice on day of presentation once in the morning and once again in the early afternoon noted to be sudden onset with 1 actually occurring while he was walking from the car at home with no specific prodrome and the first occurring when he was making coffee in the kitchen with no recent chest discomfort, lightheadedness, dizziness, dyspnea, alteration to his stools although he does report a very slight headache prompting eventual ED evaluation. #1. Syncopal Event: Unclear etiology, EKG in ED w/ sinus bradycardic rhythm without evidence of acute ischemia, CT head without acute findings, initial trop normal. Will admit to PCU, place on a monitored bed to assure no acute myocardial infarction with serial cardiac enzymes and EKGs. Will maintain on fall precautions. Will continue treatment with judicious IVFs, obtain ECHO, obtain carotid US. PT/OT consultation to ascertain stability and discharge needs. #2. Acute kidney injury on CKD stage III unclear subtype: Unclear specific etiology, denies any decreased oral intake or poor intake. Admission BUN/Cr 22/2.0, prior baseline creatinine noted to be primarily 1.1-1.3. Will hydrate, hold nephrotoxic medications and repeat chemistry in AM. If no improvement would plan FeNa assessment. #3. Chronic back pain on chronic pain regimen with lumbar spinal stenosis/generative disc disease: Cautiously we will continue patient home chronic hydromorphone to avoid withdrawal however this regimen may need to be changed if renal function continues at current admission level or worsens, gabapentin, tizanidine home regimen however certainly could be contributing, continue to cautiously monitor. #4. Chronic COPD/asthma: Will place on ATC budesonide therapy, PRN albuterol, HOB, IS parameters. #5. Hypertension: Continue home regimen including atenolol, holding HCTZ given ROBERTO as noted, PRN hydralazine. #6. Hyperlipidemia: Not on regimen, FLP in AM. #7. Tobacco Abuse: Encouraged cessation, inpatient consultation per RT, NR if desired. #8. Anxiety and depression: We will continue patient home Cymbalta and low-dose judicious hydroxyzine as needed. #9. Obesity: Weight loss and lifestyle changes encouraged. #10. GERD: We will continue patient home PPI. #11. BPH: We will continue patient on Flomax regimen. #12. PHIL: CPAP nightly. #13. DVT Prophylaxis: Heparin. #14. CODE status: Patient HCPOA and living will are not in place but he notes he would want his son Julio and his daughter Nelda to be his decision makers if necessary. Discussed CODE status at length including difference between FULL code, DNR-CCA and DNR-CC status. Following discussions about the differences in these status, requested Full Code status. Advanced Care Planning Face to Face Time: 16 minutes. Charges/Coding Visit Charges Inpatient E&M: 37961 Init Hosp L3 Procedures Hospitalists Procedures: 14842 Advncd Care Plan 30 Min
[2023-12-01 22:06] LABS: Magnesium 2.1 mg/dL (1.6-2.6)
--- NOTE | 2023-12-01 22:15 | ECHOCS_ITS ---
Reason For Study: Syncope Procedure This was a 2D Doppler, Color Flow transthoracic echocardiogram. The study was technically difficult. Contrast injection was performed. Exam performed portable in patient room. Left Ventricle Normal LV size. Left ventricular systolic function is normal. The estimated ejection fraction is 60 %. No regional wall motion abnormalities noted. Right Ventricle Normal RV size. Normal systolic function. Atria Normal left atrium. Normal right atrium. Mitral Valve Normal mitral valve. Tricuspid Valve Normal tricuspid valve. Mild (1+) tricuspid valve insufficiency. Pulmonary artery systolic pressure is 30 mmHg. Aortic Valve Trisinus/trileaflet aortic valve. Pulmonic Valve Normal pulmonic valve. Great Vessels Mildly dilated aortic root. The pulmonary artery is normal size. Inferior vena cava collapse with respiration. Pericardium/Pleural No pericardial effusion. Medication Diluted definity 2ml given slow IV push to enhance endocardial definition. MMode/2D Measurements & Calculations LVIDd: 5.4 cm IVSd: 1.0 cm Ao root diam: 4.0 cm LVIDs: 3.9 cm LVPWd: 0.89 cm LA dimension: 5.0 cm RVDd: 4.1 cm FS: 27.3 % LAV(MOD-bp): 66.2 ml LVAd ap4: 41.3 cm2 SV(MOD-sp4): 93.2 ml LAV(MOD-bp) Indexed: 29.3 ml/m2 LVLd ap4: 9.2 cm LAV(MOD-sp2): 77.7 ml EDV(MOD-sp4): 151.0 ml LAV(MOD-sp4): 53.4 ml EDV(sp4-el): 156.4 ml LVAs ap4: 22.3 cm2 LVLs ap4: 7.5 cm ESV(MOD-sp4): 57.8 ml ESV(sp4-el): 56.2 ml EF(MOD-sp4): 61.7 % EF(sp4-el): 64.1 % SV(sp4-el): 100.2 ml LA A4 area: 18.9 cm2 RA A4 area: 17.2 cm2 TAPSE: 2.3 cm Time Measurements MV dec time: 0.25 sec Doppler Measurements & Calculations MV E max chuy: 76.3 cm/sec Lat Peak E' Chuy: 11.2 cm/sec Med Peak E' Chuy: 8.9 cm/sec MV A max chuy: 73.3 cm/sec E/E' lat: 6.8 E/E' med: 8.5 MV E/A: 1.0 MV V2 max: 90.8 cm/sec MV P1/2t max chuy: 81.6 cm/sec Ao V2 max: 115.7 cm/sec MV max P.3 mmHg MV P1/2t: 83.1 msec Ao max P.4 mmHg MV V2 mean: 41.0 cm/sec Ao V2 mean: 73.8 cm/sec MV mean P.83 mmHg MV dec slope: 287.8 cm/sec2 Ao mean P.6 mmHg MV V2 VTI: 37.2 cm MVA(P1/2t): 2.6 cm2 Ao V2 VTI: 26.2 cm AV (velocity ratio): 0.91 LV V1 max: 104.5 cm/sec MR max chuy: 448.9 cm/sec PA V2 max: 71.7 cm/sec LV V1 max P.4 mmHg MR max P.6 mmHg PA V2 mean: 49.3 cm/sec LV V1 mean P.3 mmHg LV V1 mean: 69.4 cm/sec LV V1 VTI: 23.8 cm TR max chuy: 253.4 cm/sec TR max P.7 mmHg ECHO/Echo Complete W/ Contrast Interpretation Summary Normal LV size. Left ventricular systolic function is normal. The estimated ejection fraction is 60 %. Pulmonary artery systolic pressure is 30 mmHg. Contrast injection was performed. Ordering Physician: Elyse Simons Referring Physician: Oracio Hall Performed By: Toan Naylor RCS
--- NOTE | 2023-12-01 22:15 | CDU_ITS ---
Reason For Study: Syncope Rt. Velocities/BP Lt. Velocities/BP Prox CCA 65.5/7.8 cm/sec. Prox CCA 77.8/12.6 cm/sec. Mid CCA 50.4/9.7 cm/sec. Mid CCA 63.6/9.7 cm/sec. Dist CCA 40.9/7.8 cm/sec. Dist CCA 42.8/9.7 cm/sec. Prox ICA 53.2/13.5 cm/sec. Prox ICA 20.9/6.6 cm/sec. Mid ICA 63.6/20.1 cm/sec. Mid ICA 55.7/15.2 cm/sec. Dist ICA 52.9/12.9 cm/sec. Dist ICA 57.9/20.1 cm/sec. Rt. ICA/CCA = 1.26. Lt. ICA/CCA = 0.91. Prox ECA 90/6.9 cm/sec. Prox ECA 84.4/6 cm/sec. Rt. Vert. 43.7/12.6 cm/sec. Lt. Vert. 42.9/10.9 cm/sec. Right Extracranial There is homogeneous, smooth atherosclerotic plaque noted in the right common carotid artery. There is heterogeneous, smooth atherosclerotic plaque noted in the right internal carotid artery. There is intimal thickening but no significant atherosclerotic plaque noted in the right external carotid artery. Antegrade flow is noted in the right vertebral artery. Left Extracranial There is homogeneous, smooth atherosclerotic plaque noted in the left common carotid artery. There is homogeneous, smooth atherosclerotic plaque noted in the left internal carotid artery. There is intimal thickening but no significant atherosclerotic plaque noted in the left external carotid artery. Antegrade flow is noted in the left vertebral artery. Procedure This is a Carotid Duplex examination using B-mode, color flow and specral Doppler. Carotid Duplex [id number]. Exam performed in department. VL/Carotid Duplex Ultrasound Interpretation Summary Mild (<50%) stenosis right extracranial internal carotid. Mild (<50%) stenosis left extracranial internal carotid. Patent and antegrade vertebrals bilaterally. Ordering Physician: Elyse Simons Referring Physician: Oracio Hall Performed By: Shanika Orellana RVT
[2023-12-01 22:29] VITALS: BMI 31.1
[2023-12-01 22:46] VITALS: BP 150/89; PULSE 54; RESP 18; TEMP 36.4; O2SAT 96
[2023-12-01] MEDS: 0.9% Normal Saline (1000mL) 1,000 ML 100 ML IV (23:25)
[2023-12-01] MEDS: 0.9% Saline Lock 10 ML Syringe IV (23:26)
[2023-12-01] MEDS: Gabapentin 600 MG Tablet PO (23:26)
[2023-12-01] MEDS: HYDROmorphone 2 MG TABLET 4 MG PO (23:26)
[2023-12-01] MEDS: Heparin Injection (Vial) 5,000 UNIT/ML VIAL 5000 UNIT SC (23:28)
[2023-12-01 23:37] LABS: Troponin-I HS 8 pg/mL (3.0-78.0)
[2023-12-02] VITALS (9 sets, daily range): BP systolic 114–148; BP diastolic 65–77; PULSE 58–62; RESP 16–18; TEMP 36.2–36.5; O2SAT 88–99
[2023-12-02] MEDS: Budesonide Respules 0.5 MG/2 ML AMPUL.NEB. INHALATION ×3 (00:05→21:28)
[2023-12-02] MEDS: Albuterol 2.5 MG/3 ML VIAL.NEB. INHALATION (00:05)
--- NOTE | 2023-12-02 00:05 | CPS ---
Pt states he doesn't wear a CPAP at home and would rather just wear Oxygen while here.
[2023-12-02 01:10] LABS: Troponin-I HS 8 pg/mL (3.0-78.0)
[2023-12-02 04:56] LABS: Absolute Lymphocyte Count 1.91 X10^3/uL (0.83-4.51); Absolute Neutrophil Count 4.5 X10^3/uL (2.0-7.7); Basophil# 0.03 X10^3/uL; Basophil% 0.4 % (0-1); Eosinophils% 2.7 % (0-5); Hematocrit 33.7 % (40-54); Hemoglobin 11.3 g/dL (13.0-16.5); Lymphocyte # 1.91 X10^3/ul (0.83-4.51); Mean Corp Hgb Conc 33.5 g/dL (32-36); Mean Corpuscular Hgb 31.7 pg (27.0-32.0); Mean Corpuscular Volume 94.7 fL (80-94); Mean Platelet Vol. 8.6 fl (6.2-12.0); Monocyte# 0.74 X10^3/uL; Monocyte% 10.1 % (0-10); NRBC Flagged by Analyzer 0 % (0-5); Neutrophil # 4.46 X10^3/uL (2.7-7.7); Neutrophil % 60.5 % (47-70); Platelet Count 225 K/mm3 (150-450); RBC Distribution Width CV 13.4 % (11.6-14.6); RBC Distribution Width SD 46.4 fl (35.1-43.9); Red Blood Count 3.56 M/mm3 (4.6-6.2); White Blood Count 7.4 K/mm3 (4.4-11.0)
[2023-12-02 05:19] LABS: ALB/GLOB Ratio 0.9 RATIO (0.9-2.4); AST(SGOT) 15 U/L (15-37); Alanine Aminotransfer ALT/SGPT 12 U/L (16-61); Albumin, Serum 3.1 g/dL (3.2-5.0); Alkaline Phosphatase 94 U/L (45-117); Anion Gap 6 (5-15); BUN 23 mg/dL (7-18); BUN/Creat Ratio 14.6 RATIO (10-20); Calcium,Total 8.2 mg/dL (8.5-10.1); Chloride 104 mmol/L (98-107); Cholesterol 153 mg/dL (200); Creatinine, Serum 1.57 mg/dL (0.70-1.30); EST Glomerular Filtration Rate 46 mL/min (>60); Est Glom Filt Rate - Afr Amer 56 mL/min (>60); Globulin 3.5 g/dL (2.2-4.2); Glucose 112 mg/dL (74-106); High Density Lipoprotein 30 mg/dL; Potassium 3.4 mmol/L (3.5-5.1); Protein, Total 6.6 g/dL (6.4-8.2); Sodium Level 140 mmol/L (136-145); Triglycerides 154 mg/dL; Troponin-I HS 8 pg/mL (3.0-78.0); Very Low Density Lipoprotein 31 mg/dL (5-40)
[2023-12-02] MEDS: Gabapentin 600 MG Tablet PO ×3 (06:09→21:38)
[2023-12-02] MEDS: Acetaminophen 325 MG Tablet 650 MG PO (06:13)
--- NOTE | 2023-12-02 07:44 | PCM.PN.HOSP ---
Reason for Visit Reason for Visit: Diagnoses Syncope and collapse (12/01/23) Subjective Subjective Feels well. No further dizziness. Objective Data Objective Data Vital Signs: Vital Signs Temp Pulse Resp BP Pulse Ox O2 Del Method O2 Flow Rate 36.5 C L 60 18 125/71 H 92 Nasal Cannula 2 12/02/23 03:55 12/02/23 07:16 12/02/23 07:16 12/02/23 03:55 12/02/23 07:16 12/02/23 07:16 12/02/23 07:16 Oxygen Flow Rate (L/min) 2 Oxygen Delivery Method Nasal Cannula Weight: 104.2 kg Body Mass Index (BMI) 31.1 Intake & Output: Intake and Output for Last 24 Hours 11/30/23 12/01/23 12/02/23 23:59 23:59 23:59 Output Total 0 / 0 Balance 0 / 0 Lab / Micro Data 12/02/23 04:28 12/02/23 04:28 Labs: Laboratory Results - last 24 hr 12/01/23 18:24: WBC Cancelled, Corrected WBC Cancelled, RBC Cancelled, Hgb Cancelled, Hct Cancelled, MCV Cancelled, MCH Cancelled, MCHC Cancelled, RDW Std Deviation Cancelled, RDW Coeff of Karlee Cancelled, Plt Count Cancelled, MPV Cancelled, Immature Gran % (Auto) Cancelled, Neut % (Auto) Cancelled, Lymph % (Auto) Cancelled, [place]eton % (Auto) Cancelled, Eos % (Auto) Cancelled, Baso % (Auto) Cancelled, Absolute Neuts (auto) Cancelled, Absolute Lymphs (auto) Cancelled, Total Counted Cancelled, Neutrophils % (Manual) Cancelled, Band Neutrophils % Cancelled, Lymphocytes % (Manual) Cancelled, Monocytes % (Manual) Cancelled, Eosinophils % (Manual) Cancelled, Basophils % (Manual) Cancelled, Metamyelocytes % Cancelled, Myelocytes % Cancelled, Promyelocytes % Cancelled, Blast Cells % Cancelled, Plasma Cell % (Manual) Cancelled, Other Cells % Cancelled, Nucleated RBC % Cancelled, Nucleated RBCs/100 WBC Cancelled, Differential Comment Cancelled, Diff Path Review Cancelled, Hypersegmented Neuts Cancelled, Atypical Lymphocytes Cancelled, Reactive Lymphocytes Cancelled, Smudge Cells Cancelled, Toxic Granulation Cancelled, Toxic Vacuolation Cancelled, Dohle Bodies Cancelled, Geri Rods Cancelled, Platelet Estimate Cancelled, Plt Morphology Comment Cancelled, RBC Morphology Cancelled 12/01/23 18:24: RBC Morphology Cancelled, Polychromasia Cancelled, Hypochromasia Cancelled, Basophilic Stippling Cancelled, Anisocytosis Cancelled, Microcytosis Cancelled, Macrocytosis Cancelled, Spherocytes Cancelled, Sickle Cells Cancelled, Target Cells Cancelled, Tear Drop Cells Cancelled, Ovalocytes Cancelled, Stomatocytes Cancelled, Guzman-[place] Bodies Cancelled, [place] Cells Cancelled, Bite Cells Cancelled, Crenated Cell Cancelled, Acanthocytes (Spur) Cancelled, Rouleaux Cancelled, Schistocytes Cancelled, PT 16.2 H, INR 1.3, APTT 23.4 L, Sodium 139, Potassium 3.8, Chloride 103, Carbon Dioxide 29.0, Anion Gap 7, BUN 22 H, Creatinine 2.00 H, Estim Creat Clear Calc 41.11, Est GFR (MDRD) Af Amer 42 L, Est GFR (MDRD) Non-Af 35 L, BUN/Creatinine Ratio 11.0, Glucose 123 H, Calcium 8.7, Magnesium 2.1, Total Bilirubin 0.80, AST 16, ALT 15 L, Alkaline Phosphatase 111, Troponin I High Sens 8, Total Protein 7.3, Albumin 3.5, Globulin 3.8, Albumin/Globulin Ratio 0.9 12/01/23 18:55: WBC 10.2, RBC 3.81 L, Hgb 12.2 L, Hct 36.1 L, MCV 94.8 H, MCH 32.0, MCHC 33.8, RDW Std Deviation 46.4 H, RDW Coeff of Karlee 13.4, Plt Count 236, MPV 8.5, Immature Gran % (Auto) 0.400, Neut % (Auto) 68.2, Lymph % (Auto) 21.1, Teton % (Auto) 7.9, Eos % (Auto) 1.9, Baso % (Auto) 0.5, Absolute Neuts (auto) 7.0, Absolute Lymphs (auto) 2.16, Nucleated RBC % 0 12/01/23 23:03: Troponin I High Sens 8 12/02/23 00:39: Troponin I High Sens 8 12/02/23 04:28: WBC 7.4, RBC 3.56 L, Hgb 11.3 L, Hct 33.7 L, MCV 94.7 H, MCH 31.7, MCHC 33.5, RDW Std Deviation 46.4 H, RDW Coeff of Karlee 13.4, Plt Count 225, MPV 8.6, Immature Gran % (Auto) 0.300, Neut % (Auto) 60.5, Lymph % (Auto) 26.0, [place]eton % (Auto) 10.1 H, Eos % (Auto) 2.7, Baso % (Auto) 0.4, Absolute Neuts (auto) 4.5, Absolute Lymphs (auto) 1.91, Nucleated RBC % 0, Sodium 140, Potassium 3.4 L, Chloride 104, Carbon Dioxide 30.0, Anion Gap 6, BUN 23 H, Creatinine 1.57 H, Estim Creat Clear Calc 52.30, Est GFR (MDRD) Af Amer 56 L, Est GFR (MDRD) Non-Af 46 L, BUN/Creatinine Ratio 14.6, Glucose 112 H, Calcium 8.2 L, Total Bilirubin 0.70, AST 15, ALT 12 L, Alkaline Phosphatase 94, Troponin I High Sens 8, Total Protein 6.6, Albumin 3.1 L, Globulin 3.5, Albumin/Globulin Ratio 0.9, Triglycerides 154, Cholesterol 153, LDL Cholesterol 92, VLDL Cholesterol 31, HDL Cholesterol 30 L Radiography Diagnostic Testing: Radiology Impression Brain CT 12/01/23 17:56 IMPRESSION: Normal unenhanced CT scan of the brain. Electronically Signed: Eddi Leroy MD at 20:27 EDT , Physical Exam Const alert and no apparent distress HEENT head/scalp atraumatic and moist oral mucous membranes Resp normal respiratory effort, no retractions, no use of accessory muscles and clear to auscultation bilaterally Cardio regular rate, regular rhythm, S1 normal heart sound and S2 normal heart sound GI normal to inspection, nondistended, normoactive bowel sounds, soft to palpation, non-tender and non-distended Extremity normal to inspection Assessment & Plan Assessment/Plan (1) Syncope and collapse: PLAN: Plan Syncopal Event: May have been due to dehydration +/- hydromorphone, zolpidem, and gabapentin. PT OT Acute kidney injury on CKD stage III unclear subtype: Improved with IVF Hold HCTZ, Chronic conditions: Chronic back pain on chronic pain regimen with lumbar spinal stenosis/generative disc disease: Cautiously we will continue patient home chronic hydromorphone to avoid withdrawal however this regimen may need to be changed if renal function continues at current admission level or worsens, gabapentin, tizanidine home regimen however certainly could be contributing, continue to cautiously monitor. Chronic COPD/asthma: Will place on ATC budesonide therapy, PRN albuterol, HOB, IS parameters. Hypertension: Continue home regimen including atenolol, holding HCTZ given ROBERTO as noted, PRN hydralazine. Hyperlipidemia: Not on regimen, FLP in AM. Tobacco Abuse: Encouraged cessation, inpatient consultation per RT, NR if desired. Anxiety and depression: We will continue patient home Cymbalta and low-dose judicious hydroxyzine as needed. Obesity: Weight loss and lifestyle changes encouraged. GERD: We will continue patient home PPI. BPH: We will continue patient on Flomax regimen. PHIL: CPAP nightly. DVT Prophylaxis: Heparin. CODE status: Full Charges/Coding Visit Charges Inpatient E&M: 94895 Subs Hosp L2
[2023-12-02] MEDS: 0.9% Normal Saline (1000mL) 1,000 ML 100 ML IV (09:11)
[2023-12-02] MEDS: Tamsulosin HCl 0.4 MG Capsule PO (09:12)
[2023-12-02] MEDS: Pantoprazole Sodium 20 MG Tablet PO (09:12)
[2023-12-02] MEDS: Atenolol 50 MG Tablet PO (09:12)
[2023-12-02] MEDS: DULoxetine Hcl 30 MG Capsule 90 MG PO (09:12)
[2023-12-02] MEDS: hydrOXYzine PAM 25 MG Capsule PO (09:13)
[2023-12-02] MEDS: Heparin Injection (Vial) 5,000 UNIT/ML VIAL 5000 UNIT SC ×2 (09:13→21:38)
--- NOTE | 2023-12-02 13:30 | CASEMGMT ---
RN?CM?RIGGING LOFT REPAIRER?CM?to room to meet with patient for initial transition planning/care coordination?assessment.?RN?CM?introduced self and role at [facility].? Pt voices understanding and consents to?assessment?at this time.? Pt resting in bed in no distress at this time.? Dtr, Nelda, @ bedside and pt agreeable to her being present during assessment. Pt is A/O at this time and answers all questions appropriately.?? Care providers, pharmacy, and demographics verified/updated at this time. PCP: Dr Hall Specialists: denies Preferred Pharmacy: [facility] Retail Insurance: [employer] Prescription Benefit:?yes LNOK: Julio, son. Nelda, dtr Living Arrangements: lives w/GF, Mahsa, whom he takes care of (showering ,dsg, toileting) and he does home mgmt tasks. Mahsa's dtr and her brother are w/her while pt is in the hospital. They live in a one-story home w/2 steps to enter and pt denies difficulty w/stairs. He is independent w/ADL's and IADL's. . Transportation:?Pt drives. DME: States has the following DME:?shower chair, pulse ox, cane, and walker available. Pt states he had a CPAP a long time ago and states has not worn one for about 10 yrs. ?Pt states no need for further DME at this time.? HHC/SNF: No hx of either. Pt ambulated 90 ft today w/therapy CGA. Additional therapy recommended. Pt made aware. He declines wanting any OP therapy, stating he walks his dog about 4-5 x's/week and he would not have the time to do any therapy as he cares for his GF also. Pt made aware if he changes his mind in the future, to discuss this w/his PCP. He voices understanding. Pt wishes to return home and states has no concerns with going home at time of discharge.? ?CM?to follow for any discharge planning/needs.? Pt voices no further concerns/needs at this time.? PLAN:??Home Alexandra BSN?RN?CM
--- NOTE | 2023-12-02 15:13 | CASEMGMT ---
Met with patient to complete VILLASEÑOR form. VILLASEÑOR form explained to?patient who voiced understanding and signed form. Original form placed in pt?s chart and copy provided to?patient. Jessica Nieto, Discharge Planning Asst
[2023-12-02] MEDS: HYDROmorphone 2 MG TABLET 4 MG PO (16:11)
[2023-12-02] MEDS: 0.9% Normal Saline (1000mL) 1,000 ML 150 ML IV (16:12)
[2023-12-02] MEDS: 0.9% Saline Lock 10 ML Syringe IV (16:16)
[2023-12-03 03:30] VITALS: BP 155/77; PULSE 57; RESP 18; TEMP 36.1; O2SAT 93
[2023-12-03 05:20] VITALS: BMI 31.5
[2023-12-03] MEDS: Gabapentin 600 MG Tablet PO ×2 (05:52→12:50)
[2023-12-03 07:12] VITALS: PULSE 61; RESP 16; O2SAT 93
[2023-12-03] MEDS: Budesonide Respules 0.5 MG/2 ML AMPUL.NEB. INHALATION (07:12)
--- NOTE | 2023-12-03 08:04 | PN.HOSP_ITS ---
Reason for Visit Reason for Visit: Diagnoses Syncope and collapse (12/01/23) Subjective Subjective Feels well. Got up today and no dizziness. Objective Data Objective Data Vital Signs: Vital Signs Temp Pulse Resp BP Pulse Ox O2 Del Method O2 Flow Rate 36.1 C L 57 L 18 155/77 H 93 Room Air 2 12/03/23 03:30 12/03/23 03:30 12/03/23 03:30 12/03/23 03:30 12/03/23 03:30 12/03/23 03:30 12/02/23 21:37 Oxygen Flow Rate (L/min) 2 Oxygen Delivery Method Room Air Weight: 105.4 kg Body Mass Index (BMI) 31.5 Intake & Output: Intake and Output for Last 24 Hours 12/01/23 12/02/23 12/03/23 23:59 23:59 23:59 Intake Total 3076.67 / 3176.67 200 / 200 Output Total 0 / 0 Balance 3076.67 / 3176.67 200 / 200 Lab / Micro Data 12/02/23 04:28 12/03/23 06:35 Radiography Diagnostic Testing: Radiology Impression Carotid Duplex 12/01/23 22:15 Interpretation Summary Mild (<50%) stenosis right extracranial internal carotid. Mild (<50%) stenosis left extracranial internal carotid. Patent and antegrade vertebrals bilaterally. Ordering Physician: Elyse Simons Referring Physician: Oracio Hall Performed By: Shanika Orellana RVT Echocardiogram 12/01/23 22:15 Interpretation Summary Normal LV size. Left ventricular systolic function is normal. The estimated ejection fraction is 60 %. Pulmonary artery systolic pressure is 30 mmHg. Contrast injection was performed. Ordering Physician: Elyse Simons Referring Physician: Oracio Hall Performed By: Toan Naylor RCS Physical Exam Const alert and no apparent distress HEENT head/scalp atraumatic and moist oral mucous membranes Resp normal respiratory effort, no retractions, no use of accessory muscles and clear to auscultation bilaterally Cardio regular rate, regular rhythm, S1 normal heart sound and S2 normal heart sound Assessment & Plan Assessment/Plan (1) Syncope and collapse: PLAN: Plan Syncopal Event: * May have been due to dehydration +/- hydromorphone, zolpidem, and gabapentin. Acute kidney injury on CKD stage III unclear subtype: * Improved with IVF * Hold HCTZ, Chronic conditions: * Chronic back pain on chronic pain regimen with lumbar spinal stenosis/generative disc disease: Cautiously we will continue patient home chronic hydromorphone to avoid withdrawal however this regimen may need to be changed if renal function continues at current admission level or worsens, gabapentin, tizanidine home regimen however certainly could be contributing, continue to cautiously monitor. * Chronic COPD/asthma: Will place on ATC budesonide therapy, PRN albuterol, HOB, IS parameters. * Hypertension: Continue home regimen including atenolol, holding HCTZ given ROBERTO as noted, PRN hydralazine. * Hyperlipidemia: Not on regimen, FLP in AM. * Tobacco Abuse: Encouraged cessation, inpatient consultation per RT, NR if desired. * Anxiety and depression: We will continue patient home Cymbalta and low-dose judicious hydroxyzine as needed. * Obesity: Weight loss and lifestyle changes encouraged. * GERD: We will continue patient home PPI. * BPH: We will continue patient on Flomax regimen. * PHIL: CPAP nightly. DVT Prophylaxis: Heparin. CODE status: Full
[2023-12-03 08:12] LABS: Anion Gap 5 (5-15); BUN 19 mg/dL (7-18); BUN/Creat Ratio 15.1 RATIO (10-20); Calcium,Total 8.8 mg/dL (8.5-10.1); Chloride 107 mmol/L (98-107); Creatinine, Serum 1.26 mg/dL (0.70-1.30); EST Glomerular Filtration Rate 60 mL/min (>60); Est Glom Filt Rate - Afr Amer 72 mL/min (>60); Estimated Creatinine Clearance 65.52 ml/min; Glucose 99 mg/dL (74-106); Potassium 3.6 mmol/L (3.5-5.1); Sodium Level 140 mmol/L (136-145)
[2023-12-03 09:30] VITALS: BP 141/78; PULSE 58; RESP 16; TEMP 35.9; O2SAT 95
[2023-12-03] MEDS: Heparin Injection (Vial) 5,000 UNIT/ML VIAL 5000 UNIT SC (09:57)
[2023-12-03] MEDS: hydrOXYzine PAM 25 MG Capsule PO (09:57)
[2023-12-03] MEDS: Atenolol 50 MG Tablet PO (09:57)
[2023-12-03] MEDS: Tamsulosin HCl 0.4 MG Capsule PO (09:58)
[2023-12-03] MEDS: Pantoprazole Sodium 20 MG Tablet PO (09:58)
[2023-12-03] MEDS: DULoxetine Hcl 30 MG Capsule 90 MG PO (09:58)
--- NOTE | 2023-12-03 11:22 | DS.PCM_ITS ---
Providers Date of Admission: 12/01/23 Primary Care Physician: Dr. Oracio Hall, Reason For Visit: SYNCOPE, ROBERTO Diagnosis Discharge Diagnosis (1) Syncope and collapse: Status: Acute Code(s): R55 - Syncope and collapse Plan Syncopal Event: * May have been due to dehydration +/- hydromorphone, zolpidem, and gabapentin. Acute kidney injury on CKD stage III unclear subtype: * Improved with IVF * Hold HCTZ, Chronic conditions: * Chronic back pain on chronic pain regimen with lumbar spinal stenosis/generative disc disease: Cautiously we will continue patient home chronic hydromorphone to avoid withdrawal however this regimen may need to be changed if renal function continues at current admission level or worsens, gabapentin, tizanidine home regimen however certainly could be contributing, continue to cautiously monitor. * Chronic COPD/asthma: Will place on ATC budesonide therapy, PRN albuterol, HOB, IS parameters. * Hypertension: Continue home regimen including atenolol, holding HCTZ given ROBERTO as noted, PRN hydralazine. * Hyperlipidemia: Not on regimen, FLP in AM. * Tobacco Abuse: Encouraged cessation, inpatient consultation per RT, NR if desired. * Anxiety and depression: We will continue patient home Cymbalta and low-dose judicious hydroxyzine as needed. * Obesity: Weight loss and lifestyle changes encouraged. * GERD: We will continue patient home PPI. * BPH: We will continue patient on Flomax regimen. * PHIL: CPAP nightly. DVT Prophylaxis: Heparin. CODE status: Full Medications at Discharge Home Medications tizanidine 4 mg tablet 4 mg PO Q8H PRN Pain 03/31/16 duloxetine 60 mg capsule,delayed release (Cymbalta) 60 mg PO DAILY 07/18/20 albuterol sulfate 90 mcg/actuation aerosol inhaler (Ventolin HFA) 1 - 2 puff inhalation Q4H PRN PRN Wheezing ##1 12/20/22 hydromorphone 4 mg tablet 4 mg PO Q8H PRN pain 05/04/23 hydroxyzine HCl 25 mg tablet 25 mg PO DAILY 05/04/23 omeprazole 20 mg capsule,delayed release 20 mg PO DAILY 05/04/23 tamsulosin 0.4 mg capsule 0.4 mg PO DAILY 05/04/23 zolpidem 10 mg tablet 10 mg PO QHS 05/04/23 atenolol 50 mg tablet 50 mg PO DAILY 12/01/23 duloxetine 30 mg capsule,delayed release 30 mg PO DAILY 12/01/23 gabapentin 600 mg tablet 600 mg PO TID 12/01/23 Hospital Course Operations None Procedures None Summary of Care Provided Hospital Course: Patient has syncopal episode. He had evidence of acute kidney injury with a creatinine of 2 upon arrival. Patient's HCTZ was held and patient did receive IV fluids. Patient's creatinine did improve to 1.26. Patient did have symptoms upon standing but that is improved with correction of his kidney function and IV fluids. Suspect the patient's syncopal is related with dehydration and have advised discontinuing the HCTZ moving forward. Weight / BMI Weight Weight: 105.4 kg Body Mass Index (BMI) 31.5 ABG / Lab / Microbiology Data 12/02/23 04:28 12/03/23 06:35 Laboratory: Laboratory Results - last 24 hr 12/03/23 06:35: Sodium 140, Potassium 3.6, Chloride 107, Carbon Dioxide 28.0, Anion Gap 5, BUN 19 H, Creatinine 1.26, Estim Creat Clear Calc 65.52, Est GFR (MDRD) Af Amer 72, Est GFR (MDRD) Non-Af 60, BUN/Creatinine Ratio 15.1, Glucose 99, Calcium 8.8 Radiography Diagnostic Testing: Radiology Impression Carotid Duplex 12/01/23 22:15 Interpretation Summary Mild (<50%) stenosis right extracranial internal carotid. Mild (<50%) stenosis left extracranial internal carotid. Patent and antegrade vertebrals bilaterally. Ordering Physician: Elyse Simons Referring Physician: Oracio Hall Performed By: Shanika Orellana RVT Echocardiogram 12/01/23 22:15 Interpretation Summary Normal LV size. Left ventricular systolic function is normal. The estimated ejection fraction is 60 %. Pulmonary artery systolic pressure is 30 mmHg. Contrast injection was performed. Ordering Physician: Elyse Simons Referring Physician: Oracio Hall Performed By: Toan Naylor RCS D/C Instructions Discharge Diet: No restrictions Meaningful Use Info Meaningful Use Diagnoses (Choose all that apply): None applicable Discharge Plan Admission Admit Date/Time: 12/01/23 21:11 Primary Reason for Your Visit: Syncope. Acute kidney injury. Attending Provider: Tom Mendoza Primary Care Provider: Oracio Hall Consulting Providers: Elyse Simons Instructions Additional Instructions / Restrictions: You passed out. Likely source is the fact that you may have been dehydrated possibly due to 1 your medications called hydrochlorothiazide. That medication will be discontinued moving forward. Additionally your kidney function has improved where it was abnormal when you first arrived. That improved with IV fluids. Discharge Orders/Prescriptions Prescriptions: Continued duloxetine [Cymbalta] 60 mg capsule,delayed release(DR/EC) 60 mg PO DAILY zolpidem 10 mg tablet 10 mg PO QHS Patient Comments: TAKE 1 TABLET BY MOUTH DAILY AT BEDTIME NEEDED FOR INSOMNIA hydromorphone 4 mg tablet 4 mg PO Q8H PRN (Reason: pain) Patient Comments: TAKE 1 TABLET BY MOUTH THREE TIMES DAILY NEEDED for severe intactable pain omeprazole 20 mg capsule,delayed release(DR/EC) 20 mg PO DAILY Patient Comments: TAKE 1 TABLET BY MOUTH DAILY hydroxyzine HCl 25 mg tablet 25 mg PO DAILY Patient Comments: TAKE 1 TABLET BY MOUTH DAILY NEEDED FOR ANXIETY tamsulosin 0.4 mg capsule 0.4 mg PO DAILY Patient Comments: TAKE 1 CAPSULE BY MOUTH at NIGHT tizanidine 4 MG tablet 4 mg PO Q8H PRN (Reason: Pain) Patient Comments: MUSCLE RELAXANT albuterol sulfate [Ventolin HFA] 90 mcg/actuation HFA aerosol inhaler 1 - 2 puff inhalation Q4H PRN PRN (Reason: Wheezing) Qty: 1 0RF gabapentin 600 mg tablet 600 mg PO TID atenolol 50 mg tablet 50 mg PO DAILY duloxetine 30 mg capsule,delayed release(DR/EC) 30 mg PO DAILY Discontinued hydrochlorothiazide 25 MG tablet 12.5 mg PO DAILY Referrals / Follow Up: Oracio Hall DO [Primary Care Provider] - Within 2 Weeks Disposition Disposition (needs filled in before D/C Order can be placed): Home, Self Care Charges/Coding Visit Charges Inpatient E&M: 42886 Disch Hosp
--- NOTE | 2023-12-03 12:19 | CASEMGMT ---
Patient has order for discharge. RN CM in to discuss needs at discharge. Patient denies needs or help at discharge, states he is back to baseline. Patient had no further questions or concerns.
[2023-12-03 13:00] VITALS: BP 142/83; PULSE 54; RESP 16; TEMP 35.7; O2SAT 96
== END 2023-12-03 11:28 | disposition home or self-care (01) ==
LOC: ED 21:10 → PCU 21:24
PROVIDERS: Admitting Provider Family Medicine; Emergency Provider Emergency Medicine; PCP Family Medicine
DX: R55 Syncope and collapse (principal); J44.9 Chronic obstructive pulmonary disease, unspecified; N18.30 Chronic kidney disease, stage 3 unspecified; N17.9 Acute kidney failure, unspecified; K21.9 Gastro-esophageal reflux disease without esophagitis; M48.061 Spinal stenosis, lumbar region without neurogenic claudication; I12.9 Hypertensive chronic kidney disease with stage 1 through stage 4 chronic kidney disease, or unspecified chronic kidney disease; G89.29 Other chronic pain; G47.31 Primary central sleep apnea; F17.210 Nicotine dependence, cigarettes, uncomplicated; F41.9 Anxiety disorder, unspecified; Z79.891 Long term (current) use of opiate analgesic; E66.9 Obesity, unspecified; Z68.31 Body mass index [BMI] 31.0-31.9, adult; N40.0 Benign prostatic hyperplasia without lower urinary tract symptoms
CPT/HCPCS: 96361; 36415; 70450; 80048; 80053; 80061; 83735; 84484; 85025; 85610; 85730; 93005; 93306; 93880; 94640; 94668; 96360; 96372; 97110; 97162; 97166; 97535; 99221; 99285; 99406; J7030; Q9957; A4216; C8929; G0378

== ENCOUNTER 2023-12-09 16:31 | Emergency (ER) | payer MEDICARE, SELFPAY ==
[2023-12-09 16:35] VITALS: BP 136/82; PULSE 58; RESP 16; TEMP 36.1; O2SAT 98; BMI 32.0
[2023-12-09] MEDS: Ondansetron 4 MG/2 ML Vial IV (17:10)
[2023-12-09] MEDS: 0.9% Normal Saline (500mL Bag) 500 ML 1000 ML IV (17:10)
[2023-12-09 17:11] VITALS: O2SAT 85; O2SAT 93
[2023-12-09 17:25] LABS: Absolute Lymphocyte Count 2.09 X10^3/uL (0.83-4.51); Absolute Neutrophil Count 3.4 X10^3/uL (2.0-7.7); Basophil# 0.05 X10^3/uL; Basophil% 0.8 % (0-1); Eosinophils% 3.2 % (0-5); Hematocrit 35.2 % (40-54); Hemoglobin 12.9 g/dL (13.0-16.5); Lymphocyte # 2.09 X10^3/ul (0.83-4.51); Lymphocyte % 33.8 % (19-41); Mean Corp Hgb Conc 36.6 g/dL (32-36); Mean Corpuscular Hgb 34.1 pg (27.0-32.0); Mean Corpuscular Volume 93.1 fL (80-94); Monocyte# 0.44 X10^3/uL; Monocyte% 7.1 % (0-10); NRBC Flagged by Analyzer 0 % (0-5); Neutrophil # 3.35 X10^3/uL (2.7-7.7); Neutrophil % 54.3 % (47-70); Platelet Count 315 K/mm3 (150-450); RBC Distribution Width CV 13.4 % (11.6-14.6); RBC Distribution Width SD 45.9 fl (35.1-43.9); Red Blood Count 3.78 M/mm3 (4.6-6.2); White Blood Count 6.2 K/mm3 (4.4-11.0)
[2023-12-09 17:42] LABS: ALB/GLOB Ratio 0.9 RATIO (0.9-2.4); AST(SGOT) 9 U/L (15-37); Alanine Aminotransfer ALT/SGPT 14 U/L (16-61); Albumin, Serum 3.4 g/dL (3.2-5.0); Alkaline Phosphatase 105 U/L (45-117); Anion Gap 9 (5-15); BUN 14 mg/dL (7-18); BUN/Creat Ratio 12.1 RATIO (10-20); Calcium,Total 8.2 mg/dL (8.5-10.1); Chloride 107 mmol/L (98-107); Creatinine, Serum 1.16 mg/dL (0.70-1.30); EST Glomerular Filtration Rate 65 mL/min (>60); Est Glom Filt Rate - Afr Amer 79 mL/min (>60); Estimated Creatinine Clearance 71.75 ml/min; Globulin 3.9 g/dL (2.2-4.2); Glucose 117 mg/dL (74-106); Lipase 26 U/L (13-75); Potassium 3.2 mmol/L (3.5-5.1); Protein, Total 7.3 g/dL (6.4-8.2); Sodium Level 141 mmol/L (136-145)
--- NOTE | 2023-12-09 18:07 | EDS_ITS ---
HPI <Arianna Young RN - Last Filed: 12/09/23 20:13> History of Present Illness Chief Complaint: Nausea/Vomiting Onset/Context/Timing Onset: Today Context: Sudden Onset Timing: Intermittent Current Severity: 01/21 Maximum Severity: 01/21 Narrative Narrative: Patient is a 72-year-old male with past medical history of anxiety and depression, chronic kidney disease stage III, COPD, chronic pain, GERD, hypertension, and smoking who presents to the ED via EMS for nausea and vomiting after drinking quite a bit of whiskey. Patient reports his girlfriend is hospitalized and not doing well. He reports he was with a friend and drinking when he started vomiting. Friend called EMS for the patient. Patient denies chest pain, shortness of breath, palpitations, abdominal pain. Denies recent hospitalization or travel. Prior similar symptoms: No Recent Illness/Hospitalization: No PFSH <Arianna Young RN - Last Filed: 12/09/23 20:13> PFSH Medical History Anxiety and depression Arthritis Asthma Curiel palsy Chronic cough Chronic pain CKD (chronic kidney disease), stage III COPD (chronic obstructive pulmonary disease) CPAP (continuous positive airway pressure) dependence GERD (gastroesophageal reflux disease) History of back problems History of steroid therapy HTN (hypertension) Inguinal hernia bilateral, non-recurrent Obesity PHIL on CPAP Restless legs Smoker Ventral incisional hernia without obstruction or gangrene Wears glasses Home Medications tizanidine 4 mg tablet 4 mg PO Q8H PRN Pain 03/31/16 [History Last Taken Unknown] duloxetine 60 mg capsule,delayed release (Cymbalta) 60 mg PO DAILY mental health 07/18/20 [History Last Taken Unknown] albuterol sulfate 90 mcg/actuation aerosol inhaler (Ventolin HFA) 1 - 2 puff inhalation Q4H PRN PRN Wheezing ##1 12/20/22 [Rx Last Taken Unknown] hydromorphone 4 mg tablet 4 mg PO Q8H PRN pain 05/04/23 [History Last Taken Unknown] hydroxyzine HCl 25 mg tablet 25 mg PO DAILY itching 05/04/23 [History Last Taken 05/11/23] omeprazole 20 mg capsule,delayed release 20 mg PO DAILY reflux 05/04/23 [History Last Taken Unknown] tamsulosin 0.4 mg capsule 0.4 mg PO DAILY prostate 05/04/23 [History Last Taken Unknown] zolpidem 10 mg tablet 10 mg PO QHS sleep 05/04/23 [History Last Taken Unknown] atenolol 50 mg tablet 50 mg PO DAILY blood pressure 12/01/23 [History Last Taken Unknown] duloxetine 30 mg capsule,delayed release 30 mg PO DAILY mental health 12/01/23 [History Last Taken Unknown] gabapentin 600 mg tablet 600 mg PO TID nerve pain 12/01/23 [History Last Taken Unknown] ondansetron 4 mg disintegrating tablet 4 mg PO Q6H PRN nausea and vomiting #7 tabs 12/09/23 [Rx Last Taken Unknown] Allergy/AdvReac Type Severity Reaction Status Date / Time carisoprodol [From Soma] Allergy Other Verified 12/01/23 16:55 metoclopramide HCl AdvReac Upset Verified 12/01/23 16:55 [From Reglan] Stomach pregabalin [From Lyrica] AdvReac Upset Verified 12/01/23 16:55 Stomach Family History Father Lung disease Cancer lung Brother Cancer lung Mother Hypertension Surgical History ankle surgery H/O colonoscopy H/O neck surgery History of colonoscopy (~07/2020) History of inguinal hernia repair, bilateral lower back surgery Social History household members: significant other Smoking Status: Current every day smoker tobacco type: cigarettes Tobacco: How many years used: 50 Electronic Cigarette Use: not used how long ago did patient quit smokin, 2-3pk/day->quit for many yrs, started again over last 6-7 months. second hand exposure: Yes alcohol intake: never substance use type: does not use caffeine: Yes Type: coffee Number of servings: 3 what type of physical activity do you participate in: bicycling frequency: daily duration: 15-30 minutes/day ROS <Arianna Young RN - Last Filed: 12/09/23 20:13> ROS ED Constitutional Constitutional ED: Denies chills, fever(s), sweats or weight loss Eyes Eyes: Denies change in vision ENT ENT ED: Denies rhinorrhea or sore throat Cardiovascular Cardiovascular: Denies chest pain, orthopnea, palpitations, paroxysmal nocturnal dyspnea or racing heartbeat Respiratory/Chest Respiratory/Chest: Denies cough, dyspnea, dyspnea on exertion, orthopnea or paroxysmal nocturnal dyspnea Gastrointestinal Gastrointestinal: Reports nausea and vomiting; Denies abdominal pain, constipation, diarrhea or melena Genitourinary Genitourinary ED: Denies dysuria, hematuria or urinary frequency Musculoskeletal Musculoskeletal: Reports arthralgias, back pain, myalgias and other Details: Chronic back pain Integumentary Reports other Details: Skin tear to right wrist ; Denies Abrasions or rash Neurologic Neurologic: Denies headache(s), paresthesias or weakness Psychiatric Psychiatric: Denies anxiety, depression or suicidal ideation Hematologic/Lymphatic Hematologic/Lymphatic: Reports systems reviewed and no addt'l complaints, except as documented EXAM <Arianna Young RN - Last Filed: 12/09/23 20:13> Physical Exam Narrative Exam Narrative: Patient is ill-appearing, cooperative, good historian. Const Vital Signs: 12/09/23 16:35 12/09/23 17:11 12/09/23 17:11 Temperature 97 F L Temperature Source Temporal Pulse Rate 58 L Respiratory Rate 16 Blood Pressure 136/82 H Blood Pressure Mean 100 Pulse Ox 98 85 93 Oxygen Delivery Method Room Air Room Air Room Air Oxygen Flow Rate (L/min) 3 Positive well nourished and well developed General Appearance ED: well developed and NAD HEENT Reports moist mucous membranes Eyes PERRL Neck no lymphadenopathy, supple and no JVD Chest Wall inspection of chest normal and palpation of chest normal Resp normal respiratory effort and clear to auscultation bilaterally Auscultation: Negative for rales, rhonchi or wheezes Cardio regular rate, regular rhythm, S1 normal heart sound and S2 normal heart sound GI normal to inspection, nondistended, normoactive bowel sounds and non-tender Palpation: soft Narrative: Denies dysuria, hematuria, urinary frequency Back/Spine Cervical Spine: Negative for cervical spine tenderness Thoracic Spine / Upper Back: Negative for thoracic spinal tenderness Lumbar Spine / Lower Back: Negative for lumbar spinal tenderness Extremity normal to inspection General Extremety ED: Negative for edema or tenderness General Extremity: Negative for edema Neuro oriented x3 Sensorium / Orientation: alert Motor Exam: strength 5/5 throughout Psych mental status grossly normal Skin Skin Narrative: Skin tear to right wrist. No bleeding noted. Trauma: abrasion <Dr. Jeremy Mustafa MD - Last Filed: 12/09/23 18:13> Physical Exam Const Vital Signs: 12/09/23 16:35 12/09/23 17:11 12/09/23 17:11 Temperature 97 F L Temperature Source Temporal Pulse Rate 58 L Respiratory Rate 16 Blood Pressure 136/82 H Blood Pressure Mean 100 Pulse Ox 98 85 93 Oxygen Delivery Method Room Air Room Air Room Air Oxygen Flow Rate (L/min) 3 MDM <Arianna Young RN - Last Filed: 12/09/23 20:13> [facility] MDM Narrative Medical decision making narrative: IV initiated. Labwork obtained to evaluate for leukocytosis, anemia, and electrolyte derangement. IV fluids administered and patient given Zofran. I have personally performed a face to face assessment of the patient and have reviewed the STEPHON Note. I performed a substantive portion of the visit including all aspects of the following. My [place] findings include: History is [72-year-old male was drinking whiskey at home and started having nausea and vomiting. No diarrhea. No abdominal pain. No hematemesis, fever or melena.] Exam is [72-year-old male appears intoxicated. Vital signs are stable and afebrile. H EENT exam unremarkable. Neck nontender. Lungs clear to auscultation bilaterally. Heart regular rhythm rate about 60 no murmur. Chest wall and ribs nontender. Abdomen soft, nontender, nondistended normal bowel sounds without peritoneal signs. Right upper or right lower quadrants are both unremarkable. There is no obstruction. Moving all 4 extremities. Nontender no deformity. Neurologically he is awake. He is arousable. But appears intoxicated.] Medical Decision Making [72-year-old male drinking alcohol and nausea and vomiting. Treated with IV Zofran and IV fluids. Screening labs and alcohol level being obtained.] Other additions or changes: [None] Lab Data Labs: Laboratory Results - last 24 hr 12/09/23 17:15 WBC 6.2 RBC 3.78 L Hgb 12.9 L Hct 35.2 L MCV 93.1 MCH 34.1 H MCHC 36.6 H RDW Std Deviation 45.9 H RDW Coeff of Karlee 13.4 Plt Count 315 MPV 9.0 Immature Gran % (Auto) 0.800 Neut % (Auto) 54.3 Lymph % (Auto) 33.8 [place] % (Auto) 7.1 Eos % (Auto) 3.2 Baso % (Auto) 0.8 Absolute Neuts (auto) 3.4 Absolute Lymphs (auto) 2.09 Nucleated RBC % 0 Sodium 141 Potassium 3.2 L Chloride 107 Carbon Dioxide 25.0 Anion Gap 9 BUN 14 Creatinine 1.16 Estim Creat Clear Calc 71.75 Est GFR (MDRD) Af Amer 79 Est GFR (MDRD) Non-Af 65 BUN/Creatinine Ratio 12.1 Glucose 117 H Calcium 8.2 L Total Bilirubin 0.30 AST 9 L ALT 14 L Alkaline Phosphatase 105 Total Protein 7.3 Albumin 3.4 Globulin 3.9 Albumin/Globulin Ratio 0.9 Lipase 26 Ethyl Alcohol 163.0 Differential Diagnosis Chest pain/SOB: CHF Abdominal Pain: UTI Differential Diagnosis: Alcohol intoxication Management Discussion w/another healthcare provider: Other (Dr. Mustafa, ED provider.) Treatment and Re-Evaluation :: Lab work reviewed. CBC shows a normal white blood cell count of 6.2. Hemoglobin 12.9. Platelets 315. Chemistry shows slightly decreased potassium at 3.2, slightly elevated glucose at 117. Calcium is slightly decreased at 8.2. Alcohol level is 163. Family arrived at the bedside and reports the can monitor patient overnight. Patient and family are aware that he is unable to drive tonight due to intoxication. Patient is advised to drink plenty of fluids and rest. He is advised to avoid drinking for the next few days. He will be given Zofran as needed for nausea. Patient and family agreeable to plan and discharged home. <Dr. Jeremy Mustafa MD - Last Filed: 12/09/23 18:13> [facility] Narrative Medical decision making narrative: I have personally performed a face to face assessment of the patient and have reviewed the STEPHON Note. I performed a substantive portion of the visit including all aspects of the following. My [place] findings include: History is [72-year-old male was drinking whiskey at home and started having nausea and vomiting. No diarrhea. No abdominal pain. No hematemesis, fever or melena.] Exam is [72-year-old male appears intoxicated. Vital signs are stable and afebrile. H EENT exam unremarkable. Neck nontender. Lungs clear to auscultation bilaterally. Heart regular rhythm rate about 60 no murmur. Chest wall and ribs nontender. Abdomen soft, nontender, nondistended normal bowel sounds without peritoneal signs. Right upper or right lower quadrants are both unremarkable. There is no obstruction. Moving all 4 extremities. Nontender no deformity. Neurologically he is awake. He is arousable. But appears intoxi cated.] Medical Decision Making [72-year-old male drinking alcohol and nausea and vomiting. Treated with IV Zofran and IV fluids. Screening labs and alcohol level being obtained.] Other additions or changes: [None] History & Record Review Discussion w/independent historian: Patient Additional record(s) reviewed:: Prior inpatient record, Prior outpatient record, Prior ED visit and Prior labs Lab Data Attestation: I reviewed the patient's lab results. Lab results narrative: CBC shows white count 6.2 H&H 12.9 and 35.2 is a history of prior anemia platelets 315. Electrolytes show potassium of 3.2 gap of 9. Normal BUN of 14 creatinine 1.1. Glucose 117. Liver enzymes normal. Lipase normal at 26. Alcohol is elevated at 163 consistent with intoxication. Labs: Laboratory Results - last 24 hr 12/09/23 17:15 WBC 6.2 RBC 3.78 L Hgb 12.9 L Hct 35.2 L MCV 93.1 MCH 34.1 H MCHC 36.6 H RDW Std Deviation 45.9 H RDW Coeff of Karlee 13.4 Plt Count 315 MPV 9.0 Immature Gran % (Auto) 0.800 Neut % (Auto) 54.3 Lymph % (Auto) 33.8 [place] % (Auto) 7.1 Eos % (Auto) 3.2 Baso % (Auto) 0.8 Absolute Neuts (auto) 3.4 Absolute Lymphs (auto) 2.09 Nucleated RBC % 0 Sodium 141 Potassium 3.2 L Chloride 107 Carbon Dioxide 25.0 Anion Gap 9 BUN 14 Creatinine 1.16 Estim Creat Clear Calc 71.75 Est GFR (MDRD) Af Amer 79 Est GFR (MDRD) Non-Af 65 BUN/Creatinine Ratio 12.1 Glucose 117 H Calcium 8.2 L Total Bilirubin 0.30 AST 9 L ALT 14 L Alkaline Phosphatase 105 Total Protein 7.3 Albumin 3.4 Globulin 3.9 Albumin/Globulin Ratio 0.9 Lipase 26 Ethyl Alcohol 163.0 Discharge Plan Triage Chief Complaint: Nausea/Vomiting Other Complaint: ETOH Intox ED Provider: Jeremy Mustafa Dx/Rx/DC Orders Clinical Impression: Alcohol abuse, Alcohol intoxication, Nausea & vomiting Prescriptions: New ondansetron 4 mg tablet,disintegrating 4 mg PO Q6H PRN (Reason: nausea and vomiting) Qty: 7 0RF No Action duloxetine [Cymbalta] 60 mg capsule,delayed release(DR/EC) 60 mg PO DAILY zolpidem 10 mg tablet 10 mg PO QHS Patient Comments: TAKE 1 TABLET BY MOUTH DAILY AT BEDTIME NEEDED FOR INSOMNIA hydromorphone 4 mg tablet 4 mg PO Q8H PRN (Reason: pain) Patient Comments: TAKE 1 TABLET BY MOUTH THREE TIMES DAILY NEEDED for severe intactable pain omeprazole 20 mg capsule,delayed release(DR/EC) 20 mg PO DAILY Patient Comments: TAKE 1 TABLET BY MOUTH DAILY hydroxyzine HCl 25 mg tablet 25 mg PO DAILY Patient Comments: TAKE 1 TABLET BY MOUTH DAILY NEEDED FOR ANXIETY tamsulosin 0.4 mg capsule 0.4 mg PO DAILY Patient Comments: TAKE 1 CAPSULE BY MOUTH at NIGHT tizanidine 4 MG tablet 4 mg PO Q8H PRN (Reason: Pain) Patient Comments: MUSCLE RELAXANT albuterol sulfate [Ventolin HFA] 90 mcg/actuation HFA aerosol inhaler 1 - 2 puff inhalation Q4H PRN PRN (Reason: Wheezing) Qty: 1 0RF gabapentin 600 mg tablet 600 mg PO TID atenolol 50 mg tablet 50 mg PO DAILY duloxetine 30 mg capsule,delayed release(DR/EC) 30 mg PO DAILY Primary Care Provider: Oracio Hall Referrals: Oracio Hall, [Primary Care Provider] - 3-5 Days if not improving Activity Restrictions/Additional Instructions: Plenty of fluids and rest. Zofran as needed for nausea. Follow-up with your doctor if not improving. Return if feeling worse. Your alcohol level tonight was 163 which is twice the legal limit. I would not drink any alcohol for the next several days. Disposition Disposition: Home, Self Care
--- NOTE | 2023-12-09 18:07 | EDS_ITS ---
HPI History of Present Illness Chief Complaint: Nausea/Vomiting [facility] Medical History Anxiety and depression Arthritis Asthma Curiel palsy Chronic cough Chronic pain CKD (chronic kidney disease), stage III COPD (chronic obstructive pulmonary disease) CPAP (continuous positive airway pressure) dependence GERD (gastroesophageal reflux disease) History of back problems History of steroid therapy HTN (hypertension) Inguinal hernia bilateral, non-recurrent Obesity PHIL on CPAP Restless legs Smoker Ventral incisional hernia without obstruction or gangrene Wears glasses Home Medications tizanidine 4 mg tablet 4 mg PO Q8H PRN Pain 03/31/16 [History Last Taken Unknown] duloxetine 60 mg capsule,delayed release (Cymbalta) 60 mg PO DAILY mental health 07/18/20 [History Last Taken Unknown] albuterol sulfate 90 mcg/actuation aerosol inhaler (Ventolin HFA) 1 - 2 puff inhalation Q4H PRN PRN Wheezing ##1 12/20/22 [Rx Last Taken Unknown] hydromorphone 4 mg tablet 4 mg PO Q8H PRN pain 05/04/23 [History Last Taken Unknown] hydroxyzine HCl 25 mg tablet 25 mg PO DAILY itching 05/04/23 [History Last Taken 05/11/23] omeprazole 20 mg capsule,delayed release 20 mg PO DAILY reflux 05/04/23 [History Last Taken Unknown] tamsulosin 0.4 mg capsule 0.4 mg PO DAILY prostate 05/04/23 [History Last Taken Unknown] zolpidem 10 mg tablet 10 mg PO QHS sleep 05/04/23 [History Last Taken Unknown] atenolol 50 mg tablet 50 mg PO DAILY blood pressure 12/01/23 [History Last Taken Unknown] duloxetine 30 mg capsule,delayed release 30 mg PO DAILY mental health 12/01/23 [History Last Taken Unknown] gabapentin 600 mg tablet 600 mg PO TID nerve pain 12/01/23 [History Last Taken Unknown] Allergy/AdvReac Type Severity Reaction Status Date / Time carisoprodol [From Soma] Allergy Other Verified 12/01/23 16:55 metoclopramide HCl AdvReac Upset Verified 12/01/23 16:55 [From Reglan] Stomach pregabalin [From Lyrica] AdvReac Upset Verified 12/01/23 16:55 Stomach Family History (Updated 12/02/23 @ 03:[address] Elyse Simons MD) Father Lung disease Cancer lung Brother Cancer lung Mother Hypertension Surgical History ankle surgery H/O colonoscopy H/O neck surgery History of colonoscopy (~07/2020) History of inguinal hernia repair, bilateral lower back surgery Social History (Updated 12/02/23 @ 03:[address] Elyse Simons MD) household members: significant other Smoking Status: Current every day smoker tobacco type: cigarettes Tobacco: How many years used: 50 Electronic Cigarette Use: not used how long ago did patient quit smokin, 2-3pk/day->quit for many yrs, started again over last 6-7 months. second hand exposure: Yes alcohol intake: never substance use type: does not use caffeine: Yes Type: coffee Number of servings: 3 what type of physical activity do you participate in: bicycling frequency: daily duration: 15-30 minutes/day EXAM Physical Exam Const Vital Signs: 12/09/23 16:35 12/09/23 17:11 12/09/23 17:11 Temperature 97 F L Temperature Source Temporal Pulse Rate 58 L Respiratory Rate 16 Blood Pressure 136/82 H Blood Pressure Mean 100 Pulse Ox 98 85 93 Oxygen Delivery Method Room Air Room Air Room Air Oxygen Flow Rate (L/min) 3 MDM MDM Lab Data Labs: Laboratory Results - last 24 hr 12/09/23 17:15 WBC 6.2 RBC 3.78 L Hgb 12.9 L Hct 35.2 L MCV 93.1 MCH 34.1 H MCHC 36.6 H RDW Std Deviation 45.9 H RDW Coeff of Karlee 13.4 Plt Count 315 MPV 9.0 Immature Gran % (Auto) 0.800 Neut % (Auto) 54.3 Lymph % (Auto) 33.8 [place] % (Auto) 7.1 Eos % (Auto) 3.2 Baso % (Auto) 0.8 Absolute Neuts (auto) 3.4 Absolute Lymphs (auto) 2.09 Nucleated RBC % 0 Sodium 141 Potassium 3.2 L Chloride 107 Carbon Dioxide 25.0 Anion Gap 9 BUN 14 Creatinine 1.16 Estim Creat Clear Calc 71.75 Est GFR (MDRD) Af Amer 79 Est GFR (MDRD) Non-Af 65 BUN/Creatinine Ratio 12.1 Glucose 117 H Calcium 8.2 L Total Bilirubin 0.30 AST 9 L ALT 14 L Alkaline Phosphatase 105 Total Protein 7.3 Albumin 3.4 Globulin 3.9 Albumin/Globulin Ratio 0.9 Lipase 26 Ethyl Alcohol 163.0 Discharge Plan Triage Chief Complaint: Nausea/Vomiting Other Complaint: ETOH Intox ED Provider: Jeremy Mustafa Dx/Rx/DC Orders Prescriptions: No Action duloxetine [Cymbalta] 60 mg capsule,delayed release(DR/EC) 60 mg PO DAILY zolpidem 10 mg tablet 10 mg PO QHS Patient Comments: TAKE 1 TABLET BY MOUTH DAILY AT BEDTIME NEEDED FOR INSOMNIA hydromorphone 4 mg tablet 4 mg PO Q8H PRN (Reason: pain) Patient Comments: TAKE 1 TABLET BY MOUTH THREE TIMES DAILY NEEDED for severe intactable pain omeprazole 20 mg capsule,delayed release(DR/EC) 20 mg PO DAILY Patient Comments: TAKE 1 TABLET BY MOUTH DAILY hydroxyzine HCl 25 mg tablet 25 mg PO DAILY Patient Comments: TAKE 1 TABLET BY MOUTH DAILY NEEDED FOR ANXIETY tamsulosin 0.4 mg capsule 0.4 mg PO DAILY Patient Comments: TAKE 1 CAPSULE BY MOUTH at NIGHT tizanidine 4 MG tablet 4 mg PO Q8H PRN (Reason: Pain) Patient Comments: MUSCLE RELAXANT albuterol sulfate [Ventolin HFA] 90 mcg/actuation HFA aerosol inhaler 1 - 2 puff inhalation Q4H PRN PRN (Reason: Wheezing) Qty: 1 0RF gabapentin 600 mg tablet 600 mg PO TID atenolol 50 mg tablet 50 mg PO DAILY duloxetine 30 mg capsule,delayed release(DR/EC) 30 mg PO DAILY Primary Care Provider: Oracio Hall Referrals: Oracio Hall DO [Primary Care Provider] -
[2023-12-09 20:15] VITALS: BP 130/60; PULSE 82; RESP 18; TEMP 36.6; O2SAT 93
== END 2023-12-09 20:17 | disposition home or self-care (01) ==
PROVIDERS: Emergency Provider Emergency Medicine; PCP Family Medicine; Visit Provider Emergency Medicine
DX: F10.129 Alcohol abuse with intoxication, unspecified (principal); J44.9 Chronic obstructive pulmonary disease, unspecified; R11.2 Nausea with vomiting, unspecified; F17.210 Nicotine dependence, cigarettes, uncomplicated; I12.9 Hypertensive chronic kidney disease with stage 1 through stage 4 chronic kidney disease, or unspecified chronic kidney disease; G47.33 Obstructive sleep apnea (adult) (pediatric); Z99.89 Dependence on other enabling machines and devices; F41.8 Other specified anxiety disorders; K21.9 Gastro-esophageal reflux disease without esophagitis; Z79.899 Other long term (current) drug therapy; Y90.6 Blood alcohol level of 120-199 mg/100 ml
CPT/HCPCS: 80053; 80320; 83690; 85025; 96361; 96374; 99283; G0480; J2405

== ENCOUNTER → 2024-01-04 | Outpatient (CLI) | payer MEDICARE, SELFPAY ==
[2024-01-04 12:54] LABS: Amphetamine Urine VISTA NEGATIVE (<1000 ng/mL); Barbiturate Urine VISTA NEGATIVE (< 200 ng/mL); Benzodiazepine Urine VISTA NEGATIVE (< 200 ng/mL); Cocaine Urine VISTA NEGATIVE (< 300 ng/mL); Ecstacy Urine VISTA NEGATIVE (< 500 ng/mL); Methadone Urine VISTA NEGATIVE (< 300 ng/mL); PCP Urine VISTA NEGATIVE (< 25 ng/mL); THC Urine VISTA NEGATIVE (< 50 ng/mL); Vista UDS pH Range 6
== END | disposition home or self-care (01) ==
PROVIDERS: PCP Family Medicine; Referring Provider Family Medicine; Visit Provider Family Medicine
DX: Z79.899 Other long term (current) drug therapy (principal)
CPT/HCPCS: 80307

== ENCOUNTER 2024-01-26 15:04 | Emergency (ER) | payer MEDICARE, SELFPAY ==
[2024-01-26 15:06] VITALS: BP 158/115; PULSE 77; RESP 17; TEMP 36.1; O2SAT 96; BMI 29.0
--- NOTE | 2024-01-26 16:28 | CT_ITS ---
INDICATION: headache EXAMINATION: CT BRAIN - CT Head or Brain W/O Contrast Injection TECHNIQUE: Multiple axial images were obtained of the head without intravenous contrast. A radiation dose optimization technique was used for this scan. IV Contrast dosage and agent: None. COMPARISON: 12/01/2023 FINDINGS: BRAIN PARENCHYMA: No intra- or extra-axial hemorrhage. No evidence of acute infarct. No intracranial mass or mass effect. There is preservation of the taveras/white matter interface. Posterior fossa structures are unremarkable. CSF SPACES: Appropriate for age. No hydrocephalus. Basal cisterns are patent. CALVARIUM, SKULL BASE, PARANASAL SINUSES AND MASTOID AIR CELLS: Prior sinus surgery with mild diffuse mucoperiosteal thickening. No discrete lytic or blastic abnormalities. ORBITS: Both globes, extraocular muscles, optic nerves and retrobulbar fat appear unremarkable. CT/Brain/Head without Contrast IMPRESSION: No acute intracranial findings. Electronically Signed: Jan Arellano MD at 17:29 EDT ,
--- NOTE | 2024-01-26 16:29 | EX.ED.VIS.HA ---
HPI History of Present Illness Chief Complaint: Headache Informant: patient Onset/Context/Timing Onset: Weeks Context: Gradual Timing: Continuous Current Severity: Severe Maximum Severity: Severe Associated Symptoms/Injury Associated Symptoms: Positive for Nausea, Vomiting and Photophobia; Negative for Fever, Sore Throat, Numbness, Tingling or Visual Loss Injury - [place]: Negative for Direct Trauma, Fall or Assault Narrative Narrative: 73-year-old male states he had a severe headache for last 3 weeks. Says it comes up from behind the back of his neck into his head. He has had associated nausea and vomiting. He says been continuous for 3 weeks. Denies any trauma. Denies any fever. Denies any sinus congestion. Denies being on blood thinner medication. He has had a recent admission several weeks ago. Denies any prior head surgery did have extensive neck surgery with orthopedic hardware. Prior similar symptoms: No Recent Illness/Hospitalization: Yes [facility] Medical History CKD (chronic kidney disease), stage III Anxiety and depression PHIL on CPAP Spinal stenosis, lumbar DDD (degenerative disc disease), lumbar Wears glasses History of steroid therapy Restless legs GERD (gastroesophageal reflux disease) Smoker CPAP (continuous positive airway pressure) dependence Chronic cough Inguinal hernia bilateral, non-recurrent Ventral incisional hernia without obstruction or gangrene Arthritis History of back problems Stage 1 mild COPD by GOLD classification HTN (hypertension) Obesity CKD stage III PHIL (obstructive sleep apnea) Abnormal chest CT Central sleep apnea COPD (chronic obstructive pulmonary disease) Asthma Chronic pain Depression Hemoptysis Curiel palsy Home Medications ?Medication ?Instructions ?Recorded ?Last Taken ?Type tizanidine 4 mg tablet 4 mg PO Q8H PRN Pain 03/31/16 Unknown History duloxetine 60 mg capsule,delayed 60 mg PO DAILY mental health 07/18/20 Unknown History release (Cymbalta) albuterol sulfate 90 mcg/actuation 1 - 2 puff inhalation Q4H PRN PRN 12/20/22 Unknown Rx aerosol inhaler (Ventolin HFA) Wheezing ##1 hydromorphone 4 mg tablet 4 mg PO Q8H PRN pain 05/04/23 Unknown History hydroxyzine HCl 25 mg tablet 25 mg PO DAILY itching 05/04/23 05/11/23 History omeprazole 20 mg capsule,delayed 20 mg PO DAILY reflux 05/04/23 Unknown History release tamsulosin 0.4 mg capsule 0.4 mg PO DAILY prostate 05/04/23 Unknown History zolpidem 10 mg tablet 10 mg PO QHS sleep 05/04/23 Unknown History atenolol 50 mg tablet 50 mg PO DAILY blood pressure 12/01/23 Unknown History duloxetine 30 mg capsule,delayed 30 mg PO DAILY mental health 12/01/23 Unknown History release gabapentin 600 mg tablet 600 mg PO TID nerve pain 12/01/23 Unknown History ondansetron 4 mg disintegrating 4 mg PO Q6H PRN nausea and 12/09/23 Unknown Rx tablet vomiting #7 tabs Allergy/AdvReac Type Severity Reaction Status Date / Time carisoprodol (From Soma) Allergy Other Verified 01/26/24 15:07 metoclopramide HCl (From AdvReac Upset Verified 01/26/24 15:07 Reglan) Stomach pregabalin (From Lyrica) AdvReac Upset Verified 01/26/24 15:07 Stomach Family History Father Lung disease Cancer lung Brother Cancer lung Mother Hypertension Surgical History History of inguinal hernia repair, bilateral History of colonoscopy (~07/2020) H/O colonoscopy H/O neck surgery ankle surgery lower back surgery Social History household members: significant other Smoking Status: Current every day smoker tobacco type: cigarettes Tobacco: How many years used: 50 Electronic Cigarette Use: not used how long ago did patient quit smokin, 2-3pk/day->quit for many yrs, started again over last 6-7 months. second hand exposure: Yes alcohol intake: never substance use type: does not use caffeine: Yes Type: coffee Number of servings: 3 what type of physical activity do you participate in: bicycling frequency: daily duration: 15-30 minutes/day ROS ROS ED Review of Systems ROS Unobtainable: Denies due to encephalopathy Constitutional Constitutional ED: Denies chills or fever(s) Eyes Eyes: Denies blurry vision ENT ENT ED: Denies ear pain Cardiovascular Cardiovascular: Denies chest pain Respiratory/Chest Respiratory/Chest: Denies cough or dyspnea Gastrointestinal Gastrointestinal: Reports nausea and vomiting; Denies abdominal pain, constipation, diarrhea or melena Genitourinary Genitourinary ED: Denies dysuria or hematuria Musculoskeletal Musculoskeletal: Denies arthralgias, back pain, myalgias or neck pain Integumentary Denies abscess or Abrasions Neurologic Neurologic: Reports headache(s); Denies paresthesias or weakness Psychiatric Psychiatric: Denies anxiety, depression, suicidal ideation or suicidal thoughts Endocrine Endocrinology: Denies polydipsia, polyphagia or polyuria Hematologic/Lymphatic Hematologic/Lymphatic: Denies easy bleeding, easy bruising or lymphadenopathy Allergic/Immunologic Allergic/Immunologic ED: Denies mouth swelling, tongue swelling or urticaria EXAM Physical Exam Narrative Exam Narrative: 69-year-old male vital signs stable afebrile. HEENT exam pupils round react to light. Extra motions are intact. No facial droop. Normal speech. No signs of trauma to his face or scalp. No hematomas or tenderness. Neck nontender no meningismus. Lungs clear to auscultation bilaterally. Heart regular rhythm rate about 75 no murmur. Chest wall and ribs nontender. Abdomen soft nontender. Moving all 4 extremities. 5 out of 5 behavioral health director strength. Dorsi plantarflexion intact. Neurologically he is awake and alert. He is answering questions following commands. No focal motor deficit. NIH 0. Const Vital Signs: 01/26/24 15:06 01/26/24 17:06 01/26/24 19:00 Temperature 97 F L Temperature Source Temporal Pulse Rate 77 81 75 Respiratory Rate 17 19 H Blood Pressure 158/115 H 149/64 H 144/84 H Blood Pressure Mean 129 92 104 Pulse Ox 96 97 Oxygen Delivery Method Room Air Room Air Positive well nourished and well developed; Negative for cachectic, contractures or unkempt General Appearance ED: well developed and NAD; Negative for unkempt, cachectic, contractures, cyanotic, diaphoretic or pallor Nutritional Appearance: Negative for cachectic HEENT Reports normocephalic and moist mucous membranes atraumatic; Negative for trauma, tenderness, temporal artery tenderness or vesicular rash Face and Sinus: Negative for sinus tenderness Eyes PERRL and EOMs intact bilaterally General Eye ED: Negative for pale conjunctiva or scleral icterus Neck no lymphadenopathy, supple, no meningeal signs and no JVD General: Negative for tenderness or other Resp normal respiratory effort and clear to auscultation bilaterally Effort and Inspection: Negative for retractions Auscultation: Negative for rales, rhonchi, wheezes or diminished lung sounds Cardio regular rate, regular rhythm, S1 normal heart sound, S2 normal heart sound and no murmurs Rate: Negative for bradycardia or tachycardic Rhythm: Negative for abnormal rhythm GI non-tender and non-distended Auscultation: normoactive bowel sounds Palpation: soft; Negative for firm, tender or guarding Back/Spine no CVA tenderness General Back: Negative for CVA tenderness Cervical Spine: Negative for cervical spine tenderness Thoracic Spine / Upper Back: Negative for thoracic spinal tenderness Lumbar Spine / Lower Back: Negative for lumbar spinal tenderness Extremity normal to inspection and full ROM General Extremety ED: Negative for edema or tenderness General Extremity: Negative for edema Neuro oriented x3 and CN's II-XII intact bilaterally Sensorium / Orientation: awake, alert, oriented to person, oriented to place and oriented to time; Negative for orientation impaired or lethargic Coordination / Balance: [id number] test normal Speech: speech normal Motor Exam: strength 5/5 throughout Psych mental status grossly normal Appearance: Negative for unkempt Attitude: No agitated Mood & Affect: Negative for depressed, anxious or tearful Skin General Skin Exam: Negative for jaundice or pallor Lesions: no lesions Rashes: no rashes MDM MDM MDM Narrative Medical decision making narrative: 73-year-old male with severe headache for the last 3 weeks. Reportedly on no blood thinners. Reportedly no recent head trauma nor fever. Treated with IV morphine for his pain and Zofran for his nausea. IV fluids. CAT scan labs are pending. Repeat exam patient is still having pain at 8 PM. His neurologic exam otherwise exam is unchanged. He said to get no relief with the 8 mg of IV morphine we initially treated him with. He will be given half milligram of Dilaudid. He uses Dilaudid at home for chronic pain. He had extensive prior neck surgery. He will be discharged home to follow-up with his primary care physician for further evaluation and referral. He may need to see one of the local spine surgeons. His headache may be coming from referred pain from his neck from his prior surgery. History & Record Review Discussion w/independent historian: Patient Additional record(s) reviewed:: Prior inpatient record, Prior outpatient record, Prior ED visit and Prior labs Lab Data Attestation: I reviewed the patient's lab results. Lab results narrative: CBC white count of 7. H&H 13 and 39. Platelets 254. Electrolytes sodium 133. Potassium 3.2. Gap 3. BUN and creatinine are 19 and 1. Glucose 117. Labs: Laboratory Results - last 24 hr 01/26/24 16:40 WBC 7.9 RBC 4.33 L Hgb 13.7 Hct 39.2 L MCV 90.5 MCH 31.6 MCHC 34.9 RDW Std Deviation 40.4 RDW Coeff of Karlee 12.3 Plt Count 254 MPV 8.3 Immature Gran % (Auto) 0.400 Neut % (Auto) 73.6 H Lymph % (Auto) 18.2 L [place] % (Auto) 6.6 Eos % (Auto) 0.8 Baso % (Auto) 0.4 Absolute Neuts (auto) 5.9 Absolute Lymphs (auto) 1.44 Nucleated RBC % 0 Sodium 133 L Potassium 3.2 L Chloride 100 Carbon Dioxide 30.0 Anion Gap 3 L BUN 19 H Creatinine 1.16 Estim Creat Clear Calc 67.55 Est GFR (MDRD) Af Amer 79 Est GFR (MDRD) Non-Af 65 BUN/Creatinine Ratio 16.4 Glucose 117 H Calcium 9.0 Radiography Diagnostic Testing: Clinical Impression(s) from Imaging Studies Brain CT 01/26/24 16:28 IMPRESSION: No acute intracranial findings. Electronically Signed: Jan Arellano MD at 17:29 EDT Reading Location ID and State: [facility] / [place] Tel , Service support , Discharge Plan Triage Chief Complaint: Headache ED Provider: Jeremy Mustafa Dx/Rx/DC Orders Clinical Impression: Headache, History of spinal surgery, History of COPD Instructions: ED Headache Unspecified Prescriptions: No Action duloxetine [Cymbalta] 60 mg capsule,delayed release(DR/EC) 60 mg PO DAILY zolpidem 10 mg tablet 10 mg PO QHS Patient Comments: TAKE 1 TABLET BY MOUTH DAILY AT BEDTIME NEEDED FOR INSOMNIA hydromorphone 4 mg tablet 4 mg PO Q8H PRN (Reason: pain) Patient Comments: TAKE 1 TABLET BY MOUTH THREE TIMES DAILY NEEDED for severe intactable pain omeprazole 20 mg capsule,delayed release(DR/EC) 20 mg PO DAILY Patient Comments: TAKE 1 TABLET BY MOUTH DAILY hydroxyzine HCl 25 mg tablet 25 mg PO DAILY Patient Comments: TAKE 1 TABLET BY MOUTH DAILY NEEDED FOR ANXIETY tamsulosin 0.4 mg capsule 0.4 mg PO DAILY Patient Comments: TAKE 1 CAPSULE BY MOUTH at NIGHT tizanidine 4 MG tablet 4 mg PO Q8H PRN (Reason: Pain) Patient Comments: MUSCLE RELAXANT albuterol sulfate [Ventolin HFA] 90 mcg/actuation HFA aerosol inhaler 1 - 2 puff inhalation Q4H PRN PRN (Reason: Wheezing) Qty: 1 0RF gabapentin 600 mg tablet 600 mg PO TID atenolol 50 mg tablet 50 mg PO DAILY duloxetine 30 mg capsule,delayed release(DR/EC) 30 mg PO DAILY ondansetron 4 mg tablet,disintegrating 4 mg PO Q6H PRN (Reason: nausea and vomiting) Qty: 7 0RF Primary Care Provider: Oracio Hall Referrals: Oracio Hall, DO [Primary Care Provider] - As soon as possible Activity Restrictions/Additional Instructions: Take your pain medications as home as prescribed. Call and follow-up with Dr. Hall for further evaluation. He may want to refer you to one of the local spine physicians for further evaluation of your prior neck surgery. I believe the headache may be coming from your neck. Print Language: Lithuanian Disposition Disposition: Home, Self Care
[2024-01-26] MEDS: Ondansetron 4 MG/2 ML Vial IV (16:45)
[2024-01-26] MEDS: morphine 8 MG/ML Syringe 6 MG IV (16:45)
[2024-01-26 16:49] LABS: Absolute Lymphocyte Count 1.44 X10^3/uL (0.83-4.51); Absolute Neutrophil Count 5.9 X10^3/uL (2.0-7.7); Basophil# 0.03 X10^3/uL; Basophil% 0.4 % (0-1); Eosinophil# 0.06 X10^3/uL; Eosinophils% 0.8 % (0-5); Hematocrit 39.2 % (40-54); Hemoglobin 13.7 g/dL (13.0-16.5); Lymphocyte # 1.44 X10^3/ul (0.83-4.51); Lymphocyte % 18.2 % (19-41); Mean Corp Hgb Conc 34.9 g/dL (32-36); Mean Corpuscular Hgb 31.6 pg (27.0-32.0); Mean Corpuscular Volume 90.5 fL (80-94); Mean Platelet Vol. 8.3 fl (6.2-12.0); Monocyte# 0.52 X10^3/uL; Monocyte% 6.6 % (0-10); NRBC Flagged by Analyzer 0 % (0-5); Neutrophil # 5.85 X10^3/uL (2.7-7.7); Neutrophil % 73.6 % (47-70); Platelet Count 254 K/mm3 (150-450); RBC Distribution Width CV 12.3 % (11.6-14.6); RBC Distribution Width SD 40.4 fl (35.1-43.9); Red Blood Count 4.33 M/mm3 (4.6-6.2); White Blood Count 7.9 K/mm3 (4.4-11.0)
[2024-01-26 17:02] LABS: Anion Gap 3 (5-15); BUN 19 mg/dL (7-18); BUN/Creat Ratio 16.4 RATIO (10-20); Chloride 100 mmol/L (98-107); Creatinine, Serum 1.16 mg/dL (0.70-1.30); EST Glomerular Filtration Rate 65 mL/min (>60); Est Glom Filt Rate - Afr Amer 79 mL/min (>60); Estimated Creatinine Clearance 67.55 ml/min; Glucose 117 mg/dL (74-106); Potassium 3.2 mmol/L (3.5-5.1); Sodium Level 133 mmol/L (136-145)
[2024-01-26 17:06] VITALS: BP 149/64; PULSE 81; RESP 19; O2SAT 97
[2024-01-26 19:00] VITALS: BP 144/84; PULSE 75
[2024-01-26] MEDS: HYDROmorphone 1 MG/ML Syringe IV (20:05)
[2024-01-26 20:22] VITALS: BP 160/85; PULSE 78; RESP 16; TEMP 36.5; O2SAT 98
== END 2024-01-26 20:23 | disposition home or self-care (01) ==
PROVIDERS: Emergency Provider Emergency Medicine; PCP Family Medicine; Visit Provider Emergency Medicine
DX: R51.9 Headache, unspecified (principal); J44.9 Chronic obstructive pulmonary disease, unspecified; N18.30 Chronic kidney disease, stage 3 unspecified; R11.2 Nausea with vomiting, unspecified; F17.210 Nicotine dependence, cigarettes, uncomplicated; G47.33 Obstructive sleep apnea (adult) (pediatric); Z99.89 Dependence on other enabling machines and devices; I12.9 Hypertensive chronic kidney disease with stage 1 through stage 4 chronic kidney disease, or unspecified chronic kidney disease; F41.8 Other specified anxiety disorders; K21.9 Gastro-esophageal reflux disease without esophagitis
CPT/HCPCS: 70450; 80048; 85025; 96374; 96375; 99282; J7030; A4216; J2405

== ENCOUNTER → 2024-05-19 | Outpatient (CLI) | payer MEDICARE, SELFPAY ==
[2024-05-19 15:55] LABS: Amphetamine Urine VISTA NEGATIVE (<1000 ng/mL); Barbiturate Urine VISTA NEGATIVE (< 200 ng/mL); Benzodiazepine Urine VISTA NEGATIVE (< 200 ng/mL); Cocaine Urine VISTA NEGATIVE (< 300 ng/mL); Ecstacy Urine VISTA NEGATIVE (< 500 ng/mL); Methadone Urine VISTA NEGATIVE (< 300 ng/mL); PCP Urine VISTA NEGATIVE (< 25 ng/mL); THC Urine VISTA NEGATIVE (< 50 ng/mL); Vista UDS pH Range 7
== END | disposition home or self-care (01) ==
PROVIDERS: PCP Family Medicine; Referring Provider Family Medicine; Visit Provider Family Medicine
DX: Z79.899 Other long term (current) drug therapy (principal)
CPT/HCPCS: 80307

== ENCOUNTER → 2024-06-03 | Outpatient (CLI) | payer MEDICARE, SELFPAY ==
--- NOTE | 2024-06-03 07:52 | ART_ITS ---
Reason For Study: PVD Procedure A bilateral lower extremity continuous wave Doppler with analog waveform analysis and ankle brachial indexes. Left Segmental Pressures Left brachial= 144mmHg. Left posterior tibial artery = 163mmHg. Left dorsalis pedis artery = 163mmHg. Left digit = 102 mmHg. Right Segmental Pressures Right brachial= 132mmHg. Right posterior tibial artery = 170mmHg. Right dorsalis pedis artery = 170mmHg. Right digit = 113 mmHg. Indices The right ankle brachial index by the posterior tibial artery is 1.18. The right ankle brachial index by the dorsalis pedis is 1.18. The right digital-brachial index is 0.78. The left ankle brachial index by the posterior tibial artery is 1.13. The left ankle brachial index by the dorsalis pedis is 1.13. The left digital-brachial index is 0.71. VL/Ankle Brachial Index Interpretation Summary Right POLO 1.18, normal. TBI and Doppler/PVR waveforms of the right leg normal a t rest. Left POLO 1.13, normal. Doppler/PVR waveforms of the left leg normal at rest. TB I diminished, pedal/digit disease vs spasm Ordering Physician: Tangela Hall Referring Physician: TANGELA HALL DO Performed By: Roxane Allan RDCS/RVT
== END | disposition home or self-care (01) ==
LOC: CVS 07:51
PROVIDERS: PCP Family Medicine; Referring Provider Family Medicine; Visit Provider Family Medicine
DX: I73.9 Peripheral vascular disease, unspecified (principal)
CPT/HCPCS: 93922

== ENCOUNTER 2024-08-26 11:07 | Inpatient (IN) | payer MEDICARE, SELFPAY ==
[2024-08-26] VITALS (13 sets, daily range): BP systolic 116–161; BP diastolic 78–98; PULSE 56–89; RESP 14–19; TEMP 35.9–36.9; O2SAT 93–98; BMI 28.0; BMI 27.1
--- NOTE | 2024-08-26 11:19 | EKG12_ITS ---
Test Reason : Blood Pressure : */* mmHG Vent. Rate : 59 BPM Atrial Rate : 59 BPM P-R Int : 158 ms QRS Dur : 90 ms QT Int : 516 ms P-R-T Axes : 25 57 58 degrees QTcB Int : 510 ms Sinus bradycardia with marked sinus arrhythmia Prolonged QT Abnormal ECG Confirmed by BRENDA MARX, HUMAIRA ([id number]), online content editor [employer] ([id number]) on 08/31/2024 1:32:06 P M Referred By: Confirmed By: HUMAIRA GUTIERREZ MD
--- NOTE | 2024-08-26 11:19 | CT_ITS ---
STUDY: CT BRAIN WITHOUT CONTRAST REASON FOR EXAM: Male, 73 years old. Confusion RADIATION DOSAGE (If Supplied By Facility): CTDIvol = ( 44.99 ) mGy, DLP = ( 829.85 ) mGycm TECHNIQUE: Transaxial CT imaging of the brain was performed without administration of intravenous contrast material. Individualized dose optimization techniques were used for this CT. COMPARISON: Comparison is made with prior study of January 26, 2024. FINDINGS: Normal soft tissue structures. Normal calvarium. There is mild cerebral atrophy with widening of the extra-axial spaces and ventricular dilatation. There are areas of decreased attenuation within the white matter tracts of the supratentorial brain, consistent with microvascular disease changes. Normal basal ganglia and thalami. Normal brainstem. Normal cerebellum. There is no intracranial hemorrhage. There are no findings of an acute ischemic infarction. Minimal mucosal thickening at the base of the maxillary sinuses bilaterally. Prior resection of the medial pineda of the maxillary sinuses. Mucosal thickening of the ethmoid sinuses. CT/Brain/Head without Contrast IMPRESSION: Chronic involutional changes of the brain. Electronically Signed: Daniel Campbell MD at 12:21 [facility] ,
--- NOTE | 2024-08-26 11:20 | CT_ITS ---
STUDY: CT ABDOMEN AND PELVIS WITH CONTRAST REASON FOR EXAM: Male, 73 years old. Epigastric pain, vomiting. Stage III kidney disease. RADIATION DOSAGE (If Supplied By Facility): CTDIvol = ( 20.75 ) mGy, DLP = ( 1047.85 ) mGycm TECHNIQUE: Transaxial images were obtained from the dome of the diaphragm to the symphysis pubis without oral contrast. IV 100mL Isovue-[id number] was administered. Sagittal and coronal images were reconstructed. Individualized dose optimization techniques were used for this CT. COMPARISON: Comparison is made with prior study dated April 26, 2020. FINDINGS: Mild degree of increased interstitial markings at the lung bases suggestive of bibasilar scarring. There are 2, adjacent noncalcified nodules measuring 7.8 mm in the lateral aspect of the left lower lobe. These are essentially unchanged. The visualized portions of the heart are within normal limits. There is evidence of central intrahepatic biliary ductal dilatation. Dilatation of the common bile duct down to the ampulla of Vater. The gallbladder is distended. There is a mild degree of gallbladder wall thickening. Cannot rule out tiny gallstones and sludge within the gallbladder lumen. Correlation with ultrasound is recommended. Normal spleen. Normal pancreas. Normal bilateral adrenal glands. Normal right kidney. Normal left kidney. Incidental note is made of a left retroaortic renal vein. There is diffuse gastric wall thickening. Clinical correlation recommended. Normal small intestine. Moderate amount of fecal material seen in the rectosigmoid colon. The patient is status post appendectomy. There is scattered atherosclerotic calcification of the abdominal aorta, without a demonstrated aneurysm. Normal inferior vena cava. Normal retroperitoneum. Normal urinary bladder. Normal abdominal wall. There are degenerative changes of the visualized lumbar spine. CT/Abdomen/Pelvis W IV Cont ONLY IMPRESSION: Stable noncalcified nodules in the left lower lobe. Fatty infiltration of the liver. Distention of the gallbladder with gallbladder wall thickening and dilated intrahepatic biliary ducts as well as the common bile duct. Can''t rule out choledocholithiasis. Mild thickening of the gallbladder wall. Correlation with ultrasound is recommended if clinically indicated. Diffuse gastric wall thickening. Electronically Signed: Daniel Campbell MD at 12:33 EST ,
--- NOTE | 2024-08-26 11:21 | EX.ED.DYSGE1 ---
HPI History of Present Illness Chief Complaint: General Illness Informant: patient, family and EMS Narrative Narrative: 73-year-old brought in by EMS with said complaints of vomiting and diarrhea. Patient denies having diarrhea but agrees that he has been vomiting and having some mild upper abdominal pain. Family present shortly thereafter and states they do not live with him, but the patient called them not feeling well, they went and found him on the floor having had fallen although the patient does not recall this, and unable to get up for an unclear amount of time. Roommate also told the family that he had a couple falls in the last couple days. The patient does not recall that denies having any pain or injury right now. Family states he is confused compared to normal right now. Given all of this the history is limited to this. [facility] Medical History CKD (chronic kidney disease), stage III Anxiety and depression PHIL on CPAP Spinal stenosis, lumbar DDD (degenerative disc disease), lumbar Wears glasses History of steroid therapy Restless legs GERD (gastroesophageal reflux disease) Smoker CPAP (continuous positive airway pressure) dependence Chronic cough Inguinal hernia bilateral, non-recurrent Ventral incisional hernia without obstruction or gangrene Arthritis History of back problems Stage 1 mild COPD by GOLD classification HTN (hypertension) Obesity CKD stage III PHIL (obstructive sleep apnea) Abnormal chest CT Central sleep apnea COPD (chronic obstructive pulmonary disease) Asthma Chronic pain Depression Hemoptysis Curiel palsy Home Medications ?Medication ?Instructions ?Recorded ?Last Taken ?Type tizanidine 4 mg tablet 4 mg PO Q8H PRN Pain 03/31/16 Unknown History duloxetine 60 mg capsule,delayed 60 mg PO DAILY mental health 07/18/20 Unknown History release (Cymbalta) albuterol sulfate 90 mcg/actuation 1 - 2 puff inhalation Q4H PRN PRN 12/20/22 Unknown Rx aerosol inhaler (Ventolin HFA) Wheezing ##1 hydromorphone 4 mg tablet 4 mg PO Q8H PRN pain 05/04/23 Unknown History hydroxyzine HCl 25 mg tablet 25 mg PO DAILY itching 05/04/23 05/11/23 History omeprazole 20 mg capsule,delayed 20 mg PO DAILY reflux 05/04/23 Unknown History release tamsulosin 0.4 mg capsule 0.4 mg PO DAILY prostate 05/04/23 Unknown History zolpidem 10 mg tablet 10 mg PO QHS sleep 05/04/23 Unknown History atenolol 50 mg tablet 50 mg PO DAILY blood pressure 12/01/23 Unknown History duloxetine 30 mg capsule,delayed 30 mg PO DAILY mental health 12/01/23 Unknown History release gabapentin 600 mg tablet 600 mg PO TID nerve pain 12/01/23 Unknown History ondansetron 4 mg disintegrating 4 mg PO Q6H PRN nausea and 12/09/23 Unknown Rx tablet vomiting #7 tabs Allergy/AdvReac Type Severity Reaction Status Date / Time carisoprodol (From Soma) Allergy Other Verified 01/26/24 15:07 metoclopramide HCl (From AdvReac Upset Verified 01/26/24 15:07 Reglan) Stomach pregabalin (From Lyrica) AdvReac Upset Verified 01/26/24 15:07 Stomach Family History Father Lung disease Cancer lung Brother Cancer lung Mother Hypertension Surgical History History of inguinal hernia repair, bilateral History of colonoscopy (~07/2020) H/O colonoscopy H/O neck surgery ankle surgery lower back surgery Social History (Updated 08/26/24 @ 11:[address] Eddi Castanon MD) household members: other details: roommate Smoking Status: Current every day smoker tobacco type: cigarettes Tobacco: How many years used: 50 Electronic Cigarette Use: not used how long ago did patient quit smokin, 2-3pk/day->quit for many yrs, started again over last 6-7 months. second hand exposure: Yes alcohol intake: never substance use type: does not use caffeine: Yes Type: coffee Number of servings: 3 what type of physical activity do you participate in: bicycling frequency: daily duration: 15-30 minutes/day ROS ROS ED Review of Systems ROS Unobtainable: due to mental status Constitutional Constitutional ED: Reports fatigue and weakness Eyes Eyes: Denies change in vision or diplopia ENT ENT ED: Denies rhinorrhea or sore throat Cardiovascular Cardiovascular: Denies chest pain or palpitations Respiratory/Chest Respiratory/Chest: Denies dyspnea Gastrointestinal Gastrointestinal: Reports nausea and vomiting; Denies diarrhea, hematemesis or hematochezia Musculoskeletal Musculoskeletal: Denies back pain, extremity pain or neck pain Integumentary Denies abscess or rash Neurologic Neurologic: Reports confusion; Denies headache(s), paresthesias or weakness EXAM Physical Exam Const Vital Signs: 08/26/24 11:08 08/26/24 12:11 08/26/24 13:00 Temperature 96.7 F L 98.3 F 97.9 F Temperature Source Oral Oral Oral Pulse Rate 57 L 59 L 77 Respiratory Rate 18 14 18 Blood Pressure 140/88 H 161/85 H 143/78 H Blood Pressure Mean 105 110 99 Pulse Ox 98 98 98 Oxygen Delivery Method Room Air Room Air Room Air 08/26/24 14:55 08/26/24 15:00 Temperature 98.2 F 98.2 F Temperature Source Oral Pulse Rate 89 63 Respiratory Rate 19 H 19 H Blood Pressure 157/98 H 157/98 H Blood Pressure Mean 117 117 Pulse Ox 97 97 Oxygen Delivery Method Positive well nourished and well developed General Appearance ED: well developed and NAD HEENT Reports dry mucous membranes HEENT Narrative: Edentulous normocephalic and atraumatic Mouth ED: Yes dry mucous membranes Mouth: dry mucous membranes Eyes PERRL and EOMs intact bilaterally Neck full ROM and supple Resp normal respiratory effort and clear to auscultation bilaterally Resp Narrative: Diminished breath sounds throughout Cardio regular rate and regular rhythm Cardio Narrative: Very faint heart sounds Peripheral Pulses: pulses 2+ throughout GI non-distended GI Narrative: Epigastric tenderness without guarding or rebound or pulsatile mass palpable. Normal inspection. Few laparoscopic abdominal well-healed surgical incisions. Auscultation: hypoactive bowel sounds Palpation: soft Back/Spine no CVA tenderness General Back: other FROM Extremity normal to inspection Extremity Narrative: Full range of motion throughout all 4 extremities without pain or limitation General Extremety ED: Negative for edema, pulses abnormal or tenderness General Extremity: Negative for edema or pulses abnormal Neuro CN's II-XII intact bilaterally and no sensory deficits noted Neuro Narrative: Speech is normal without dysarthria or aphasia. Extremity reflexes are normal and intact. No clonus. Sensorium / Orientation: awake, alert and orientation impaired Motor Exam: general weakness Psych mental status grossly normal Skin no rashes or lesions noted and no wounds MDM MDM MDM Narrative Medical decision making narrative: Wide differential here including intracranial hemorrhage, traumatic brain injury from his falls, gastroenteritis, bowel obstruction, lower lobe pneumonia, urine infection; this is not an exclusive list of possibilities. Performed a head CT on my interpretation it is negative for intracranial hemorrhage radiology in agreement. Chest x-ray 1 view negative for acute pneumonia on my interpretation radiology in agreement. His labs show renal insufficiency, I initially was not able to see old labs for comparison but after the patient was registered, I was able to see his old information; it appears that his renal function is acutely worse, likely due to vomiting/dehydration. His EKG shows sinus rhythm no acute injury pattern, and his liver enzymes and lipase are normal except for total bilirubin 1.1 which is just barely outside the normal range. When his CT of the abdomen/pelvis returned showing signs of acute gallbladder disease, it is apparent that this may be related and he has been sent for ultrasound for more details and to discern cholelithiasis and/or cholecystitis versus cholangitis possible choledocholithiasis. I reviewed the ultrasound images and the result which I agree with, radiology states there are gallstones, distention, as well as visualized choledocholithiasis. Discussed with surgery, GI, hospitalist; antibiotic started, pain medications given, patient stable. Maintaining n.p.o., GI may be able to perform ERCP today. Lab Data Attestation: I reviewed the patient's lab results. (no old labs avail for comparison) Labs: Laboratory Results - last 24 hr 08/26/24 08/26/24 11:21 12:46 WBC 9.5 RBC 4.61 Hgb 14.5 Hct 40.9 MCV 88.7 MCH 31.5 MCHC 35.5 RDW Std Deviation 43.3 RDW Coeff of Karlee 13.3 Plt Count 280 MPV 8.9 Immature Gran % (Auto) 0.600 Neut % (Auto) 61.6 Lymph % (Auto) 25.9 [place] % (Auto) 11.1 H Eos % (Auto) 0.4 Baso % (Auto) 0.4 Absolute Neuts (auto) 5.8 Absolute Lymphs (auto) 2.46 Nucleated RBC % 0 Sodium 137 Potassium 3.1 L Chloride 100 Carbon Dioxide 29.0 Anion Gap 8 BUN 33 H Creatinine 1.71 H Estim Creat Clear Calc 45.12 Est GFR (MDRD) Af Amer 51 L Est GFR (MDRD) Non-Af 42 L BUN/Creatinine Ratio 19.3 Glucose 103 Calcium 9.6 Total Bilirubin 1.10 H AST 13 L ALT 17 Alkaline Phosphatase 115 Total Creatine Kinase 129 Troponin I High Sens 21 Total Protein 7.7 Albumin 3.8 Globulin 3.9 Albumin/Globulin Ratio 1.0 Lipase 35 Urine Color Yellow Urine Clarity Clear Urine pH 6.0 Ur Specific [place] 1.020 Urine Protein 100 H Urine Glucose (UA) Normal Urine Ketones 5 H Urine Occult Blood Negative Urine Nitrite Negative Urine Bilirubin 1 H Urine Urobilinogen 1 H Ur Leukocyte Esterase 25 H Urine RBC 0 SEEN Urine WBC 0-5 SEEN Ur Squamous Epith Cells 0 SEEN Urine Bacteria 1+ Urine Mucus 0 SEEN Radiography Diagnostic Testing: Clinical Impression(s) from Imaging Studies Brain CT 08/26/24 11:19 IMPRESSION: Chronic involutional changes of the brain. Electronically Signed: Daniel Campbell MD at 12:21 EST , Abdomen/Pelvis CT 08/26/24 11:20 IMPRESSION: Stable noncalcified nodules in the left lower lobe. Fatty infiltration of the liver. Distention of the gallbladder with gallbladder wall thickening and dilated intrahepatic biliary ducts as well as the common bile duct. Can''t rule out choledocholithiasis. Mild thickening of the gallbladder wall. Correlation with ultrasound is recommended if clinically indicated. Diffuse gastric wall thickening. Electronically Signed: Daniel Campbell MD at 12:33 EST , Chest X-Ray 08/26/24 12:06 IMPRESSION: Hyperinflation. Stable mild increased markings at the lung bases suggestive of scarring. Electronically Signed: Daniel Campbell MD at 12:16 EST , Gallbladder Ultrasound 08/26/24 12:45 IMPRESSION: Dilated intrahepatic biliary ducts. Multiple gallstones with distention of the gallbladder and mild gallbladder wall thickening. Electronically Signed: Daniel Campbell MD at 13:45 EST , ADDENDUM: 08/26/24 1358 IMPRESSION: undefined I reviewed the CT abdomen/pelvis imaging and report which I agree with. Rhythm Strip Rhythm Strip: Sinus Rhythm Rate: 60 Ectopy: PAC(s) EKG Initial EKG: Attestation: I personally reviewed and interpreted this EKG as follows: Interpretation: Sinus Rhythm and No Acute Injury Pattern Comments: Nml axis & intervals except slightly long QTc and a PAC; otherwise nml EKG Management Discussion w/another healthcare provider: Hospitalist and [place] (Surgery Dr. Mooney, GI doctor friend) Discharge Plan Dx/Rx/DC Orders Clinical Impression: Cholelithiasis with choledocholithiasis, ROBERTO (acute kidney injury), Encephalopathy acute Disposition Disposition: Acute Care Hospital [facility]
[2024-08-26] MEDS: 0.9% Normal Saline (1000mL) 1,000 ML 1000 ML IV (11:24)
[2024-08-26] MEDS: Ondansetron 4 MG/2 ML Vial IV (11:25)
[2024-08-26 11:31] LABS: Absolute Lymphocyte Count 2.46 X10^3/uL (0.83-4.51); Absolute Neutrophil Count 5.8 X10^3/uL (2.0-7.7); Basophil# 0.04 X10^3/uL; Basophil% 0.4 % (0-1); Eosinophil# 0.04 X10^3/uL; Eosinophils% 0.4 % (0-5); Hematocrit 40.9 % (40-54); Hemoglobin 14.5 g/dL (13.0-16.5); Lymphocyte # 2.46 X10^3/ul (0.83-4.51); Lymphocyte % 25.9 % (19-41); Mean Corp Hgb Conc 35.5 g/dL (32-36); Mean Corpuscular Hgb 31.5 pg (27.0-32.0); Mean Corpuscular Volume 88.7 fL (80-94); Mean Platelet Vol. 8.9 fl (6.2-12.0); Monocyte# 1.05 X10^3/uL; Monocyte% 11.1 % (0-10); NRBC Flagged by Analyzer 0 % (0-5); Neutrophil # 5.84 X10^3/uL (2.7-7.7); Neutrophil % 61.6 % (47-70); Platelet Count 280 K/mm3 (150-450); RBC Distribution Width CV 13.3 % (11.6-14.6); RBC Distribution Width SD 43.3 fl (35.1-43.9); Red Blood Count 4.61 M/mm3 (4.6-6.2); White Blood Count 9.5 K/mm3 (4.4-11.0)
[2024-08-26 11:50] LABS: AST(SGOT) 13 U/L (15-37); Alanine Aminotransfer ALT/SGPT 17 U/L (16-61); Albumin, Serum 3.8 g/dL (3.2-5.0); Alkaline Phosphatase 115 U/L (45-117); Anion Gap 8 (5-15); BUN 33 mg/dL (7-18); BUN/Creat Ratio 19.3 RATIO (10-20); CPK Total, Creatine Kinase 129 U/L (39-308); Calcium,Total 9.6 mg/dL (8.5-10.1); Chloride 100 mmol/L (98-107); Creatinine, Serum 1.71 mg/dL (0.70-1.30); EST Glomerular Filtration Rate 42 mL/min (>60); Est Glom Filt Rate - Afr Amer 51 mL/min (>60); Estimated Creatinine Clearance 45.12 ml/min; Globulin 3.9 g/dL (2.2-4.2); Glucose 103 mg/dL (74-106); Lipase 35 U/L (13-75); Potassium 3.1 mmol/L (3.5-5.1); Protein, Total 7.7 g/dL (6.4-8.2); Sodium Level 137 mmol/L (136-145); Troponin-I HS 21 pg/mL (3.0-78.0)
--- NOTE | 2024-08-26 12:06 | RAD_ITS ---
STUDY: X-RAY CHEST REASON FOR EXAM: Male, 73 years old. Confusion, weakness TECHNIQUE: Single AP portable view of the chest. COMPARISON: Comparison is made with prior study September 27, 2018. FINDINGS: EKG electrodes are seen. There is hyperinflation of the lungs consistent with chronic obstructive lung disease (COPD). Stable mild scarring at the lung bases. There is no demonstrated pleural abnormality. Normal size heart. Normal mediastinum and jimmy. Normal visualized pulmonary arteries. There is atherosclerotic calcification of the aortic arch with tortuosity. There are diffuse degenerative changes of the visualized thoracic spine. Prior fusion of the lower cervical spine. There is no demonstrated abnormality of the visualized soft tissue structures of the upper abdomen. RAD/Chest 1 View (Portable) IMPRESSION: Hyperinflation. Stable mild increased markings at the lung bases suggestive of scarring. Electronically Signed: Daniel Campbell MD at 12:16 EST ,
[2024-08-26] MEDS: Acetaminophen 500 MG Tablet 1000 MG PO (12:40)
--- NOTE | 2024-08-26 12:45 | US_ITS ---
STUDY: ABDOMINAL ULTRASOUND - RIGHT UPPER QUADRANT REASON FOR VISIT: Male, 73 years old abdominal pain and vomiting. TECHNIQUE: Ultrasound evaluation of the right upper quadrant was performed with real-time and static taveras-scale imaging. TECHNICAL QUALITY: Adequate. COMPARISON: Comparison is made with prior CT scan of the abdomen and pelvis done earlier today. FINDINGS: Liver: The liver is mildly enlarged and measures 17.3 cm. There is normal echogenicity of the liver. The bile ducts are dilated. There is hepatic color flow. The direction of portal flow is hepatopetal. There is no demonstrated mass lesion. Gallbladder: There is a distended gallbladder. The gallbladder wall is slightly thickened and measures 3.2 mm. There is a negative sonographic Fagan''s sign. There is no pericholecystic fluid. There are multiple echogenic structures within the gallbladder, consistent with multiple gallstones. Common Bile Duct (C.B.D.): The common bile duct measures 8.6 mm. Pancreas: There is nonvisualization of the pancreas due to overlying bowel gas. Right Kidney: Normal size of the right kidney. The right kidney measures 9.3 cm x 5.5 cm x 6 cm. Normal renal cortex. The right cortex measures 1.3 cm. There is no demonstrated renal mass or cyst. There is no right hydronephrosis. US/Gallbladder IMPRESSION: Dilated intrahepatic biliary ducts. Multiple gallstones with distention of the gallbladder and mild gallbladder wall thickening. Electronically Signed: Daniel Campbell MD at 13:45 EST ,
[2024-08-26 12:50] LABS: Mucous, Urine 0 SEEN /hpf (<or=2+); Red Blood Cells-Urine 0 SEEN /hpf (0-5); Squamous Epithelial Cells - UA 0 SEEN /hpf (0-5)
[2024-08-26 12:51] LABS: Color, Urine Yellow (Yellow); Glucose, Dipstick Normal (Normal); Ketone-Dipstick 5 mg/dl (Negative); Leukocyte Esterase-Dipstick 25 /ul (Negative); Nitrite-Dipstick Negative (Negative); Occult Blood-Urine Negative /ul (Negative); Protein-Dipstick 100 mg/dl (Negative); Urine Bilirubin Dipstick 1 mg/dL (Negative); Urine Clarity Clear (Clear); Urine Urobilinogen 1 mg/dl (Normal)
[2024-08-26 12:57] LABS: Bacteria 1+ /hpf (None Seen); White Blood Cells 0-5 SEEN /hpf (0-5)
[2024-08-26] MEDS: Piperacil/Tazobactam 3.375 GM in 0.9% Normal Saline (50mL MB+) 50 ML IV ×2 (14:23→21:38)
[2024-08-26] MEDS: Morphine 2 MG/ML Syringe IV (14:24)
[2024-08-26] MEDS: 0.9% Normal Saline (1000mL) 1,000 ML 125 ML IV (16:55)
--- NOTE | 2024-08-26 17:29 | PCM.PRE.AN2 ---
ASA Classification* ASA Classification ASA Classification: 3 and E Assessment & Plan Anesthesia* Anesthesia Assessment Anesthesia Assessment: Discussed sedation and/or anesthesia options, risks, benefits, and alternatives with patient/parents/legal guardian/POA. Questions invited. The patient/parents/legal guardian/POA seems to understand and agrees to proceed with anesthesia plan. Reviewed the physical assessment, medical history, allergy history and patient home medications list prior to surgery/procedure/anesthetic and documented any changes. Performed airway and anesthesia risk assessments. Anesthesia Type Anesthesia Type: General Anesthesia Focused Assessment* Temperature: 97.9 F Pulse Rate: 56 Blood Pressure: 147/89 Respiratory Rate: 16 Pulse Ox: 96 Airway Assessment Mouth opens: >3 cm Mallampati Score: II Focused Labs Anesthesia Preop lab: CBC WBC 9.5 K/mm3 (4.4-11.0) 08/26/24 11:21 RBC 4.61 M/mm3 (4.6-6.2) 08/26/24 11:21 Hgb 14.5 g/dL (13.0-16.5) 08/26/24 11:21 Hct 40.9 % (40-54) 08/26/24 11:21 Plt Count 280 K/mm3 (150-450) 08/26/24 11:21 CHEMISTRY Potassium 3.1 mmol/L (3.5-5.1) L 08/26/24 11:21 Sodium 137 mmol/L (136-145) 08/26/24 11:21 Magnesium 2.1 mg/dL (1.6-2.6) 12/01/23 18:24 Phosphorus 3.3 mg/dL (2.5-4.9) 04/02/16 06:20 BUN 33 mg/dL (7-18) H 08/26/24 11:21 Creatinine 1.71 mg/dL (0.70-1.30) H 08/26/24 11:21 Glucose 103 mg/dL (74-106) 08/26/24 11:21 TSH 3.00 uIU/mL (0.358-3.74) 10/31/16 13:06 COAG PT 16.2 SECONDS (11.7-14.9) H 12/01/23 18:24 Pre-Assessment Diagnosis/Proposed Procedure Planned Operative Procedure(s): ERCP Anesthesia History Anesthesia History - sharepoint application developer: Anesthesia History - sharepoint application developer Hx Hospitalization No 07/27/23 09:53 Any Problems With Anesthesia No 08/26/24 17:11 Cholinesterase deficiency No 08/26/24 17:11 You/Your Family Experience No 08/26/24 17:11 fever (hyperthermia) with Relationship Recent Exposure to Contagious No 08/26/24 17:11 Disease Does patient have nerve No 08/26/24 17:11 stimulator Patient instructed to have No 08/26/24 17:11 device shut off --Does patient have Pacemaker No 08/26/24 17:16 or ICD? When Was Last Pacemaker Check QUESTION #4 FULL TEXT: You/Your Family Experience fever (hyperthermia) with Anesthesia Last Oral Intake Last Oral intake: Last Oral Intake NPO since 08:00 08/26/24 17:16 Meds taken in AM with sips of No 08/26/24 17:16 water? Meds patient instructed to take am of surgery PONV PONV - sharepoint application developer: PONV - sharepoint application developer Female HX of Motion Sickness HX of N/V After Surgery Non-Smoker Duration of Surgery greater than 60 minutes Number of Risk Factors PONV Score Height & Weight Height & Weight: Anesthesia: Height & Weight Height 6 ft 08/26/24 17:16 Weight: 90.718 kg 08/26/24 17:16 Body Mass Index (BMI) 27.1 08/26/24 17:16 Respiratory Assessment Respiratory Assessment - sharepoint application developer: Respiratory Tract Infection Hx - sharepoint application developer Hx Respiratory Tract Infection No 08/26/24 17:11 STOP Sleep Apnea STOP Sleep Apnea - sharepoint application developer: STOP Sleep Apnea - sharepoint application developer Hx Hypertension Yes: CONTROLLED WITH MEDS 08/26/24 16:33 Hx Sleep Apnea Yes 08/26/24 16:33 CPAP Yes: NON COMPLIANT 08/26/24 16:33 BIPAP No 08/26/24 16:33 Do you snore loudly (louder than talking or can be heard Do you often feel tired/ fatigued/ sleepy during daytime? Has anyone observed you stop breathing during sleep? STOP Results Positive 08/26/24 16:33 QUESTION #5 FULL TEXT : Do you snore loudly (louder than talking or can be heard through closed doors)? Tobacco Use History Tobacco Use History - sharepoint application developer: Tobacco Use History - sharepoint application developer Tobacco Use Smoking Status Current every day smoker 08/26/24 16:33 Hx Tobacco Use Yes 08/26/24 16:33 Years Smoking Packs Smoked per Day 1 08/26/24 16:33 Smoking Cessation Date was within the last 15 years Hx Smoking Cessation Date Hx Smoking Cessation No 08/26/24 16:33 Counseling Hematologic Medial History Hematologic Hx - sharepoint application developer: Hematologic Medical Hx - skiver sock linings Hx of Blood Transfusion No 08/26/24 16:33 Hx of Transfusion in last 3 No 08/26/24 16:33 Months Date of Last Transfusion (if within last 3 months) Ever experience any problems No 08/26/24 16:33 with transfusion(s)? Specify any problems Hx of Preganancy in last 3 N/A 08/26/24 16:33 Months Nurse Filling Out Transfusion TWOLF 08/26/24 16:33 & Questions: Date: 08/26/24 08/26/24 16:33 Time: 16:35 08/26/24 16:33 Patient unable to answer at this time (ie. confused, unrespo /Reproduction History /Reproductive History - sharepoint application developer: /Reproductive Hx- sharepoint application developer Hx Now No 08/26/24 17:11 Gestational Age (in weeks): EDC: Hx Hx Para Hx Section SAB No 08/26/24 17:11 Active Medications Active Medications: Current Medications Generic Name Dose Route Start Last Admin Trade Name Freq PRN Reason Stop Dose Admin Heparin Sodium (Porcine) 5,000 unit 08/26/24 22:00 Heparin Injection (Vial) 5,000 Unit/Ml Vial SC Q12 ERICK Sodium Chloride 1,000 mls @ 125 mls/hr 08/26/24 16:32 08/26/24 16:55 IV 08/27/24 16:31 125 mls/hr .Q8H ERICK Administration Protocol Piperacillin Sod/Tazobactam 50 mls @ 12.5 mls/hr 08/26/24 22:00 Sod 3.375 gm/ Sodium Chloride IV Q8 ERICK Sodium Chloride 100 mls @ 15 mls/hr 08/26/24 16:40 IV .Q6H40M PRN Saline Flush Sodium Chloride 100 mls @ 15 mls/hr 08/26/24 16:40 IV .Q6H40M PRN Additional IVPB Infusion Morphine Sulfate 2 - 4 mg 08/26/24 16:32 Morphine 2 Mg/Ml Syringe IV Q3H PRN PRN Pain Score 6-10 Morphine Sulfate 2 - 4 mg 08/26/24 16:42 Morphine 4 Mg/Ml Syringe IV Q3H PRN PRN Pain Score 6-10 Ondansetron HCl 4 mg 08/26/24 16:32 Ondansetron 4 Mg/2 Ml Vial IV Q8H PRN PRN NAUSEA/VOMITING Sodium Chloride 10 - 40 ml 08/26/24 16:40 0.9% Saline Lock 10 Ml Syringe IV UD PRN SALINE FLUSH PFSH Medical History (Updated 08/26/24 @ 16:38 by Kate Masters) Rheumatoid arthritis Depression COPD (chronic obstructive pulmonary disease) Asthma Migraines Hypertension CKD (chronic kidney disease), stage III Anxiety and depression PHIL on CPAP Spinal stenosis, lumbar DDD (degenerative disc disease), lumbar Wears glasses History of steroid therapy Restless legs GERD (gastroesophageal reflux disease) Smoker CPAP (continuous positive airway pressure) dependence Chronic cough Inguinal hernia bilateral, non-recurrent Ventral incisional hernia without obstruction or gangrene Arthritis History of back problems Stage 1 mild COPD by GOLD classification HTN (hypertension) Obesity CKD stage III PHIL (obstructive sleep apnea) Abnormal chest CT Central sleep apnea COPD (chronic obstructive pulmonary disease) Asthma Chronic pain Depression Hemoptysis Curiel palsy Home Medications ?Medication ?Instructions ?Recorded ?Last Taken ?Type tizanidine 4 mg tablet 4 mg PO Q8H PRN Pain 03/31/16 Unknown History duloxetine 60 mg capsule,delayed 60 mg PO DAILY mental health 07/18/20 Unknown History release (Cymbalta) albuterol sulfate 90 mcg/actuation 1 - 2 puff inhalation Q4H PRN PRN 12/20/22 Unknown Rx aerosol inhaler (Ventolin HFA) Wheezing ##1 hydromorphone 4 mg tablet 4 mg PO Q8H PRN pain 05/04/23 Unknown History hydroxyzine HCl 25 mg tablet 25 mg PO BID PRN anxiety 05/04/23 05/11/23 History omeprazole 20 mg capsule,delayed 20 mg PO DAILY reflux 05/04/23 Unknown History release tamsulosin 0.4 mg capsule 0.4 mg PO DAILY prostate 05/04/23 Unknown History zolpidem 10 mg tablet 10 mg PO QHS sleep 05/04/23 Unknown History atenolol 50 mg tablet 50 mg PO DAILY blood pressure 12/01/23 Unknown History duloxetine 30 mg capsule,delayed 30 mg PO DAILY mental health 12/01/23 Unknown History release gabapentin 600 mg tablet 600 mg PO TID nerve pain 12/01/23 Unknown History ondansetron 4 mg disintegrating 4 mg PO Q6H PRN nausea and 12/09/23 Unknown Rx tablet vomiting #7 tabs losartan 50 mg tablet 50 mg PO DAILY ASK PCP 08/26/24 Unknown History Allergy/AdvReac Type Severity Reaction Status Date / Time carisoprodol (From Soma) Allergy Other Verified 01/26/24 15:07 metoclopramide HCl (From AdvReac Upset Verified 01/26/24 15:07 Reglan) Stomach pregabalin (From Lyrica) AdvReac Upset Verified 01/26/24 15:07 Stomach Family History Father Lung disease Cancer lung Brother Cancer lung Mother Hypertension Surgical History History of inguinal hernia repair, bilateral History of colonoscopy (~07/2020) H/O colonoscopy H/O neck surgery ankle surgery lower back surgery Social History (Updated 08/26/24 @ 11:[address] Eddi Castanon MD) household members: other details: roommate Smoking Status: Current every day smoker tobacco type: cigarettes Tobacco: How many years used: 50 Electronic Cigarette Use: not used how long ago did patient quit smokin, 2-3pk/day->quit for many yrs, started again over last 6-7 months. second hand exposure: Yes alcohol intake: never substance use type: does not use caffeine: Yes Type: coffee Number of servings: 3 what type of physical activity do you participate in: bicycling frequency: daily duration: 15-30 minutes/day Review of Systems (Anesthesia) ROS Narrative System reviewed and no additional complaints, except as documented.
--- NOTE | 2024-08-26 17:30 | TISS_PTH ---
PATIENT: NURIA SHARPE LOC: MS3 U#:[id number] AGE/SX: 73/M [place] [facility] [place]: Dr. Tom Mendoza DO : 1950 BED: 1 DIS: 08/27/2024 SPEC #: [id number] RECD: 08/29/24 10:21 STATUS: ANNIE RESundeep #: [id number] KOJO: 08/26/24 17:[address]: Ra Jackiehsaan DEPT: SURGICAL PATHOLOGY RECD BY: Lora Lino ENTERED: 08/29/24 11:15 SP TYPE: Tissue Bx DEJA DR: MD Dr. Tom Damon DO Dr. Mark Stutzman, DO Dr. Mark Tereletsky, DO Tissues: Ampulla of Vater Procedures: Surgery Specimen Level IV HEADER OPERATION: ERCP with stent placement PRE-OP DIAGNOSIS: Cholelithiasis with choledocholithiasis TISSUE SUBMITTED: Ampula MICROSCOPIC DIAGNOSIS Ampula, biopsy: Focal adenomatous change. AM. 08/30/2024 MICROSCOPIC DESCRIPTION Slides are reviewed. GROSS DESCRIPTION Received in fixative is one container labeled with the patient's name and designated Ampula. The specimen consists of two irregular fragments of light giles soft tissue that in aggregate measure 0.5 x 0.4 x 0.1 cm. The specimen is totally submitted in one cassette. 08/29/2024 TC:5 CPT:57472
--- NOTE | 2024-08-26 17:43 | CON.PCM.GI_ITS ---
HPI Consult Data Date of Consult: 08/26/24 HPI Narrative Reason for Consultation: choledocholithiasis HPI Narrative: NURIA SHARPE, is a 73-year-old brought in by EMS with said complaints of vomiting and diarrhea. Patient denies having diarrhea but agrees that he has been vomiting and having some mild upper abdominal pain. Family present shortly thereafter and states they do not live with him, but the patient called them not feeling well, they went and found him on the floor having had fallen although the patient does not recall this, and unable to get up for an unclear amount of time. Roommate also told the family that he had a couple falls in the last couple days. The patient does not recall that denies having any pain or injury right now. Family states he is confused compared to normal right now. In the ED he was discovered to have mild hypokalemia with a potassium of 3.1 and increased BUN/creatinine ratio to 33/1.7, bilirubin of 1.1, AST 13, ALT 17 alkaline phosphatase 115. He was also discovered to have a tract infection. CT scan abdomen pelvis displayed: There is evidence of central intrahepatic biliary ductal dilatation. Dilatation of the common bile duct down to the ampulla of Vater. The gallbladder is distended. There is a mild degree of gallbladder wall thickening. Cannot rule out tiny gallstones and sludge within the gallbladder lumen. Correlation with ultrasound is recommended. Normal spleen. Normal pancreas. Ultrasound of the right upper quadrant revealed: Several small stones are seen in the common bile duct. [facility] Medical History Rheumatoid arthritis Depression COPD (chronic obstructive pulmonary disease) Asthma Migraines Hypertension CKD (chronic kidney disease), stage III Anxiety and depression PHIL on CPAP Spinal stenosis, lumbar DDD (degenerative disc disease), lumbar Wears glasses History of steroid therapy Restless legs GERD (gastroesophageal reflux disease) Smoker CPAP (continuous positive airway pressure) dependence Chronic cough Inguinal hernia bilateral, non-recurrent Ventral incisional hernia without obstruction or gangrene Arthritis History of back problems Stage 1 mild COPD by GOLD classification HTN (hypertension) Obesity CKD stage III PHIL (obstructive sleep apnea) Abnormal chest CT Central sleep apnea COPD (chronic obstructive pulmonary disease) Asthma Chronic pain Depression Hemoptysis Curiel palsy Home Medications ?Medication ?Instructions ?Recorded ?Last Taken ?Type tizanidine 4 mg tablet 4 mg PO Q8H PRN Pain 03/31/16 Unknown History duloxetine 60 mg capsule,delayed 60 mg PO DAILY mental health 07/18/20 Unknown History release (Cymbalta) albuterol sulfate 90 mcg/actuation 1 - 2 puff inhalation Q4H PRN PRN 12/20/22 Unknown Rx aerosol inhaler (Ventolin HFA) Wheezing ##1 hydromorphone 4 mg tablet 4 mg PO Q8H PRN pain 05/04/23 Unknown History hydroxyzine HCl 25 mg tablet 25 mg PO BID PRN anxiety 05/04/23 05/11/23 History omeprazole 20 mg capsule,delayed 20 mg PO DAILY reflux 05/04/23 Unknown History release tamsulosin 0.4 mg capsule 0.4 mg PO DAILY prostate 05/04/23 Unknown History zolpidem 10 mg tablet 10 mg PO QHS sleep 05/04/23 Unknown History atenolol 50 mg tablet 50 mg PO DAILY blood pressure 12/01/23 Unknown History duloxetine 30 mg capsule,delayed 30 mg PO DAILY mental health 12/01/23 Unknown History release gabapentin 600 mg tablet 600 mg PO TID nerve pain 12/01/23 Unknown History ondansetron 4 mg disintegrating 4 mg PO Q6H PRN nausea and 12/09/23 Unknown Rx tablet vomiting #7 tabs losartan 50 mg tablet 50 mg PO DAILY ASK PCP 08/26/24 Unknown History Allergy/AdvReac Type Severity Reaction Status Date / Time carisoprodol (From Soma) Allergy Other Verified 01/26/24 15:07 metoclopramide HCl (From AdvReac Upset Verified 01/26/24 15:07 Reglan) Stomach pregabalin (From Lyrica) AdvReac Upset Verified 01/26/24 15:07 Stomach Family History Father Lung disease Cancer lung Brother Cancer lung Mother Hypertension Surgical History History of inguinal hernia repair, bilateral History of colonoscopy (~07/2020) H/O colonoscopy H/O neck surgery ankle surgery lower back surgery Social History household members: other details: roommate Smoking Status: Current every day smoker tobacco type: cigarettes Tobacco: How many years used: 50 Electronic Cigarette Use: not used how long ago did patient quit smokin, 2-3pk/day->quit for many yrs, started again over last 6-7 months. second hand exposure: Yes alcohol intake: never substance use type: does not use caffeine: Yes Type: coffee Number of servings: 3 what type of physical activity do you participate in: bicycling frequency: daily duration: 15-30 minutes/day ROS Constitutional Constitutional: Denies anorexia, change in weight, chills, fatigue, fever(s), night sweats or weakness Eyes Eyes: Denies blurry vision, change in vision, discharge from eye(s) or eye pain Cardiovascular Cardiovascular: Denies chest pain, claudication, dyspnea on exertion, edema or palpitations Respiratory/Chest Respiratory/Chest: Denies cough, dyspnea, hemoptysis, shortness of breath at rest or shortness of breath with exertion Gastrointestinal Gastrointestinal: Reports abdominal pain, diarrhea, nausea and vomiting; Denies constipation, hematemesis, hematochezia or melena Genitourinary Genitourinary: Denies burning urination, difficulty urinating, dysuria, hematuria, urinary frequency, urinary hesitancy, urinary incontinence or urinary urgency Musculoskeletal Musculoskeletal: Denies back pain, joint pain, joint stiffness, joint swelling, myalgias or neck pain Neurologic Neurologic: Reports confusion; Denies abnormal gait, abnormal speech, dizziness, focal weakness, headache(s), loss of vision, numbness, other visual disturbances, paresthesias, syncope or tingling Psychiatric Psychiatric: Denies anxiety, cognitive impairment, depression, irritability, mood swings or suicidal ideation Endocrine Endocrinology: Denies change in body appearance, cold intolerance, excessive sweating, heat intolerance, polydipsia or polyuria Hematologic/Lymphatic Hematologic/Lymphatic: Denies none, anemia, easy bleeding, easy bruising or lymphadenopathy Allergic/Immunologic Allergic/Immunologic: Denies rhinitis, urticaria, eczemia or asthma Physical Exam Const alert, oriented x3, no apparent distress and healthy appearing General Appearance: cooperative GI normal to inspection, nondistended, normoactive bowel sounds, soft to palpation, non-tender and non-distended Percussion: normal to percussion Rectal Exam: deferred Lab / Micro Data 08/26/24 11:21 08/26/24 11:21 Labs: Laboratory Results - last 24 hr 08/26/24 11:21: WBC 9.5, RBC 4.61, Hgb 14.5, Hct 40.9, MCV 88.7, MCH 31.5, MCHC 35.5, RDW Std Deviation 43.3, RDW Coeff of Karlee 13.3, Plt Count 280, MPV 8.9, Immature Gran % (Auto) 0.600, Neut % (Auto) 61.6, Lymph % (Auto) 25.9, [place] % (Auto) 11.1 H, Eos % (Auto) 0.4, Baso % (Auto) 0.4, Absolute Neuts (auto) 5.8, Absolute Lymphs (auto) 2.46, Nucleated RBC % 0, Sodium 137, Potassium 3.1 L, Chloride 100, Carbon Dioxide 29.0, Anion Gap 8, BUN 33 H, Creatinine 1.71 H, Estim Creat Clear Calc 45.12, Est GFR (MDRD) Af Amer 51 L, Est GFR (MDRD) Non-Af 42 L, BUN/Creatinine Ratio 19.3, Glucose 103, Calcium 9.6, Total Bilirubin 1.10 H, AST 13 L, ALT 17, Alkaline Phosphatase 115, Total Creatine Kinase 129, Troponin I High Sens 21, Total Protein 7.7, Albumin 3.8, Globulin 3.9, Albumin/Globulin Ratio 1.0, Lipase 35 08/26/24 12:46: Urine Color Yellow, Urine Clarity Clear, Urine pH 6.0, Ur Specific [place] 1.020, Urine Protein 100 H, Urine Glucose (UA) Normal, Urine Ketones 5 H, Urine Occult Blood Negative, Urine Nitrite Negative, Urine Bilirubin 1 H, Urine Urobilinogen 1 H, Ur Leukocyte Esterase 25 H, Urine RBC 0 SEEN, Urine WBC 0-5 SEEN, Ur Squamous Epith Cells 0 SEEN, Urine Bacteria 1+, Urine Mucus 0 SEEN Rhythm Strip Rhythm Strip: Sinus Rhythm Rate: 60 Ectopy: PAC(s) Imaging Radiology Impression Brain CT 08/26/24 11:19 IMPRESSION: Chronic involutional changes of the brain. Electronically Signed: Daniel Campbell MD at 12:21 EST , Abdomen/Pelvis CT 08/26/24 11:20 IMPRESSION: Stable noncalcified nodules in the left lower lobe. Fatty infiltration of the liver. Distention of the gallbladder with gallbladder wall thickening and dilated intrahepatic biliary ducts as well as the common bile duct. Can''t rule out choledocholithiasis. Mild thickening of the gallbladder wall. Correlation with ultrasound is recommended if clinically indicated. Diffuse gastric wall thickening. Electronically Signed: Daniel Campbell MD at 12:33 EST Reading Location ID and State: [id number] / [employer] , Service support , Chest X-Ray 08/26/24 12:06 IMPRESSION: Hyperinflation. Stable mild increased markings at the lung bases suggestive of scarring. Electronically Signed: Daniel Campbell MD at 12:16 EST Reading Location ID and State: [id number] / [employer] , Service support , Gallbladder Ultrasound 08/26/24 12:45 IMPRESSION: Dilated intrahepatic biliary ducts. Multiple gallstones with distention of the gallbladder and mild gallbladder wall thickening. Electronically Signed: Daniel Campbell MD at 13:45 EST Reading Location ID and State: [id number] / [employer] , Service support , ADDENDUM: 08/26/24 1358 IMPRESSION: undefined Assessment & Plan Assessment/Plan (1) Cholelithiasis with choledocholithiasis: PLAN: He was explained alternatives, risk, benefits include not withstanding bleeding, infection, sepsis, perforation, need for emergent surgery and . He will have an ASA of 3 for an ERCP with stone removal and possible stent placement. Charges/Coding Visit Charges Inpatient E&M: 56208 Init Hosp L2
--- NOTE | 2024-08-26 18:08 | PCM.HP.STD ---
HPI - General General Date of Admission: 08/26/24 Date of Service: 08/26/24 Chief Complaint: Nausea and vomiting, diarrhea, right upper quadrant abdominal pain HPI Narrative NURIA SHARPE, is a 73 M who presents to the emergency room at [facility] with complaints of right upper quadrant abdominal pain along with nausea and vomiting and some diarrhea over the last several days. Patient denies any fever or chills. Patient's roommate stated the patient was mildly confused. Workup in the emergency room included a CBC which was unremarkable, chemistry panel showed a potassium of 3.1, creatinine of 1.7 on, and a BUN of 33. Total bilirubin was elevated at 1.1. Imaging studies included a brain CT which was unremarkable for any acute process, chronic involutional changes of the brain were noted. CT of the abdomen and pelvis was obtained, there were noncalcified nodules in the left lower lobe of the lung, fatty infiltration of the liver was noted, there is distention of the gallbladder with gallbladder wall thickening and dilated intrahepatic biliary ducts as well as the common bile duct. Choledocholithiasis cannot be ruled out. There was diffuse gastric wall thickening. Patient had a chest x-ray which showed hyperinflation, there were markings at the lung bases suggestive of scarring. Ultrasound of the gallbladder was obtained, there is noted to be dilated intrahepatic biliary ducts with multiple gallstones and distention of the gallbladder with mild gallbladder wall thickening. General surgery was contacted and deferred an ERCP to gastroenterology, gastroenterology stated that they would probably perform an ERCP today, general surgery requested that the hospitalist service admit the patient. Patient will be admitted to [place] [id number] for choledocholithiasis, IV antibiotics will be continued, patient will be seen by gastroenterology and general surgery [facility] Medical History (Updated 08/26/24 @ 16:38 by Kate Masters) Rheumatoid arthritis Depression COPD (chronic obstructive pulmonary disease) Asthma Migraines Hypertension CKD (chronic kidney disease), stage III Anxiety and depression PHIL on CPAP Spinal stenosis, lumbar DDD (degenerative disc disease), lumbar Wears glasses History of steroid therapy Restless legs GERD (gastroesophageal reflux disease) Smoker CPAP (continuous positive airway pressure) dependence Chronic cough Inguinal hernia bilateral, non-recurrent Ventral incisional hernia without obstruction or gangrene Arthritis History of back problems Stage 1 mild COPD by GOLD classification HTN (hypertension) Obesity CKD stage III PHIL (obstructive sleep apnea) Abnormal chest CT Central sleep apnea COPD (chronic obstructive pulmonary disease) Asthma Chronic pain Depression Hemoptysis Curiel palsy Home Medications ?Medication ?Instructions ?Recorded ?Last Taken ?Type tizanidine 4 mg tablet 4 mg PO Q8H PRN Pain 03/31/16 Unknown History duloxetine 60 mg capsule,delayed 60 mg PO DAILY mental health 07/18/20 Unknown History release (Cymbalta) albuterol sulfate 90 mcg/actuation 1 - 2 puff inhalation Q4H PRN PRN 12/20/22 Unknown Rx aerosol inhaler (Ventolin HFA) Wheezing ##1 hydromorphone 4 mg tablet 4 mg PO Q8H PRN pain 05/04/23 Unknown History hydroxyzine HCl 25 mg tablet 25 mg PO BID PRN anxiety 05/04/23 05/11/23 History omeprazole 20 mg capsule,delayed 20 mg PO DAILY reflux 05/04/23 Unknown History release tamsulosin 0.4 mg capsule 0.4 mg PO DAILY prostate 05/04/23 Unknown History zolpidem 10 mg tablet 10 mg PO QHS sleep 05/04/23 Unknown History atenolol 50 mg tablet 50 mg PO DAILY blood pressure 12/01/23 Unknown History duloxetine 30 mg capsule,delayed 30 mg PO DAILY mental health 12/01/23 Unknown History release gabapentin 600 mg tablet 600 mg PO TID nerve pain 12/01/23 Unknown History ondansetron 4 mg disintegrating 4 mg PO Q6H PRN nausea and 12/09/23 Unknown Rx tablet vomiting #7 tabs losartan 50 mg tablet 50 mg PO DAILY ASK PCP 08/26/24 Unknown History Allergy/AdvReac Type Severity Reaction Status Date / Time carisoprodol (From Soma) Allergy Other Verified 01/26/24 15:07 metoclopramide HCl (From AdvReac Upset Verified 01/26/24 15:07 Reglan) Stomach pregabalin (From Lyrica) AdvReac Upset Verified 01/26/24 15:07 Stomach Family History Father Lung disease Cancer lung Brother Cancer lung Mother Hypertension Surgical History History of inguinal hernia repair, bilateral History of colonoscopy (~07/2020) H/O colonoscopy H/O neck surgery ankle surgery lower back surgery Social History (Updated 08/26/24 @ 11:[address] Eddi Castanon MD) household members: other details: roommate Smoking Status: Current every day smoker tobacco type: cigarettes Tobacco: How many years used: 50 Electronic Cigarette Use: not used how long ago did patient quit smokin, 2-3pk/day->quit for many yrs, started again over last 6-7 months. second hand exposure: Yes alcohol intake: never substance use type: does not use caffeine: Yes Type: coffee Number of servings: 3 what type of physical activity do you participate in: bicycling frequency: daily duration: 15-30 minutes/day ROS Constitutional Constitutional: Denies anorexia, change in weight, chills, fatigue, fever(s), night sweats or weakness Eyes Eyes: Denies blurry vision, change in vision, discharge from eye(s) or eye pain Cardiovascular Cardiovascular: Denies chest pain, claudication, dyspnea on exertion, edema or palpitations Respiratory/Chest Respiratory/Chest: Denies cough, dyspnea, hemoptysis, shortness of breath at rest or shortness of breath with exertion Gastrointestinal Gastrointestinal: Reports abdominal pain, diarrhea, nausea and vomiting; Denies constipation, hematemesis, hematochezia or melena Genitourinary Genitourinary: Denies burning urination, difficulty urinating, dysuria, hematuria, urinary frequency, urinary hesitancy, urinary incontinence or urinary urgency Musculoskeletal Musculoskeletal: Denies back pain, joint pain, joint stiffness, joint swelling, myalgias or neck pain Neurologic Neurologic: Reports confusion; Denies abnormal gait, abnormal speech, dizziness, focal weakness, headache(s), loss of vision, numbness, other visual disturbances, paresthesias, syncope or tingling Psychiatric Psychiatric: Denies anxiety, cognitive impairment, depression, irritability, mood swings or suicidal ideation Endocrine Endocrinology: Denies change in body appearance, cold intolerance, excessive sweating, heat intolerance, polydipsia or polyuria Hematologic/Lymphatic Hematologic/Lymphatic: Denies none, anemia, easy bleeding, easy bruising or lymphadenopathy Allergic/Immunologic Allergic/Immunologic: Denies rhinitis, urticaria, eczemia or asthma Vital Signs Vital Signs Vital Signs: 08/26/24 11:08 08/26/24 12:11 08/26/24 13:00 Temperature 96.7 F L 98.3 F 97.9 F Temperature Source Oral Oral Oral Pulse Rate 57 L 59 L 77 Respiratory Rate 18 14 18 Respiratory Effort Respiratory Depth Respiratory Pattern Blood Pressure 140/88 H 161/85 H 143/78 H Blood Pressure Mean 105 110 99 Blood Pressure Source Blood Pressure Position Blood Pressure Location Pulse Ox 98 98 98 Oxygen Delivery Method Room Air Room Air Room Air 08/26/24 14:55 08/26/24 15:00 08/26/24 16:41 Temperature 98.2 F 98.2 F Temperature Source Oral Pulse Rate 89 63 Respiratory Rate 19 H 19 H Respiratory Effort Non-Labored Respiratory Depth Normal Respiratory Pattern Normal Blood Pressure 157/98 H 157/98 H Blood Pressure Mean 117 117 Blood Pressure Source Blood Pressure Position Blood Pressure Location Pulse Ox 97 97 Oxygen Delivery Method Room Air 08/26/24 16:41 08/26/24 17:31 Temperature 97.9 F 97.9 F Temperature Source Oral Pulse Rate 56 L 56 L Respiratory Rate 16 16 Respiratory Effort Respiratory Depth Respiratory Pattern Blood Pressure 147/89 H 147/89 H Blood Pressure Mean 108 Blood Pressure Source Monitor Blood Pressure Position Semi-Fowlers Blood Pressure Location Right Arm Pulse Ox 96 96 Oxygen Delivery Method Room Air Weight Weight: 90.718 kg Body Mass Index (BMI) 27.1 Physical Exam Const alert and no apparent distress Constitutional Narrative: Patient appears older than his stated age General Appearance: cooperative, well kempt and well developed Orientation / Consciousness: awake, oriented to person and oriented to place HEENT normocephalic, head/scalp atraumatic, hearing grossly normal bilaterally and moist oral mucous membranes Eyes PERRL, EOMs intact bilaterally and conjunctivae normal Neck supple, no JVD, thyroid normal and no carotid bruits General: trachea midline Resp normal respiratory effort, no retractions, no use of accessory muscles and clear to auscultation bilaterally Auscultation: Negative for rales, rhonchi or wheezes Cardio regular rate, regular rhythm, no murmurs, no rub and no gallops GI GI Narrative: Patient has moderate right upper quadrant tenderness to palpation, no rebound tenderness was noted, patient has bowel sounds in all 4 quadrants, abdomen is nondistended Extremity no clubbing, cyanosis or edema Skin no rashes or lesions noted General Skin Exam: no breakdown Neuro CN's II-XII intact bilaterally, moves all extremities, no focal motor deficits and no sensory deficits noted Sensorium / Orientation: awake, alert, oriented to person and oriented to place Speech: speech normal Psych affect normal Results Lab / Micro Data 08/26/24 11:21 08/26/24 11:21 Labs: Laboratory Results - last 24 hr 08/26/24 11:21: WBC 9.5, RBC 4.61, Hgb 14.5, Hct 40.9, MCV 88.7, MCH 31.5, MCHC 35.5, RDW Std Deviation 43.3, RDW Coeff of Karlee 13.3, Plt Count 280, MPV 8.9, Immature Gran % (Auto) 0.600, Neut % (Auto) 61.6, Lymph % (Auto) 25.9, [place] % (Auto) 11.1 H, Eos % (Auto) 0.4, Baso % (Auto) 0.4, Absolute Neuts (auto) 5.8, Absolute Lymphs (auto) 2.46, Nucleated RBC % 0, Sodium 137, Potassium 3.1 L, Chloride 100, Carbon Dioxide 29.0, Anion Gap 8, BUN 33 H, Creatinine 1.71 H, Estim Creat Clear Calc 45.12, Est GFR (MDRD) Af Amer 51 L, Est GFR (MDRD) Non-Af 42 L, BUN/Creatinine Ratio 19.3, Glucose 103, Calcium 9.6, Total Bilirubin 1.10 H, AST 13 L, ALT 17, Alkaline Phosphatase 115, Total Creatine Kinase 129, Troponin I High Sens 21, Total Protein 7.7, Albumin 3.8, Globulin 3.9, Albumin/Globulin Ratio 1.0, Lipase 35 08/26/24 12:46: Urine Color Yellow, Urine Clarity Clear, Urine pH 6.0, Ur Specific [place] 1.020, Urine Protein 100 H, Urine Glucose (UA) Normal, Urine Ketones 5 H, Urine Occult Blood Negative, Urine Nitrite Negative, Urine Bilirubin 1 H, Urine Urobilinogen 1 H, Ur Leukocyte Esterase 25 H, Urine RBC 0 SEEN, Urine WBC 0-5 SEEN, Ur Squamous Epith Cells 0 SEEN, Urine Bacteria 1+, Urine Mucus 0 SEEN Rhythm Strip Rhythm Strip: Sinus Rhythm Rate: 60 Ectopy: PAC(s) Imaging Radiology Impression Brain CT 08/26/24 11:19 IMPRESSION: Chronic involutional changes of the brain. Electronically Signed: Daniel Campbell MD at 12:21 EST , Abdomen/Pelvis CT 08/26/24 11:20 IMPRESSION: Stable noncalcified nodules in the left lower lobe. Fatty infiltration of the liver. Distention of the gallbladder with gallbladder wall thickening and dilated intrahepatic biliary ducts as well as the common bile duct. Can''t rule out choledocholithiasis. Mild thickening of the gallbladder wall. Correlation with ultrasound is recommended if clinically indicated. Diffuse gastric wall thickening. Electronically Signed: Daniel Campbell MD at 12:33 EST , Chest X-Ray 08/26/24 12:06 IMPRESSION: Hyperinflation. Stable mild increased markings at the lung bases suggestive of scarring. Electronically Signed: Daniel Campbell MD at 12:16 EST , Gallbladder Ultrasound 08/26/24 12:45 IMPRESSION: Dilated intrahepatic biliary ducts. Multiple gallstones with distention of the gallbladder and mild gallbladder wall thickening. Electronically Signed: Daniel Campbell MD at 13:45 EST , ADDENDUM: 08/26/24 1358 IMPRESSION: undefined Assessment & Plan Assessment/Plan (1) Cholelithiasis with choledocholithiasis: PLAN: Plan 1. Cholelithiasis with probable choledocholithiasis-patient will be admitted to [facility], he will be seen in consultation by gastroenterology and general surgery, patient will be maintained on IV antibiotics and IV fluids, he will most probably have an ERCP today. #2 dehydration-patient will be given IV fluids, labs will be monitored #3 mild confusion per roommate-patient does not appear to be confused per my exam today however #4 essential hypertension-patient's blood pressure medications will be held at the present time because of his n.p.o. status #5 chronic depression-patient is on Cymbalta #6 history of neuropathic pain-patient currently takes gabapentin, patient has a history of spinal stenosis per his medical record, gabapentin will be held due to his n.p.o. status #7 chronic obstructive pulmonary disease by history-patient will be placed on as needed albuterol treatments Total clinical time spent by myself addressing the patient's medical issues, reviewing all of his data, and collaborating with patient's care team: 55 minutes Charges/Coding Visit Charges Inpatient E&M: 77800 Init Hosp L2
--- NOTE | 2024-08-26 20:15 | RAD_ITS ---
EXAM: FL FLUOROSCOPY < 1 HOUR CLINICAL INDICATION: PAIN TECHNIQUE: Fluoroscopic images performed in multiple projections. Fluoroscopic guidance was provided by a physician. 10 seconds. 2.82 mGy. COMPARISON: No relevant prior studies available. FINDINGS AND RAD/ERCP Biliary/Pancreas IMPRESSION: Intraoperative fluoroscopy. Refer to the procedural note for complete details. Electronically Signed: Ronni Richardson DO at 20:53 EST ,
--- NOTE | 2024-08-26 20:39 | OP.CCLET_ITS ---
08/26/2024 Oracio Hall [address] [facility] [place] [address] [place] [address] Re : ERCP procedure for George Dewitt Dear Dr. Hall This procedure was performed on Monday, August 26, 2024. My impressions and recommendations are as follows: Impressions : - Biopsies were taken with a cold forceps for histology in the area of the papilla. - Biopsies were taken with a cold forceps for histology in the area of the papilla. - A single segmental biliary stricture was found in the lower third of the main bile duct. The stricture was indeterminate. - The upper third of the main bile duct, left and right hepatic ducts and all intrahepatic branches, common bile duct and common hepatic duct were moderately dilated, secondary to a stricture. - The patient has had a cholecystectomy. - Choledocholithiasis was found. Partial removal was accomplished with biliary sphincterotomy; a stent was inserted. - A biliary sphincterotomy was performed. - The biliary tree was swept. - The lower third of the main bile duct, the hepatic duct bifurcation, the left main hepatic duct and the right and left intrahepatic branches, but not the right or left hepatic ducts were successfully dilated. - One temporary stent was placed into the common bile duct. Recommendations : My findings are described in the full procedure note, which is enclosed. If I can be of further assistance, please feel free to contact me at . Sincerely, Anuel Mejia, 08/26/2024 8:38:33 PM This report has been signed electronically.
--- NOTE | 2024-08-26 20:39 | OP.ERCP_ITS ---
Patient Name: George Dewitt Procedure Date: 08/26/2024 7:39 PM Date of : 1950 Age: 73 Procedure: ERCP Indications: Bile duct stone(s), Jaundice, Elevated liver enzymes Providers: Anuel Mejia DO Medicines: Monitored Anesthesia Care Patient Profile: This is a 73 year old male. Refer to note in patient chart for documentation of history and physical. Patient has symptoms of acute right upper quadrant abdominal pain and acute jaundice. This patient has no history of previous ERCP. Complications: No immediate complications. Procedure: Pre-Anesthesia Assessment: - Prior to the procedure, a History and Physical was performed, and patient medications and allergies were reviewed. The patient is competent. The risks and benefits of the procedure and the sedation options and risks were discussed with the patient. All questions were answered and informed consent was obtained. Patient identification and proposed procedure were verified by the physician in the pre-procedure area. Mental Status Examination: alert and oriented. Airway Examination: normal oropharyngeal airway and neck mobility. Respiratory Examination: clear to auscultation. CV Examination: normal. Prophylactic Antibiotics: The patient does not require prophylactic antibiotics. Prior Anticoagulants: The patient has taken no anticoagulant or antiplatelet agents. ASA Grade Assessment: II - A patient with mild systemic disease. After reviewing the risks and benefits, the patient was deemed in satisfactory condition to undergo the procedure. The anesthesia plan was to use general anesthesia. Immediately prior to administration of medications, the patient was re-assessed for adequacy to receive sedatives. The heart rate, respiratory rate, oxygen saturations, blood pressure, adequacy of pulmonary ventilation, and response to care were monitored throughout the procedure. The physical status of the patient was re-assessed after the procedure. After obtaining informed consent, the scope was passed under direct vision. Throughout the procedure, the patient's blood pressure, pulse, and oxygen saturations were monitored continuously. The Duodenoscope was introduced through the mouth, and advanced to the duodenum and used to inject contrast into the bile duct and ventral pancreatic duct. The ERCP was accomplished without difficulty. The patient tolerated the procedure well. Scope In: 8:11:36 PM Scope Out: 8:29:36 PM Total Procedure Duration Time 0 hours 18 minutes 0 seconds Findings: The retail account manager film was normal. The esophagus was successfully intubated under direct vision. The scope was advanced to a normal major papilla in the descending duodenum without detailed examination of the pharynx, larynx and associated structures, and upper GI tract. The upper GI tract was grossly normal. The bile duct was deeply cannulated with the short-nosed traction sphincterotome. Contrast was injected. I personally interpreted the bile duct images. There was brisk flow of contrast through the ducts. Image quality was adequate. Contrast extended to the biliary pancreatic junction. Contrast extended to the main bile duct. Contrast extended to the bifurcation. Contrast extended to the hepatic ducts. Contrast extended to the entire biliary tree. Opacification of the entire biliary tree except for the cystic duct and gallbladder, entire opacified area, biliary pancreatic junction, main bile duct, common bile duct, common hepatic duct, left and right hepatic ducts and all intrahepatic branches and entire biliary tree was successful. The maximum diameter of the ducts was 10 mm. The lower third of the main bile duct contained a single segmental stenosis 6 mm in length. The entire biliary tree except for the cystic duct and gallbladder, entire biliary tree except for the gallbladder, upper third of the main bile duct, common bile duct, common hepatic duct, hepatic duct bifurcation and left and right hepatic ducts and all intrahepatic branches were moderately dilated, secondary to a stricture. The largest diameter was 13 mm. A cholecystectomy had been performed. A long 0.025 inch Jagwire was passed into the biliary tree. A 5 mm biliary sphincterotomy was made with a traction (standard) sphincterotome using ERBE electrocautery. There was no post-sphincterotomy bleeding. The biliary tree was swept with a 15 mm balloon starting at the biliary pancreatic junction, upper third of the main bile duct, middle third of the main bile duct, lower third of the main duct, bifurcation, left intrahepatic duct(s), left main hepatic duct, right intrahepatic duct(s) and right main hepatic duct. Sludge was swept from the duct. A few stones were removed. One stone remained. Dilation of the lower third of the main bile duct, the hepatic duct bifurcation, the left main hepatic duct and the right and left intrahepatic branches, but not the right or left hepatic ducts with a 12-13.5-15 mm balloon (to a maximum balloon size of 15 mm) dilator was successful. One 10 Fr by 12 cm temporary stent was placed 5 cm into the common bile duct. Bile flowed through the stent. The stent was in good position. Biopsies were taken in the area of the papilla through the ERCP scope with the cold forceps for histology. Biopsies were taken in the area of the papilla through the esophagogastroduodenoscope with the cold forceps for histology. Impression: - Biopsies were taken with a cold forceps for histology in the area of the papilla. - Biopsies were taken with a cold forceps for histology in the area of the papilla. - A single segmental biliary stricture was found in the lower third of the main bile duct. The stricture was indeterminate. - The upper third of the main bile duct, left and right hepatic ducts and all intrahepatic branches, common bile duct and common hepatic duct were moderately dilated, secondary to a stricture. - The patient has had a cholecystectomy. - Choledocholithiasis was found. Partial removal was accomplished with biliary sphincterotomy; a stent was inserted. - A biliary sphincterotomy was performed. - The biliary tree was swept. - The lower third of the main bile duct, the hepatic duct bifurcation, the left main hepatic duct and the right and left intrahepatic branches, but not the right or left hepatic ducts were successfully dilated. - One temporary stent was placed into the common bile duct. Procedure Code(s): --- Professional --- 02208, Endoscopic retrograde cholangiopancreatography (ERCP); with placement of endoscopic stent into biliary or pancreatic duct, including pre- and post-dilation and guide wire passage, when performed, including sphincterotomy, when performed, each stent 88267, 59, Endoscopic retrograde cholangiopancreatography (ERCP); with trans-endoscopic balloon dilation of biliary/pancreatic duct(s) or of ampulla (sphincteroplasty), including sphincterotomy, when performed, each duct 91386, Endoscopic retrograde cholangiopancreatography (ERCP); with removal of calculi/debris from biliary/pancreatic duct(s) 86047, 59, Endoscopic retrograde cholangiopancreatography (ERCP); with biopsy, single or multiple 55661, 59,51, Esophagogastroduodenoscopy, flexible, transoral; with biopsy, single or multiple 91159, 26, Endoscopic catheterization of the biliary ductal system, radiological supervision and interpretation CPT copyright 2021 [employer]. All rights reserved. The codes documented in this report are preliminary and upon high school social studies teacher review may be revised to meet current compliance requirements. Anuel Mejia DO 08/26/2024 8:38:33 PM This report has been signed electronically. Number of Addenda: 0 Note Initiated On: 08/26/2024 7:39 PM
--- NOTE | 2024-08-26 20:53 | PCM.POST.ANE ---
Anesthesia: Postop Eval I Current Vital Signs Temperature: 98.3 F Pulse Rate: 78 Blood Pressure: 137/89 Respiratory Rate: 19 Pulse Ox: 96 Assessment Airway patent: Yes Spontaneous unlabored respirations: Yes nausea: No Vomiting: No Anesthesia Complication: No Fluid Hydration Crystalloid volume administer (ml): 250 Total IV fluid infused: 250 Progress Note Anesthesia document: Postop Eval 1 completed: Yes
--- NOTE | 2024-08-26 20:54 | POSTOPAN2_ITS ---
Anesthesia Postop Eval I Sum Postop Eval Completion status Anesthesia document: Postop Eval 1 completed: Yes Anesthesia Postop Eval I Summary Anesthesia Postop Eval I Summary: Anesthesia Postop Eval I: Assessment Summary Airway patent Yes 08/26/24 20:53 EXERCISE SCIENCE INSTRUCTOR.[email or web address] Spontaneous unlabored Yes 08/26/24 20:53 EXERCISE SCIENCE INSTRUCTOR.[email or web address] respirations Mental status nausea No 08/26/24 20:53 EXERCISE SCIENCE INSTRUCTOR.[email or web address] Vomiting No 08/26/24 20:53 EXERCISE SCIENCE INSTRUCTOR.[email or web address] Anesthesia Postop Eval I: Fluid Summary Crystalloid volume administer 250 08/26/24 20:53 EXERCISE SCIENCE INSTRUCTOR.[email or web address] (ml) Colloids volume administered ( ml) Blood Product volume administered (ml) Total IV fluid infused 250 08/26/24 20:53 EXERCISE SCIENCE INSTRUCTOR.[email or web address] Anesthesia Postop Eval I: Summary Notes Anesthesia Complication No 08/26/24 20:53 EXERCISE SCIENCE INSTRUCTOR.[email or web address] Anesthesia Complication Comment: Post-operative progress note Anesthesia: Postop Eval II Evaluation Mental status: Awake Pain Level: 0 nausea: No Vomiting: No
--- NOTE | 2024-08-26 20:54 | PCM.POSTANE2 ---
Anesthesia Postop Eval I Sum Postop Eval Completion status Anesthesia document: Postop Eval 1 completed: Yes Anesthesia Postop Eval I Summary Anesthesia Postop Eval I Summary: Anesthesia Postop Eval I: Assessment Summary Airway patent Yes 08/26/24 20:53 PIZZA HUT [email or web address] [email or web address] Spontaneous unlabored Yes 08/26/24 20:53 PIZZA HUT TEAM MEMBER.[email or web address] respirations Mental status nausea No 08/26/24 20:53 PIZZA HUT TEAM MEMBER.[email or web address] Vomiting No 08/26/24 20:53 PIZZA HUT TEAM MEMBER.[email or web address] Anesthesia Postop Eval I: Fluid Summary Crystalloid volume administer 250 08/26/24 20:53 PIZZA HUT TEAM MEMBER.[email or web address] (ml) Colloids volume administered ( ml) Blood Product volume administered (ml) Total IV fluid infused 250 08/26/24 20:53 PIZZA HUT TEAM MEMBER.[email or web address] Anesthesia Postop Eval I: Summary Notes Anesthesia Complication No 08/26/24 20:53 PIZZA HUT TEAM MEMBER.[email or web address] Anesthesia Complication Comment: Post-operative progress note Anesthesia: Postop Eval II Evaluation Mental status: Awake Pain Level: 0 nausea: No Vomiting: No
[2024-08-26] MEDS: 0.9% Normal Saline (100mL Bag) 100 ML 15 ML IV (21:37)
[2024-08-26] MEDS: Heparin Injection (Vial) 5,000 UNIT/ML VIAL 5000 UNIT SC (21:38)
[2024-08-27] MEDS: 0.9% Normal Saline (1000mL) 1,000 ML 125 ML IV (00:51)
[2024-08-27 00:58] VITALS: PULSE 58; RESP 15; TEMP 36.5; O2SAT 96
[2024-08-27 05:05] VITALS: BP 158/84; PULSE 65; RESP 16; TEMP 36.7; O2SAT 96
[2024-08-27] MEDS: Piperacil/Tazobactam 3.375 GM in 0.9% Normal Saline (50mL MB+) 50 ML IV (05:22)
[2024-08-27 05:51] LABS: Absolute Lymphocyte Count 2.33 X10^3/uL (0.83-4.51); Absolute Neutrophil Count 6.4 X10^3/uL (2.0-7.7); Basophil# 0.04 X10^3/uL; Basophil% 0.4 % (0-1); Eosinophil# 0.13 X10^3/uL; Eosinophils% 1.3 % (0-5); Hematocrit 36.9 % (40-54); Hemoglobin 12.5 g/dL (13.0-16.5); Lymphocyte # 2.33 X10^3/ul (0.83-4.51); Lymphocyte % 23.6 % (19-41); Mean Corp Hgb Conc 33.9 g/dL (32-36); Mean Corpuscular Hgb 31.3 pg (27.0-32.0); Mean Corpuscular Volume 92.3 fL (80-94); Mean Platelet Vol. 8.9 fl (6.2-12.0); Monocyte# 0.97 X10^3/uL; Monocyte% 9.8 % (0-10); NRBC Flagged by Analyzer 0 % (0-5); Neutrophil # 6.37 X10^3/uL (2.7-7.7); Neutrophil % 64.5 % (47-70); Platelet Count 258 K/mm3 (150-450); RBC Distribution Width CV 13.3 % (11.6-14.6); RBC Distribution Width SD 45.3 fl (35.1-43.9); White Blood Count 9.9 K/mm3 (4.4-11.0)
[2024-08-27 06:13] LABS: AST(SGOT) 15 U/L (15-37); Alanine Aminotransfer ALT/SGPT 16 U/L (16-61); Albumin, Serum 3.5 g/dL (3.2-5.0); Alkaline Phosphatase 103 U/L (45-117); Anion Gap 7 (5-15); BUN 29 mg/dL (7-18); BUN/Creat Ratio 22.3 RATIO (10-20); Calcium,Total 9.1 mg/dL (8.5-10.1); Chloride 105 mmol/L (98-107); EST Glomerular Filtration Rate 57 mL/min (>60); Est Glom Filt Rate - Afr Amer 69 mL/min (>60); Estimated Creatinine Clearance 54.72 ml/min; Globulin 3.6 g/dL (2.2-4.2); Glucose 92 mg/dL (74-106); Protein, Total 7.1 g/dL (6.4-8.2); Sodium Level 138 mmol/L (136-145)
--- NOTE | 2024-08-27 06:35 | PCM.HOSP.N ---
Hospitalist Note Patient with increased anxiety, will dose with low-dose hydroxyzine 25 mg x 1.
[2024-08-27] MEDS: hydrOXYzine PAM 25 MG Capsule PO (07:04)
--- NOTE | 2024-08-27 08:07 | PN.HOSP_ITS ---
Reason for Visit Reason for Visit: Diagnoses Calculus of gallbladder and bile duct without cholecystitis without obstruction (08/26/24) Subjective Subjective Code Lyndsey called this AM when he broke out of the geriatric chair and was pushing staff. He was brought back to his room. He states that he just wants to go home. Was able to recall that he will follow up with general surgery for a cholecystectomy. Objective Data Objective Data Vital Signs: Vital Signs Temp Pulse Resp BP Pulse Ox O2 Del Method 36.7 C 65 16 158/84 H 96 Room Air 08/27/24 05:05 08/27/24 05:05 08/27/24 05:05 08/27/24 05:05 08/27/24 05:05 08/27/24 05:05 Oxygen Delivery Method Room Air Weight: 90.718 kg Body Mass Index (BMI) 27.1 Intake & Output: Intake and Output for Last 24 Hours 08/25/24 08/26/24 08/27/24 23:59 23:59 23:59 Intake Total 1650 / 1650 1591.67 / 1591.67 Balance 1650 / 1650 1591.67 / 1591.67 Lab / Micro Data 08/27/24 04:55 08/27/24 04:55 Labs: Laboratory Results - last 24 hr 08/26/24 11:21: WBC 9.5, RBC 4.61, Hgb 14.5, Hct 40.9, MCV 88.7, MCH 31.5, MCHC 35.5, RDW Std Deviation 43.3, RDW Coeff of Karlee 13.3, Plt Count 280, MPV 8.9, Immature Gran % (Auto) 0.600, Neut % (Auto) 61.6, Lymph % (Auto) 25.9, Mccracken % (Auto) 11.1 H, Eos % (Auto) 0.4, Baso % (Auto) 0.4, Absolute Neuts (auto) 5.8, Absolute Lymphs (auto) 2.46, Nucleated RBC % 0, Sodium 137, Potassium 3.1 L, Chloride 100, Carbon Dioxide 29.0, Anion Gap 8, BUN 33 H, Creatinine 1.71 H, Estim Creat Clear Calc 45.12, Est GFR (MDRD) Af Amer 51 L, Est GFR (MDRD) Non-Af 42 L, BUN/Creatinine Ratio 19.3, Glucose 103, Calcium 9.6, Total Bilirubin 1.10 H, AST 13 L, ALT 17, Alkaline Phosphatase 115, Total Creatine Kinase 129, Troponin I High Sens 21, Total Protein 7.7, Albumin 3.8, Globulin 3.9, Albumin/Globulin Ratio 1.0, Lipase 35 08/26/24 12:46: Urine Color Yellow, Urine Clarity Clear, Urine pH 6.0, Ur Specific Tracy 1.020, Urine Protein 100 H, Urine Glucose (UA) Normal, Urine Ketones 5 H, Urine Occult Blood Negative, Urine Nitrite Negative, Urine Bilirubin 1 H, Urine Urobilinogen 1 H, Ur Leukocyte Esterase 25 H, Urine RBC 0 SEEN, Urine WBC 0-5 SEEN, Ur Squamous Epith Cells 0 SEEN, Urine Bacteria 1+, Urine Mucus 0 SEEN 08/27/24 04:55: WBC 9.9, RBC 4.00 L, Hgb 12.5 L, Hct 36.9 L, MCV 92.3, MCH 31.3, MCHC 33.9, RDW Std Deviation 45.3 H, RDW Coeff of Karlee 13.3, Plt Count 258, MPV 8.9, Immature Gran % (Auto) 0.400, Neut % (Auto) 64.5, Lymph % (Auto) 23.6, Mccracken % (Auto) 9.8, Eos % (Auto) 1.3, Baso % (Auto) 0.4, Absolute Neuts (auto) 6.4, Absolute Lymphs (auto) 2.33, Nucleated RBC % 0, Sodium 138, Potassium 3.0 L, Chloride 105, Carbon Dioxide 26.0, Anion Gap 7, BUN 29 H, Creatinine 1.30, Estim Creat Clear Calc 54.72, Est GFR (MDRD) Af Amer 69, Est GFR (MDRD) Non-Af 57 L, B UN/Creatinine Ratio 22.3 H, Glucose 92, Calcium 9.1, Total Bilirubin 1.20 H, AST 15, ALT 16, Alkaline Phosphatase 103, Total Protein 7.1, Albumin 3.5, Globulin 3.6, Albumin/Globulin Ratio 1.0 Radiography Diagnostic Testing: Radiology Impression Brain CT 08/26/24 11:19 IMPRESSION: Chronic involutional changes of the brain. Electronically Signed: Daniel Campbell MD at 12:21 EST , Abdomen/Pelvis CT 08/26/24 11:20 IMPRESSION: Stable noncalcified nodules in the left lower lobe. Fatty infiltration of the liver. Distention of the gallbladder with gallbladder wall thickening and dilated intrahepatic biliary ducts as well as the common bile duct. Can''t rule out choledocholithiasis. Mild thickening of the gallbladder wall. Correlation with ultrasound is recommended if clinically indicated. Diffuse gastric wall thickening. Electronically Signed: Daniel Campbell MD at 12:33 EST , Chest X-Ray 08/26/24 12:06 IMPRESSION: Hyperinflation. Stable mild increased markings at the lung bases suggestive of scarring. Electronically Signed: Daniel Campbell MD at 12:16 EST , Gallbladder Ultrasound 08/26/24 12:45 IMPRESSION: Dilated intrahepatic biliary ducts. Multiple gallstones with distention of the gallbladder and mild gallbladder wall thickening. Electronically Signed: Daniel Campbell MD at 13:45 EST , ADDENDUM: 08/26/24 1358 IMPRESSION: undefined Endo Retro Cholangiopancreatogram 08/26/24 20:15 IMPRESSION: Intraoperative fluoroscopy. Refer to the procedural note for complete details. Electronically Signed: Ronni Richardson DO at 20:53 EST , Rhythm Strip Rhythm Strip: Sinus Rhythm Rate: 60 Ectopy: PAC(s) Physical Exam Const alert and no apparent distress HEENT head/scalp atraumatic and moist oral mucous membranes Resp normal respiratory effort, no retractions and no use of accessory muscles Cardio regular rate, regular rhythm, S1 normal heart sound and S2 normal heart sound GI normal to inspection, nondistended, normoactive bowel sounds, soft to palpation, non-tender and non-distended Extremity normal to inspection and full ROM Neuro Sensorium / Orientation: awake and alert Assessment & Plan Assessment/Plan (1) Cholelithiasis with choledocholithiasis: PLAN: Plan Choledocholithiasis * s/p ERCP on the : single segmental biliary stricture in the lower 3rd of the main BD. Upper 3rd of Main BD moderately dilated. Choledocholithiasis was found. Partial removal with biliary sphincterotomy. Stent inserted. Cholecystitis * 2/2 choledocholithiasis * DW Dr. Mooney, plan on outpt cholecystectomy. No need for abx from his perspective. Hypokalemia * replace. Encephalopathy * Pt this AM had a Code Lyndsey, but was reorientable. Family notified and mentioned they are concerned about dementia. Patient will need to follow up with geriatrics/neurology. Disposition: await on family. Possible discharge home later today. Charges/Coding Visit Charges Inpatient E&M: 23146 Subs Hosp L2
[2024-08-27 08:49] VITALS: PULSE 58; RESP 20; TEMP 36.8; O2SAT 97
--- NOTE | 2024-08-27 08:50 | NURSING ---
Unable to obtain accurate Bp. Pt sitting but restless and unable to keep arm still.
--- NOTE | 2024-08-27 08:57 | CON.PCM.SX_ITS ---
Assessment & Plan Assessment/Plan (1) Cholelithiasis with choledocholithiasis: PLAN: Patient has cholelithiasis with many small stones in his gallbladder. The patient is currently feeling well this morning. He had ERCP with stent placement yesterday. His LFTs are essentially normal except for mildly elevated T. bili. The patient was insistent on going home this morning and got out of his geriatric chair and started arguing with the nurses about going home. The patient also had a stricture with biopsies performed and I would like the pathology first before performing a cholecystectomy. I would like the patient to follow-up with me next week to discuss laparoscopic cholecystectomy and by then the results should be back from the biopsies that Dr. Mejia took in the common bile duct. Papito Mooney MD Pager: [facility] [address] [place] [address], [address] [place] [address] Office: HPI Consult Data Date of Consult: 08/27/24 HPI Narrative HPI Narrative: NURIA SHARPE, is a 73 M who presents with abdominal pain. Patient was found to have choledocholithiasis on ultrasound. He underwent ERCP yesterday with stone removal and stent placement. Today he is feeling well but he is confused. He has also been combative. He would like to go home. [facility] Medical History Rheumatoid arthritis Depression COPD (chronic obstructive pulmonary disease) Asthma Migraines Hypertension CKD (chronic kidney disease), stage III Anxiety and depression PHIL on CPAP Spinal stenosis, lumbar DDD (degenerative disc disease), lumbar Wears glasses History of steroid therapy Restless legs GERD (gastroesophageal reflux disease) Smoker CPAP (continuous positive airway pressure) dependence Chronic cough Inguinal hernia bilateral, non-recurrent Ventral incisional hernia without obstruction or gangrene Arthritis History of back problems Stage 1 mild COPD by GOLD classification HTN (hypertension) Obesity CKD stage III PHIL (obstructive sleep apnea) Abnormal chest CT Central sleep apnea COPD (chronic obstructive pulmonary disease) Asthma Chronic pain Depression Hemoptysis Curiel palsy Home Medications ?Medication ?Instructions ?Recorded ?Last Taken ?Type tizanidine 4 mg tablet 4 mg PO Q8H PRN Pain 03/31/16 Unknown History duloxetine 60 mg capsule,delayed 60 mg PO DAILY mental health 07/18/20 Unknown History release (Cymbalta) albuterol sulfate 90 mcg/actuation 1 - 2 puff inhalation Q4H PRN PRN 12/20/22 Unknown Rx aerosol inhaler (Ventolin HFA) Wheezing ##1 hydromorphone 4 mg tablet 4 mg PO Q8H PRN pain 05/04/23 Unknown History hydroxyzine HCl 25 mg tablet 25 mg PO BID PRN anxiety 05/04/23 05/11/23 History omeprazole 20 mg capsule,delayed 20 mg PO DAILY reflux 05/04/23 Unknown History release tamsulosin 0.4 mg capsule 0.4 mg PO DAILY prostate 05/04/23 Unknown History zolpidem 10 mg tablet 10 mg PO QHS sleep 05/04/23 Unknown History atenolol 50 mg tablet 50 mg PO DAILY blood pressure 12/01/23 Unknown History duloxetine 30 mg capsule,delayed 30 mg PO DAILY mental health 12/01/23 Unknown History release gabapentin 600 mg tablet 600 mg PO TID nerve pain 12/01/23 Unknown History ondansetron 4 mg disintegrating 4 mg PO Q6H PRN nausea and 12/09/23 Unknown Rx tablet vomiting #7 tabs losartan 50 mg tablet 50 mg PO DAILY ASK PCP 08/26/24 Unknown History Allergy/AdvReac Type Severity Reaction Status Date / Time carisoprodol (From Soma) Allergy Other Verified 01/26/24 15:07 metoclopramide HCl (From AdvReac Upset Verified 01/26/24 15:07 Reglan) Stomach pregabalin (From Lyrica) AdvReac Upset Verified 01/26/24 15:07 Stomach Family History Father Lung disease Cancer lung Brother Cancer lung Mother Hypertension Surgical History History of inguinal hernia repair, bilateral History of colonoscopy (~07/2020) H/O colonoscopy H/O neck surgery ankle surgery lower back surgery Social History household members: other details: roommate Smoking Status: Current every day smoker tobacco type: cigarettes Tobacco: How many years used: 50 Electronic Cigarette Use: not used how long ago did patient quit smokin, 2-3pk/day->quit for many yrs, started again over last 6-7 months. second hand exposure: Yes alcohol intake: never substance use type: does not use caffeine: Yes Type: coffee Number of servings: 3 what type of physical activity do you participate in: bicycling frequency: daily duration: 15-30 minutes/day ROS Constitutional Constitutional: Denies anorexia, chills, fatigue or fever(s) Eyes Eyes: Denies blurry vision ENT HEENT: Denies abnormal hearing Gastrointestinal Gastrointestinal: Reports abdominal pain Genitourinary Genitourinary: Denies change in urinary stream Musculoskeletal Musculoskeletal: Denies abnormal gait Integumentary Integumentary: Denies jaundice Neurologic Neurologic: Denies abnormal gait Psychiatric Psychiatric: Denies anxiety or depression Endocrine Endocrinology: Denies flushing Hematologic/Lymphatic Hematologic/Lymphatic: Denies easy bleeding Physical Exam Const alert and no apparent distress HEENT normocephalic Eyes PERRL Chest inspection of chest normal Resp normal respiratory effort Cardio Rate: regular rate Rhythm: regular rhythm GI soft to palpation and non-tender Lab / Micro Data 08/27/24 04:55 08/27/24 04:55 Labs: Laboratory Results - last 24 hr 08/26/24 11:21: WBC 9.5, RBC 4.61, Hgb 14.5, Hct 40.9, MCV 88.7, MCH 31.5, MCHC 35.5, RDW Std Deviation 43.3, RDW Coeff of Karlee 13.3, Plt Count 280, MPV 8.9, Immature Gran % (Auto) 0.600, Neut % (Auto) 61.6, Lymph % (Auto) 25.9, [place] % (Auto) 11.1 H, Eos % (Auto) 0.4, Baso % (Auto) 0.4, Absolute Neuts (auto) 5.8, Absolute Lymphs (auto) 2.46, Nucleated RBC % 0, Sodium 137, Potassium 3.1 L, Chloride 100, Carbon Dioxide 29.0, Anion Gap 8, BUN 33 H, Creatinine 1.71 H, Estim Creat Clear Calc 45.12, Est GFR (MDRD) Af Amer 51 L, Est GFR (MDRD) Non-Af 42 L, BUN/Creatinine Ratio 19.3, Glucose 103, Calcium 9.6, Total Bilirubin 1.10 H, AST 13 L, ALT 17, Alkaline Phosphatase 115, Total Creatine Kinase 129, Troponin I High Sens 21, Total Protein 7.7, Albumin 3.8, Globulin 3.9, Albumin/Globulin Ratio 1.0, Lipase 35 08/26/24 12:46: Urine Color Yellow, Urine Clarity Clear, Urine pH 6.0, Ur Specific Dudley 1.020, Urine Protein 100 H, Urine Glucose (UA) Normal, Urine Ketones 5 H, Urine Occult Blood Negative, Urine Nitrite Negative, Urine Bilirubin 1 H, Urine Urobilinogen 1 H, Ur Leukocyte Esterase 25 H, Urine RBC 0 SEEN, Urine WBC 0-5 SEEN, Ur Squamous Epith Cells 0 SEEN, Urine Bacteria 1+, Urine Mucus 0 SEEN 08/27/24 04:55: WBC 9.9, RBC 4.00 L, Hgb 12.5 L, Hct 36.9 L, MCV 92.3, MCH 31.3, MCHC 33.9, RDW Std Deviation 45.3 H, RDW Coeff of Karlee 13.3, Plt Count 258, MPV 8.9, Immature Gran % (Auto) 0.400, Neut % (Auto) 64.5, Lymph % (Auto) 23.6, [place] % (Auto) 9.8, Eos % (Auto) 1.3, Baso % (Auto) 0.4, Absolute Neuts (auto) 6.4, Absolute Lymphs (auto) 2.33, Nucleated RBC % 0, Sodium 138, Potassium 3.0 L, Chloride 105, Carbon Dioxide 26.0, Anion Gap 7, BUN 29 H, Creatinine 1.30, Estim Creat Clear Calc 54.72, Est GFR (MDRD) Af Amer 69, Est GFR (MDRD) Non-Af 57 L, B UN/Creatinine Ratio 22.3 H, Glucose 92, Calcium 9.1, Total Bilirubin 1.20 H, AST 15, ALT 16, Alkaline Phosphatase 103, Total Protein 7.1, Albumin 3.5, Globulin 3.6, Albumin/Globulin Ratio 1.0 Rhythm Strip Rhythm Strip: Sinus Rhythm Rate: 60 Ectopy: PAC(s) Imaging Radiology Impression Brain CT 08/26/24 11:19 IMPRESSION: Chronic involutional changes of the brain. Electronically Signed: Daniel Campbell MD at 12:21 EST , Abdomen/Pelvis CT 08/26/24 11:20 IMPRESSION: Stable noncalcified nodules in the left lower lobe. Fatty infiltration of the liver. Distention of the gallbladder with gallbladder wall thickening and dilated intrahepatic biliary ducts as well as the common bile duct. Can''t rule out choledocholithiasis. Mild thickening of the gallbladder wall. Correlation with ultrasound is recommended if clinically indicated. Diffuse gastric wall thickening. Electronically Signed: Daniel Campbell MD at 12:33 EST , Chest X-Ray 08/26/24 12:06 IMPRESSION: Hyperinflation. Stable mild increased markings at the lung bases suggestive of scarring. Electronically Signed: Daniel Campbell MD at 12:16 EST , Gallbladder Ultrasound 08/26/24 12:45 IMPRESSION: Dilated intrahepatic biliary ducts. Multiple gallstones with distention of the gallbladder and mild gallbladder wall thickening. Electronically Signed: Daniel Campbell MD at 13:45 EST , ADDENDUM: 08/26/24 1358 IMPRESSION: undefined Endo Retro Cholangiopancreatogram 08/26/24 20:15 IMPRESSION: Intraoperative fluoroscopy. Refer to the procedural note for complete details. Electronically Signed: Ronni Richardson DO at 20:53 EST ,
--- NOTE | 2024-08-27 09:08 | PCM.DC.SUM ---
Providers Date of Admission: 08/26/24 Primary Care Physician: Dr. Oracio Hall, DO Consultations 08/26/24 16:32 Consult: Gastroenterology Routine Consulting Provider: [facility] Reason for Consult: Choledocholithiasis EMERGENT Consult: No Notified: Yes Date Notified: 08/26/24 Time Notified: 15:51 Method of Notification: Verbal Consult: General Surgery Routine Consulting Provider: Papito Mooney Reason for Consult: Choledocholithiasis, gallstones EMERGENT Consult: No Notified: Yes Date Notified: 08/26/24 Time Notified: 15:52 Method of Notification: Verbal Reason For Visit: CHOLEDOCHOLITHIASIS Diagnosis Discharge Diagnosis (1) Cholelithiasis with choledocholithiasis: Status: Acute Code(s): K80.70 - Calculus of gallbladder and bile duct without cholecystitis without obstruction Plan Choledocholithiasis s/p ERCP on the : single segmental biliary stricture in the lower 3rd of the main BD. Upper 3rd of Main BD moderately dilated. Choledocholithiasis was found. Partial removal with biliary sphincterotomy. Stent inserted. Cholecystitis 2/[address] Mooney, plan on outpt cholecystectomy. No need for abx from his perspective. Hypokalemia replace. Encephalopathy Pt this AM had a Code Lyndsey, but was reorientable. Family notified and mentioned they are concerned about dementia. Patient will need to follow up with geriatrics/neurology. Discussed with the patient's son at bedside. He states that the patient normally is very active and has not had any concerns specifically up until just recently where the patient was hallucinating. Recommended follow-up with geriatrics or neurology to formally to evaluate him to see if he indeed does have dementia or mild cognitive impairment. I would be highly concerned that he has 1 of those given his hallucinations and agitation that he had while he was here. Disposition: await on family. Possible discharge home later today. Medications at Discharge Home Medications tizanidine 4 mg tablet 4 mg PO Q8H PRN Pain 03/31/16 duloxetine 60 mg capsule,delayed release (Cymbalta) 60 mg PO DAILY mental health 07/18/20 albuterol sulfate 90 mcg/actuation aerosol inhaler (Ventolin HFA) 1 - 2 puff inhalation Q4H PRN PRN Wheezing ##1 12/20/22 hydromorphone 4 mg tablet 4 mg PO Q8H PRN pain 05/04/23 hydroxyzine HCl 25 mg tablet 25 mg PO BID PRN anxiety 05/04/23 omeprazole 20 mg capsule,delayed release 20 mg PO DAILY reflux 05/04/23 tamsulosin 0.4 mg capsule 0.4 mg PO DAILY prostate 05/04/23 zolpidem 10 mg tablet 10 mg PO QHS sleep 05/04/23 atenolol 50 mg tablet 50 mg PO DAILY blood pressure 12/01/23 duloxetine 30 mg capsule,delayed release 30 mg PO DAILY mental health 12/01/23 gabapentin 600 mg tablet 600 mg PO TID nerve pain 12/01/23 ondansetron 4 mg disintegrating tablet 4 mg PO Q6H PRN nausea and vomiting #7 tabs 12/09/23 losartan 50 mg tablet 50 mg PO DAILY ASK PCP 08/26/24 Hospital Course Operations None Procedures - (ERCP) Summary of Care Provided Minutes Spent on Discharge: 45 Hospital Course: This is a 73-year-old that presents with confusion, nausea vomiting and diarrhea as well as right upper quadrant pain. Patient was found to have choledocholithiasis as well as cholecystitis. Patient underwent an ERCP that showed a biliary stricture as well as choledocholithiasis and patient had a stent with partial removal of the stones. CAT scan did show cholecystitis. Patient was seen by general surgery who recommend outpatient cholecystectomy. Patient was confused and was actually Yahaira chair at the nursing station but broke out of that and was pushing staff though did not appear to be an attempt to harm them but the get them out of the way. He was reorientable and brought to his room. Patient was evaluated by myself after they called a kaur christianson and he was reorientable and did recall Dr. Mooney speaking to him about his cholecystectomy being done as outpatient. I did discuss with the patient's son that would be concerned the patient may have underlying dementia but recommended outpatient follow-up with geriatrics or neurology. I did offer the son the option that if he has any concern about the patient going home because of his hallucinations that we can keep him here but that if he were to continue getting more agitated we may have to physically or chemically restrain him to protect the safety of the patient as well as the staff. He states that he feels comfortable going home. He states that he and his sister are the point person's for the patient's contact. Weight / BMI Weight Weight: 90.718 kg Body Mass Index (BMI) 27.1 ABG / Lab / Microbiology Data 08/27/24 04:55 08/27/24 04:55 Laboratory: Laboratory Results - last 24 hr 08/26/24 11:21: WBC 9.5, RBC 4.61, Hgb 14.5, Hct 40.9, MCV 88.7, MCH 31.5, MCHC 35.5, RDW Std Deviation 43.3, RDW Coeff of Karlee 13.3, Plt Count 280, MPV 8.9, Immature Gran % (Auto) 0.600, Neut % (Auto) 61.6, Lymph % (Auto) 25.9, [place] % (Auto) 11.1 H, Eos % (Auto) 0.4, Baso % (Auto) 0.4, Absolute Neuts (auto) 5.8, Absolute Lymphs (auto) 2.46, Nucleated RBC % 0, Sodium 137, Potassium 3.1 L, Chloride 100, Carbon Dioxide 29.0, Anion Gap 8, BUN 33 H, Creatinine 1.71 H, Estim Creat Clear Calc 45.12, Est GFR (MDRD) Af Amer 51 L, Est GFR (MDRD) Non-Af 42 L, BUN/Creatinine Ratio 19.3, Glucose 103, Calcium 9.6, Total Bilirubin 1.10 H, AST 13 L, ALT 17, Alkaline Phosphatase 115, Total Creatine Kinase 129, Troponin I High Sens 21, Total Protein 7.7, Albumin 3.8, Globulin 3.9, Albumin/Globulin Ratio 1.0, Lipase 35 08/26/24 12:46: Urine Color Yellow, Urine Clarity Clear, Urine pH 6.0, Ur Specific Stanley 1.020, Urine Protein 100 H, Urine Glucose (UA) Normal, Urine Ketones 5 H, Urine Occult Blood Negative, Urine Nitrite Negative, Urine Bilirubin 1 H, Urine Urobilinogen 1 H, Ur Leukocyte Esterase 25 H, Urine RBC 0 SEEN, Urine WBC 0-5 SEEN, Ur Squamous Epith Cells 0 SEEN, Urine Bacteria 1+, Urine Mucus 0 SEEN 08/27/24 04:55: WBC 9.9, RBC 4.00 L, Hgb 12.5 L, Hct 36.9 L, MCV 92.3, MCH 31.3, MCHC 33.9, RDW Std Deviation 45.3 H, RDW Coeff of Karlee 13.3, Plt Count 258, MPV 8.9, Immature Gran % (Auto) 0.400, Neut % (Auto) 64.5, Lymph % (Auto) 23.6, [place] % (Auto) 9.8, Eos % (Auto) 1.3, Baso % (Auto) 0.4, Absolute Neuts (auto) 6.4, Absolute Lymphs (auto) 2.33, Nucleated RBC % 0, Sodium 138, Potassium 3.0 L, Chloride 105, Carbon Dioxide 26.0, Anion Gap 7, BUN 29 H, Creatinine 1.30, Estim Creat Clear Calc 54.72, Est GFR (MDRD) Af Amer 69, Est GFR (MDRD) Non-Af 57 L, BUN/Creatinine Ratio 22.3 H, Glucose 92, Calcium 9.1, Total Bilirubin 1.20 H, AST 15, ALT 16, Alkaline Phosphatase 103, Total Protein 7.1, Albumin 3.5, Globulin 3.6, Albumin/Globulin Ratio 1.0 Radiography Diagnostic Testing: Radiology Impression Brain CT 08/26/24 11:19 IMPRESSION: Chronic involutional changes of the brain. Electronically Signed: Daniel Campbell MD at 12:21 EST , Abdomen/Pelvis CT 08/26/24 11:20 IMPRESSION: Stable noncalcified nodules in the left lower lobe. Fatty infiltration of the liver. Distention of the gallbladder with gallbladder wall thickening and dilated intrahepatic biliary ducts as well as the common bile duct. Can''t rule out choledocholithiasis. Mild thickening of the gallbladder wall. Correlation with ultrasound is recommended if clinically indicated. Diffuse gastric wall thickening. Electronically Signed: Daniel Campbell MD at 12:33 EST , Chest X-Ray 08/26/24 12:06 IMPRESSION: Hyperinflation. Stable mild increased markings at the lung bases suggestive of scarring. Electronically Signed: Daniel Campbell MD at 12:16 EST , Gallbladder Ultrasound 08/26/24 12:45 IMPRESSION: Dilated intrahepatic biliary ducts. Multiple gallstones with distention of the gallbladder and mild gallbladder wall thickening. Electronically Signed: Daniel Campbell MD at 13:45 EST , ADDENDUM: 08/26/24 1358 IMPRESSION: undefined Endo Retro Cholangiopancreatogram 08/26/24 20:15 IMPRESSION: Intraoperative fluoroscopy. Refer to the procedural note for complete details. Electronically Signed: Ronni Richardson DO at 20:53 EST , D/C Instructions Discharge Diet: No restrictions DC O2, CPAP, BIPAP Needs Additional Home O2 Discharge instructions: No DC home with Oxygen: No Meaningful Use Info Meaningful Use Meaningful Use Diagnoses (Choose all that apply): None applicable Ischemic Stroke Statin Dosing Therapy Reference: STATIN DOSE THERAPY REFERENCE: * Patients > 75 years receive moderate or high dose statin therapy. * Patients 75 years or YOUNGER should receive HIGH intensity statin dose unless contraindicated. You will be required to document reason for non-treatment if statin daily dose does not meet guidelines. HIGH DOSE STATIN THERAPY DAILY Atorvastatin > than or = to 40 mg Rosuvastatin > than or = to 20 mg Amlodipine + Atorvastatin > than or = to 2.5/40 mg Ezetimibe + Simvastatin 10/80 mg Simvastatin 80mg Discharge Plan Admission Admit Date/Time: 08/26/24 15:45 Primary Reason for Your Visit: Choledocholiasis. Attending Provider: Tom Mendoza Primary Care Provider: Oracio Hall Consulting Providers: Papito Mooney; Oracio Salazar Instructions Additional Instructions / Restrictions: Follow-up with neurology for evaluation of possible dementia. Dr. Howard [phone]. [facility] [phone]. [facility] [phone]. [facility] [phone]. [facility] [phone]. [facility] [phone] Follow up with general surgery for removal of gall bladder (cholecystectomy) Discharge Orders/Prescriptions Prescriptions: Continued duloxetine [Cymbalta] 60 mg capsule,delayed release(DR/EC) 60 mg PO DAILY zolpidem 10 mg tablet 10 mg PO QHS Patient Comments: TAKE 1 TABLET BY MOUTH DAILY AT BEDTIME NEEDED FOR INSOMNIA hydromorphone 4 mg tablet 4 mg PO Q8H PRN (Reason: pain) Patient Comments: TAKE 1 TABLET BY MOUTH THREE TIMES DAILY NEEDED for severe intactable pain omeprazole 20 mg capsule,delayed release(DR/EC) 20 mg PO DAILY Patient Comments: TAKE 1 TABLET BY MOUTH DAILY hydroxyzine HCl 25 mg tablet 25 mg PO BID PRN (Reason: anxiety) Patient Comments: TAKE 1 TABLET BY MOUTH DAILY NEEDED FOR ANXIETY tamsulosin 0.4 mg capsule 0.4 mg PO DAILY Patient Comments: TAKE 1 CAPSULE BY MOUTH at NIGHT tizanidine 4 MG tablet 4 mg PO Q8H PRN (Reason: Pain) Patient Comments: MUSCLE RELAXANT albuterol sulfate [Ventolin HFA] 90 mcg/actuation HFA aerosol inhaler 1 - 2 puff inhalation Q4H PRN PRN (Reason: Wheezing) Qty: 1 0RF gabapentin 600 mg tablet 600 mg PO TID atenolol 50 mg tablet 50 mg PO DAILY duloxetine 30 mg capsule,delayed release(DR/EC) 30 mg PO DAILY ondansetron 4 mg tablet,disintegrating 4 mg PO Q6H PRN (Reason: nausea and vomiting) Qty: 7 0RF losartan 50 mg tablet 50 mg PO DAILY Referrals / Follow Up: [facility] [Provider Group] - Within 1 Month Papito Mooney MD [Med Staff - Active Staff] - Within 1 Week Oracio Hall DO [Primary Care Provider] - Within 2 Weeks Disposition Disposition (needs filled in before D/C Order can be placed): Home, Self Care Charges/Coding Visit Charges Inpatient E&M: 58825 Disch Hosp >30min
[2024-08-27] MEDS: Potassium Chloride Oral Tablet 20 MEQ 60 MEQ PO (09:19)
== END 2024-08-27 09:36 | disposition home or self-care (01) | DRG 445 ==
LOC: ED 15:19 → MS3 08-27 07:02
PROVIDERS: Internal Medicine Gastroenterology; Admitting Provider Internal Medicine; Emergency Provider Emergency Medicine; PCP Family Medicine
PROC: 0FC98ZZ Extirpation of Matter from Common Bile Duct, Via Natural or Artificial Opening Endoscopic (ICD-10-PCS; CPT 43260; principal; 2024-08-26 17:10)
DX: K80.61 Calculus of gallbladder and bile duct with cholecystitis, unspecified, with obstruction (principal); N17.9 Acute kidney failure, unspecified; G93.40 Encephalopathy, unspecified; J44.0 Chronic obstructive pulmonary disease with (acute) lower respiratory infection; F03.90 Unspecified dementia, unspecified severity, without behavioral disturbance, psychotic disturbance, mood disturbance, and anxiety; N18.30 Chronic kidney disease, stage 3 unspecified; I12.9 Hypertensive chronic kidney disease with stage 1 through stage 4 chronic kidney disease, or unspecified chronic kidney disease; K83.8 Other specified diseases of biliary tract; E86.0 Dehydration; E87.6 Hypokalemia; F17.210 Nicotine dependence, cigarettes, uncomplicated; G47.33 Obstructive sleep apnea (adult) (pediatric); F41.8 Other specified anxiety disorders; K21.9 Gastro-esophageal reflux disease without esophagitis; M79.2 Neuralgia and neuritis, unspecified; J44.89 Other specified chronic obstructive pulmonary disease; Z99.89 Dependence on other enabling machines and devices; Z79.899 Other long term (current) drug therapy
CPT/HCPCS: 36415; 70450; 71045; 74177; 74330; 76000; 76705; 80053; 81001; 82550; 83690; 84484; 85025; 88305; 93005; 99285; 99406; J7030; Q9967; A4216; J2405

== ENCOUNTER 2024-09-18 01:31 | Emergency (ER) | payer MEDICARE, SELFPAY ==
[2024-09-18] VITALS (9 sets, daily range): BP systolic 164–205; BP diastolic 89–124; PULSE 74–89; RESP 16–19; TEMP 36.5–36.6; O2SAT 84–97; BMI 29.0
[2024-09-18] MEDS: DiphenhydrAMINE 50 MG/ML Syringe 25 MG IV (02:26)
[2024-09-18] MEDS: 0.9% Normal Saline (500mL Bag) 500 ML 999 ML IV (02:26)
[2024-09-18] MEDS: Ketorolac 15 MG/ML Vial IV (02:26)
[2024-09-18] MEDS: diazePAM 5 MG Tablet PO (02:27)
[2024-09-18] MEDS: dexAMETHasone 10 MG/ML Vial IV (02:27)
--- NOTE | 2024-09-18 03:17 | CT_ITS ---
INDICATION: headache EXAMINATION: CT BRAIN - CT Head or Brain W/O Contrast Injection TECHNIQUE: Multiple axial images were obtained of the head without intravenous contrast. The protocol utilizes one or more of the following dose reduction techniques: automated exposure control, adjustment of mA and/or kV according to patient size,and/or use of iterative reconstruction technique. IV Contrast dosage and agent: None. RADIATION DOSAGE (If Supplied By Facility): CTDIvol = ( 44.99 ) mGy, DLP = ( 863.60 ) mGycm COMPARISON: No relevant prior comparison study available FINDINGS: BRAIN PARENCHYMA: No intra- or extra-axial hemorrhage. No evidence of acute infarct. No intracranial mass or mass effect. There is preservation of the taveras/white matter interface. Posterior fossa structures are unremarkable. CSF SPACES: Appropriate for age. No hydrocephalus. Basal cisterns are patent. CALVARIUM, SKULL BASE, PARANASAL SINUSES AND MASTOID AIR CELLS: Clear. No discrete lytic or blastic abnormalities. ORBITS: Both globes, extraocular muscles, optic nerves and retrobulbar fat appear unremarkable. ASPECTS Score for Acute Strokes: 10 CT/Brain/Head without Contrast IMPRESSION: Negative Brain CT without contrast. Electronically Signed: Sheyla Damon MD at 4:43 EST Reading Location ID and State: [facility] / [place] Tel , Service support ,
--- NOTE | 2024-09-18 03:19 | CT_ITS ---
STUDY: CT ABDOMEN AND PELVIS WITH CONTRAST - URINARY TRACT REASON FOR EXAM: Male, 73 years old. abd pain RADIATION DOSAGE (If Supplied By Facility): CTDIvol = ( 22.41 ) mGy, DLP = ( 1394.64 ) mGycm TECHNIQUE: IV 100mL [id number] was administered. Transaxial images were obtained from the dome of the diaphragm to the symphysis pubis in the arterial, nephrographic and excretory phases. Multiplanar coronal and sagittal images were reformatted. The protocol utilizes one or more of the following dose reduction techniques: automated exposure control, adjustment of mA and/or kV according to patient size,and/or use of iterative reconstruction technique. COMPARISON: 08/26/2024 FINDINGS: There is prominent ill-defined groundglass opacity in the left lung base suggesting pneumonia. There is dependent atelectasis in the lung bases. There are 2, adjacent noncalcified nodules measuring 7.8 mm in the lateral aspect of the left lower lobe. These are essentially unchanged. The visualized portions of the heart are within normal limits. There is evidence of central intrahepatic biliary ductal dilatation. There is a stent now seen in the common bile duct down to the ampulla of Vater, its tip is in the duodenum. The gallbladder is distended. There is a mild degree of gallbladder wall thickening. Normal spleen. Normal pancreas. Normal bilateral adrenal glands. Normal right kidney. Normal left kidney. Incidental note is made of a left retroaortic renal vein. There is diffuse gastric wall thickening. Clinical correlation recommended. Normal small intestine. Moderate amount of fecal material seen in the rectosigmoid colon. The patient is status post appendectomy. There is scattered atherosclerotic calcification of the abdominal aorta, without a demonstrated aneurysm. Normal inferior vena cava. Normal retroperitoneum. Normal urinary bladder. Normal abdominal wall. There are degenerative changes of the visualized lumbar spine. CT/Abdomen/Pelvis W IV Cont ONLY IMPRESSION: CBD stent in good position. There is no acute abnormality in the abdomen or pelvis. Electronically Signed: Sheyla Damon MD at 5:15 EST ,
[2024-09-18 03:25] LABS: Absolute Lymphocyte Count 2.11 X10^3/uL (0.83-4.51); Absolute Neutrophil Count 5.6 X10^3/uL (2.0-7.7); Basophil# 0.06 X10^3/uL; Basophil% 0.7 % (0-1); Eosinophil# 0.36 X10^3/uL; Hematocrit 35.4 % (40-54); Hemoglobin 11.9 g/dL (13.0-16.5); Lymphocyte # 2.11 X10^3/ul (0.83-4.51); Lymphocyte % 23.5 % (19-41); Mean Corp Hgb Conc 33.6 g/dL (32-36); Mean Corpuscular Hgb 31.9 pg (27.0-32.0); Mean Corpuscular Volume 94.9 fL (80-94); Mean Platelet Vol. 8.8 fl (6.2-12.0); Monocyte# 0.82 X10^3/uL; Monocyte% 9.1 % (0-10); NRBC Flagged by Analyzer 0 % (0-5); Neutrophil # 5.58 X10^3/uL (2.7-7.7); Neutrophil % 62.3 % (47-70); Platelet Count 274 K/mm3 (150-450); RBC Distribution Width CV 13.7 % (11.6-14.6); RBC Distribution Width SD 47.8 fl (35.1-43.9); Red Blood Count 3.73 M/mm3 (4.6-6.2)
[2024-09-18] MEDS: HYDROmorphone 1 MG/ML Syringe IV ×2 (03:32→04:56)
[2024-09-18] MEDS: Ondansetron 4 MG/2 ML Vial IV (03:32)
[2024-09-18 03:41] LABS: AST(SGOT) 14 U/L (15-37); Alanine Aminotransfer ALT/SGPT 16 U/L (16-61); Albumin, Serum 3.5 g/dL (3.2-5.0); Alkaline Phosphatase 83 U/L (45-117); Anion Gap 5 (5-15); BUN 15 mg/dL (7-18); BUN/Creat Ratio 14.2 RATIO (10-20); Bilirubin, Direct 0.19 mg/dL (0.00-0.30); Calcium,Total 8.8 mg/dL (8.5-10.1); Chloride 108 mmol/L (98-107); Creatinine, Serum 1.06 mg/dL (0.70-1.30); EST Glomerular Filtration Rate 72 mL/min (>60); Est Glom Filt Rate - Afr Amer 88 mL/min (>60); Estimated Creatinine Clearance 73.92 ml/min; Globulin 3.6 g/dL (2.2-4.2); Glucose 106 mg/dL (74-106); Lipase 41 U/L (13-75); Potassium 3.2 mmol/L (3.5-5.1); Protein, Total 7.1 g/dL (6.4-8.2); Sodium Level 142 mmol/L (136-145)
[2024-09-18] MEDS: cloNIDine HCl 0.1 MG Tablet PO (04:56)
--- NOTE | 2024-09-18 05:27 | EDS_ITS ---
HPI History of Present Illness Chief Complaint: Headache Informant: patient and family Narrative Narrative: Patient is a 73-year-old male with past medical history of COPD hypertension and chronic kidney disease. He states for the last few weeks has been having a headache that he states starts around the bilateral bases of his neck and wraps up around his head. He states there is no recent trauma. He denies any sick symptoms. He reports roughly 1 week ago he had an MRI which showed 3 areas of previous stroke but no sign of bleed or mass. He reports has been taking Tylenol but has not had any symptom improvement. He also reports that he recently had a biliary stent placed and has been noticing some upper abdominal pain. Therefore because of his multiple symptoms and the inability to sleep he presents for evaluation [facility] Medical History Rheumatoid arthritis Depression COPD (chronic obstructive pulmonary disease) Asthma Migraines Hypertension CKD (chronic kidney disease), stage III Anxiety and depression PHIL on CPAP Spinal stenosis, lumbar DDD (degenerative disc disease), lumbar Wears glasses History of steroid therapy Restless legs GERD (gastroesophageal reflux disease) Smoker CPAP (continuous positive airway pressure) dependence Chronic cough Inguinal hernia bilateral, non-recurrent Ventral incisional hernia without obstruction or gangrene Arthritis History of back problems Stage 1 mild COPD by GOLD classification HTN (hypertension) Obesity CKD stage III PHIL (obstructive sleep apnea) Abnormal chest CT Central sleep apnea COPD (chronic obstructive pulmonary disease) Asthma Chronic pain Depression Hemoptysis Curiel palsy Home Medications ?Medication ?Instructions ?Recorded ?Last Taken ?Type tizanidine 4 mg tablet 4 mg PO Q8H PRN Pain 03/31/16 Unknown History duloxetine 60 mg capsule,delayed 60 mg PO DAILY mental health 07/18/20 Unknown History release (Cymbalta) albuterol sulfate 90 mcg/actuation 1 - 2 puff inhalation Q4H PRN PRN 12/20/22 Unknown Rx aerosol inhaler (Ventolin HFA) Wheezing ##1 hydromorphone 4 mg tablet 4 mg PO Q8H PRN pain 05/04/23 Unknown History hydroxyzine HCl 25 mg tablet 25 mg PO BID PRN anxiety 05/04/23 05/11/23 History omeprazole 20 mg capsule,delayed 20 mg PO DAILY reflux 05/04/23 Unknown History release tamsulosin 0.4 mg capsule 0.4 mg PO DAILY prostate 05/04/23 Unknown History zolpidem 10 mg tablet 10 mg PO QHS sleep 05/04/23 Unknown History atenolol 50 mg tablet 50 mg PO DAILY blood pressure 12/01/23 Unknown History duloxetine 30 mg capsule,delayed 30 mg PO DAILY mental health 12/01/23 Unknown History release gabapentin 600 mg tablet 600 mg PO TID nerve pain 12/01/23 Unknown History ondansetron 4 mg disintegrating 4 mg PO Q6H PRN nausea and 12/09/23 Unknown Rx tablet vomiting #7 tabs losartan 50 mg tablet 50 mg PO DAILY ASK PCP 08/26/24 Unknown History clonidine HCl 0.1 mg tablet 0.1 mg PO 4X/DAY 5 days #20 tabs 09/18/24 Unknown Rx Allergy/AdvReac Type Severity Reaction Status Date / Time carisoprodol (From Soma) Allergy Other Verified 09/18/24 01:38 metoclopramide HCl (From AdvReac Upset Verified 09/18/24 01:38 Reglan) Stomach pregabalin (From Lyrica) AdvReac Upset Verified 09/18/24 01:38 Stomach Family History Father Lung disease Cancer lung Brother Cancer lung Mother Hypertension Surgical History History of inguinal hernia repair, bilateral History of colonoscopy (~07/2020) H/O colonoscopy H/O neck surgery ankle surgery lower back surgery Social History household members: other details: roommate Smoking Status: Current every day smoker tobacco type: cigarettes Tobacco: How many years used: 50 Electronic Cigarette Use: not used how long ago did patient quit smokin, 2-3pk/day->quit for many yrs, started again over last 6-7 months. second hand exposure: Yes alcohol intake: never substance use type: does not use caffeine: Yes Type: coffee Number of servings: 3 what type of physical activity do you participate in: bicycling frequency: daily duration: 15-30 minutes/day ROS ROS ED Constitutional Constitutional ED: Denies chills or fever(s) Eyes Eyes: Reports other Details: Positive photophobia ENT ENT ED: Reports ear pain bilateral; Denies rhinorrhea or sore throat Cardiovascular Cardiovascular: Denies chest pain Respiratory/Chest Respiratory/Chest: Denies cough or dyspnea Gastrointestinal Gastrointestinal: Reports abdominal pain; Denies diarrhea, nausea or vomiting Genitourinary Genitourinary ED: Denies dysuria Musculoskeletal Musculoskeletal: Reports neck pain Integumentary Denies rash Neurologic Neurologic: Reports headache(s); Denies paresthesias or weakness Hematologic/Lymphatic Hematologic/Lymphatic: Denies easy bleeding or easy bruising EXAM Physical Exam Const Vital Signs: 09/18/24 01:32 09/18/24 02:32 09/18/24 03:00 Temperature 97.7 F L Temperature Source Oral Pulse Rate 87 74 75 Respiratory Rate 18 18 18 Blood Pressure 179/124 H 176/94 H 205/105 H Blood Pressure Mean 142 121 138 Pulse Ox 92 97 97 Oxygen Delivery Method Room Air Room Air Room Air Oxygen Flow Rate (L/min) 09/18/24 03:42 09/18/24 03:57 09/18/24 05:00 Temperature Temperature Source Pulse Rate 83 78 89 Respiratory Rate 16 19 H 18 Blood Pressure 192/113 H 170/115 H 164/92 H Blood Pressure Mean 139 133 116 Pulse Ox 92 91 95 Oxygen Delivery Method Room Air Room Air Room Air Oxygen Flow Rate (L/min) 09/18/24 05:11 09/18/24 05:13 09/18/24 05:28 Temperature 98 F Temperature Source Pulse Rate 86 Respiratory Rate 17 Blood Pressure 168/89 H Blood Pressure Mean 115 Pulse Ox 84 95 96 Oxygen Delivery Method Room Air Nasal Cannula Oxygen Flow Rate (L/min) 2 Positive well nourished and well developed General Appearance ED: well developed; Negative for pallor HEENT HEENT Narrative: Normocephalic atraumatic Eyes PERRL and EOMs intact bilaterally General Eye ED: Negative for scleral icterus Neck supple Neck Narrative: No nuchal rigidity or meningeal signs No carotid bruit noted Resp normal respiratory effort and clear to auscultation bilaterally Cardio regular rate and regular rhythm Rate: other Other Details: Radial and carotid pulses are equal and symmetric GI non-distended and no masses GI Narrative: Abdomen is soft and nondistended with normal active bowel sounds. There is mild pain with palpation in the midepigastric region without voluntary guarding or rigidity. No pulsatile mass or fluid wave Auscultation: normoactive bowel sounds Palpation: soft Extremity normal to inspection Neuro oriented x3, CN's II-XII intact bilaterally and no sensory deficits noted Neuro Narrative: GCS of 15 Cranial nerves II through XII are grossly intact there is no focal neurologic deficit No pronator drift no dysmetria no truncal ataxia NIH stroke scale score of 0 Sensorium / Orientation: alert Motor Exam: strength 5/5 throughout Psych mental status grossly normal Skin no rashes or lesions noted and no wounds General Skin Exam: Negative for jaundice or pallor MDM MDM MDM Narrative Medical decision making narrative: Patient presented to the ER hypertensive but otherwise with stable vitals. Chart review reveals a past history of migraine. Also he states he was recently at an outside hospital where he had an MRI obtained which showed a few areas of previous stroke but no tumor or bleed. He states he is not on a blood thinner and he denies any recent trauma. Therefore my concern for a headache caused by a mass effect or bleed such as a spontaneous subarachnoid or subdural hemorrhage is low and I did not feel the need to repeat testing. The patient was given IV Toradol Benadryl Decadron and oral Valium as he did have symptoms consistent with muscle tension. This did not help improve his headache so therefore I did elect to add a CT of the head as well as the abdomen with his recent biliary stent placed as there is concern for potential perforation postoperative infection obstruction or abscess. Lab work revealed no clinically significant findings. White count is normal and there is no left shift going against infectious process. Patient does not have elevation to his liver enzymes going against biliary colic/acute cholecystitis and his lipase is normal going against pancreatitis. Head CT revealed no bleed or mass and without fever meningeal signs or white count I have low concern for infection. As the patient just had a MRI last week and has been having a headache during this time my concern for subarachnoid hemorrhage is low as well and there is no need for lumbar puncture. The patient's chart was reviewed and he is on hydromorphone which she states has been off for over 5 years. However he states he has been out of it for the last week or so. Therefore I do feel this is most likely opioid withdrawal. He was given 2 doses of Dilaudid and had improvement of his headache and his blood pressure improved as well. Therefore at this time he does not have infectious process such as meningitis or postoperative intestinal infection from the biliary stent placement. There is no signs of endorgan damage from the hypertension. He does not have a spontaneous bleed or mass. His headache has improved with medication provided in the ER. Therefore there is no need for further workup and he is otherwise safe for discharge History & Record Review Discussion w/independent historian: Patient and Family Lab Data Attestation: I reviewed the patient's lab results. Labs: Laboratory Results - last 24 hr 09/18/24 03:19 WBC 9.0 RBC 3.73 L Hgb 11.9 L Hct 35.4 L MCV 94.9 H MCH 31.9 MCHC 33.6 RDW Std Deviation 47.8 H RDW Coeff of Karlee 13.7 Plt Count 274 MPV 8.8 Immature Gran % (Auto) 0.400 Neut % (Auto) 62.3 Lymph % (Auto) 23.5 [place] % (Auto) 9.1 Eos % (Auto) 4.0 Baso % (Auto) 0.7 Absolute Neuts (auto) 5.6 Absolute Lymphs (auto) 2.11 Nucleated RBC % 0 Sodium 142 Potassium 3.2 L Chloride 108 H Carbon Dioxide 29.0 Anion Gap 5 BUN 15 Creatinine 1.06 Estim Creat Clear Calc 73.92 Est GFR (MDRD) Af Amer 88 Est GFR (MDRD) Non-Af 72 BUN/Creatinine Ratio 14.2 Glucose 106 Calcium 8.8 Total Bilirubin 0.60 Direct Bilirubin 0.19 AST 14 L ALT 16 Alkaline Phosphatase 83 Total Protein 7.1 Albumin 3.5 Globulin 3.6 Lipase 41 Radiography Diagnostic Testing: Clinical Impression(s) from Imaging Studies Brain CT 09/18/24 03:17 IMPRESSION: Negative Brain CT without contrast. Electronically Signed: Sheyla Damon MD at 4:43 EST , Abdomen/Pelvis CT 09/18/24 03:19 IMPRESSION: CBD stent in good position. There is no acute abnormality in the abdomen or pelvis. Electronically Signed: Sheyla Damon MD at 5:15 EST , Discharge Plan Triage Chief Complaint: Headache ED Provider: Keith Barbosa Dx/Rx/DC Orders Clinical Impression: Cephalgia, Hypertension, COPD (chronic obstructive pulmonary disease) Instructions: Understanding Headache Pain, ED Opioid Withdrawal Prescriptions: New clonidine HCl 0.1 mg tablet 0.1 mg PO 4X/DAY 5 Days Qty: 20 0RF No Action duloxetine [Cymbalta] 60 mg capsule,delayed release(DR/EC) 60 mg PO DAILY zolpidem 10 mg tablet 10 mg PO QHS Patient Comments: TAKE 1 TABLET BY MOUTH DAILY AT BEDTIME NEEDED FOR INSOMNIA hydromorphone 4 mg tablet 4 mg PO Q8H PRN (Reason: pain) Patient Comments: TAKE 1 TABLET BY MOUTH THREE TIMES DAILY NEEDED for severe intactable pain omeprazole 20 mg capsule,delayed release(DR/EC) 20 mg PO DAILY Patient Comments: TAKE 1 TABLET BY MOUTH DAILY hydroxyzine HCl 25 mg tablet 25 mg PO BID PRN (Reason: anxiety) Patient Comments: TAKE 1 TABLET BY MOUTH DAILY NEEDED FOR ANXIETY tamsulosin 0.4 mg capsule 0.4 mg PO DAILY Patient Comments: TAKE 1 CAPSULE BY MOUTH at NIGHT tizanidine 4 MG tablet 4 mg PO Q8H PRN (Reason: Pain) Patient Comments: MUSCLE RELAXANT albuterol sulfate [Ventolin HFA] 90 mcg/actuation HFA aerosol inhaler 1 - 2 puff inhalation Q4H PRN PRN (Reason: Wheezing) Qty: 1 0RF gabapentin 600 mg tablet 600 mg PO TID atenolol 50 mg tablet 50 mg PO DAILY duloxetine 30 mg capsule,delayed release(DR/EC) 30 mg PO DAILY ondansetron 4 mg tablet,disintegrating 4 mg PO Q6H PRN (Reason: nausea and vomiting) Qty: 7 0RF losartan 50 mg tablet 50 mg PO DAILY Primary Care Provider: Oarcio Hall Referrals: Oracio Hall DO [Primary Care Provider] - Activity Restrictions/Additional Instructions: Please take the clonidine as directed as this can help control your blood pressure and also reduce symptoms of opioid withdrawal. You can continue Tylenol for pain relief and return to the ER should you have any further concerns Print Language: Turkish Disposition Disposition: Home, Self Care Discharge Date/Time: 09/18/24 05:33
== END 2024-09-18 05:33 | disposition home or self-care (01) ==
PROVIDERS: Emergency Provider Emergency Medicine; PCP Family Medicine; Visit Provider Emergency Medicine
DX: R51.9 Headache, unspecified (principal); J44.9 Chronic obstructive pulmonary disease, unspecified; N18.30 Chronic kidney disease, stage 3 unspecified; F17.210 Nicotine dependence, cigarettes, uncomplicated; I12.9 Hypertensive chronic kidney disease with stage 1 through stage 4 chronic kidney disease, or unspecified chronic kidney disease; G47.33 Obstructive sleep apnea (adult) (pediatric); Z99.89 Dependence on other enabling machines and devices; Z79.899 Other long term (current) drug therapy; F41.8 Other specified anxiety disorders; K21.9 Gastro-esophageal reflux disease without esophagitis
CPT/HCPCS: 70450; 74177; 80048; 80076; 83690; 85025; 87631; 96361; 96374; 96375; 96376; 99284; Q9967; A4216; J2405

== ENCOUNTER → 2024-09-29 | Outpatient (CLI) | payer MEDICARE, SELFPAY ==
[2024-09-29 15:45] LABS: Erythrocyte Sedimentation Rate 10 mm/hr (0-20)
[2024-09-29 15:54] LABS: CRP < 2.90 mg/L (0.0-3.0)
== END | disposition home or self-care (01) ==
LOC: BFHLAB 13:06
PROVIDERS: PCP Family Medicine; Visit Provider Family Medicine
DX: R51.9 Headache, unspecified (principal)
CPT/HCPCS: 36415; 85652; 86140

== ENCOUNTER 2024-11-17 08:52 | Day surgery (SDC) | payer MEDICARE, SELFPAY ==
--- NOTE | 2024-11-15 14:57 | PAT.ANE_ITS ---
Pre-Assessment Diagnosis/Proposed Procedure Planned Operative Procedure(s): ERCP Anesthesia History Anesthesia History - chemical dependency nurse: Anesthesia History - chemical dependency nurse Hx Hospitalization Yes: SEP 2024- ERCP 11/15/24 13:40 Any Problems With Anesthesia No 11/15/24 13:40 Cholinesterase deficiency No 11/15/24 13:40 You/Your Family Experience No 11/15/24 13:40 fever (hyperthermia) with Relationship Recent Exposure to Contagious No 08/26/24 17:11 Disease Does patient have nerve No 11/15/24 13:40 stimulator Patient instructed to have device shut off --Does patient have Pacemaker or ICD? When Was Last Pacemaker Check QUESTION #4 FULL TEXT: You/Your Family Experience fever (hyperthermia) with Anesthesia Last Oral Intake Last Oral intake: Last Oral Intake NPO since Meds taken in AM with sips of water? Meds patient instructed to take am of surgery PONV PONV - chemical dependency nurse: PONV - chemical dependency nurse Female No 11/15/24 13:40 HX of Motion Sickness No 11/15/24 13:40 HX of N/V After Surgery No 11/15/24 13:40 Non-Smoker No 11/15/24 13:40 Duration of Surgery greater Yes 11/15/24 13:40 than 60 minutes Number of Risk Factors 1 11/15/24 13:40 PONV Score Low Risk 11/15/24 13:40 Height & Weight Height & Weight: Anesthesia: Height & Weight Height 6 ft 08/26/24 17:16 Respiratory Assessment Respiratory Assessment - chemical dependency nurse: Respiratory Tract Infection Hx - chemical dependency nurse Hx Respiratory Tract Infection No 11/15/24 13:40 STOP Sleep Apnea STOP Sleep Apnea - chemical dependency nurse: STOP Sleep Apnea - chemical dependency nurse Hx Hypertension Yes 11/15/24 13:40 Hx Sleep Apnea Yes 11/15/24 13:40 CPAP No 11/15/24 13:40 BIPAP No 11/15/24 13:40 Do you snore loudly (louder than talking or can be heard Do you often feel tired/ fatigued/ sleepy during daytime? Has anyone observed you stop breathing during sleep? STOP Results Positive 11/15/24 13:40 QUESTION #5 FULL TEXT : Do you snore loudly (louder than talking or can be heard through closed doors)? 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 Specify any problems Hx of Preganancy in last 3 N/A 11/15/24 13:40 Months Nurse Filling Out Transfusion [id number] 11/15/24 13:40 & Questions: Date: 11/15/24 11/15/24 13:40 Time: 13:43 11/15/24 13:40 Patient unable to answer at this time (ie. confused, unrespo /Reproduction History /Reproductive History - chemical dependency nurse: /Reproductive Hx- chemical dependency nurse Hx Now Gestational Age (in weeks): EDC: Hx Hx Para Hx Section SAB No 08/26/24 17:11 PFS Medical History (Updated 11/15/24 @ 13:47 by Washington Hernandez) History of echocardiogram Rheumatoid arthritis Depression COPD (chronic obstructive pulmonary disease) Asthma Migraines Hypertension CKD (chronic kidney disease), stage III Anxiety and depression PHIL on CPAP Spinal stenosis, lumbar DDD (degenerative disc disease), lumbar Wears glasses History of steroid therapy Restless legs GERD (gastroesophageal reflux disease) Smoker CPAP (continuous positive airway pressure) dependence Chronic cough Inguinal hernia bilateral, non-recurrent Ventral incisional hernia without obstruction or gangrene Arthritis History of back problems Stage 1 mild COPD by GOLD classification HTN (hypertension) Obesity CKD stage III PHIL (obstructive sleep apnea) Abnormal chest CT Central sleep apnea COPD (chronic obstructive pulmonary disease) Asthma Chronic pain Depression Hemoptysis Curiel palsy Home Medications ?Medication ?Instructions ?Recorded ?Last Taken ?Type tizanidine 4 mg tablet 4 mg PO Q8H PRN Pain 6 Unknown History duloxetine 60 mg capsule,delayed 60 mg PO DAILY mental health 07/18/20 Unknown History release (Cymbalta) albuterol sulfate 90 mcg/actuation 1 - 2 puff inhalati on Q4H PRN PRN 12/20/22 Unknown Rx aerosol inhaler (Ventolin HFA) Wheezing ##1 hydroxyzine HCl 25 mg tablet 25 mg PO BID PRN anxiety 05/04/23 05/11/23 History omeprazole 20 mg capsule,delayed 20 mg PO DAILY reflux 05/04/23 Unknown History release tamsulosin 0.4 mg capsule 0.4 mg PO DAILY prostate Unknown History zolpidem 10 mg tablet 10 mg PO QHS PRN sleep 05/04 Unknown History atenolol 50 mg tablet 50 mg PO DAILY blood pressur e 12/01/23 Unknown History duloxetine 30 mg capsule,delayed 30 mg PO DAILY mental health 12/01/23 Unknown History release ondansetron 4 mg disintegrating 4 mg PO Q6H PRN nausea and 12/09/23 Unknown Rx tablet vomiting #7 tabs losartan 50 mg tablet 50 mg PO DAILY ASK PCP 08/26 Unknown History clonidine HCl 0.1 mg tablet 0.1 mg PO 4X/DAY 5 days #2 0 tabs 09/18/24 Unknown Rx atogepant 60 mg tablet (Qulipta) 60 mg PO DAILY Unknown History Allergy/AdvReac Type Severity Reaction Status Date / Time carisoprodol (From Soma) Allergy Other Verified 11/15/24 13:35 metoclopramide HCl (From AdvReac Upset Verified 11/15/24 13:35 Reglan) Stomach pregabalin (From Lyrica) AdvReac Upset Verified 11/15/24 13:35 Stomach Family History Father Lung disease Cancer lung Brother Cancer lung Mother Hypertension Surgical History (Updated 11/15/24 @ 13:47 by Washington Hernandez) Hx of appendectomy History of inguinal hernia repair, bilateral History of colonoscopy (~07/2020) H/O colonoscopy H/O neck surgery ankle surgery lower back surgery Social History household members: other details: roommate Smoking Status: Current every day smoker tobacco type: cigarettes Tobacco: How many years used: 50 Electronic Cigarette Use: not used how long ago did patient quit smokin, 2-3pk/day->quit for many yrs, started again over last 6-7 months. second hand exposure: Yes alcohol intake: never substance use type: does not use caffeine: Yes Type: coffee Number of servings: 3 what type of physical activity do you participate in: bicycling frequency: daily duration: 15-30 minutes/day Audit: Pertinent Findings Pertinent Findings EKG Perinent findings: August 26, 2024. Sinus bradycardia with marked sinus arrhythmia. Prolonged QT. Echo (EF%) pertinent findings: December 02, 2023. Ejection fraction 60%. PA systolic pressure is 30 mmHg. No aortic stenosis noted. Recommendation Anesthesia Recommendation Anesthesia recommendation: OPTIMIZED for anesthesia
[2024-11-17] VITALS (11 sets, daily range): BP systolic 114–186; BP diastolic 75–91; PULSE 60–82; RESP 16–20; TEMP 36.1–36.7; O2SAT 94–100; BMI 29.6
--- NOTE | 2024-11-17 | FLU_PTH ---
PATIENT: NURIA SHARPE LOC: EN U#:[id number] AGE/SX: 73/M ROOM: RE11/17/[address]: Dr. Anuel Mejia DO : 1950 BED: DIS: 11/17/2024 SPEC #: [id number] RECD: 11/17/24 13:53 STATUS: ANNIE DI #: [id number] KOJO: 11/17/24 00:[address]: Anuel Mejia DEPT: CYTOLOGY RECD BY: Jan Nixon ENTERED: 11/17/24 13:53 SP TYPE: Fluid OTHR DR: Dr. Oracio Hall DO Tissues: Biliary tract, NOS Procedures: Special Stain Group II Surgery Specimen Level IV Cytospin Fluid HEADER OPERATION: ERCP, stent removal, balloon cholangiogram, stent placement PRE-OP DIAGNOSIS: Choledocholithiasis, biliary stricture TISSUE SUBMITTED: Biliary stent for cytology DIAGNOSIS CYTOLOGY Biliary stricture, cytology and cell block:Benign-appearing ductal epithelium and benign-appearing squamous epithelium with fragments of bile. JOHN Robb MD 11/24/2024 CYTOLOGY STUDY Slides are reviewed. CYTOLOGY GROSS Received is 18mm taveras stent labeled with the patient's name and and designated per the requisition as Biliary stricture. Submitted for cytology preparation including cell block. Mr 11/17/2024 CPT: 26577,64968,TC4
[2024-11-17] MEDS: Ipratropium/Albuterol Sulfate 3 ML AMPUL.NEB INHALATION (09:30)
--- NOTE | 2024-11-17 09:48 | PRE.ANES_ITS ---
ASA Classification* ASA Classification ASA Classification: 3 Assessment & Plan Anesthesia* Anesthesia Assessment Anesthesia Assessment: Discussed sedation and/or anesthesia options, risks, benefits, and alternatives with patient/parents/legal guardian/POA. Questions invited. The patient/parents/legal guardian/POA seems to understand and agrees to proceed with anesthesia plan. Reviewed the physical assessment, medical history, allergy history and patient home medications list prior to surgery/procedure/anesthetic and documented any changes. Performed airway and anesthesia risk assessments. Anesthesia Type Anesthesia Type: MAC History Source History Obtained from:: Patient and Chart Anesthesia Focused Assessment* Temperature: 97.0 F Pulse Rate: 60 Blood Pressure: 186/91 Respiratory Rate: 18 Pulse Ox: 100 Oxygen Delivery Method: Room Air Airway Assessment Mouth opens: 2 cm Mallampati Score: III Teeth Condition: Dentures (Patient has upper and lower dentures. They are out.) Neck Range of motion (ROM): Limited ROM (Neck extension limited by previous surgery.) Focused Labs Anesthesia Preop lab: CBC WBC 9.0 K/mm3 (4.4-11.0) 09/18/24 03:19 09/18/24 RBC 3.73 M/mm3 (4.6-6.2) L 09/18/24 03:19 09/18/24 Hgb 11.9 g/dL (13.0-16.5) L 09/18/24 03:19 5 Hct 35.4 % (40-54) L 09/18/24 03:19 09/18/24 Plt Count 274 K/mm3 (150-450) 09/18/24 03:19 09/18/24 CHEMISTRY Potassium 3.2 mmol/L (3.5-5.1) L 09/18/24 03:19 09/18/24 Sodium 142 mmol/L (136-145) 09/18/24 03:19 09/18/24 Magnesium 2.1 mg/dL (1.6-2.6) 12/01/23 18:24 12/01/23 Phosphorus 3.3 mg/dL (2.5-4.9) 04/02/16 06:20 04/02/16 BUN 15 mg/dL (7-18) 09/18/24 03:19 09/18/24 Creatinine 1.06 mg/dL (0.70-1.30) 09/18/24 03:19 09/18/24 Glucose 106 mg/dL (74-106) 09/18/24 03:19 09/18/24 TSH 3.00 uIU/mL (0.358-3.74) 10/31/16 13:06 COAG PT 16.2 SECONDS (11.7-14.9) H 12/01/23 18:24 11/12 06/07 Pre-Assessment Diagnosis/Proposed Procedure Planned Operative Procedure(s): ERCP Anesthesia History 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 When Was Last Pacemaker Check QUESTION #4 FULL TEXT: You/Your Family Experience fever (hyperthermia) with Anesthesia Last Oral Intake Last Oral intake: Last Oral Intake NPO since 00:00 11/17/24 09:18 Meds taken in AM with sips of Yes 11/17/24 09:18 water? Meds patient instructed to see medlist 11/17/24 09:18 take am of surgery PONV PONV - web developer programmer: PONV - web developer programmer Female No 11/15/24 13:40 HX of Motion Sickness No 11/15/24 13:40 HX of N/V After Surgery No 11/15/24 13:40 Non-Smoker No 11/15/24 13:40 Duration of Surgery greater Yes 11/15/24 13:40 than 60 minutes Number of Risk Factors 1 11/15/24 13:40 PONV Score Low Risk 11/15/24 13:40 Height & Weight Height & Weight: Anesthesia: Height & Weight Height 6 ft 11/17/24 09:18 Weight: 99 kg 11/17/24 09:18 Body Mass Index (BMI) 29.6 11/17/24 09:18 Respiratory Assessment Respiratory Assessment - web developer programmer: Respiratory Tract Infection Hx - web developer programmer Hx Respiratory Tract Infection No 11/15/24 13:40 STOP Sleep Apnea STOP Sleep Apnea - web developer programmer: STOP Sleep Apnea - web developer programmer Hx Hypertension Yes 11/15/24 13:40 Hx Sleep Apnea Yes 11/15/24 13:40 CPAP No 11/15/24 13:40 BIPAP No 11/15/24 13:40 Do you snore loudly (louder than talking or can be heard Do you often feel tired/ fatigued/ sleepy during daytime? Has anyone observed you stop breathing during sleep? STOP Results Positive 11/15/24 13:40 QUESTION #5 FULL TEXT : Do you snore loudly (louder than talking or can be heard through closed doors)? 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 Specify any problems Hx of Preganancy in last 3 N/A 11/15/24 13:40 Months Nurse Filling Out Transfusion [email or web address] 11/15/24 13:40 & Questions: Date: 11/15/24 11/15/24 13:40 Time: 13:43 11/15/24 13:40 Patient unable to answer at this time (ie. confused, unrespo /Reproduction History /Reproductive History - web developer programmer: /Reproductive Hx- web developer programmer Hx Now Gestational Age (in weeks): EDC: Hx Hx Para Hx Section SAB No 08/26/24 17:11 PFS Medical History (Updated 11/17/24 @ 09:[address] Jamari Calvert MD) History of echocardiogram Rheumatoid arthritis Depression COPD (chronic obstructive pulmonary disease) Asthma Migraines Hypertension CKD (chronic kidney disease), stage III Anxiety and depression PHIL on CPAP Spinal stenosis, lumbar DDD (degenerative disc disease), lumbar Wears glasses History of steroid therapy Restless legs GERD (gastroesophageal reflux disease) Smoker CPAP (continuous positive airway pressure) dependence Chronic cough Inguinal hernia bilateral, non-recurrent Ventral incisional hernia without obstruction or gangrene Arthritis History of back problems Stage 1 mild COPD by GOLD classification HTN (hypertension) Obesity CKD stage III PHIL (obstructive sleep apnea) Abnormal chest CT Central sleep apnea COPD (chronic obstructive pulmonary disease) Chronic pain Depression Hemoptysis Curiel palsy Home Medications ?Medication ?Instructions ?Recorded ?Last Taken ?Type tizanidine 4 mg tablet 4 mg PO Q8H PRN Pain 6 Unknown History duloxetine 60 mg capsule,delayed 60 mg PO DAILY mental health 07/18/20 Unknown History release (Cymbalta) albuterol sulfate 90 mcg/actuation 1 - 2 puff inhalati on Q4H PRN PRN 12/20/22 Unknown Rx aerosol inhaler (Ventolin HFA) Wheezing ##1 hydroxyzine HCl 25 mg tablet 25 mg PO BID PRN anxiety 05/04/23 05/11/23 History omeprazole 20 mg capsule,delayed 20 mg PO DAILY reflux 05/04/23 11/17/24 History release tamsulosin 0.4 mg capsule 0.4 mg PO DAILY prostate 11/17/24 History zolpidem 10 mg tablet 10 mg PO QHS PRN sleep 05/04 Unknown History atenolol 50 mg tablet 50 mg PO DAILY blood pressur e 12/01/23 11/17/24 History duloxetine 30 mg capsule,delayed 30 mg PO DAILY mental health 12/01/23 Unknown History release ondansetron 4 mg disintegrating 4 mg PO Q6H PRN nausea and 12/09/23 Unknown Rx tablet vomiting #7 tabs losartan 50 mg tablet 50 mg PO DAILY ASK PCP 08/2611/17/24 History clonidine HCl 0.1 mg tablet 0.1 mg PO 4X/DAY 5 days #2 0 tabs 09/18/24 11/17/24 Rx atogepant 60 mg tablet (Qulipta) 60 mg PO DAILY Unknown History Allergy/AdvReac Type Severity Reaction Status Date / Time carisoprodol (From Soma) Allergy Other Verified 11/17/24 09:13 metoclopramide HCl (From AdvReac Upset Verified 11/17/24 09:13 Reglan) Stomach pregabalin (From Lyrica) AdvReac Upset Verified 11/17/24 09:13 Stomach Family History Father Lung disease Cancer lung Brother Cancer lung Mother Hypertension Surgical History Hx of appendectomy History of inguinal hernia repair, bilateral History of colonoscopy (~07/2020) H/O colonoscopy H/O neck surgery ankle surgery lower back surgery Social History household members: other details: roommate Smoking Status: Current every day smoker tobacco type: cigarettes Tobacco: How many years used: 50 Electronic Cigarette Use: not used how long ago did patient quit smokin, 2-3pk/day->quit for many yrs, started again over last 6-7 months. second hand exposure: Yes alcohol intake: never substance use type: does not use caffeine: Yes Type: coffee Number of servings: 3 what type of physical activity do you participate in: bicycling frequency: daily duration: 15-30 minutes/day Review of Systems (Anesthesia) ROS Narrative System reviewed and no additional complaints, except as documented. Physical Exam Resp clear to auscultation bilaterally Resp Narrative: Good air movement. Harsh sounding. No wheezing.
--- NOTE | 2024-11-17 10:53 | PCM.HP.STD ---
HPI - General General Date of Admission: 11/17/24 Date of Service: 11/17/24 Chief Complaint: ERCP with stent removal HPI Narrative NURIA SHARPE, is a 73 M who presents today for an ERCP with stent removal or exchange. He originally presented with confusion, nausea vomiting and diarrhea as well as right upper quadrant pain. Patient was found to have choledocholithiasis as well as cholecystitis. Patient underwent an ERCP that showed a biliary stricture as well as choledocholithiasis and patient had a stent with partial removal of the stones. CAT scan did show cholecystitis. Patient was seen by general surgery who recommend outpatient cholecystectomy. FOR[facility]LY [facility] Medical History History of echocardiogram Rheumatoid arthritis Depression COPD (chronic obstructive pulmonary disease) Asthma Migraines Hypertension CKD (chronic kidney disease), stage III Anxiety and depression PHIL on CPAP Spinal stenosis, lumbar DDD (degenerative disc disease), lumbar Wears glasses History of steroid therapy Restless legs GERD (gastroesophageal reflux disease) Smoker CPAP (continuous positive airway pressure) dependence Chronic cough Inguinal hernia bilateral, non-recurrent Ventral incisional hernia without obstruction or gangrene Arthritis History of back problems Stage 1 mild COPD by GOLD classification HTN (hypertension) Obesity CKD stage III PHIL (obstructive sleep apnea) Abnormal chest CT Central sleep apnea COPD (chronic obstructive pulmonary disease) Chronic pain Depression Hemoptysis Curiel palsy Home Medications ?Medication ?Instructions ?Recorded ?Last Taken ?Type tizanidine 4 mg tablet 4 mg PO Q8H PRN Pain 03/31/16 Unknown History duloxetine 60 mg capsule,delayed 60 mg PO DAILY mental health 07/18/20 Unknown History release (Cymbalta) albuterol sulfate 90 mcg/actuation 1 - 2 puff inhalation Q4H PRN PRN 12/20/22 Unknown Rx aerosol inhaler (Ventolin HFA) Wheezing ##1 hydroxyzine HCl 25 mg tablet 25 mg PO BID PRN anxiety 05/04/23 05/11/23 History omeprazole 20 mg capsule,delayed 20 mg PO DAILY reflux 05/04/23 11/17/24 History release tamsulosin 0.4 mg capsule 0.4 mg PO DAILY prostate 05/04/23 11/17/24 History zolpidem 10 mg tablet 10 mg PO QHS PRN sleep 05/04/23 Unknown History atenolol 50 mg tablet 50 mg PO DAILY blood pressure 12/01/23 11/17/24 History duloxetine 30 mg capsule,delayed 30 mg PO DAILY mental health 12/01/23 Unknown History release ondansetron 4 mg disintegrating 4 mg PO Q6H PRN nausea and 12/09/23 Unknown Rx tablet vomiting #7 tabs losartan 50 mg tablet 50 mg PO DAILY ASK PCP 08/26/24 11/17/24 History clonidine HCl 0.1 mg tablet 0.1 mg PO 4X/DAY 5 days #20 tabs 09/18/24 11/17/24 Rx atogepant 60 mg tablet (Qulipta) 60 mg PO DAILY 11/15/24 Unknown History Allergy/AdvReac Type Severity Reaction Status Date / Time carisoprodol (From Soma) Allergy Other Verified 11/17/24 09:13 metoclopramide HCl (From AdvReac Upset Verified 11/17/24 09:13 Reglan) Stomach pregabalin (From Lyrica) AdvReac Upset Verified 11/17/24 09:13 Stomach Family History Father Lung disease Cancer lung Brother Cancer lung Mother Hypertension Surgical History Hx of appendectomy History of inguinal hernia repair, bilateral History of colonoscopy (~07/2020) H/O colonoscopy H/O neck surgery ankle surgery lower back surgery Social History household members: other details: roommate Smoking Status: Current every day smoker (Patient smoked today.) tobacco type: cigarettes Tobacco: How many years used: 50 Electronic Cigarette Use: not used how long ago did patient quit smokin, 2-3pk/day->quit for many yrs, started again over last 6-7 months. second hand exposure: Yes alcohol intake: never substance use type: does not use caffeine: Yes Type: coffee Number of servings: 3 what type of physical activity do you participate in: bicycling frequency: daily duration: 15-30 minutes/day ROS Constitutional Constitutional: Denies anorexia, chills, fatigue or fever(s) Eyes Eyes: Denies blurry vision ENT HEENT: Denies abnormal hearing Gastrointestinal Gastrointestinal: Reports abdominal pain Genitourinary Genitourinary: Denies change in urinary stream Musculoskeletal Musculoskeletal: Denies abnormal gait Integumentary Integumentary: Denies jaundice Neurologic Neurologic: Denies abnormal gait Psychiatric Psychiatric: Denies anxiety or depression Endocrine Endocrinology: Denies flushing Hematologic/Lymphatic Hematologic/Lymphatic: Denies easy bleeding Vital Signs Vital Signs Vital Signs: 11/17/24 09:18 11/17/24 09:18 11/17/24 09:30 Temperature 97.0 F L Temperature Source Temporal Pulse Rate 60 82 Respiratory Rate 18 20 H Respiratory Pattern Normal Normal Blood Pressure 186/91 H Blood Pressure Mean 122 Blood Pressure Source Monitor Blood Pressure Position Semi-Fowlers Blood Pressure Location Left Arm Pulse Ox 100 Oxygen Delivery Method Room Air 11/17/24 09:58 Temperature 97.0 F L Temperature Source Pulse Rate 60 Respiratory Rate 18 Respiratory Pattern Blood Pressure 186/91 H Blood Pressure Mean Blood Pressure Source Blood Pressure Position Blood Pressure Location Pulse Ox 100 Oxygen Delivery Method Room Air Weight Weight: 218 lb 4.122 oz Body Mass Index (BMI) 29.6 Physical Exam Const alert, oriented x3, no apparent distress and healthy appearing General Appearance: cooperative GI normal to inspection, nondistended, normoactive bowel sounds, soft to palpation, non-tender and non-distended Percussion: normal to percussion Rectal Exam: deferred Assessment & Plan Assessment/Plan (1) Choledocholithiasis: (2) Biliary stricture: PLAN: He will undergo ERCP with biliary stent removal or replacement. He was explained alternatives, risk and benefits include not withstanding bleeding, infection, sepsis, perforation, need for emergent urgent . He will an ASA of 3.
--- NOTE | 2024-11-17 11:15 | RAD_ITS ---
PROCEDURE: ERCP BILIARY/PANCREAS; O.R. FLUORO FOR C-ARM REASON FOR EXAM: ERCP TECHNIQUE: Intraoperative fluoroscopy was performed for ERCP. Approximately 18 fluoroscopic images were also obtained. Fluoroscopy time 220.2 seconds. COMPARISON: None. RAD/ERCP Biliary/Pancreas IMPRESSION: Intraoperative fluoroscopy was performed for ERCP. Approximately 18 fluoroscop ic images were also obtained. Reading Location: [id number]
--- NOTE | 2024-11-17 11:15 | RAD_ITS ---
PROCEDURE: ERCP BILIARY/PANCREAS; O.R. FLUORO FOR C-ARM REASON FOR EXAM: ERCP TECHNIQUE: Intraoperative fluoroscopy was performed for ERCP. Approximately 18 fluoroscopic images were also obtained. Fluoroscopy time 220.2 seconds. COMPARISON: None. RAD/O.R. Fluoro for C-Arm IMPRESSION: Intraoperative fluoroscopy was performed for ERCP. Approximately 18 fluoroscop ic images were also obtained. Reading Location: [id number]
--- NOTE | 2024-11-17 12:13 | PCM.POST.ANE ---
Anesthesia: Postop Eval I Current Vital Signs Temperature: 97.7 F Pulse Rate: 72 Blood Pressure: 114/77 Respiratory Rate: 16 Pulse Ox: 97 Oxygen Delivery Method: Room Air Assessment Airway patent: Yes Spontaneous unlabored respirations: Yes Mental status: Awake and Calm nausea: No Vomiting: No Anesthesia Complication: No Fluid Hydration Crystalloid volume administer (ml): 60 Total IV fluid infused: 60 Progress Note Anesthesia document: Postop Eval 1 completed: Yes
--- NOTE | 2024-11-17 12:14 | OP.ERCP_ITS ---
Patient Name: George Dewitt Procedure Date: 11/17/2024 11:03 AM Date of : 1950 Age: 73 Procedure: ERCP Indications: Bile duct stone(s), Common bile duct stone(s), Biliary stent removal Providers: Anuel Mejia DO Referring MD: Oracio Hall Medicines: Monitored Anesthesia Care Patient Profile: This is a 73 year old male. Refer to note in patient chart for documentation of history and physical. Patient has symptoms of acute right upper quadrant abdominal pain. Complications: No immediate complications. Procedure: Pre-Anesthesia Assessment: - Prior to the procedure, a History and Physical was performed, and patient medications and allergies were reviewed. The patient is competent. The risks and benefits of the procedure and the sedation options and risks were discussed with the patient. All questions were answered and informed consent was obtained. Patient identification and proposed procedure were verified by the physician in the pre-procedure area. Mental Status Examination: alert and oriented. Airway Examination: normal oropharyngeal airway and neck mobility. Respiratory Examination: clear to auscultation. CV Examination: normal. ASA Grade Assessment: II - A patient with mild systemic disease. After reviewing the risks and benefits, the patient was deemed in satisfactory condition to undergo the procedure. The anesthesia plan was to use monitored anesthesia care (MAC). Immediately prior to administration of medications, the patient was re-assessed for adequacy to receive sedatives. The heart rate, respiratory rate, oxygen saturations, blood pressure, adequacy of pulmonary ventilation, and response to care were monitored throughout the procedure. The physical status of the patient was re-assessed after the procedure. After obtaining informed consent, the scope was passed under direct vision. Throughout the procedure, the patient's blood pressure, pulse, and oxygen saturations were monitored continuously. The Duodenoscope was introduced through the mouth, and advanced to the duodenum and used to inject contrast into the bile duct. The ERCP was accomplished without difficulty. The patient tolerated the procedure well. Scope In: 11:20:50 AM Scope Out: 11:59:08 AM Total Procedure Duration Time 0 hours 38 minutes 18 seconds Findings: The data security coordinator film was normal. The esophagus was successfully intubated under direct vision. The scope was advanced to a normal major papilla in the descending duodenum without detailed examination of the pharynx, larynx and associated structures, and upper GI tract. The upper GI tract was grossly normal. A long 0.025 inch Jagwire was passed into the biliary tree. The short-nosed traction sphincterotome was passed over the guidewire and the bile duct was then deeply cannulated. Contrast was injected. I personally interpreted the bile duct images. There was brisk flow of contrast through the ducts. Image quality was adequate. Contrast extended to the biliary pancreatic junction. Contrast extended to the main bile duct. Contrast extended to the cystic duct. Contrast extended to the gallbladder. Contrast extended to the bifurcation. Contrast extended to the hepatic ducts. Contrast extended to the entire biliary tree. Opacification of the biliary pancreatic junction, common bile duct, cystic duct, gallbladder, common hepatic duct, hepatic duct bifurcation, left main hepatic duct, right intrahepatic branches and left and right hepatic ducts and all intrahepatic branches was successful. The maximum diameter of the ducts was 12 mm. The common bile duct, cystic duct, gallbladder, left main hepatic duct and left intrahepatic branches contained multiple stones, the largest of which was 6 mm in diameter. The main bile duct and cystic duct were locally dilated, with a stone causing an obstruction. The largest diameter was 10 mm. A 5 mm biliary sphincterotomy was made with a braided traction (standard) sphincterotome using ERBE electrocautery. There was no post-sphincterotomy bleeding. The biliary tree was swept with a 12 mm balloon starting at the cystic duct, gallbladder, bifurcation, left intrahepatic duct(s) and left main hepatic duct. All stones were removed. One stent was removed from the biliary tree using a snare and sent for cytology. The stent was found to be patent via the water column test. One 10 Fr by 7 cm temporary stent was placed 5 cm into the common bile duct. Bile flowed through the stent. The stent was in good position. Impression: - The cystic duct and entire main bile duct were dilated, with a stone causing an obstruction. - Choledocholithiasis was found. Complete removal was accomplished by biliary sphincterotomy and balloon extraction. - A biliary sphincterotomy was performed. - The biliary tree was swept. - One stent was removed from the biliary tree. - One temporary stent was placed into the common bile duct. Procedure Code(s): --- Professional --- 51805, Endoscopic retrograde cholangiopancreatography (ERCP); with removal and exchange of stent(s), biliary or pancreatic duct, including pre- and post-dilation and guide wire passage, when performed, including sphincterotomy, when performed, each stent exchanged 04365, Endoscopic retrograde cholangiopancreatography (ERCP); with removal of calculi/debris from biliary/pancreatic duct(s) 43884, 26, Endoscopic catheterization of the biliary ductal system, radiological supervision and interpretation CPT copyright 2021 [employer]. All rights reserved. The codes documented in this report are preliminary and upon manager e learning review may be revised to meet current compliance requirements. Anuel Mejia DO 11/17/2024 12:13:35 PM This report has been signed electronically. Number of Addenda: 0 Note Initiated On: 11/17/2024 11:03 AM
--- NOTE | 2024-11-17 12:14 | OP.CCLET_ITS ---
11/17/2024 Oracio Hall [address] [place] [address] [place] [address] Re : ERCP procedure for George Dewitt Dear Dr. Hall This procedure was performed on November. My impressions and recommendations are as follows: Impressions : - The cystic duct and entire main bile duct were dilated, with a stone causing an obstruction. - Choledocholithiasis was found. Complete removal was accomplished by biliary sphincterotomy and balloon extraction. - A biliary sphincterotomy was performed. - The biliary tree was swept. - One stent was removed from the biliary tree. - One temporary stent was placed into the common bile duct. Recommendations : My findings are described in the full procedure note, which is enclosed. If I can be of further assistance, please feel free to contact me at . Sincerely, Anuel Mejia, 11/17/2024 12:13:35 PM This report has been signed electronically.
--- NOTE | 2024-11-17 18:22 | PCM.POSTANE2 ---
Anesthesia Postop Eval I Sum Postop Eval Completion status Anesthesia document: Postop Eval 1 completed: Yes Anesthesia Postop Eval I Summary Anesthesia Postop Eval I Summary: Anesthesia Postop Eval I: Assessment Summary Airway patent Yes 11/17/24 12:14 [email or web address] Spontaneous unlabored Yes 11/17/24 12:14 [email or web address] respirations Mental status Awake,Calm 11/17/24 12:14 [email or web address] nausea No 11/17/24 12:14 [email or web address] Vomiting No 11/17/24 12:14 [email or web address] Anesthesia Postop Eval I: Fluid Summary Crystalloid volume administer 60 11/17/24 12:14 [email or web address] (ml) Colloids volume administered ( ml) Blood Product volume administered (ml) Total IV fluid infused 60 11/17/24 12:14 [email or web address] Anesthesia Postop Eval I: Summary Notes Anesthesia Complication No 11/17/24 12:14 [email or web address] Anesthesia Complication Comment: Post-operative progress note Anesthesia: Postop Eval II Evaluation Mental status: Awake and Calm Pain Level: 1 nausea: No Vomiting: No Complications Anesthesia Complication: No
== END 2024-11-17 13:11 | disposition home or self-care (01) ==
LOC: EN 08:55 → AC 08:57
PROVIDERS: PCP Family Medicine; Referring Provider Family Medicine; Visit Provider Internal Medicine Gastroenterology
PROC: (CPT 43260; principal; 2024-11-17 10:10)
DX: K80.41 Calculus of bile duct with cholecystitis, unspecified, with obstruction (principal); J44.89 Other specified chronic obstructive pulmonary disease; N18.30 Chronic kidney disease, stage 3 unspecified; K21.9 Gastro-esophageal reflux disease without esophagitis; I12.9 Hypertensive chronic kidney disease with stage 1 through stage 4 chronic kidney disease, or unspecified chronic kidney disease; F17.210 Nicotine dependence, cigarettes, uncomplicated; G47.33 Obstructive sleep apnea (adult) (pediatric); Z99.89 Dependence on other enabling machines and devices; Z79.899 Other long term (current) drug therapy; Z90.49 Acquired absence of other specified parts of digestive tract
CPT/HCPCS: 43276; 43264; 74330; 76000; 88108; 88305; 88313; 93005; 94640; A4216; J2405